=== PATIENT | female | born 1980 | race Caucasian/White ===

== ENCOUNTER → 2020-08-29 14:03 | Outpatient (REF) | payer BC, SELFPAY ==
--- NOTE | 2020-08-29 14:00 | CA_ITS ---
Transthoracic Echocardiogram Patient (Last, First, Middle): Karen Davies, Gender: Female Date of : 1980 Age: 39 Procedure Date: 08/29/2020 Procedure Type: Transthoracic Echocardiogram Location: OP Height: 157.48 cm Weight: 108.86 kg BSA: 2.07 m2 Heart Rate: bpm BP: 124 / 80 mmHg Animal Geneticist: SADA Referring MD: Pam CRUZ Senior Chemist: Clive Goldberg MD Symptoms: LVH, MILD Study Quality: Good ECG Rhythm: Sinus Conclusions: - 1. Normal LV systolic function with impaired relaxation filling pattern 2. Trivial aortic regurgitation 3. Normal RV systolic pressure 4. No pericardial effusion Findings Procedure Information Contrast agent, definity, is being given per protocol without apparent complications. Left Ventricle Normal left ventricular size, thickness, and systolic function. The visually estimated ejection fraction is between 65-70%. Spectral Doppler is indicative of an impaired relaxation filling pattern. E/E prime ratio is <8, consistent with normal filling pressures. Evidence suggests grade I (mild) diastolic dysfunction. Right Ventricle Normal right ventricular cavity size and systolic function. Atria Both atria are normal in size. There is lipomatous hypertrophy of the interatrial septum. There is no evidence of interatrial shunt. Aortic Valve The aortic valve structure and function is likely normal. There is no aortic valve stenosis. There is trace (trivial) aortic valve regurgitation. Mitral Valve There is moderate anterior mitral leaflet thickening. There is no mitral valve regurgitation. There is no mitral valve stenosis. Pulmonic Valve The pulmonic valve was not well visualized. Tricuspid Valve Likely normal tricuspid valve structure and function. There is trace tricuspid valve regurgitation. The right ventricular systolic pressure is normal. The right ventricular systolic pressure is 24 mmHg. Normal right atrial pressure. There is no evidence of pulmonary hypertension. Great Vessels All visible segments of the aorta are normal in size. The pulmonary artery was not well visualized. Venous The inferior vena cava is normal in size and collapses greater than 50% with inspiration. Pericardium/Pleural There is no evidence of pericardial effusion. Prior Study Comparison No prior study available for comparison. Measurements 2D Linear Measurements RVIDd: 3.39 RVIDd Index: 1.64 IVSd: 0.74 0.6-0.9/0.6-1.0 cm LVIDd: 4.47 3.9-5.3/4.2-5.9 cm LVIDd Index: 2.16 2.4-3.2/2.2-3.1 cm/m2 LVIDs: 2.83 2.0-3.6 cm LVPWd: 0.80 0.7-1.1 cm Ao Root: 3.30 2.1-3.5 cm LA Diam: 3.90 2.7-3.8/3.0-4.0 cm LAIDs Index: 1.88 1.5-2.3 cm/m2 LV Mass: 244.33 67-162/88-224 g LV Mass Index: 118.03 43-95/49-115 g/m2 LVOT Diam: 2.00 3.0+(-)1.3 cm 2D Systolic Function EF 4C: 72.30 >55% EF 2C: 50.20 >55% EF BiP: 63.10 >55% Mitral Valve E'Lateral: 13.40 E'Medial: 9.03 Aortic Valve AoV Pk Ryan: 1.61 AoV Mn Ryan: 1.09 AoV VTI: 0.27 AoV Pk Grad: 10.00 Aov Mn Grad: 5.00 DAVID Cont.VTI: 2.16 LVOT LVOT Pk Ryan: 1.16 LVOT Mn Ryan: 0.78 LVOT VTI: 0.18 LVOT Pk Grad: 5.00 LVOT Mn Grad: 3.00 LVOT Diam: 2.00 LVOT Area: 3.14 Diastolic Function E'Medial: 9.03 E' Laterial: 13.40 Tricuspid Valve TR Pk Ryan: 2.27 TR Pk Grad: 21.00 RA Press: 3.00 RVSP: 24.00 Great Vessels Aorta Ao Root-2D: 3.30 2.0-3.7 cm Ao Asc: 3.60 2.1-3.4 cm Ao Arch: 2.40 Updated in Other Vendor System with Status of Final Clive Goldberg MD electronically signed on 08/30/2020 2:57:18 PM with status of Final
== END ==
LOC: HO.CARD 14:03
PROVIDERS: Visit Provider Physician Assistant Medical
DX: I50.1 Left ventricular failure, unspecified (principal)
CPT/HCPCS: 93306; Q9957

== ENCOUNTER 2022-01-25 15:09 | Emergency (ER) | payer BC, SELFPAY ==
[2022-01-25] VITALS (10 sets, daily range): BP systolic 79–130; BP diastolic 28–82; PULSE 79–91; RESP 16–18; TEMP 36.7–37; O2SAT 98; BMI 45.3
--- NOTE | ~2022-01-25 | XR_ITS ---
EXAMINATION: XR chest 2V CLINICAL INFORMATION: Reason for Exam near syncope COMPARISON: No prior chest x-ray available in our system for comparison at the time of this dictation. TECHNIQUE: XR chest 2V Lungs and Chanelle: Both lungs are clear. Pleura: Normal. Costophrenic angles are sharp. No pneumothorax. Heart: The heart is normal in size. Mediastinum: The mediastinum is within normal limits.. Bones: Skeletal structures included are normal for patient's age. XR/XR chest 2V IMPRESSION: No radiographic evidence of acute cardiopulmonary disease.
--- NOTE | 2022-01-25 15:20 | ED_ITS ---
HPI - General Adult General Chief complaint: Syncope Stated complaint: LIGHTHEADED @ WORK,NEW MED RECENTLY PER EMS Time Seen by Provider: 01/25/22 15:13 Source: patient and EMS Mode of arrival: EMS Limitations: no limitations History of Present Illness HPI narrative: 41-year-old female with a history of syncopal episodes in the past here with reports of feeling lightheaded at work feeling like she was going to pass out. Patient tells me that she was sitting at her desk when she started to feel warm all over and lightheaded. Her co-worker was able to call EMS. On arrival the patient's blood pressure was 86 systolic. The patient denies any associated chest pain, shortness of breath, headache, vomiting. Patient tells me she has history of single episodes the past and this feels similar. Of note the patient is currently trying to get and started metformin twice daily about 2 weeks ago. She is currently being fall the fertility clinic at [facility] is also receiving closed med. Patient denies any abdominal pain, vaginal bleeding, vomiting. Related Data Home Medications Medication Instructions Recorded Confirmed levothyroxine 125 mcg tablet 125 mcg PO DAILY 04/24/21 lisinopril 10 mg tablet 10 mg PO DAILY 04/24/21 venlafaxine 150 mg 150 mg PO DAILY 04/24/21 capsule,extended release 24 hr Previous Rx's Medication Instructions Recorded prednisone 20 mg tablet 20 mg PO DAILY 9 Days #18 tab 04/24/21 Allergies Allergy/AdvReac Type Severity Reaction Status Date / Time amoxicillin Allergy Unknown Verified 01/25/22 15:28 loratadine [From Claritin] Allergy Unknown Verified 01/25/22 15:28 Review of Systems Review of Systems: Yes all other systems are reviewed and are negative Constitutional: Constitutional: Reports no additional constitutional complaints, Denies body ache(s), Denies chills, Denies fever(s), Denies headache(s) and Denies weakness Eyes: Eyes: Reports no additional eye complaints and Denies change in vision ENT: Reports system reviewed and no additional complaints, except as documented, Reports dizziness, Denies headache(s), Denies nasal congestion, Denies nasal discharge and Denies neck pain Cardiovascular: Cardiovascular: Reports no additional cardiovascular complaints, Denies chest pain, Denies leg edema and Denies dyspnea Respiratory: Respiratory: Reports no additional respiratory complaints, Denies cough and Denies dyspnea Gastrointestinal: Gastrointestinal: Reports no additional gastrointestinal complaints, Denies abdominal pain, Denies diarrhea, Denies nausea and Denies vomiting Genitourinary: Genitourinary: Reports no additional female genitourinary complaints and Denies urinary incontinence Musculoskeletal: Musculoskeletal: Reports no additional musculoskeletal complaints, Denies back pain, Denies arthralgias, Denies joint swelling, Denies neck pain, Denies numbness and Denies tingling Integumentary/Breasts: Skin/Breast: Reports system reviewed and no additional complaints, except as docu and Denies rash Neurologic: Reports system reviewed and no additional complaints, except as documented, Reports dizziness, Denies headache(s), Denies numbness, Denies tingling and Denies weakness PMFSH Past Medical History Attestation statement: The following information was validated with the patient. Source: old records reviewed and nursing notes reviewed Social History Social History Alcohol intake: never Patient Tobacco Use Status: Never used Tobacco Use of substances other than those prescribed or required for medical reasons: No Advance Directives: No Advance Directives Information Provided: No Physical Exam ED Vital Signs: Vital Signs - 24 hr 01/25/22 15:28 01/25/22 15:33 01/25/22 15:50 Temperature 98.0 F Pulse Rate 82 85 Respiratory Rate 18 Blood Pressure 79/28 L 94/54 L 106/67 Pulse Oximetry 98 98 01/25/22 16:10 01/25/22 16:38 01/25/22 16:40 Temperature Pulse Rate 82 91 Respiratory Rate Blood Pressure 103/70 104/67 130/82 Pulse Oximetry 01/25/22 16:42 01/25/22 17:17 Temperature Pulse Rate 88 79 Respiratory Rate 18 Blood Pressure 119/82 115/76 Pulse Oximetry 98 BMI result Body Mass Index 45.3 Const General: cooperative, healthy appearing, comfortable and no acute distress Orientation/consciousness: patient oriented x3 Limitations: no limitations HENMT Head: Yes normal to inspection Ears: hearing grossly normal bilaterally and TM's normal bilaterally General nose exam: Normal external nose present Face and sinus: Yes normal facial exam Mouth: Normal oral and palatal mucosa present Teeth and gingiva: dentition normal Throat: Yes posterior oropharynx normal, Yes tonsils normal and Yes uvula m idline Eyes General: appearance normal, both eyes and all related structures Pupils: Equal, round and reactive pupils present Neck Neck: Yes normal visual inspection, Yes full ROM, Yes no lymphadenopathy and Yes no meningeal signs Chest Chest palpation & inspection: normal inspection of the chest Resp Effort & Inspection: normal respiratory effort Auscultation: clear to auscultation bilaterally Cardio Rate: regular rate Rhythm: regular rhythm Peripheral pulses: Peripheral pulses 2+ throughout GI Inspection: Yes normal to inspection Palpation (GI): Soft to palpation and nontender General: Yes no CVA tenderness Back/Spine/Pelvis Back: no CVA tenderness Thoracic/Lumbar Spine: thoracic and lumbar spine normal to inspection Skin General skin exam: no rashes or lesions noted Neuro General: patient oriented x3, moves all extremities, no meningeal signs and U nable to assess gait Cranial nerves: Yes CN's II-XII intact bilaterally, Yes Equal, round and reactive pupils present, Yes Bilaterally intact EOM present, Yes Nystagmus not present, Yes Normal facial strength present and Yes Midline tongue present Cognition (Neuro): normal cognition Gait exam (Neuro): Unable to assess gait Motor exam (neuro): 5/5 motor strength present throughout Sensory Exam: Normal double simultaneous stimulation for sensation Coordination: [id number] test normal Course Course Course Narrative: 41 yo female here with near syncopal episode that occurred at work with some hypotension on arrival. Patient has history of similar episodes in the past. Normal neuro exam. Vitals are stable with the exception of blood pressure of 90 systolic. Patient feels improved with lying flat. Will check labs, orthostatic vital signs, UA, urine , EKG, chest x-ray. Will give normal saline bolus and reassess Reevaluation(s) Reevaluation #1: Labs unremarkable. Urine is negative. Patient orthostatics vital signs after she received 1500 cc of fluid and so these were negative. Her EKG shows no ischemic changes. Chest x-ray is normal. Patient tells me she has history of syncopal episodes in the past. Recommend she follow up outpatient with primary care doctor. Reviewed worrisome signs and symptoms of when to return to the emergency department. Comfortable discharge home. Time: 18:00 Medical Decision Making MDM Narrative Medical decision making narrative: Anemia, electrolyte abnormality, , orthostatic hypotension Medical Records Medical records reviewed: Yes I reviewed the patient's medical records. Lab Data Lab results reviewed: Yes I reviewed the patient's lab results. Result diagrams: 01/25/22 16:25 01/25/22 16:25 Labs: Lab Results 01/25/22 01/25/22 01/25/22 Range/Units 15:24 16:25 16:25 WBC 8.1 (4.8-10.8) X10*3/uL RBC 4.64 (4.20-5.50) X10*6/uL Hgb 11.3 L (12.0-16.0) g/dl Hct 36.9 L (37.0-47.0) % MCV 79.5 L (80.0-98.0) fL MCH 24.4 L (27.0-33.0) pg MCHC 30.6 L (31.0-35.0) g/dl RDW 13.8 (11.0-16.0) % Plt Count 313 (160-400) X10*3/uL MPV 10.1 (9.4-12.3) fL Immature Gran % (Auto) 0.2 (0.0-0.4) % Neut % (Auto) 81.8 H (45-73) % Lymph % (Auto) 11.7 L (20-40) % [place] % (Auto) 5.1 (2-11) % Eos % (Auto) 1.0 (0-4) % Baso % (Auto) 0.2 (0-2) % Lymph # (Auto) 1.0 L (1.2-4.9) X10*3/uL [place] # (Auto) 0.4 (0.1-1.2) X10*3/uL Eos # (Auto) 0.1 (0.0-0.4) X10*3/uL Baso # (Auto) 0.0 (0.0-0.2) X10*3/uL Abs Immat Gran (auto) 0.02 (0.00-0.03) X10*3/uL Absolute Neuts (auto) 6.6 (2.0-8.3) x10*3/uL Absolute Nucleated RBC 0.000 (0.0-0.012) X10*3/uL Nucleated RBC % (auto) 0.0 (0.0-0.2) /100WBC Sodium 136 (135-145) mmol/L Potassium 4.5 (3.3-5.1) mmol/L Chloride 106 (96-108) mmol/L Carbon Dioxide 22 (22-29) mmol/L Anion Gap 13 (12-20) BUN 23 H (9-16) mg/dL Creatinine 0.85 (0.5-1.4) mg/dL Estim Creat Clear Calc 99.3 Estimated GFR > 60 POC Glucose 103 (60-115) mg/dL Random Glucose 83 (60-115) mg/dL Calcium 9.2 (8.4-10.2) mg/dL Magnesium 1.6 (1.6-2.6) mg/dL Total Bilirubin 0.3 (0.0-1.0) mg/dL Direct Bilirubin < 0.2 (0.0-0.5) mg/dL AST 17 (5-31) U/L ALT 14 (0-31) U/L Alkaline Phosphatase 46 (39-117) U/L Troponin I High Sens (<3.5-17.0) ng/L Total Protein 7.5 (6.5-8.0) g/dL Albumin 3.8 (3.5-5.0) g/dL Urine Color Urine Appearance Urine pH (5.0-8.0) Ur Specific [place] (1.005-1.025) Urine Protein (NEG-TRACE) MG/DL Urine Glucose (UA) (NEG) MG/DL Urine Ketones (NEG) MG/DL Urine Blood (NEG) Urine Nitrite (NEG) Ur Leukocyte Esterase (NEG) Urine RBC (0) /HPF Urine WBC (0-4) /HPF Ur Squamous Epith Cells /LPF Urine Bacteria /LPF Urine Mucus /LPF Urine Test (NEGATIVE) 01/25/22 01/25/22 01/25/22 Range/Units 16:25 17:52 17:52 WBC (4.8-10.8) X10*3/uL RBC (4.20-5.50) X10*6/uL Hgb (12.0-16.0) g/dl Hct (37.0-47.0) % MCV (80.0-98.0) fL MCH (27.0-33.0) pg MCHC (31.0-35.0) g/dl RDW (11.0-16.0) % Plt Count (160-400) X10*3/uL MPV (9.4-12.3) fL Immature Gran % (Auto) (0.0-0.4) % Neut % (Auto) (45-73) % Lymph % (Auto) (20-40) % [place] % (Auto) (2-11) % Eos % (Auto) (0-4) % Baso % (Auto) (0-2) % Lymph # (Auto) (1.2-4.9) X10*3/uL [place] # (Auto) (0.1-1.2) X10*3/uL Eos # (Auto) (0.0-0.4) X10*3/uL Baso # (Auto) (0.0-0.2) X10*3/uL Abs Immat Gran (auto) (0.00-0.03) X10*3/uL Absolute Neuts (auto) (2.0-8.3) x10*3/uL Absolute Nucleated RBC (0.0-0.012) X10*3/uL Nucleated RBC % (auto) (0.0-0.2) /100WBC Sodium (135-145) mmol/L Potassium (3.3-5.1) mmol/L Chloride (96-108) mmol/L Carbon Dioxide (22-29) mmol/L Anion Gap (12-20) BUN (9-16) mg/dL Creatinine (0.5-1.4) mg/dL Estim Creat Clear Calc Estimated GFR POC Glucose (60-115) mg/dL Random Glucose (60-115) mg/dL Calcium (8.4-10.2) mg/dL Magnesium (1.6-2.6) mg/dL Total Bilirubin (0.0-1.0) mg/dL Direct Bilirubin (0.0-0.5) mg/dL AST (5-31) U/L ALT (0-31) U/L Alkaline Phosphatase (39-117) U/L Troponin I High Sens < 3.5 (<3.5-17.0) ng/L Total Protein (6.5-8.0) g/dL Albumin (3.5-5.0) g/dL Urine Color YELLOW Urine Appearance HAZY Urine pH 5.5 (5.0-8.0) Ur Specific [place] >= 1.030 H (1.005-1.025) Urine Protein TRACE (NEG-TRACE) MG/DL Urine Glucose (UA) NEG (NEG) MG/DL Urine Ketones 15 (NEG) MG/DL Urine Blood 1+ H (NEG) Urine Nitrite NEG (NEG) Ur Leukocyte Esterase TRACE H (NEG) Urine RBC 1-4 (0) /HPF Urine WBC 1-4 (0-4) /HPF Ur Squamous Epith Cells 2+ /LPF Urine Bacteria 3+ /LPF Urine Mucus 1+ /LPF Urine Test NEGATIVE (NEGATIVE) Imaging Data Chest x-ray: Attestation: I personally reviewed and interpreted this imaging study as follows: Radiologist's impression: [address] [address] XRay Report Signed Patient: Karen Davies MR#: [id number] : 1980 Acct:[id number] Age/Sex: 41 / F ADM Date: 01/25/22 Loc: .ED Attending Dr: Ordering Physician: Mely West NP Date of Service: 01/25/22 Procedure(s): XR chest 2V Accession Number(s): [id number] cc: Mely West NP~ EXAMINATION: XR chest 2V CLINICAL INFORMATION: Reason for Exam near syncope COMPARISON: No prior chest x-ray available in our system for comparison at the time of this dictation.? TECHNIQUE: XR chest 2V Lungs and Chanelle: Both lungs are clear. Pleura: Normal. Costophrenic angles are sharp. No pneumothorax. Heart: The heart is normal in size. Mediastinum: The mediastinum is within normal limits.. Bones: Skeletal structures included are normal for patient's age. XR/XR chest 2V IMPRESSION: No radiographic evidence of acute cardiopulmonary disease. ECG Data Attestation: I personally reviewed and interpreted this ECG as follows: Interpretation: Normal sinus rhythm with a rate 87, normal WA, normal QRS, normal QT Discharge Plan Discharge Clinical Impression: Near syncope Patient Disposition: Home, Self-Care Instructions: Near Syncope (ED) Additional Instructions: eat frequent small meals throughout the day Change positions slowly Increase fluids rest Follow-up with her primary care doctor Prescriptions: No Action lisinopril 10 mg tablet 10 mg PO DAILY 0RF levothyroxine 125 mcg tablet 125 mcg PO DAILY 0RF venlafaxine 150 mg capsule,extended release 24hr 150 mg PO DAILY 0RF prednisone 20 mg tablet 20 mg PO DAILY 9 Days Qty: 18 0RF Rx Instructions: 3 tabs/60mg for 3 days 2 tabs/40mg for 3 days 1 tab/20mg for 3 days Referrals: Cortes Cunha MD [Primary Care Provider] - 1 week Stand Alone Forms: Work/School Release
[2022-01-25 15:29] LABS: Glucose, Whole Blood 103 mg/dL (60-115)
--- NOTE | 2022-01-25 15:39 | ECG_ITS ---
Test Reason : SYNCOPE Blood Pressure : / mmHG Vent. Rate : 087 BPM Atrial Rate : 087 BPM P-R Int : 174 ms QRS Dur : 094 ms QT Int : 374 ms P-R-T Axes : 054 035 012 degrees QTc Int : 450 ms Normal sinus rhythm Normal ECG No previous ECGs available Referred By: Mely West Electronically Signed By:ERIC BUTLER MD
[2022-01-25] MEDS: 0.9 % Sodium Chloride 1,000 ML 999 ML IV (15:54)
[2022-01-25 16:29] LABS: MANUAL DIFF FLAG NO
[2022-01-25 16:39] LABS: Basophils Percent Auto 0.2 % (0-2); Eosinophils Absolute Auto 0.1 X10*3/uL (0.0-0.4); Hematocrit 36.9 % (37.0-47.0); Hemoglobin 11.3 g/dl (12.0-16.0); Imm Gran Abs Auto 0.02 X10*3/uL (0.00-0.03); Imm Gran Pct Auto 0.2 % (0.0-0.4); Lymphocytes Percent Auto 11.7 % (20-40); Mean Corpuscular HGB Conc 30.6 g/dl (31.0-35.0); Mean Corpuscular Hemoglobin 24.4 pg (27.0-33.0); Mean Corpuscular Volume 79.5 fL (80.0-98.0); Mean Platelet Volume 10.1 fL (9.4-12.3); Monocytes Absolute Auto 0.4 X10*3/uL (0.1-1.2); Monocytes Percent Auto 5.1 % (2-11); Neutrophils Absolute Auto 6.6 x10*3/uL (2.0-8.3); Neutrophils Percent Auto 81.8 % (45-73); Platelet Count 313 X10*3/uL (160-400); Red Blood Count 4.64 X10*6/uL (4.20-5.50); Red Cell Distribution Width 13.8 % (11.0-16.0); White Blood Count 8.1 X10*3/uL (4.8-10.8)
[2022-01-25 17:06] LABS: Alanine Aminotransferase 14 U/L (0-31); Albumin Level 3.8 g/dL (3.5-5.0); Alkaline Phosphatase 46 U/L (39-117); Anion Gap 13 (12-20); Aspartate Amino Transferase 17 U/L (5-31); Bilirubin Direct < 0.2 mg/dL (0.0-0.5); Bilirubin Total 0.3 mg/dL (0.0-1.0); Blood Urea Nitrogen 23 mg/dL (9-16); Calcium 9.2 mg/dL (8.4-10.2); Carbon Dioxide 22 mmol/L (22-29); Chloride 106 mmol/L (96-108); Creatinine Clr Calc Pharmacy 99.3; Estimated Glomerular Filt Rate > 60; Glucose Random 83 mg/dL (60-115); Magnesium 1.6 mg/dL (1.6-2.6); Potassium 4.5 mmol/L (3.3-5.1); Sodium 136 mmol/L (135-145); Total Protein 7.5 g/dL (6.5-8.0)
[2022-01-25 17:10] LABS: Troponin-I High Sensitivity < 3.5 ng/L (<3.5-17.0)
--- NOTE | 2022-01-25 17:17 | PC.NURSE ---
REPORTS FEELING BETTER, BP TOLERATES SITTING AT 45 DEGREES. WILL AMBULATE TO BR.
--- NOTE | 2022-01-25 17:20 | PC.NURSE ---
ambulates with steady gait.
[2022-01-25 17:59] LABS: Appearance Urine HAZY; Color Urine YELLOW; Glucose Urine UA NEG (NEG); Leukocyte Esterase Urine TRACE (NEG); Nitrite Urine NEG (NEG); PH 5.5 (5.0-8.0); Specific Gravity - Urine >= 1.030 (1.005-1.025); UACC Culture Trigger YES; Urine Blood 1+ (NEG); Urine Ketones 15 MG/DL (NEG); Urine Protein TRACE MG/DL (NEG-TRACE)
[2022-01-25 18:03] LABS: UPreg QC Valid YES; Urine Pregnancy NEGATIVE (NEGATIVE)
[2022-01-25 18:06] LABS: Bacteria Urine 3+ /LPF; Mucus Urine 1+ /LPF; Squamous Epithelial Cell Urine 2+ /LPF
== END 2022-01-25 19:22 | disposition home or self-care (01) ==
PROVIDERS: Nurse Practitioner Family; Emergency Provider Emergency Medicine; PCP Internal Medicine
DX: R55 Syncope and collapse (principal)
CPT/HCPCS: 36415; 71046; 80048; 80076; 81001; 81025; 82947; 83735; 84484; 85025; 87086; 93005; 96360; 99284

== ENCOUNTER 2025-07-05 14:46 | Emergency (ER) | payer BC, SELFPAY ==
[2025-07-05 14:53] VITALS: PULSE 110; RESP 16; TEMP 36.1; O2SAT 95; BMI 35.5
--- NOTE | 2025-07-05 15:00 | ED.GENADULT ---
[facility] - General Adult General Chief complaint: Psychiatric Symptoms Stated complaint: crisis Time Seen by Provider: 07/05/25 15:18 Source: patient Mode of arrival: ambulatory Limitations: no limitations History of Present Illness ED Provider: HPI narrative: A 4-year-old female with prior history of anxiety and depression, just lost her father and has had a hard time coping has not been sleeping, very anxious, states currently I have. Pain however I am happy I am in pain physical as well as mental. No SI or HI. Related Data Home Medications ?Medication ?Instructions ?Recorded ?Confirmed levothyroxine 125 mcg tablet 125 mcg PO DAILY 04/24/21 07/05/25 lisinopril 10 mg tablet 10 mg PO DAILY 04/24/21 07/05/25 venlafaxine 150 mg 150 mg PO DAILY 04/24/21 07/05/25 capsule,extended release 24 hr ferrous sulfate 325 mg (65 mg 325 mg PO DAILY 07/05/25 07/05/25 iron) tablet metformin 500 mg tablet 500 mg PO DAILY 07/05/25 07/05/25 norethindrone (contraceptive) 0.35 0.35 mg PO DAILY 07/05/25 07/05/25 mg tablet Allergies Allergy/AdvReac Type Severity Reaction Status Date / Time amoxicillin Allergy Unknown Verified 07/05/25 14:53 loratadine (From Claritin) Allergy Unknown Verified 07/05/25 14:53 Review of Systems Constitutional: Constitutional: Reports as per [facility] Social History Social History (System 08/05/22 @ 10:07 by Shukri Rogers) Alcohol intake: never Patient Tobacco Use Status: Never used Tobacco Smoked in Last 30 Days: No Use of substances other than those prescribed or required for medical reasons: No Advance Directives: No Advance Directives Information Provided: Yes Physical Exam ED Vital Signs: Vital Signs - 24 hr 07/05/25 14:53 07/05/25 18:15 07/05/25 21:54 Temperature 97.0 F 98.5 F 98.5 F Pulse Rate 110 H 114 H 114 H Respiratory Rate 16 16 16 Blood Pressure 109/82 109/82 Pulse Oximetry 95 98 98 Oxygen Delivery Method Room Air Room Air Room Air BMI result Body Mass Index 35.5 Const Other: Gen: ?Overall well-appearing patient, anxious affect Resp: ?No wheezing rales rhonchi no stridor moving air well MSK: FROM, strength 5/5 all extremities Skin: Warm, dry, intact, Neuro: ?Alert and oriented x3, moving upper and lower extremities symmetrically, no obvious facial asymmetry noted Course Course Course Narrative: RME: 44 yold female presents to the ED for difficulty coping with her father's which occurred over the past weekend. Patient is depressed but not suicidal. Labs care team consult placed Reevaluation(s) Reevaluation #1: 3:43 PM 07/05/2025 (Dr. Jayson Bernal): HCP invoked d/t dementia Reevaluation #2: Crisis evaluated patient at bedside and identifies the patient is experiencing significant anxiety and grief over recent loss of her father. Crisis also reach out to the who states that his just needs some support in the outpatient setting and that he is okay with her being discharged and he will provide transportation. The patient has no SI/HI, crisis is setting up a partial program for the patient, patient is also on board with the plan. There have been no acute events, patient otherwise appears well and nontoxic. Time: 21:26 Date: 07/05/25 Provider: Radha Rico MD Physician observation ended at 2155. Patient has been cleared for discharge by the CARE team. Will follow up as an outpatient. Time: 21:24 Medications Administered Discontinued Medications Generic Name Dose Route Start Last Admin Trade Name Freq PRN Reason Stop Dose Admin Olanzapine 10 mg 07/05/25 15:25 07/05/25 15:37 Olanzapine 10 Mg Tablet PO 07/05/25 15:26 10 mg ONCE ONE Administration Medical Decision Making Medical Decision Making [facility] Narrative: Time: 15:41 Date: 07/05/25 Provider: Jayson Bernal DO Presenting with anxiety relating to her that father's , has been having a hard time sleeping, reports not sleeping for the past 2 days, no SI or HI or drug use reported however Differential Diagnosis Differential Diagnoses: The differential diagnosis associated with the presentation includes (SI, HI, drug use, alcohol use,) Consult Healthcare Provider Management of the patient was discussed with: Behavioral Health Provider Lab Data MDM Lab Attestation statement: I reviewed the patient's lab results. 07/05/25 15:14 07/05/25 15:14 Labs: Lab Results 07/05/25 07/05/25 Range/Units 15:14 17:01 WBC 7.2 (4.8-10.8) X10*3/uL RBC 4.70 (4.20-5.50) X10*6/uL Hgb 13.2 (12.0-16.0) g/dl Hct 39.5 (37.0-47.0) % MCV 84.0 (80.0-98.0) fL MCH 28.1 (27.0-33.0) pg MCHC 33.4 (31.0-35.0) g/dl RDW 12.1 (11.0-16.0) % Plt Count 333 (160-400) X10*3/uL MPV 8.9 L (9.4-12.3) fL Immature Gran % (Auto) 0.4 (0.0-0.4) % Neut % (Auto) 70.0 (45-73) % Lymph % (Auto) 21.4 (20-40) % [place] % (Auto) 6.5 (2-11) % Eos % (Auto) 1.3 (0-4) % Baso % (Auto) 0.4 (0-2) % Lymph # (Auto) 1.5 (1.2-4.9) X10*3/uL [place] # (Auto) 0.5 (0.1-1.2) X10*3/uL Eos # (Auto) 0.1 (0.0-0.4) X10*3/uL Baso # (Auto) 0.0 (0.0-0.2) X10*3/uL Abs Immat Gran (auto) 0.03 (0.00-0.03) X10*3/uL Absolute Neuts (auto) 5.0 (2.0-8.3) x10*3/uL Absolute Nucleated RBC 0.000 (0.0-0.012) X10*3/uL Nucleated RBC % (auto) 0.0 (0.0-0.2) /100WBC Sodium 138 (135-145) mmol/L Potassium 3.9 (3.3-5.1) mmol/L Chloride 108 (96-108) mmol/L Carbon Dioxide 23 (22-29) mmol/L Anion Gap 11 L (12-20) BUN 19 H (9-16) mg/dL Creatinine 0.79 (0.5-1.4) mg/dL Estim Creat Clear Calc 108.3 Estimated GFR > 60 Random Glucose 103 (60-115) mg/dL Calcium 9.3 (8.4-10.2) mg/dL Total Bilirubin 0.4 (0.0-1.0) mg/dL AST 26 (5-31) U/L ALT 13 (0-31) U/L Alkaline Phosphatase 61 (39-117) U/L Total Protein 8.0 (6.5-8.0) g/dL Albumin 4.3 (3.5-5.0) g/dL Urine Color Yellow Urine Appearance Cloudy Urine pH 5.5 (5.0-9.0) Ur Specific [place] >= 1.030 H (1.005-1.025) Urine Protein 30 (1+) H (Neg-Trace) mg/dL Urine Glucose (UA) Negative (Negative) mg/dL Urine Ketones Trace (Negative) mg/dL Urine Blood Large (3+) H (Negative) Urine Nitrite Negative (Negative) Ur Leukocyte Esterase Trace H (Negative) Urine RBC 11-20 H (0-2) /HPF Urine WBC 0-5 (0-5) /HPF Ur Squamous Epith Cells 11-20 (0-2) /HPF Urine Bacteria 2+ (None Seen) Hyaline Casts 0-2 (0-2) /LPF Urine Test NEGATIVE (NEGATIVE) Urine Opiates Screen Not Detected (Not Detect) Ur Buprenorphine Scrn Not Detected (Not Detect) ng/mL Ur Oxycodone Screen Not Detected (Not Detect) ng/mL Urine Methadone Screen Not Detected (Not Detect) ng/mL Urine Fentanyl Screen Not Detected (Not Detect) Ur Barbiturates Screen Not Detected (Not Detect) Ur Phencyclidine Scrn Not Detected (Not Detect) Ur Amphetamines Screen Not Detected (Not Detect) U Benzodiazepines Scrn Not Detected (Not Detect) Urine Cocaine Screen Not Detected (Not Detect) U Marijuana (THC) Screen Not Detected (Not Detect) Ethyl Alcohol < 10 mg/dL Independent Historian Clinical information obtained from an independent historian. History obtained from or confirmed by: Spouse Discharge Plan Discharge Clinical Impression: Acute anxiety, Grief reaction Patient Disposition: Home, Self-Care Instructions: Grief and Loss (ED), Anxiety (ED) Additional Instructions: You were seen in our Emergency Department today for treatment of a behavioral health issue. It is important after your visit that you follow up with either your behavioral health provider or a primary care doctor within 7 days.? If you have trouble finding a therapist you can reach out to [place] [phone] The [place] [facility] can be reached 7 days a week 24 hours a day.? Call [phone] to speak with someone.? Return for any worsening symptoms or concerns such as thoughts of self harm or harm to others. Please call 911 if you feel your mental health is worsening.? Prescriptions: No Action metformin 500 mg tablet 500 mg PO DAILY ferrous sulfate 325 mg (65 mg iron) tablet 325 mg PO DAILY norethindrone (contraceptive) 0.35 mg tablet 0.35 mg PO DAILY lisinopril 10 mg tablet 10 mg PO DAILY levothyroxine 125 mcg tablet 125 mcg PO DAILY venlafaxine 150 mg capsule,extended release 24hr 150 mg PO DAILY Referrals: Cortes Cunha MD [Primary Care Provider, Medical] Interventions: [place]-Suicide Risk Severity Scale Last Done: 07/05/25 15:22 ED Discharge Assessment Last Done: 07/05/25 21:54 Discharge Date/Time: 07/05/25 21:56 Print Language: Setswana
[2025-07-05 15:18] LABS: MANUAL DIFF FLAG NO
[2025-07-05 15:22] LABS: Hematocrit 39.5 % (37.0-47.0); Hemoglobin 13.2 g/dl (12.0-16.0); Imm Gran Abs Auto 0.03 X10*3/uL (0.00-0.03); Imm Gran Pct Auto 0.4 % (0.0-0.4); Lymphocytes Absolute Auto 1.5 X10*3/uL (1.2-4.9); Mean Corpuscular HGB Conc 33.4 g/dl (31.0-35.0); Mean Corpuscular Hemoglobin 28.1 pg (27.0-33.0); Mean Corpuscular Volume 84.0 fL (80.0-98.0); NRBC Abs Auto 0.000 X10*3/uL (0.0-0.012); NRBC Pct Auto 0.0 /100WBC (0.0-0.2); Platelet Count 333 X10*3/uL (160-400); Red Blood Count 4.70 X10*6/uL (4.20-5.50); White Blood Count 7.2 X10*3/uL (4.8-10.8)
--- NOTE | 2025-07-05 15:27 | MHC.EDTECH ---
Pt changed over in family room. Belongings searched and secured by security. 3 bags located in Locker 5
[2025-07-05 15:40] LABS: Alanine Aminotransferase 13 U/L (0-31); Albumin Level 4.3 g/dL (3.5-5.0); Alkaline Phosphatase 61 U/L (39-117); Anion Gap 11 (12-20); Aspartate Amino Transferase 26 U/L (5-31); Blood Urea Nitrogen 19 mg/dL (9-16); Calcium 9.3 mg/dL (8.4-10.2); Carbon Dioxide 23 mmol/L (22-29); Chloride 108 mmol/L (96-108); Creatinine Clr Calc Pharmacy 108.3; Estimated Glomerular Filt Rate > 60; Potassium 3.9 mmol/L (3.3-5.1); Sodium 138 mmol/L (135-145); Total Protein 8.0 g/dL (6.5-8.0)
[2025-07-05 17:13] LABS: Appearance Urine Cloudy; Glucose Urine UA Negative (Negative); PH 5.5 (5.0-9.0); Specific Gravity - Urine >= 1.030 (1.005-1.025); UMIC TRIGGER UACC YES
[2025-07-05 17:15] LABS: UPreg QC Valid YES
[2025-07-05 17:20] LABS: Cannabinoid Screen Urine Not Detected (Not Detect)
[2025-07-05 18:15] VITALS: BP 109/82; PULSE 114; RESP 16; TEMP 36.9; O2SAT 98
--- NOTE | 2025-07-05 19:15 | PC.NURSE ---
Assumed care of patient at 1845, patient calm and cooperative, laying in bed, no apparent distress noted. Continue plan of care for CARE team nova
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
--- OUTSIDE RECORDS SUMMARY | 2025-07-05 19:22 | XMS_ITS ---
Author Name [facility] Organization Unknown Care Team Organization Name Specialty Phone Email Start Date End Da te [facility] Primary [facility] 08/26/2022 06/06/2024
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
[2025-07-05 21:54] VITALS: BP 109/82; PULSE 114; RESP 16; TEMP 36.9; O2SAT 98
--- NOTE | 2025-07-06 16:20 | MHC.CARE ---
Rad Team emailed PHP referral for this pt. Will follow up tomorrow
== END 2025-07-05 21:56 | disposition home or self-care (01) ==
PROVIDERS: Physician Assistant; Emergency Provider Emergency Medicine; PCP Internal Medicine
DX: F33.1 Major depressive disorder, recurrent, moderate (principal); F41.9 Anxiety disorder, unspecified; F43.21 Adjustment disorder with depressed mood; Z79.899 Other long term (current) drug therapy; Z51.81 Encounter for therapeutic drug level monitoring
CPT/HCPCS: 36415; 80053; 80307; 81001; 81025; 85025; 99284; S9485

== ENCOUNTER 2025-07-07 07:40 | Inpatient (IN) | payer BC, SELFPAY ==
[2025-07-07 07:49] VITALS: BP 91/64; PULSE 102; RESP 18; TEMP 37; O2SAT 99; BMI 45.7
--- NOTE | 2025-07-07 07:50 | ED.PSYCH ---
HPI - Psych General Chief Complaint: Psychiatric Symptoms Stated Complaint: Mental Health Issues Time Seen by Provider: 07/07/25 07:41 Source: patient and old records reviewed Mode of arrival: ambulatory Limitations: no limitations History of Present Illness ED Provider: KAYODE SMITH Narrative: 44 yo female with PMH of hypothyroidism, anxiety, depression, Fe deficiency here with c/o being depressed with anxiety, not sleeping. No SI/HI. 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 She states she can't stop crying. She was just seen and cleared by our CARE team this week for same complaint but then states she is masking her symptoms . She has no therapist but lives with her and feels safe at home. She is compliant with her medications. She has never gone inpatient before. MD complaint: feels depressed and anxiety Onset (ago): week(s) (1) Duration: constant History of same: Yes Relieving factors: none Exacerbating factors: other Context: significant life stressor Associated psychiatric symptoms: depression Associated symptoms: denies other symptoms Treatments prior to arrival: none Related Data Home Medications ?Medication ?Instructions ?Recorded ?Confirmed levothyroxine 125 mcg tablet 125 mcg PO DAILY 04/24/21 07/07/25 venlafaxine 150 mg 150 mg PO DAILY 04/24/21 07/07/25 capsule,extended release 24 hr ferrous sulfate 325 mg (65 mg 325 mg PO DAILY 07/05/25 07/07/25 iron) tablet metformin 500 mg tablet 500 mg PO DAILY 07/05/25 07/07/25 norethindrone (contraceptive) 0.35 0.35 mg PO DAILY 07/05/25 07/07/25 mg tablet lisinopril 2.5 mg tablet 2.5 mg PO DAILY 07/07/25 07/07/25 Allergies Allergy/AdvReac Type Severity Reaction Status Date / Time amoxicillin Allergy Unknown Verified 07/07/25 07:53 loratadine (From Claritin) Allergy Unknown Verified 07/07/25 07:53 Review of Systems Review of Systems: Constitutional : No Fever, No Chills ENT/Mouth : No Ear Pain, No Nasal Congestion, No sore throat Eyes: No Eye Pain, No Swelling, No Redness Cardiovascular : No Chest Pain, No SOB Respiratory : No Cough, No Sputum, No Dyspnea Gastrointestinal : No Nausea, No Vomiting, No Diarrhea, No Hematochezia, No Melena Genitourinary : No Dysuria, No Urinary Frequency, No Hematuria Musculoskeletal : No Myalgias Skin : No Skin Lesions, No rash Neuro : No Weakness, No Numbness, No Paresthesias, No Dizziness, No Headache Psych : positive Anxiety, positive Depression, no SI/HI All other systems reviewed and are negative [facility] Past Medical History Attestation statement: The following information was validated with the patient. Source: old records reviewed Medical History Anxiety and depression Hypothyroidism Social History Social History Alcohol intake: never Patient Tobacco Use Status: Never used Tobacco Advance Directives: No Advance Directives Information Provided: Yes Physical Exam Vital Signs: Vital Signs: Last Vital Signs Temp 97.5 F 07/07/25 14:17 Pulse 103 H 07/07/25 14:17 Resp 18 07/07/25 14:17 BP 137/88 07/07/25 14:17 Pulse Ox 98 07/07/25 14:17 O2 Del Method Room Air 07/07/25 14:17 BMI result Body Mass Index 45.7 Appearance: Alert. Oriented X3. No acute distress. anxiety, hyperverbal, tangential Eyes: Pupils equal, round and reactive to light. ENT: Pharynx normal. Neck: Normal inspection. Neck supple. CVS: Normal heart rate and rhythm. Pulses normal. Respiratory: No respiratory distress. Breath sounds normal. Abdomen: Soft and nontender. Skin: Skin warm and dry. Normal skin color. Extremities: No lower extremity edema. Neuro: Oriented X 3. No motor deficit. No sensory deficit. cranial nerve exam not applicable Course Reevaluation(s) Reevaluation #1: Time: 15:27 Date: 07/07/25 Provider: Latonya Sheth DO Physician observation ended at 327pm. Patient to be admitted as inpatient to psychiatry. Medical Decision Making Medical Decision Making MDM Narrative: 44 yo female with PMH of hypothyroidism, anxiety, depression, Fe deficiency here with c/o here with c/o being depressed and anxious not sleepin, crying after loss of her father. She has no SI/HI. She is hyperverbal at this time labs and CARE team consult ordered. Differential Diagnosis Differential Diagnoses: The differential diagnosis associated with the presentation includes anxiety, grief reaction Admission/Observation Consideration of admission/observation: Escalation of care including admission/observation considered physician observation started at 751am Consult Healthcare Provider Management of the patient was discussed with: Behavioral Health Provider Lab Data [facility] Lab Attestation statement: I reviewed the patient's lab results. 07/07/25 07:57 07/07/25 07:57 Labs: Lab Results 07/07/25 07/07/25 Range/Units 07:57 09:26 WBC 7.1 (4.8-10.8) X10*3/uL RBC 4.72 (4.20-5.50) X10*6/uL Hgb 13.4 (12.0-16.0) g/dl Hct 40.1 (37.0-47.0) % MCV 85.0 (80.0-98.0) fL MCH 28.4 (27.0-33.0) pg MCHC 33.4 (31.0-35.0) g/dl RDW 12.1 (11.0-16.0) % Plt Count 329 (160-400) X10*3/uL MPV 9.2 L (9.4-12.3) fL Immature Gran % (Auto) 0.3 (0.0-0.4) % Neut % (Auto) 62.9 (45-73) % Lymph % (Auto) 25.7 (20-40) % [place] % (Auto) 8.4 (2-11) % Eos % (Auto) 2.1 (0-4) % Baso % (Auto) 0.6 (0-2) % Lymph # (Auto) 1.8 (1.2-4.9) X10*3/uL [place] # (Auto) 0.6 (0.1-1.2) X10*3/uL Eos # (Auto) 0.2 (0.0-0.4) X10*3/uL Baso # (Auto) 0.0 (0.0-0.2) X10*3/uL Abs Immat Gran (auto) 0.02 (0.00-0.03) X10*3/uL Absolute Neuts (auto) 4.5 (2.0-8.3) x10*3/uL Absolute Nucleated RBC 0.000 (0.0-0.012) X10*3/uL Nucleated RBC % (auto) 0.0 (0.0-0.2) /100WBC Sodium 137 (135-145) mmol/L Potassium 4.3 (3.3-5.1) mmol/L Chloride 105 (96-108) mmol/L Carbon Dioxide 25 (22-29) mmol/L Anion Gap 11 L (12-20) BUN 18 H (9-16) mg/dL Creatinine 0.76 (0.5-1.4) mg/dL Estim Creat Clear Calc 112.5 Estimated GFR > 60 Random Glucose 90 (60-115) mg/dL Calcium 9.6 (8.4-10.2) mg/dL Magnesium 1.7 (1.6-2.6) mg/dL Total Bilirubin 0.6 (0.0-1.0) mg/dL Direct Bilirubin 0.2 (0.0-0.5) mg/dL AST 31 (5-31) U/L ALT 16 (0-31) U/L Alkaline Phosphatase 64 (39-117) U/L Total Protein 8.3 H (6.5-8.0) g/dL Albumin 4.4 (3.5-5.0) g/dL TSH 1.08 (0.32-4.0) uIU/mL Beta HCG, Quant < 2 mIU/mL Urine Color Yellow Urine Appearance Cloudy Urine pH 5.5 (5.0-9.0) Ur Specific [place] >= 1.030 H (1.005-1.025) Urine Protein Trace (Neg-Trace) mg/dL Urine Glucose (UA) Negative (Negative) mg/dL Urine Ketones Trace (Negative) mg/dL Urine Blood Large (3+) H (Negative) Urine Nitrite Negative (Negative) Ur Leukocyte Esterase Small (1+) H (Negative) Urine RBC 11-20 H (0-2) /HPF Urine WBC 6-10 H (0-5) /HPF Ur Squamous Epith Cells >20 (0-2) /HPF Urine Bacteria 4+ (None Seen) Hyaline Casts 0-2 (0-2) /LPF Urine Test NEGATIVE (NEGATIVE) Urine Opiates Screen Not Detected (Not Detect) Ur Buprenorphine Scrn Not Detected (Not Detect) ng/mL Ur Oxycodone Screen Not Detected (Not Detect) ng/mL Urine Methadone Screen Not Detected (Not Detect) ng/mL Urine Fentanyl Screen Not Detected (Not Detect) Ur Barbiturates Screen Not Detected (Not Detect) Ur Phencyclidine Scrn Not Detected (Not Detect) Ur Amphetamines Screen Not Detected (Not Detect) U Benzodiazepines Scrn Not Detected (Not Detect) Urine Cocaine Screen Not Detected (Not Detect) U Marijuana (THC) Screen Not Detected (Not Detect) External Record Review External record reviewed: Outpatient record Discharge Plan Discharge Clinical Impression: Depression Patient Disposition: Admitted As Inpatient Interventions: Royal-Suicide Risk Severity Scale Last Done: 07/07/25 08:41
[2025-07-07 08:03] LABS: MANUAL DIFF FLAG NO
[2025-07-07 08:04] LABS: Hematocrit 40.1 % (37.0-47.0); Hemoglobin 13.4 g/dl (12.0-16.0); Imm Gran Abs Auto 0.02 X10*3/uL (0.00-0.03); Imm Gran Pct Auto 0.3 % (0.0-0.4); Lymphocytes Absolute Auto 1.8 X10*3/uL (1.2-4.9); Mean Corpuscular HGB Conc 33.4 g/dl (31.0-35.0); Mean Corpuscular Hemoglobin 28.4 pg (27.0-33.0); Mean Corpuscular Volume 85.0 fL (80.0-98.0); NRBC Abs Auto 0.000 X10*3/uL (0.0-0.012); NRBC Pct Auto 0.0 /100WBC (0.0-0.2); Platelet Count 329 X10*3/uL (160-400); Red Blood Count 4.72 X10*6/uL (4.20-5.50); White Blood Count 7.1 X10*3/uL (4.8-10.8)
[2025-07-07 08:36] LABS: Alanine Aminotransferase 16 U/L (0-31); Albumin Level 4.4 g/dL (3.5-5.0); Alkaline Phosphatase 64 U/L (39-117); Anion Gap 11 (12-20); Aspartate Amino Transferase 31 U/L (5-31); Blood Urea Nitrogen 18 mg/dL (9-16); Calcium 9.6 mg/dL (8.4-10.2); Carbon Dioxide 25 mmol/L (22-29); Chloride 105 mmol/L (96-108); Creatinine Clr Calc Pharmacy 112.5; Estimated Glomerular Filt Rate > 60; Magnesium 1.7 mg/dL (1.6-2.6); Potassium 4.3 mmol/L (3.3-5.1); Sodium 137 mmol/L (135-145); Total Protein 8.3 g/dL (6.5-8.0)
--- OUTSIDE RECORDS SUMMARY | 2025-07-07 08:54 | XMS_ITS | Encounter Summary ---
Author Organization [facility] Address [address] [place] [address] Care Team Providers Care Settlement Technician Name Role Phone Cortes Cunha MD Primary Care Provider [phone] Reason for Visit * Reason Onset Date Comments grief 07/05/2025 Encounter Details Date Type Department Care Team (Late st Contact Info) Description 07/05/2025 Telephone Adult Medicine [id number] [place] [phone] Cortes Cunha MD [address] [place] [address] Social History Tobacco Use Types Packs/Day Years [...] traveled recently to another state outside of [place], [place], [place], [place], [place], [place], [place]? no o If yes, did you [...] of accident/Injury: No If yes, gather 3rd green party insurance information Third Republican Information: not applicable PCP: Cortes Cunha MD Payor: [facility] / Plan: [facility] H[facility] / Product Type: *No Product type* / documented in this encounter Plan of Treatment Upcoming Encounters Date Type Department Care Team (Late st Contact Info) Description 07/24/2025 9:00 AM EDT Office Visit Adult Medicine [address] [address] Cortes Cunha MD [address] [place] [address] documented as of this encounter Visit Diagnoses Not on filedocumented in this encounter Care Teams Settlement Technician Relationship Specialty Start Date End Date Cortes Cunha MD [address] [place] [address] PCP - General 12/17/01 documented as of this encounter
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
[2025-07-07 09:05] VITALS: PULSE 102
--- NOTE | 2025-07-07 09:16 | MHC.CARE ---
Pt meets the criteria for IPLOC. Section 12a in chart. ED provider in agreement.
[2025-07-07 09:36] LABS: Appearance Urine Cloudy; Glucose Urine UA Negative (Negative); PH 5.5 (5.0-9.0); Specific Gravity - Urine >= 1.030 (1.005-1.025); UMIC TRIGGER UACC YES; UPreg QC Valid YES
[2025-07-07 09:39] LABS: UACC Culture Trigger YES
[2025-07-07 09:53] LABS: Cannabinoid Screen Urine Not Detected (Not Detect)
[2025-07-07 14:17] VITALS: BP 137/88; PULSE 103; RESP 18; TEMP 36.4; O2SAT 98
[2025-07-07 16:35] VITALS: BP 144/95; PULSE 84; RESP 16; TEMP 36.7; O2SAT 95
[2025-07-07 18:24] VITALS: BMI 43.0
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
[2025-07-07 20:00] VITALS: BP 138/86; PULSE 104; RESP 16; TEMP 36.6; O2SAT 95
[2025-07-07] MEDS: Flu Vacc TS2025-26(6mo up)/PF 0.5 ML SYRINGE IM (22:04)
[2025-07-08 08:10] VITALS: BP 132/84; RESP 20; TEMP 36.9; O2SAT 99
[2025-07-08] MEDS: Venlafaxine HCl ER 150 MG CAP.ER.24H PO (08:37)
[2025-07-08] MEDS: Ferrous Sulfate 324 MG TABLET.DR PO (08:37)
[2025-07-08 08:52] LABS: Cholesterol 150 mg/dL (<200); HDL Cholesterol 34 mg/dL (>40); Hemoglobin A1C 137.4118 umol/L; Total Hemoglobin (HGBA1C) 3499.5983 umol/L; Triglycerides 81 mg/dL (<150)
[2025-07-08 09:07] LABS: Free T4 (Free Thyroxine) 1.11 ng/dL (0.71-1.85); Thyroid Stimulating Hormone 0.86 uIU/mL (0.32-4.0)
[2025-07-08 09:22] LABS: Folate 12.5 ng/mL (> or = 4.0); Vitamin B12 404 pg/mL (200-900)
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
[2025-07-08 20:00] VITALS: BP 147/84; PULSE 100; RESP 16; TEMP 36.9; O2SAT 97
[2025-07-09 08:20] VITALS: BP 130/78; PULSE 105; RESP 14; TEMP 36.4; O2SAT 98
[2025-07-09] MEDS: Venlafaxine HCl ER 150 MG CAP.ER.24H PO (08:23)
[2025-07-09] MEDS: Ferrous Sulfate 324 MG TABLET.DR PO (08:23)
--- NOTE | 2025-07-09 12:06 | HO.PSYCHPN ---
Subjective Subjective Date of Service: 07/09/25 Reason For Visit: adjustment d/o Interim History: Patient reports she is feeling better. She still has some racing thoughts but better and her sleep was disrupted because of her roommate and she had to sleep in a separate area. Talkative. Overinclusive. Tolerating the Zyprexa well. She goes on to say her father's wake is happening this week and the is not until next week. She thinks this is one of the reasons she is having this episode because I didn't know how I would deal with it. This loss also triggered her feelings of loss of her embryo. Patient and were trying IVF a few years ago. She is happy she is here and getting help. Doesn't want to leave prematurely. Denies SI/HI/AVH. is visiting today. She showered. Review of Systems Review of Systems Constitutional : No Fever, No Chills ENT/Mouth : No Ear Pain, No Nasal Congestion, No sore throat Eyes: No Eye Pain, No Swelling, No Redness Cardiovascular : No Chest Pain, No SOB Respiratory : No Cough, No Sputum, No Dyspnea Gastrointestinal : No Nausea, No Vomiting, No Diarrhea, No Hematochezia, No Melena Genitourinary : No Dysuria, No Urinary Frequency, No Hematuria Musculoskeletal : No Myalgias Skin : No Skin Lesions, No rash Neuro : No Weakness, No Numbness, No Paresthesias, No Dizziness, No Headache Psych : positive Anxiety, positive Depression, no SI/HI All other systems reviewed and are negative Mental Status Exam Mental Status Exam Narrative: General appearance: casually appropriate dress. Good hygiene.? Eye contact: WNL. Musculoskeletal: Restless.? Manner/behavior: cooperative and not guarded Speech:? Pressured Language: No receptive or expressive language impairment? Mood: Erratic. Affect: Variable. Elated at times. Congruent to mood and without lability? Thought process/associations: Flight of ideas. Circumstantial. Overinclusive Thought content:?No delusions or paranoia.?? Hallucinations: No auditory, visual or other hallucinations Suicidality/self-destructive behavior: none, future oriented, hopeful.? ? Homicidally/violence: none.? Reliability: good.? ? Judgment: preserved.? ? Insight: preserved Cognition: Alert and oriented to time, place and person. Attention, concentration and fund of knowledge are normal.? Impulse control and emotional regulation: preserved. Intelligence estimate: average.? Diagnostics Vital Signs (24Hr): Vital Signs - 24 hr 07/08/25 20:00 07/09/25 08:20 Temperature 98.5 F 97.6 F Pulse Rate 100 105 H Respiratory Rate 16 14 Blood Pressure 147/84 H 130/78 Pulse Oximetry 97 98 Oxygen Delivery Method Room Air BMI result Body Mass Index 43.0 Labs 07/07/25 07:57 07/07/25 07:57 Labs: Laboratory Results - last 48 hr 07/08/25 08:12 Estimat Average Glucose 117 Hemoglobin A1c % 5.7 Triglycerides 81 Cholesterol 150 LDL Cholesterol, Calc 100 H HDL Cholesterol 34 L Vitamin B12 404 Folate 12.5 TSH 0.86 Free T4 1.11 Medications Medications Current Medications Acetaminophen (Acetaminophen 325 Mg Tablet) 650 mg PO Q6H PRN PRN Reason: Headache/Pain, Scale 1-10 Al Hydroxide/Mg Hydroxide (Magnesium Hydrox/Alum Hydrox 30 Ml Oral.Susp) 30 ml PO Q6H PRN PRN Reason: Heartburn/Nausea Ferrous Sulfate (Ferrous Sulfate 324 Mg Tablet.) 324 mg PO DAILY [facility] Last Admin: 07/09/25 08:23 Dose: 324 mg Hydroxyzine HCl (Hydroxyzine Hcl 25 Mg Tablet) 25 mg PO Q6H PRN PRN Reason: mild anxiety Last Admin: 07/07/25 22:23 Dose: 25 mg Levothyroxine Sodium (Levothyroxine Sodium 125 Mcg Tablet) 125 mcg PO DAILY@0630 [facility] Last Admin: 07/09/25 06:19 Dose: 125 mcg Lisinopril (Lisinopril 2.5 Mg Tablet) 2.5 mg PO DAILY [facility]; Protocol Last Admin: 07/09/25 08:23 Dose: 2.5 mg Magnesium Hydroxide (Milk Of Magnesia 30 Ml Oral.Susp) 30 ml PO DAILY PRN PRN Reason: Constipation Metformin HCl (Metformin Hcl 500 Mg Tablet) 500 mg PO DAILY [facility] Last Admin: 07/09/25 08:23 Dose: 500 mg Nicotine Polacrilex (Nicotine Polacrilex 2 Mg Gum) 2 mg BUCCAL Q2H PRN PRN Reason: Nicotine Cravings Non-Formulary Medication (Norethindrone (Contraceptive)) 0.35 mg PO DAILY [facility] Olanzapine (Olanzapine 5 Mg Tablet) 5 mg PO TID PRN PRN Reason: agitation Last Admin: 07/08/25 23:47 Dose: 5 mg Olanzapine (Olanzapine 5 Mg Tablet) 5 mg PO BID [facility] Last Admin: 07/09/25 08:23 Dose: 5 mg Trazodone HCl (Trazodone Hcl 50 Mg Tablet) 50 mg PO BEDTIME MRX1 PRN PRN Reason: Insomnia Last Admin: 07/08/25 23:47 Dose: 50 mg Venlafaxine HCl (Venlafaxine Hcl Er 150 Mg Cap.Er.24h) 150 mg PO DAILY [facility] Last Admin: 07/09/25 08:23 Dose: 150 mg Allergies Allergies Allergy/AdvReac Type Severity Reaction Status Date / Time amoxicillin Allergy Unknown Verified 07/07/25 07:53 loratadine (From Claritin) Allergy Unknown Verified 07/07/25 07:53 Assessment & Plan Assessment & Plan (1) Mood disorder of manic type: Status: Acute Code(s): F30.9 - Manic episode, unspecified Assessment and Plan: Patient is a 44 year old female with a history of anxiety who presents with elenita in the setting of recent loss of her father. She presents with symptoms of insomnia, increased energy, labile mood, increased speech, flight of idea and racing thoughts. On interview presents with pressured speech and elated mood and circumstantial thought process. PLAN: - Admit to inpatient psychiatry - CV - Collateral information from family and providers. - Milieu treatment and group therapy. - Medications: Add Zyprexa 5 mg BID. - Social work evaluation. - Disposition planning. 07/09: Continue current management and treatment plan. Reason for continued inpatient stay Substantial Risk for: inability to function and rapid decompensation Time Spent With Patient Time: Total time managing care of this patient today ____ minutes.
[2025-07-09 22:01] VITALS: BP 132/98; PULSE 101
[2025-07-10 08:00] VITALS: BP 139/76; PULSE 101; RESP 16; TEMP 36.5; O2SAT 99
[2025-07-10 08:05] VITALS: BP 138/76
[2025-07-10] MEDS: Ferrous Sulfate 324 MG TABLET.DR PO (08:05)
[2025-07-10] MEDS: Venlafaxine HCl ER 150 MG CAP.ER.24H PO (08:05)
--- NOTE | 2025-07-10 12:54 | P.PNPSI_ITS ---
Subjective Subjective Date of Service: 07/10/25 Reason For Visit: adjustment d/o Subjective Notes: Conditional Voluntary Interim History: Active on unit. social with peers. attending groups. presents with rapid speech. pt reports feeling anxious d/t unit acuity. She reports having a great visit with her . Poor sleep; per nursing, slept 2.5 hours last night. pt denies SI/HI/VH/AH. Discussed medications; Zyprexa changed to 10mg PO bedtime. Start: Remeron 7.5mg PO bedtime; risks/benefits reviewed. Medication Compliance: Yes Side effects from medications: No Attending Groups: Yes Mental Status Exam Mental Status Exam Narrative: Pt is alert and oriented; behavior is cooperative and calm; dressed in casual attire; mood is described as anxious ; eye contact appropriate; Speech is rapid rate, normal volume and not pressured; thought process is organized; Thought content is on tx; denies SI/HI/VH/AH. Diagnostics Vital Signs (24Hr): Vital Signs - 24 hr 07/09/25 22:01 07/10/25 08:00 07/10/25 08:05 Temperature 97.7 F Pulse Rate 101 H 101 H Respiratory Rate 16 Blood Pressure 132/98 H 139/76 138/76 Pulse Oximetry 99 Oxygen Delivery Method Room Air BMI result Body Mass Index 43.0 Labs 07/07/25 07:57 07/07/25 07:57 Medications Medications Current Medications Acetaminophen (Acetaminophen 325 Mg Tablet) 650 mg PO Q6H PRN PRN Reason: Headache/Pain, Scale 1-10 Al Hydroxide/Mg Hydroxide (Magnesium Hydrox/Alum Hydrox 30 Ml Oral.Susp) 30 ml PO Q6H PRN PRN Reason: Heartburn/Nausea Ferrous Sulfate (Ferrous Sulfate 324 Mg Tablet.) 324 mg PO DAILY [facility] Last Admin: 07/10/25 08:05 Dose: 324 mg Hydroxyzine HCl (Hydroxyzine Hcl 25 Mg Tablet) 25 mg PO Q6H PRN PRN Reason: mild anxiety Last Admin: 07/07/25 22:23 Dose: 25 mg Levothyroxine Sodium (Levothyroxine Sodium 125 Mcg Tablet) 125 mcg PO DAILY@0630 [facility] Last Admin: 07/10/25 06:12 Dose: 125 mcg Lisinopril (Lisinopril 2.5 Mg Tablet) 2.5 mg PO DAILY [facility]; Protocol Last Admin: 07/10/25 08:05 Dose: 2.5 mg Magnesium Hydroxide (Milk Of Magnesia 30 Ml Oral.Susp) 30 ml PO DAILY PRN PRN Reason: Constipation Metformin HCl (Metformin Hcl 500 Mg Tablet) 500 mg PO DAILY [facility] Last Admin: 07/10/25 08:05 Dose: 500 mg Nicotine Polacrilex (Nicotine Polacrilex 2 Mg Gum) 2 mg BUCCAL Q2H PRN PRN Reason: Nicotine Cravings Olanzapine (Olanzapine 5 Mg Tablet) 5 mg PO TID PRN PRN Reason: agitation Last Admin: 07/10/25 04:20 Dose: 5 mg Olanzapine (Olanzapine 5 Mg Tablet) 5 mg PO BID [facility] Last Admin: 07/10/25 08:05 Dose: 5 mg Trazodone HCl (Trazodone Hcl 50 Mg Tablet) 50 mg PO BEDTIME MRX1 PRN PRN Reason: Insomnia Last Admin: 07/09/25 22:03 Dose: 50 mg Venlafaxine HCl (Venlafaxine Hcl Er 150 Mg Cap.Er.24h) 150 mg PO DAILY [facility] Last Admin: 07/10/25 08:05 Dose: 150 mg Allergies Allergies Allergy/AdvReac Type Severity Reaction Status Date / Time amoxicillin Allergy Unknown Verified 07/07/25 07:53 loratadine (From Claritin) Allergy Unknown Verified 07/07/25 07:53 Assessment & Plan Assessment & Plan (1) Mood disorder of manic type: Status: Acute Code(s): F30.9 - Manic episode, unspecified Assessment and Plan: Patient is a 44 year old female with a history of anxiety who presents with elenita in the setting of recent loss of her father. She presents with symptoms of insomnia, increased energy, labile mood, increased speech, flight of idea and racing thoughts. On interview presents with pressured speech and elated mood and circumstantial thought process. PLAN: - Admit to inpatient psychiatry - CV - Collateral information from family and providers. - Milieu treatment and group therapy. - Medications: Add Zyprexa 5 mg BID. - Social work evaluation. - Disposition planning. Plan 07/09: Continue current management and treatment plan. 07/10: Active on unit. social with peers. attending groups. presents with rapid speech. pt reports feeling anxious d/t unit acuity. She reports having a great visit with her . Poor sleep; per nursing, slept 2.5 hours last night. pt denies SI/HI/VH/AH. Discussed medications; Zyprexa changed to 10mg PO bedtime. Start: Remeron 7.5mg PO bedtime; risks/benefits reviewed. Patient educated on: diagnosis, medication risk/benefits and therapeutic strategies Reason for continued inpatient stay Substantial Risk for: med/psych decompensation Time Spent With Patient Time: Total time managing care of this patient today _20___ minutes.
[2025-07-10 19:04] VITALS: BP 134/94; PULSE 112; RESP 18; TEMP 37.6; O2SAT 98
[2025-07-11 07:24] VITALS: BP 119/71; PULSE 90; RESP 18; TEMP 36.3; O2SAT 98
--- NOTE | 2025-07-11 08:57 | HO.PSYCHPN ---
Subjective Subjective Date of Service: 07/11/25 Reason For Visit: adjustment d/o Subjective Notes: Conditional Voluntary Interim History: Active on unit. social with peers. attending groups. Patient reports feeling almost like myself again ; pt stated, I'm feeling good today. I feel like I'm getting close to my baseline . denies SI/HI/VH/AH. Sleep improved last night; per nursing, slept 5.5 hours. Planning for discharge if continues to improve; pt reports her fathers services are on Thursday. Continue tx plan. Medication Compliance: Yes Side effects from medications: No Attending Groups: Yes Mental Status Exam Mental Status Exam Narrative: Pt is alert and oriented; behavior is cooperative and calm; dressed in casual attire; mood is described as good ; eye contact appropriate; Speech is rapid rate, normal volume and not pressured; thought process is organized; Thought content is on tx; denies SI/HI/VH/AH. Diagnostics Vital Signs (24Hr): Vital Signs - 24 hr 07/10/25 19:04 07/11/25 07:24 Temperature 99.6 F 97.3 F Pulse Rate 112 H 90 Respiratory Rate 18 18 Blood Pressure 134/94 H 119/71 Pulse Oximetry 98 98 Oxygen Delivery Method Room Air Room Air BMI result Body Mass Index 43.0 Labs 07/07/25 07:57 07/07/25 07:57 Medications Medications Current Medications Acetaminophen (Acetaminophen 325 Mg Tablet) 650 mg PO Q6H PRN PRN Reason: Headache/Pain, Scale 1-10 Al Hydroxide/Mg Hydroxide (Magnesium Hydrox/Alum Hydrox 30 Ml Oral.Susp) 30 ml PO Q6H PRN PRN Reason: Heartburn/Nausea Ferrous Sulfate (Ferrous Sulfate 324 Mg Tablet.) 324 mg PO DAILY [facility] BEDS AT [facility] Last Admin: 07/10/25 08:05 Dose: 324 mg Hydroxyzine HCl (Hydroxyzine Hcl 25 Mg Tablet) 25 mg PO Q6H PRN PRN Reason: mild anxiety Last Admin: 07/07/25 22:23 Dose: 25 mg Levothyroxine Sodium (Levothyroxine Sodium 125 Mcg Tablet) 125 mcg PO DAILY@0630 [facility] 234 BEDS AT [facility] Last Admin: 07/11/25 05:37 Dose: 125 mcg Lisinopril (Lisinopril 2.5 Mg Tablet) 2.5 mg PO DAILY [facility]CLUDE 234 BEDS AT THE [facility]; Protocol Last Admin: 07/10/25 08:05 Dose: 2.5 mg Magnesium Hydroxide (Milk Of Magnesia 30 Ml Oral.Susp) 30 ml PO DAILY PRN PRN Reason: Constipation Metformin HCl (Metformin Hcl 500 Mg Tablet) 500 mg PO DAILY [facility]CLUDE 234 BEDS AT [facility] Last Admin: 07/10/25 08:05 Dose: 500 mg Mirtazapine (Mirtazapine 7.5 Mg Tablet) 7.5 mg PO BEDTIME [facility] Last Admin: 07/10/25 22:20 Dose: 7.5 mg Nicotine Polacrilex (Nicotine Polacrilex 2 Mg Gum) 2 mg BUCCAL Q2H PRN PRN Reason: Nicotine Cravings Olanzapine (Olanzapine 5 Mg Tablet) 5 mg PO TID PRN PRN Reason: agitation Last Admin: 07/10/25 04:20 Dose: 5 mg Olanzapine (Olanzapine 10 Mg Tablet) 10 mg PO BEDTIME [facility] Last Admin: 07/10/25 22:20 Dose: 10 mg Trazodone HCl (Trazodone Hcl 50 Mg Tablet) 50 mg PO BEDTIME MRX1 PRN PRN Reason: Insomnia Last Admin: 07/10/25 22:21 Dose: 50 mg Venlafaxine HCl (Venlafaxine Hcl Er 150 Mg Cap.Er.24h) 150 mg PO DAILY [facility] Last Admin: 07/10/25 08:05 Dose: 150 mg Allergies Allergies Allergy/AdvReac Type Severity Reaction Status Date / Time amoxicillin Allergy Unknown Verified 07/07/25 07:53 loratadine (From Claritin) Allergy Unknown Verified 07/07/25 07:53 Assessment & Plan Assessment & Plan (1) Mood disorder of manic type: Status: Acute Code(s): F30.9 - Manic episode, unspecified Assessment and Plan: Patient is a 44 year old female with a history of anxiety who presents with elenita in the setting of recent loss of her father. She presents with symptoms of insomnia, increased energy, labile mood, increased speech, flight of idea and racing thoughts. On interview presents with pressured speech and elated mood and circumstantial thought process. PLAN: - Admit to inpatient psychiatry - CV - Collateral information from family and providers. - Milieu treatment and group therapy. - Medications: Add Zyprexa 5 mg BID. - Social work evaluation. - Disposition planning. Plan 07/09: Continue current management and treatment plan. 07/10: Active on unit. social with peers. attending groups. presents with rapid speech. pt reports feeling anxious d/t unit acuity. She reports having a great visit with her . Poor sleep; per nursing, slept 2.5 hours last night. pt denies SI/HI/VH/AH. Discussed medications; Zyprexa changed to 10mg PO bedtime. Start: Remeron 7.5mg PO bedtime; risks/benefits reviewed. 07/11: Active on unit. social with peers. attending groups. Patient reports feeling almost like myself again ; pt stated, I'm feeling good today. I feel like I'm getting close to my baseline . denies SI/HI/VH/AH. Sleep improved last night; per nursing, slept 5.5 hours. Planning for discharge if continues to improve; pt reports her fathers services are on Thursday. Continue tx plan. Patient educated on: diagnosis and medication risk/benefits Reason for continued inpatient stay Substantial Risk for: med/psych decompensation Time Spent With Patient Time: Total time managing care of this patient today _20___ minutes.
[2025-07-11] MEDS: Venlafaxine HCl ER 150 MG CAP.ER.24H PO (09:15)
[2025-07-11] MEDS: Ferrous Sulfate 324 MG TABLET.DR PO (09:15)
[2025-07-11 20:00] VITALS: BP 142/104; PULSE 110; RESP 20; TEMP 36.7; O2SAT 97
[2025-07-12 07:38] VITALS: BP 137/84; PULSE 94; RESP 16; TEMP 36.7; O2SAT 98
[2025-07-12] MEDS: Ferrous Sulfate 324 MG TABLET.DR PO (08:13)
[2025-07-12] MEDS: Venlafaxine HCl ER 150 MG CAP.ER.24H PO (08:13)
--- NOTE | 2025-07-12 08:57 | HO.PSYCHPN ---
Subjective Subjective Date of Service: 07/12/25 Reason For Visit: adjustment d/o Subjective Notes: Conditional Voluntary Interim History: Active on unit. social with peers. attending groups. Patient reports feeling good and ready to go ; denies SI/HI/VH/AH. Per nursing, slept 6 hours last night. Focused on discharge. Patient reports she plans on following up with her outpatient providers. Medication Compliance: Yes Side effects from medications: No Attending Groups: Yes Mental Status Exam Mental Status Exam Narrative: Pt is alert and oriented; behavior is cooperative and calm; dressed in casual attire; mood is described as good ; eye contact appropriate; Speech is normal rate,volume and not pressured; thought process is organized; Thought content is on discharge; denies SI/HI/VH/AH. Diagnostics Vital Signs (24Hr): Vital Signs - 24 hr 07/11/25 20:00 07/12/25 07:38 Temperature 98.1 F 98.1 F Pulse Rate 110 H 94 Respiratory Rate 20 16 Blood Pressure 142/104 H 137/84 Pulse Oximetry 97 98 Oxygen Delivery Method Room Air Room Air BMI result Body Mass Index 43.0 Labs 07/07/25 07:57 07/07/25 07:57 Medications Medications Current Medications Acetaminophen (Acetaminophen 325 Mg Tablet) 650 mg PO Q6H PRN PRN Reason: Headache/Pain, Scale 1-10 Al Hydroxide/Mg Hydroxide (Magnesium Hydrox/Alum Hydrox 30 Ml Oral.Susp) 30 ml PO Q6H PRN PRN Reason: Heartburn/Nausea Ferrous Sulfate (Ferrous Sulfate 324 Mg Tablet.) 324 mg PO DAILY [facility] Last Admin: 07/12/25 08:13 Dose: 324 mg Hydroxyzine HCl (Hydroxyzine Hcl 25 Mg Tablet) 25 mg PO Q6H PRN PRN Reason: mild anxiety Last Admin: 07/07/25 22:23 Dose: 25 mg Levothyroxine Sodium (Levothyroxine Sodium 125 Mcg Tablet) 125 mcg PO DAILY@0630 [facility] Last Admin: 07/12/25 06:04 Dose: 125 mcg Lisinopril (Lisinopril 2.5 Mg Tablet) 2.5 mg PO DAILY [facility]; Protocol Last Admin: 07/12/25 08:14 Dose: 2.5 mg Magnesium Hydroxide (Milk Of Magnesia 30 Ml Oral.Susp) 30 ml PO DAILY PRN PRN Reason: Constipation Metformin HCl (Metformin Hcl 500 Mg Tablet) 500 mg PO DAILY [facility] Last Admin: 07/12/25 08:14 Dose: 500 mg Mirtazapine (Mirtazapine 7.5 Mg Tablet) 7.5 mg PO BEDTIME JOAN[facility] Last Admin: 07/11/25 22:44 Dose: 7.5 mg Nicotine Polacrilex (Nicotine Polacrilex 2 Mg Gum) 2 mg BUCCAL Q2H PRN PRN Reason: Nicotine Cravings Olanzapine (Olanzapine 5 Mg Tablet) 5 mg PO TID PRN PRN Reason: agitation Last Admin: 07/10/25 04:20 Dose: 5 mg Olanzapine (Olanzapine 10 Mg Tablet) 10 mg PO BEDTIME JOANIE Last Admin: 07/11/25 22:44 Dose: 10 mg Trazodone HCl (Trazodone Hcl 50 Mg Tablet) 50 mg PO BEDTIME MRX1 PRN PRN Reason: Insomnia Last Admin: 07/11/25 22:43 Dose: 50 mg Venlafaxine HCl (Venlafaxine Hcl Er 150 Mg Cap.Er.24h) 150 mg PO DAILY [facility] Last Admin: 07/12/25 08:13 Dose: 150 mg Allergies Allergies Allergy/AdvReac Type Severity Reaction Status Date / Time amoxicillin Allergy Unknown Verified 07/07/25 07:53 loratadine (From Claritin) Allergy Unknown Verified 07/07/25 07:53 Assessment & Plan Assessment & Plan (1) Mood disorder of manic type: Status: Acute Code(s): F30.9 - Manic episode, unspecified Assessment and Plan: Patient is a 44 year old female with a history of anxiety who presents with elenita in the setting of recent loss of her father. She presents with symptoms of insomnia, increased energy, labile mood, increased speech, flight of idea and racing thoughts. On interview presents with pressured speech and elated mood and circumstantial thought process. PLAN: - Admit to inpatient psychiatry - CV - Collateral information from family and providers. - Milieu treatment and group therapy. - Medications: Add Zyprexa 5 mg BID. - Social work evaluation. - Disposition planning. Plan 07/09: Continue current management and treatment plan. 07/10: Active on unit. social with peers. attending groups. presents with rapid speech. pt reports feeling anxious d/t unit acuity. She reports having a great visit with her . Poor sleep; per nursing, slept 2.5 hours last night. pt denies SI/HI/VH/AH. Discussed medications; Zyprexa changed to 10mg PO bedtime. Start: Remeron 7.5mg PO bedtime; risks/benefits reviewed. 07/11: Active on unit. social with peers. attending groups. Patient reports feeling almost like myself again ; pt stated, I'm feeling good today. I feel like I'm getting close to my baseline . denies SI/HI/VH/AH. Sleep improved last night; per nursing, slept 5.5 hours. Planning for discharge if continues to improve; pt reports her fathers services are on Thursday. Continue tx plan. 07/12: Active on unit. social with peers. attending groups. Patient reports feeling good and ready to go ; denies SI/HI/VH/AH. Per nursing, slept 6 hours last night. Focused on discharge. Patient reports she plans on following up with her outpatient providers. Patient educated on: diagnosis and medication risk/benefits Reason for continued inpatient stay Substantial Risk for: stable for discharge Time Spent With Patient Time: Total time managing care of this patient today _20___ minutes.
[2025-07-12 20:00] VITALS: BP 120/70; PULSE 104; RESP 16; TEMP 36.6; O2SAT 96
[2025-07-13 07:54] VITALS: BP 119/73; PULSE 109; RESP 18; TEMP 36.6; O2SAT 100
[2025-07-13 07:56] VITALS: BP 119/73; PULSE 109; RESP 18; TEMP 36.6; O2SAT 100
[2025-07-13 08:04] VITALS: BP 119/73
[2025-07-13] MEDS: Venlafaxine HCl ER 150 MG CAP.ER.24H PO (08:04)
[2025-07-13] MEDS: Ferrous Sulfate 324 MG TABLET.DR PO (08:04)
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
== END 2025-07-13 10:00 | disposition home or self-care (01) | DRG 754 ==
LOC: HO.ED 08:40 → HO.PADLT16 14:51
PROVIDERS: Admitting Provider Psychiatry & Neurology Psychiatry; Emergency Provider Emergency Medicine; PCP Internal Medicine; Responsible Provider Registered Nurse; Visit Provider Psychiatry & Neurology Psychiatry
DX: F32.9 Major depressive disorder, single episode, unspecified (principal); E03.9 Hypothyroidism, unspecified; Z23 Encounter for immunization; Z63.4 Disappearance and death of family member; Z79.890 Hormone replacement therapy; Z79.899 Other long term (current) drug therapy
CPT/HCPCS: 36415; 80048; 80061; 80076; 80307; 81001; 81025; 82607; 82746; 83036; 83735; 84439; 84443; 84702; 85025; 87086; 90656; 99285; S9485

== ENCOUNTER → 2025-07-07 13:31 | Outpatient (BNV) | payer BC, SELFPAY | PROVIDERS: Admitting Provider Psychiatry & Neurology Psychiatry; Emergency Provider Emergency Medicine; PCP Internal Medicine; Visit Provider Psychiatry & Neurology Psychiatry | DX: F30.9 Manic episode, unspecified (principal) | CPT/HCPCS: 99231; 99232; 99238; 99253 ==

== ENCOUNTER 2025-08-25 09:55 | Emergency (ER) | payer BC, SELFPAY ==
[2025-08-25 09:59] VITALS: BP 181/86; PULSE 106; RESP 16; TEMP 36.6; O2SAT 99; BMI 45.3
--- NOTE | 2025-08-25 10:23 | MHC.EDTECH ---
pt changed over in family room. Pt tearful but cooperative. Belongings searched with security. 3 bags located in pod locker 12.
--- NOTE | 2025-08-25 10:39 | ED.PSYCH ---
HPI - Psych General Chief Complaint: Psychiatric Symptoms Stated Complaint: crisis Time Seen by Provider: 08/25/25 10:22 Source: patient and RN notes reviewed Mode of arrival: ambulatory Limitations: no limitations History of Present Illness ED Provider: Clara Laura PA-C HPI Narrative: This is a 44-year-old female, with a past medical history of anxiety, depression, and hypothyroidism, who presents to the emergency department with having a ?mental breakdown?. Patient states that her father in June and she is not coping with the loss of her father very well. In June, she did have a psychiatric admission, this was her 1st psychiatric admission. Patient reports that she has followed up with her psychiatrist, and she was sleeping well medications that she was currently on. She states that she was feeling so well that she wanted to get herself off these medications. Patient was on olanzapine and mirtazapine. She states that 1 of these medications she stopped abruptly, in the other medication, olanzapine, she took half of her dose and then discontinued this per the recommendations of her psychiatrist. Patient states that she has not sleeping well. She states that she has also had some difficulty with decision making, she expresses a situation where she drove to [employer] to by herself and new pillow, and only stayed in the parking lot and then drove home. She states that she has had some abdominal cramping, however believes that this is attributed to her increasing anxiety. She states that she has a good support system at home, and her is very supportive. She denies any suicidal or homicidal ideation. No auditory or visual hallucinations. No drug or alcohol use. Related Data Home Medications ?Medication ?Instructions ?Recorded ?Confirmed levothyroxine 125 mcg tablet 125 mcg PO DAILY 04/24/21 08/25/25 venlafaxine 150 mg 150 mg PO DAILY 04/24/21 08/25/25 capsule,extended release 24 hr ferrous sulfate 325 mg (65 mg 325 mg PO DAILY 07/05/25 08/25/25 iron) tablet metformin 500 mg tablet 500 mg PO DAILY 07/05/25 08/25/25 norethindrone (contraceptive) 0.35 0.35 mg PO DAILY 07/05/25 08/25/25 mg tablet lisinopril 2.5 mg tablet 2.5 mg PO DAILY 07/07/25 08/25/25 Allergies Allergy/AdvReac Type Severity Reaction Status Date / Time amoxicillin Allergy Unknown Verified 08/25/25 10:03 loratadine (From Claritin) Allergy Unknown Verified 08/25/25 10:03 Review of Systems Review of Systems: Yes all other systems are reviewed and are negative Constitutional: Constitutional: Reports as per [facility] Past Medical History Medical History Anxiety and depression Hypothyroidism Social History Social History Household Members: Family Housing: House Do you presently have visiting nurse or other home services: No Alcohol intake: current Alcohol intake frequency: holidays/special occasions only Patient Tobacco Use Status: Never used Tobacco Smoked in Last 30 Days: No Use of substances other than those prescribed or required for medical reasons: No Advance Directives: No Advance Directives Information Provided: Yes Patient : No service: No Sexual orientation: Straight/Heterosexual Physical Exam Vital Signs: Vital Signs: Last Vital Signs Temp 98.6 F 08/25/25 12:50 Pulse 90 08/25/25 12:50 Resp 14 08/25/25 12:50 BP 139/90 H 08/25/25 12:50 Pulse Ox 97 08/25/25 12:50 O2 Del Method Room Air 08/25/25 12:50 BMI result Body Mass Index 45.3 Const: General: cooperative, comfortable and no acute distress Orientation/consciousness: patient oriented x3 Limitations: no limitations HEENT: Head: Yes normal to inspection, Yes normocephalic and Yes atraumatic Ears: hearing grossly normal bilaterally General nose exam: Normal external nose present Face and sinus: Yes normal facial exam Mouth: Normal oral and palatal mucosa present, oropharynx normal and moist mucous membranes Throat: Yes posterior oropharynx normal Eyes: General: appearance normal, both eyes and all related structures Eyelids: Yes eyelids normal Conjunctivae: conjunctivae normal Sclerae: sclerae normal Pupils: Equal, round and reactive pupils present EOM: EOMs intact bilaterally Neck: Neck: Yes normal visual inspection, Yes full ROM and Yes no lymphadenopathy Lymphatic: no lymphadenopathy noted Chest: Chest palpation & inspection: normal inspection of the chest Resp: Effort & Inspection: normal respiratory effort and able to speak in complete sentences Auscultation: clear to auscultation bilaterally, no crackles, no rales, no rhonchi and no wheezes Cardio: Rate: regular rate Rhythm: regular rhythm Heart sounds: S1 normal heart sound present and S2 normal heart sound present GI: Other: Abdomen is soft, nontender, nondistended Inspection: Yes normal to inspection Skin: General skin exam: no rashes or lesions noted Trauma: no lacerations or abrasions Wounds: no wounds Neuro: General: patient oriented x3 and moves all extremities Cranial nerves: Yes Equal, round and reactive pupils present Extrem: General: Yes normal to inspection Right upper extremity: normal to inspection Left upper extremity: normal to inspection Right lower extremity: normal to inspection Left lower extremity: normal to inspection Medical Decision Making Medical Decision Making [facility] Narrative: This is a 44-year-old female, with a past medical history of anxiety, who presents emergency department with concerns of increasing anxiety, and racing thoughts. Patient on arrival reports that she has been struggling with sleeping. She has recently discontinued her sleeping medication as she was feeling much better. She denies any suicidal or homicidal ideation. No alcohol or drug use. She reports that overall she is feeling well, does express some abdominal cramping however believes that this is attributed to her anxiety. Patient is tearful however she states that she feels well enough to return back home. She was seen by the care team, we discussed at length that patient should be admitted psychiatrically to get her back up on her sleeping medication however patient would like to follow-up outpatient with her psychiatrist. There were no safety concerns at this time. Patient would like to be discharged home. She was given strict return precautions. She does have a good support system at home. Overall labs reassuring, she has slight leukocytosis at 11.3, likely reactive, electrolytes within normal limits. Urine is contaminated, she has no urinary symptoms. Patient is feeling much better after being in the emergency room for several hours. Patient discharged with strict return precautions. Patient stable for discharge. Differential Diagnosis Differential Diagnoses: The differential diagnosis associated with the presentation includes Anxiety, depression, insomnia, suicidal ideation Lab Data [facility] Lab Attestation statement: I reviewed the patient's lab results. See [facility] 08/25/25 11:09 08/25/25 11:09 Labs: Lab Results 08/25/25 Range/Units 11:09 WBC 11.3 H (4.8-10.8) X10*3/uL RBC 4.81 (4.20-5.50) X10*6/uL Hgb 13.4 (12.0-16.0) g/dl Hct 42.3 (37.0-47.0) % MCV 87.9 (80.0-98.0) fL MCH 27.9 (27.0-33.0) pg MCHC 31.7 (31.0-35.0) g/dl RDW 12.9 (11.0-16.0) % Plt Count 339 (160-400) X10*3/uL MPV 8.9 L (9.4-12.3) fL Immature Gran % (Auto) 0.4 (0.0-0.4) % Neut % (Auto) 82.8 H (45-73) % Lymph % (Auto) 12.4 L (20-40) % [place] % (Auto) 3.8 (2-11) % Eos % (Auto) 0.2 (0-4) % Baso % (Auto) 0.4 (0-2) % Lymph # (Auto) 1.4 (1.2-4.9) X10*3/uL [place] # (Auto) 0.4 (0.1-1.2) X10*3/uL Eos # (Auto) 0.0 (0.0-0.4) X10*3/uL Baso # (Auto) 0.0 (0.0-0.2) X10*3/uL Abs Immat Gran (auto) 0.05 H (0.00-0.03) X10*3/uL Absolute Neuts (auto) 9.3 H (2.0-8.3) x10*3/uL Absolute Nucleated RBC 0.000 (0.0-0.012) X10*3/uL Nucleated RBC % (auto) 0.0 (0.0-0.2) /100WBC Sodium 136 (135-145) mmol/L Potassium 4.2 (3.3-5.1) mmol/L Chloride 103 (96-108) mmol/L Carbon Dioxide 24 (22-29) mmol/L Anion Gap 13 (12-20) BUN 16 (9-16) mg/dL Creatinine 0.63 (0.5-1.4) mg/dL Estim Creat Clear Calc 129.9 Estimated GFR > 60 Random Glucose 104 (60-115) mg/dL Calcium 9.8 (8.4-10.2) mg/dL Total Bilirubin 0.4 (0.0-1.0) mg/dL AST 26 (5-31) U/L ALT 16 (0-31) U/L Alkaline Phosphatase 72 (39-117) U/L Total Protein 8.3 H (6.5-8.0) g/dL Albumin 4.4 (3.5-5.0) g/dL Urine Color Yellow Urine Appearance Cloudy Urine pH 6.0 (5.0-9.0) Ur Specific Romance 1.025 (1.005-1.025) Urine Protein Negative (Neg-Trace) mg/dL Urine Glucose (UA) Negative (Negative) mg/dL Urine Ketones Negative (Negative) mg/dL Urine Blood Negative (Negative) Urine Nitrite Negative (Negative) Ur Leukocyte Esterase Moderate (2+) H (Negative) Urine RBC 0-2 (0-2) /HPF Urine WBC 21-50 H (0-5) /HPF Ur Squamous Epith Cells 11-20 (0-2) /HPF Urine Bacteria 3+ (None Seen) Hyaline Casts 0-2 (0-2) /LPF Urine Test NEGATIVE (NEGATIVE) Urine Opiates Screen Not Detected (Not Detect) Ur Buprenorphine Scrn Not Detected (Not Detect) ng/mL Ur Oxycodone Screen Not Detected (Not Detect) ng/mL Urine Methadone Screen Not Detected (Not Detect) ng/mL Urine Fentanyl Screen Not Detected (Not Detect) Ur Barbiturates Screen Not Detected (Not Detect) Ur Phencyclidine Scrn Not Detected (Not Detect) Ur Amphetamines Screen Not Detected (Not Detect) U Benzodiazepines Scrn Not Detected (Not Detect) Urine Cocaine Screen Not Detected (Not Detect) U Marijuana (THC) Screen Not Detected (Not Detect) Ethyl Alcohol 11 mg/dL Discharge Plan Discharge Clinical Impression: Acute anxiety Patient Disposition: Home, Self-Care Instructions: Generalized Anxiety Disorder (ED), Anxiety (ED) Additional Instructions: You were seen in the emergency department. It is recommended that you stay to be further evaluated in an inpatient psychiatric stay, where they could better manage your medications however you wish to not do so. I encouraged her to follow up with your psychiatrist and therapist. Continue all home medications as prescribed. If any new or worsening symptoms occur including but not limited to severe chest pain, shortness of breath, increasing anxiety, depression, thoughts of harming yourself or others, please seek emergent care. Effective Tips for Managing Anxiety? 1. Grounding Techniques:? Focus on the present:?Pay attention to your surroundings, noticing sights, sounds, and smells.? Deep breathing:?Take slow, deep breaths, inhaling through your nose and exhaling through your mouth.? Progressive muscle relaxation:?Tense and release different muscle groups in your body, one at a time.? 2. Cognitive Behavioral Therapy (CBT):? Challenge negative thoughts:?Identify and question anxious thoughts, replacing them with more realistic ones.? Break down tasks:?Divide large tasks into smaller, manageable steps.? Practice relaxation techniques:?Engage in activities that promote calm, such as meditation or yoga.? 3. Lifestyle Modifications:? Regular exercise:?Engage in moderate-intensity exercise for at least 30 minutes most days of the week.? Healthy sleep:?Aim for 7-9 hours of quality sleep per night.? Healthy diet:?Limit caffeine, alcohol, and processed foods, and focus on consuming fruits, vegetables, and whole grains.? Reduce stress:Identify and manage stressors in your life, such as work, relationships, or finances.? 4. Professional Help:? Therapy:?Consider consulting with a therapist or counselor who specializes in anxiety disorders. Medication:?In some cases, medication may be prescribed to manage severe anxiety symptoms. 5. Additional Tips: Connect with others:?Spend time with supportive friends and family members.? Join support groups:?Connect with others who understand and share your experiences.? Practice mindfulness:?Pay attention to the present moment and accept your feelings without judgment.? Take breaks:?Step away from stressful situations when necessary.? Prescriptions: No Action metformin 500 mg tablet 500 mg PO DAILY ferrous sulfate 325 mg (65 mg iron) tablet 325 mg PO DAILY norethindrone (contraceptive) 0.35 mg tablet 0.35 mg PO DAILY lisinopril 2.5 mg tablet 2.5 mg PO DAILY levothyroxine 125 mcg tablet 125 mcg PO DAILY venlafaxine 150 mg capsule,extended release 24hr 150 mg PO DAILY Interventions: [place]-Suicide Risk Severity Scale Last Done: 08/25/25 11:16 ED Discharge Assessment Last Done: 08/25/25 12:50 Discharge Date/Time: 08/25/25 12:56 Print Language: Mohawk
[2025-08-25 10:46] VITALS: BP 153/94; PULSE 98; RESP 20; TEMP 36.7; O2SAT 99
[2025-08-25 11:18] LABS: Hematocrit 42.3 % (37.0-47.0); Hemoglobin 13.4 g/dl (12.0-16.0); Imm Gran Abs Auto 0.05 X10*3/uL (0.00-0.03); Imm Gran Pct Auto 0.4 % (0.0-0.4); Lymphocytes Absolute Auto 1.4 X10*3/uL (1.2-4.9); MANUAL DIFF FLAG NO; Mean Corpuscular HGB Conc 31.7 g/dl (31.0-35.0); Mean Corpuscular Hemoglobin 27.9 pg (27.0-33.0); Mean Corpuscular Volume 87.9 fL (80.0-98.0); NRBC Abs Auto 0.000 X10*3/uL (0.0-0.012); NRBC Pct Auto 0.0 /100WBC (0.0-0.2); Platelet Count 339 X10*3/uL (160-400); Red Blood Count 4.81 X10*6/uL (4.20-5.50); White Blood Count 11.3 X10*3/uL (4.8-10.8)
[2025-08-25 11:19] LABS: Appearance Urine Cloudy; Glucose Urine UA Negative (Negative); PH 6.0 (5.0-9.0); Specific Gravity - Urine 1.025 (1.005-1.025); UMIC TRIGGER UACC YES
[2025-08-25 11:21] LABS: UPreg QC Valid YES
[2025-08-25 11:22] LABS: UACC Culture Trigger YES
[2025-08-25 11:32] LABS: Cannabinoid Screen Urine Not Detected (Not Detect)
--- NOTE | 2025-08-25 11:34 | MHC.CARE ---
Pt is requesting to D/C and does not present as an imminent risk. Will D/C and follow up with current providers. ED provider in agreement.
[2025-08-25 11:40] LABS: Alanine Aminotransferase 16 U/L (0-31); Albumin Level 4.4 g/dL (3.5-5.0); Alkaline Phosphatase 72 U/L (39-117); Anion Gap 13 (12-20); Aspartate Amino Transferase 26 U/L (5-31); Blood Urea Nitrogen 16 mg/dL (9-16); Calcium 9.8 mg/dL (8.4-10.2); Carbon Dioxide 24 mmol/L (22-29); Chloride 103 mmol/L (96-108); Creatinine Clr Calc Pharmacy 129.9; Estimated Glomerular Filt Rate > 60; Potassium 4.2 mmol/L (3.3-5.1); Sodium 136 mmol/L (135-145); Total Protein 8.3 g/dL (6.5-8.0)
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
[2025-08-25 12:50] VITALS: BP 139/90; PULSE 90; RESP 14; TEMP 37; O2SAT 97
== END 2025-08-25 12:56 | disposition home or self-care (01) ==
PROVIDERS: Emergency Provider Emergency Medicine Emergency Medical Services; PCP Internal Medicine
DX: F41.1 Generalized anxiety disorder (principal); F33.1 Major depressive disorder, recurrent, moderate; Z79.899 Other long term (current) drug therapy; R25.2 Cramp and spasm; Z51.81 Encounter for therapeutic drug level monitoring
CPT/HCPCS: 36415; 80053; 80307; 81001; 81025; 85025; 87086; 99284; 99285; S9485

== ENCOUNTER 2025-08-28 13:22 | Inpatient (IN) | payer BC, SELFPAY ==
[2025-08-28 13:36] VITALS: BP 133/85; PULSE 110; RESP 16; TEMP 36.3; O2SAT 96; BMI 47.1
--- NOTE | 2025-08-28 13:36 | ED.GENADULT ---
HPI - General Adult General Chief complaint: Psychiatric Symptoms Stated complaint: crisis Time Seen by Provider: 08/28/25 13:56 Source: patient Mode of arrival: ambulatory Limitations: no limitations History of Present Illness ED Provider: JOHN TREOJ PA-C HPI narrative: 44 year old female with pmhx significant for mood disorder, anxiety, depression, and hypothyroidism presents to the ED today for evaluation of increasing suicidal ideation and anxiety/depression. Reports symptoms began after discontinuing her remeron. She reports vague SI, thought about taking the wrong medications last night however did not. Denies HI. Denies AH/VH/TH. Denies EtOH consumption, illicit substance use. Patient states she was evaluated for same a few days ago, she was recommended to go inpatient however felt she could be managed medically outpatient. She presents requesting inpatient treatment. No physical complaints. Related Data Home Medications ?Medication ?Instructions ?Recorded ?Confirmed levothyroxine 125 mcg tablet 125 mcg PO DAILY 04/24/21 08/28/25 venlafaxine 150 mg 150 mg PO DAILY 04/24/21 08/28/25 capsule,extended release 24 hr ferrous sulfate 325 mg (65 mg 325 mg PO DAILY 07/05/25 08/28/25 iron) tablet metformin 500 mg tablet 500 mg PO DAILY 07/05/25 08/28/25 norethindrone (contraceptive) 0.35 0.35 mg PO DAILY 07/05/25 08/28/25 mg tablet lisinopril 2.5 mg tablet 2.5 mg PO DAILY 07/07/25 08/28/25 Allergies Allergy/AdvReac Type Severity Reaction Status Date / Time amoxicillin Allergy Unknown Verified 08/28/25 13:41 loratadine (From Claritin) Allergy Unknown Verified 08/28/25 13:41 Review of Systems Review of Systems: Yes all other systems are reviewed and are negative PMFSH Past Medical History Attestation statement: The following information was validated with the patient. Source: old records reviewed and nursing notes reviewed Medical History Mood disorder of manic type Anxiety and depression Hypothyroidism Social History Social History Household Members: Family Housing: House Do you presently have visiting nurse or other home services: No Alcohol intake: current Alcohol intake frequency: holidays/special occasions only Patient Tobacco Use Status: Never used Tobacco Smoked in Last 30 Days: No Use of substances other than those prescribed or required for medical reasons: No Advance Directives: No Advance Directives Information Provided: Yes Do you have a plan to hurt others: No Plan Nutrition Risks: No Nutritional Risk Patient : No service: No Sexual orientation: Straight/Heterosexual Physical Exam ED Vital Signs: Vital Signs - 24 hr 08/28/25 13:36 08/28/25 14:30 Temperature 97.4 F Pulse Rate 110 H Respiratory Rate 16 14 Blood Pressure 133/85 Pulse Oximetry 96 Oxygen Delivery Method Room Air BMI result Body Mass Index 47.1 tachycardic, vital signs stable General: intermittently tearful Skin: Warm, dry, intact. No rashes or lesions. Head: Normocephalic, atraumatic. EENT: Hearing is intact b/l. Conjunctiva clear. Sclera is anicteric. PERRLA. EOM intact. Moist mucous membranes.? Neck: Supple without LAD Cardiac: Chest wall symmetric. RRR Lungs: Normal respiratory effort without accessory muscle use. CTA bilaterally Abdomen: Soft, non-tender, non-distended. No rebound tenderness or guarding. Positive BS x4. Back: No midline spinous or paraspinal tenderness. No step off deformity. Ext: Upper and lower extremities atraumatic, without tenderness, deformity, swelling or erythema. Full ROM throughout Neuro: AOx3. Normal speech. CN 2-12 grossly intact. Ambulating with steady gait. Psych: Appropriate mood and affect. Responds appropriately to questions. Course Course Course Narrative: Rapid medical examination performed in triage by Jaqueline Jaeger PA-C: Patient is a 44 year old assigned female at presenting to the emergency department with increased depression / anxiety after stopping Remeron. Detailed physical exam and review of systems are deferred to the aids nurse. Labs ordered. elevator runner aware. Reevaluation(s) Reevaluation #1: CBC showing slight leukocytosis to 11.3 without left shift. Unchanged from prior blood work 3 days ago. Chemistry without acute electrolyte abnormality requiring intervention. No YAO. Liver function WNL. Urine appears contaminated. She has no urinary symptoms. Urine culture obtained 3 days ago without growth. will await urine culture. urine preg negative. > medically cleared for care team at this time. placed in physician observation. Medications Administered Discontinued Medications Generic Name Dose Route Start Last Admin Trade Name Leela PRN Reason Stop Dose Admin Lorazepam 1 mg 08/28/25 14:58 08/28/25 15:20 Lorazepam 1 Mg Tablet PO 08/28/25 14:59 1 mg ONCE ONE Administration Lorazepam 2 mg 08/28/25 20:20 08/28/25 20:30 Lorazepam 1 Mg Tablet PO 08/28/25 20:21 2 mg ONCE ONE Administration Medical Decision Making Medical Decision Making [facility] Narrative: 44 year old female with pmhx significant for mood disorder, anxiety, depression, and hypothyroidism presents to the ED today for evaluation of increasing suicidal ideation and anxiety/depression. Differential diagnosis includes anemia, electrolyte abnormality, mood disorder, anxiety, depression, SI, polysubstance abuse Presentation not consistent with acute organic causes to include delirium, dementia or drug induced disorders (acute ingestions or withdrawal; no evidence of toxidrome).? Plan: labs, EKG, ASA/APAP levels, ETOH level, UDS, care team consultation, reassessment Differential Diagnosis Differential Diagnoses: The differential diagnosis associated with the presentation includes as above. Admission/Observation Consideration of admission/observation: Escalation of care including admission/observation considered Lab Data [facility] Lab Attestation statement: I reviewed the patient's lab results. as above. 08/28/25 14:15 08/28/25 14:15 Labs: Lab Results 08/28/25 08/28/25 Range/Units 14:14 14:15 WBC 11.3 H (4.8-10.8) X10*3/uL RBC 4.91 (4.20-5.50) X10*6/uL Hgb 13.6 (12.0-16.0) g/dl Hct 42.7 (37.0-47.0) % MCV 87.0 (80.0-98.0) fL MCH 27.7 (27.0-33.0) pg MCHC 31.9 (31.0-35.0) g/dl RDW 12.9 (11.0-16.0) % Plt Count 382 (160-400) X10*3/uL MPV 9.1 L (9.4-12.3) fL Immature Gran % (Auto) 0.4 (0.0-0.4) % Neut % (Auto) 76.4 H (45-73) % Lymph % (Auto) 17.1 L (20-40) % [place] % (Auto) 5.5 (2-11) % Eos % (Auto) 0.4 (0-4) % Baso % (Auto) 0.2 (0-2) % Lymph # (Auto) 1.9 (1.2-4.9) X10*3/uL [place] # (Auto) 0.6 (0.1-1.2) X10*3/uL Eos # (Auto) 0.0 (0.0-0.4) X10*3/uL Baso # (Auto) 0.0 (0.0-0.2) X10*3/uL Abs Immat Gran (auto) 0.05 H (0.00-0.03) X10*3/uL Absolute Neuts (auto) 8.6 H (2.0-8.3) x10*3/uL Absolute Nucleated RBC 0.000 (0.0-0.012) X10*3/uL Nucleated RBC % (auto) 0.0 (0.0-0.2) /100WBC Sodium 137 (135-145) mmol/L Potassium 4.0 (3.3-5.1) mmol/L Chloride 106 (96-108) mmol/L Carbon Dioxide 24 (22-29) mmol/L Anion Gap 11 L (12-20) BUN 18 H (9-16) mg/dL Creatinine 0.79 (0.5-1.4) mg/dL Estim Creat Clear Calc 105.9 Estimated GFR > 60 Random Glucose 80 (60-115) mg/dL Calcium 9.4 (8.4-10.2) mg/dL Total Bilirubin 0.3 (0.0-1.0) mg/dL AST 24 (5-31) U/L ALT 17 (0-31) U/L Alkaline Phosphatase 67 (39-117) U/L Total Protein 8.3 H (6.5-8.0) g/dL Albumin 4.4 (3.5-5.0) g/dL Urine Color Yellow Urine Appearance Cloudy Urine pH 6.0 (5.0-9.0) Ur Specific [place] 1.020 (1.005-1.025) Urine Protein Negative (Neg-Trace) mg/dL Urine Glucose (UA) Negative (Negative) mg/dL Urine Ketones Negative (Negative) mg/dL Urine Blood Negative (Negative) Urine Nitrite Negative (Negative) Ur Leukocyte Esterase Large (3+) H (Negative) Urine RBC 0-2 (0-2) /HPF Urine WBC >50 H (0-5) /HPF Ur Squamous Epith Cells >20 (0-2) /HPF Urine Bacteria 2+ (None Seen) Hyaline Casts 3-5 (0-2) /LPF Urine Test NEGATIVE (NEGATIVE) Salicylates < 5.0 L (15-30) mg/dL Urine Opiates Screen Not Detected (Not Detect) Ur Buprenorphine Scrn Not Detected (Not Detect) ng/mL Ur Oxycodone Screen Not Detected (Not Detect) ng/mL Urine Methadone Screen Not Detected (Not Detect) ng/mL Urine Fentanyl Screen Not Detected (Not Detect) Acetaminophen < 3 (<30) mcg/mL Ur Barbiturates Screen Not Detected (Not Detect) Ur Phencyclidine Scrn Not Detected (Not Detect) Ur Amphetamines Screen Not Detected (Not Detect) U Benzodiazepines Scrn Not Detected (Not Detect) Urine Cocaine Screen Not Detected (Not Detect) U Marijuana (THC) Screen Not Detected (Not Detect) Ethyl Alcohol < 10 mg/dL External Record Review External record reviewed: Inpatient record Chronic Conditions Patient?s care impacted by: Other (anxiety/depression, mood disorder) Social Determinants Patient?s care significantly limited by Social Determinants of Health including: Other Social Determinant of Health Critical Care Time Critical Care Time Critical Care Time: No Discharge Plan Discharge Clinical Impression: Depression, Suicidal ideation Patient Disposition: Admitted As Inpatient Interventions: [place]-Suicide Risk Severity Scale Last Done: 08/28/25 14:30
[2025-08-28 14:22] LABS: MANUAL DIFF FLAG NO
[2025-08-28 14:25] LABS: Hematocrit 42.7 % (37.0-47.0); Hemoglobin 13.6 g/dl (12.0-16.0); Imm Gran Abs Auto 0.05 X10*3/uL (0.00-0.03); Imm Gran Pct Auto 0.4 % (0.0-0.4); Lymphocytes Absolute Auto 1.9 X10*3/uL (1.2-4.9); Mean Corpuscular HGB Conc 31.9 g/dl (31.0-35.0); Mean Corpuscular Hemoglobin 27.7 pg (27.0-33.0); Mean Corpuscular Volume 87.0 fL (80.0-98.0); NRBC Abs Auto 0.000 X10*3/uL (0.0-0.012); NRBC Pct Auto 0.0 /100WBC (0.0-0.2); Platelet Count 382 X10*3/uL (160-400); Red Blood Count 4.91 X10*6/uL (4.20-5.50); White Blood Count 11.3 X10*3/uL (4.8-10.8)
[2025-08-28 14:25] LABS: Appearance Urine Cloudy; Glucose Urine UA Negative (Negative); PH 6.0 (5.0-9.0); Specific Gravity - Urine 1.020 (1.005-1.025); UMIC TRIGGER UA YES
[2025-08-28 14:30] VITALS: RESP 14
[2025-08-28 14:36] LABS: UPreg QC Valid YES
[2025-08-28 14:41] LABS: Cannabinoid Screen Urine Not Detected (Not Detect)
[2025-08-28 14:52] LABS: Acetaminophen LAB < 3 mcg/mL (<30); Alanine Aminotransferase 17 U/L (0-31); Albumin Level 4.4 g/dL (3.5-5.0); Alkaline Phosphatase 67 U/L (39-117); Anion Gap 11 (12-20); Aspartate Amino Transferase 24 U/L (5-31); Blood Urea Nitrogen 18 mg/dL (9-16); Calcium 9.4 mg/dL (8.4-10.2); Carbon Dioxide 24 mmol/L (22-29); Chloride 106 mmol/L (96-108); Creatinine Clr Calc Pharmacy 105.9; Estimated Glomerular Filt Rate > 60; Potassium 4.0 mmol/L (3.3-5.1); Salicylate < 5.0 mg/dL (15-30); Sodium 137 mmol/L (135-145); Total Protein 8.3 g/dL (6.5-8.0)
--- NOTE | 2025-08-28 15:21 | PC.NURSE ---
Karen is calm and cooperative, offering no complaints to this RN, ambulating around BH pod with steady gait. endorsing increasing depression and insomnia at this time
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
--- NOTE | 2025-08-28 20:47 | PHA.MEDREC ---
Pharmacy Consult ? Medication Reconciliation Pharmacy has completed the medication reconciliation.Med rec done by nursing, reviewed by pharmacist. Confirmed with RN she is not taking mirtazapine or olanzapine
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
--- NOTE | 2025-08-28 21:59 | PC.NURSE ---
Addendum entered by Barbara Reyes RN 08/28/25 21:59: Provider Brittani Navarrete NP aware Original Note: Pt reports to this RN that she does not take insulin at baseline, she manages her BG with metformin
[2025-08-28 22:08] LABS: Glucose, Whole Blood 136 mg/dL (60-115)
--- NOTE | 2025-08-29 06:54 | PC.ADMIT ---
Karen Davies is a 44 year old female admitted from the [facility] pod to M5 at 22:45 for psychosis.? Pt signed a 3-day arrival to the unit.? Prior to arrival pt self-presented to the ED due to an increase in depression and anxiety, with suicidal ideation with ?passive thoughts? to take extra pills.? Pt also reported difficulty sleeping and insomnia related to her stopping her prescription medication end of July and prescriptions running out.? Pt reports in the ED thoughts to cut herself to ?release emotional pain.?? Pt reports that with her new psychiatrist? ?I wanted to be off meds, so she prescribed me half my dose of zyprexa and remeron, then she stopped prescribing it.? MY mental health went down and then I called to resume it.? I felt I needed more care in patient.?? Pt during admission denied SI/HI with no intent or plan, but ?if it or anything happened to me I am okay with that. I don?t want to put that on my family or .? Denies A/VH, denies paranoia or delusions.? Pt is pleasant and cooperative, presenting with a broad affect and cheerful mood.? Pt is alert and oriented x4.? Pt endorses anxiety and depression both as 5/10.? Pt has a linear and circumstantial thought process.? Skin check unremarkable, denies any pain or discomfort at this time.? Pt reports previous admission at [facility] on M3 related to grief due to father?s passing, which continues to persist.? Pt drinks 1-2 drinks a year, tox screen negative, denies using any alternative substances.? Pt reports iron deficiency anemia, large hematoma of left lower leg, left ventricular hypertrophy, hypothyroidism, asthma, and type 2 diabetes.? ?I don?t know if I?m type 2 or pre-diabetic. And I believe I am no longer asthmatic.?? Past medical history for mood disorder, anxiety, and depression.? Pt placed on 15 minute checks. Treatment plans and safety tools initiated.
[2025-08-29 07:09] VITALS: BMI 47.1
[2025-08-29 07:57] LABS: Glucose, Whole Blood 85 mg/dL (60-115)
[2025-08-29 08:00] VITALS: BP 139/98; PULSE 112; TEMP 36.1; O2SAT 97
[2025-08-29 08:13] LABS: Alanine Aminotransferase 14 U/L (0-31); Albumin Level 4.3 g/dL (3.5-5.0); Alkaline Phosphatase 67 U/L (39-117); Anion Gap 13 (12-20); Aspartate Amino Transferase 22 U/L (5-31); Blood Urea Nitrogen 20 mg/dL (9-16); Calcium 9.4 mg/dL (8.4-10.2); Carbon Dioxide 23 mmol/L (22-29); Chloride 105 mmol/L (96-108); Cholesterol 178 mg/dL (<200); Creatinine Clr Calc Pharmacy 99.6; Estimated Glomerular Filt Rate > 60; HDL Cholesterol 49 mg/dL (>40); Magnesium 1.9 mg/dL (1.6-2.6); Potassium 4.2 mmol/L (3.3-5.1); Sodium 137 mmol/L (135-145); Total Protein 8.3 g/dL (6.5-8.0); Triglycerides 76 mg/dL (<150)
--- NOTE | 2025-08-29 08:16 | P.CONHOSP_ITS ---
History of Present Illness Data of Consult Service Date: 08/29/25 Primary Care Provider: Cortes Cunha MD HPI Reason for consult: Medical H and P 44-year-old female with a past medical history of bipolar disorder, depression, mood disorder, anxiety and hypothyroidism, prediabetes who presents to the ED for increased suicide ideation and depression. She was evaluated by the care team, now admitted for further care and stabilization. Patient with a mild leukocytosis, no anemia on initial workup. No electrolyte imbalance, no evidence of kidney or liver dysfunction. A1c 5.6. Mild elevation in LDL. TSH noted to be 6.20 with a free T4 1.03. Urine without evidence of infection. U tox negative. On exam she has no medical concerns. Review of Systems 2 Review of Systems: Denies any shortness of breath, chest pain, headaches, dysuria, abdominal pain or discomfort, nausea, vomiting or diarrhea. Denies fever or chills. [facility] Medical History (Updated 08/29/25 @ 16:37 by Ynes Dooley DNP) Mood disorder of manic type Anxiety and depression Hypothyroidism Social History Household Members: Significant Other Household Members Other:: , and father in law Housing: House Do you presently have visiting nurse or other home services: No Alcohol intake: current Alcohol intake frequency: holidays/special occasions only Patient Tobacco Use Status: Never used Tobacco Smoked in Last 30 Days: No Use of substances other than those prescribed or required for medical reasons: No Currently Displaying Signs/Symptoms of Drug Intoxication Withdrawal: No Have you been hit, kicked, punched, or otherwise hurt by someone within the past year? If so, by whom?: No Do you feel safe in your current relationship?: Yes Is there a partner from a previous relationship who is making you feel unsafe now?: No Are you made to feel afraid or neglected: No Spiritual Healthcare Practices: [employer] Healthcare Practices: [employer] Advance Directives: No Advance Directives Information Provided: Yes Do you have thoughts of harming others: None Do you have a plan to hurt others: No Plan Recently lost weight without trying: Unsure How much weight loss: Unsure Eating poorly because of decreased appetite: No Nutrition screen score: 4 Nutrition Risks: No Nutritional Risk Patient : No : No Poor oral hygiene: No service: No Sexual orientation: Straight/Heterosexual Meds Allergies Allergy/AdvReac Type Severity Reaction Status Date / Time amoxicillin Allergy Unknown Verified 08/28/25 13:41 loratadine (From Claritin) Allergy Unknown Verified 08/28/25 13:41 sulfamethoxazole (From Allergy Unknown Verified 08/29/25 05:28 Sulfamethoxazole-Trimethoprim) trimethoprim (From Allergy Unknown Verified 08/29/25 05:28 Sulfamethoxazole-Trimethoprim) Active Medications: Current Medications Acetaminophen (Acetaminophen 325 Mg Tablet) 650 mg PO Q6H PRN PRN Reason: Headache/Pain, Scale 1-10 Al Hydroxide/Mg Hydroxide (Magnesium Hydrox/Alum Hydrox 30 Ml Oral.Susp) 30 ml PO Q6H PRN PRN Reason: Heartburn/Nausea Dextrose (Dextrose 50 % 25 Gm/50 Ml Syringe) 25 gm IVPUSH Q15M PRN; Protocol PRN Reason: per Hypoglycemia Standing Ord. Ferrous Sulfate (Ferrous Sulfate 324 Mg Tablet.Dr) 324 mg PO DAILY JOANIE Glucose (Glucose Gel 15 Gm Gel..Gram.) 15 gm PO Q15M PRN; Protocol PRN Reason: per Hypoglycemia Standing Ord. Hydroxyzine HCl (Hydroxyzine Hcl 25 Mg Tablet) 25 mg PO Q6H PRN PRN Reason: mild anxiety Insulin Human Lispro (Insulin Lispro 100 Unit/Ml 3 Ml Vial) 0 unit SUBCUT QIDACHS [facility]; Protocol Last Admin: 08/28/25 22:00 Dose: Not Given Levothyroxine Sodium (Levothyroxine Sodium 125 Mcg Tablet) 125 mcg PO DAILY@0600 [facility] Last Admin: 08/29/25 06:32 Dose: 125 mcg Lisinopril (Lisinopril 2.5 Mg Tablet) 2.5 mg PO DAILY [facility]; Protocol Magnesium Hydroxide (Milk Of Magnesia 30 Ml Oral.Susp) 30 ml PO DAILY PRN PRN Reason: Constipation Metformin HCl (Metformin Hcl 500 Mg Tablet) 500 mg PO DAILY [facility] Mirtazapine (Mirtazapine 7.5 Mg Tablet) 7.5 mg PO BEDTIME [facility] Last Admin: 08/28/25 22:06 Dose: 7.5 mg Nicotine (Nicotine 21 Mg Patch.Td24) 21 mg TRANSDERMA DAILY PRN PRN Reason: nicotine craving Nicotine Polacrilex (Nicotine Polacrilex 2 Mg Gum) 2 mg BUCCAL Q2H PRN PRN Reason: Nicotine Cravings Non-Formulary Medication (Norethindrone (Contraceptive)) 0.35 mg PO DAILY [facility] Olanzapine (Olanzapine 5 Mg Tablet) 5 mg PO BID PRN PRN Reason: agitation Olanzapine (Olanzapine 10 Mg Tablet) 10 mg PO BEDTIME [facility] Last Admin: 08/28/25 22:06 Dose: 10 mg Trazodone HCl (Trazodone Hcl 50 Mg Tablet) 50 mg PO BEDTIME MRX1 PRN PRN Reason: Insomnia Venlafaxine HCl (Venlafaxine Hcl Er 150 Mg Cap.Er.24h) 150 mg PO DAILY [facility] Home Medications ?Medication ?Instructions ?Recorded ?Confirmed ?Last Taken ?Type levothyroxine 125 mcg tablet 125 mcg PO DAILY 04/24/21 08/28/25 08/27/25 History venlafaxine 150 mg 150 mg PO DAILY 04/24/2108/1208/27/25 History capsule,extended release 24 hr ferrous sulfate 325 mg (65 mg 325 mg PO DAILY 07/05/25 08/28/25 08/27/25 History iron) tablet metformin 500 mg tablet 500 mg PO DAILY 07/05/2508/1208/27/25 History norethindrone (contraceptive) 0.35 0.35 mg PO DAILY 08/28/25 08/27/25 History mg tablet lisinopril 2.5 mg tablet 2.5 mg PO DAILY 07/07/2508/1208/27/25 History Physical Exam 2 Vital Signs and Narrative: Vital Signs: Last Vital Signs Temp 97.4 F 08/28/25 13:36 Pulse 110 H 08/28/25 13:36 Resp 14 08/28/25 14:30 BP 133/85 08/28/25 13:36 Pulse Ox 96 08/28/25 13:36 O2 Del Method Room Air 08/28/25 13:36 BMI result Body Mass Index 47.1 General: Alert and cooperative Head: Normocephalic, atraumatic. EENT: Hearing WNL. Conjunctiva clear. PERRLA. EOM intact. Moist mucous membranes.? Cardiac: Normal S1, S2, no ectopy Lungs: Lung sounds clear, respiratory rate even and regular Abdomen: Soft, non-tender, non-distended. Positive BS x4. Neuro: AOx3. Normal speech. CN 2-12 grossly intact. Ambulating with steady gait. Psych: Appropriate mood and affect. Responds appropriately to questions. Skin: Warm, dry, intact. No rashes or lesions. Results Labs 08/28/25 14:15 08/29/25 07:37 Labs: Laboratory Results - last 24 hr 08/28/25 08/28/25 08/28/25 14:14 14:15 22:04 MCV 87.0 MCH 27.7 MCHC 31.9 RDW 12.9 Plt Count 382 MPV 9.1 L Immature Gran % (Auto) 0.4 Neut % (Auto) 76.4 H Lymph % (Auto) 17.1 L [place] % (Auto) 5.5 Eos % (Auto) 0.4 Baso % (Auto) 0.2 Lymph # (Auto) 1.9 [place] # (Auto) 0.6 Eos # (Auto) 0.0 Baso # (Auto) 0.0 Abs Immat Gran (auto) 0.05 H Absolute Neuts (auto) 8.6 H Absolute Nucleated RBC 0.000 Nucleated RBC % (auto) 0.0 Anion Gap 11 L Estim Creat Clear Calc 105.9 Estimated GFR > 60 POC Glucose 136 H Random Glucose 80 Estimat Average Glucose Hemoglobin A1c % Calcium 9.4 Magnesium Total Bilirubin 0.3 AST 24 ALT 17 Alkaline Phosphatase 67 Total Protein 8.3 H Albumin 4.4 Triglycerides Cholesterol LDL Cholesterol, Calc HDL Cholesterol Urine Color Yellow Urine Appearance Cloudy Urine pH 6.0 Ur Specific [place] 1.020 Urine Protein Negative Urine Glucose (UA) Negative Urine Ketones Negative Urine Blood Negative Urine Nitrite Negative Ur Leukocyte Esterase Large (3+) H Urine RBC 0-2 Urine WBC >50 H Ur Squamous Epith Cells >20 Urine Bacteria 2+ Hyaline Casts 3-5 Urine Test NEGATIVE Salicylates < 5.0 L Urine Opiates Screen Not Detected Ur Buprenorphine Scrn Not Detected Ur Oxycodone Screen Not Detected Urine Methadone Screen Not Detected Urine Fentanyl Screen Not Detected Acetaminophen < 3 Ur Barbiturates Screen Not Detected Ur Phencyclidine Scrn Not Detected Ur Amphetamines Screen Not Detected U Benzodiazepines Scrn Not Detected Urine Cocaine Screen Not Detected U Marijuana (THC) Screen Not Detected Ethyl Alcohol < 10 08/29/25 08/29/25 07:37 07:53 MCV MCH MCHC RDW Plt Count MPV Immature Gran % (Auto) Neut % (Auto) Lymph % (Auto) [place] % (Auto) Eos % (Auto) Baso % (Auto) Lymph # (Auto) [place] # (Auto) Eos # (Auto) Baso # (Auto) Abs Immat Gran (auto) Absolute Neuts (auto) Absolute Nucleated RBC Nucleated RBC % (auto) Anion Gap 13 Estim Creat Clear Calc 99.6 Estimated GFR > 60 POC Glucose 85 Random Glucose 93 Estimat Average Glucose 114 Hemoglobin A1c % 5.6 Calcium 9.4 Magnesium 1.9 Total Bilirubin 0.6 AST 22 ALT 14 Alkaline Phosphatase 67 Total Protein 8.3 H Albumin 4.3 Triglycerides 76 Cholesterol 178 LDL Cholesterol, Calc 114 H HDL Cholesterol 49 Urine Color Urine Appearance Urine pH Ur Specific [place] Urine Protein Urine Glucose (UA) Urine Ketones Urine Blood Urine Nitrite Ur Leukocyte Esterase Urine RBC Urine WBC Ur Squamous Epith Cells Urine Bacteria Hyaline Casts Urine Test Salicylates Urine Opiates Screen Ur Buprenorphine Scrn Ur Oxycodone Screen Urine Methadone Screen Urine Fentanyl Screen Acetaminophen Ur Barbiturates Screen Ur Phencyclidine Scrn Ur Amphetamines Screen U Benzodiazepines Scrn Urine Cocaine Screen U Marijuana (THC) Screen Ethyl Alcohol Assessment and Plan (1) Hypothyroidism: Status: Acute Plan 44-year-old female presents to the ED with increased depression and anxiety after stopping her Remeron. She is admitted for inpatient stabilization. Bipolar disorder/depression/mood disorder/anxiety Treatment per psychiatric team Hypothyroidism Synthroid 125 mcg daily TSH was 6.2. Will need follow up labs in 4-6 weeks and follow up with her primary care Prediabetes A1c 5.6 Continue diet and exercise Metformin 500 mcg daily Iron deficiency anemia Continue ferrous sulfate daily Hypertension Continue lisinopril daily Thank you for allowing me to participate in the care of this patient. Will follow with you, please notify medical provider with any changes in condition or concerns.
[2025-08-29 08:29] LABS: Free T4 (Free Thyroxine) 1.03 ng/dL (0.71-1.85); Thyroid Stimulating Hormone 6.20 uIU/mL (0.32-4.0)
[2025-08-29 08:42] LABS: Folate 14.1 ng/mL (> or = 4.0); Vitamin B12 352 pg/mL (200-900)
[2025-08-29] MEDS: Ferrous Sulfate 324 MG TABLET.DR PO (08:46)
[2025-08-29] MEDS: Venlafaxine HCl ER 150 MG CAP.ER.24H PO (08:46)
[2025-08-29] MEDS: NORETHINDRONE 0.35 MG 0.35 EACH PO (17:47)
--- NOTE | 2025-08-29 18:32 | P.PNPSI_ITS ---
Subjective Subjective Date of Service: 08/29/25 Reason For Visit: SI Subjective Notes: Conditional Voluntary and 3 Day Healthcare Proxy: No Guardianship: No Medical Problems Affecting Mental Status: No Interim History: I just was not getting my needs met at home Reports trying to get back to her routine since hospitalization and loss of father in Jun. Pt stopped Remeron and tapered Olanzapine as she thought since her sleep was improved they were no longer needed. Reports poor decision making, poor sleep and feeling hopeless. SI is yes and no . Safe on the unit, not safe alone at home. 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 These, along with med changes, time changes, holiday season, executive function difficulties are all on her mind. Reports she rested well last evening without her at home distractions of TV and social media. Not reading as her focus has been off. Discussed some questionable bipolar mood sx, going from beautiful to hopeless with energy bursts. We discussed mood stabilizer trial. She declines, wanting to see if the meds she stopped and restarted will work. Mentions ECT however discussed that she has several med options before ECT is pursued. Discussed his uneasy feeling about her father's -she reports sleeping poorly and worrying about him while he was dying and she is not at peace after his passing as he was in pain-she agrees a meeting with the hall worker is appropriate. Also discussed possible sx of perimenopause. She completed fertility treatments at 41 which were not a success. This time of year is the anniversary of her second cycle which also failed and she is grieving. Identifies covid, a purchase of a two family home with their first home as a rental as being stressful as well. Medication Compliance: Yes Side effects from medications: No Attending Groups: No Review of Systems Acute medical concerns: No Medical Review of Systems: unchanged Review of Systems Review of Systems as noted Mental Status Exam Mental Status Exam Patient Appearance: Appropriate Patient Orientation: Person, Place, Time and Situation Level of Consciousness: Alert Patient Behavior: Talkative, Good Eye Contact and Crying Mood Description: Depressed Affect Description: Flat Patient Cognition Impaired: No Ability to Follow Directions: Good Speech Pattern: Spontaneous Speech Memory Description: Intact Hallucinations: None Delusions: Not Present Thought Process: Rumination Thought Content: positive for Circumstantial and positive for Perseveration Depressive Symptoms: Increased Anxiety, Increased Fatigue, Thoughts of /Suicide, Low Self Esteem and Loss of Energy Judgement: Fair Diagnostics Vital Signs (24Hr): Vital Signs - 24 hr 08/29/25 08:00 Temperature 96.9 F Pulse Rate 112 H Blood Pressure 139/98 H Pulse Oximetry 97 Oxygen Delivery Method Room Air BMI result Body Mass Index 47.1 Labs 08/28/25 14:15 08/29/25 07:37 Labs: Laboratory Results - last 48 hr 08/28/25 08/28/25 08/28/25 14:14 14:15 22:04 WBC 11.3 H RBC 4.91 Hgb 13.6 Hct 42.7 MCV 87.0 MCH 27.7 MCHC 31.9 RDW 12.9 Plt Count 382 MPV 9.1 L Immature Gran % (Auto) 0.4 Neut % (Auto) 76.4 H Lymph % (Auto) 17.1 L [place] % (Auto) 5.5 Eos % (Auto) 0.4 Baso % (Auto) 0.2 Lymph # (Auto) 1.9 [place] # (Auto) 0.6 Eos # (Auto) 0.0 Baso # (Auto) 0.0 Abs Immat Gran (auto) 0.05 H Absolute Neuts (auto) 8.6 H Absolute Nucleated RBC 0.000 Nucleated RBC % (auto) 0.0 Sodium 137 Potassium 4.0 Chloride 106 Carbon Dioxide 24 Anion Gap 11 L BUN 18 H Creatinine 0.79 Estim Creat Clear Calc 105.9 Estimated GFR > 60 POC Glucose 136 H Random Glucose 80 Estimat Average Glucose Hemoglobin A1c % Calcium 9.4 Magnesium Total Bilirubin 0.3 AST 24 ALT 17 Alkaline Phosphatase 67 Total Protein 8.3 H Albumin 4.4 Triglycerides Cholesterol LDL Cholesterol, Calc HDL Cholesterol Vitamin B12 Folate TSH Free T4 Urine Color Yellow Urine Appearance Cloudy Urine pH 6.0 Ur Specific [place] 1.020 Urine Protein Negative Urine Glucose (UA) Negative Urine Ketones Negative Urine Blood Negative Urine Nitrite Negative Ur Leukocyte Esterase Large (3+) H Urine RBC 0-2 Urine WBC >50 H Ur Squamous Epith Cells >20 Urine Bacteria 2+ Hyaline Casts 3-5 Urine Test NEGATIVE Salicylates < 5.0 L Urine Opiates Screen Not Detected Ur Buprenorphine Scrn Not Detected Ur Oxycodone Screen Not Detected Urine Methadone Screen Not Detected Urine Fentanyl Screen Not Detected Acetaminophen < 3 Ur Barbiturates Screen Not Detected Ur Phencyclidine Scrn Not Detected Ur Amphetamines Screen Not Detected U Benzodiazepines Scrn Not Detected Urine Cocaine Screen Not Detected U Marijuana (THC) Screen Not Detected Ethyl Alcohol < 10 08/29/25 08/29/25 07:37 07:53 WBC RBC Hgb Hct MCV MCH MCHC RDW Plt Count MPV Immature Gran % (Auto) Neut % (Auto) Lymph % (Auto) [place] % (Auto) Eos % (Auto) Baso % (Auto) Lymph # (Auto) [place] # (Auto) Eos # (Auto) Baso # (Auto) Abs Immat Gran (auto) Absolute Neuts (auto) Absolute Nucleated RBC Nucleated RBC % (auto) Sodium 137 Potassium 4.2 Chloride 105 Carbon Dioxide 23 Anion Gap 13 BUN 20 H Creatinine 0.84 Estim Creat Clear Calc 99.6 Estimated GFR > 60 POC Glucose 85 Random Glucose 93 Estimat Average Glucose 114 Hemoglobin A1c % 5.6 Calcium 9.4 Magnesium 1.9 Total Bilirubin 0.6 AST 22 ALT 14 Alkaline Phosphatase 67 Total Protein 8.3 H Albumin 4.3 Triglycerides 76 Cholesterol 178 LDL Cholesterol, Calc 114 H HDL Cholesterol 49 Vitamin B12 352 Folate 14.1 TSH 6.20 H Free T4 1.03 Urine Color Urine Appearance Urine pH Ur Specific [place] Urine Protein Urine Glucose (UA) Urine Ketones Urine Blood Urine Nitrite Ur Leukocyte Esterase Urine RBC Urine WBC Ur Squamous Epith Cells Urine Bacteria Hyaline Casts Urine Test Salicylates Urine Opiates Screen Ur Buprenorphine Scrn Ur Oxycodone Screen Urine Methadone Screen Urine Fentanyl Screen Acetaminophen Ur Barbiturates Screen Ur Phencyclidine Scrn Ur Amphetamines Screen U Benzodiazepines Scrn Urine Cocaine Screen U Marijuana (THC) Screen Ethyl Alcohol Medications Medications Current Medications Acetaminophen (Acetaminophen 325 Mg Tablet) 650 mg PO Q6H PRN PRN Reason: Headache/Pain, Scale 1-10 Al Hydroxide/Mg Hydroxide (Magnesium Hydrox/Alum Hydrox 30 Ml Oral.Susp) 30 ml PO Q6H PRN PRN Reason: Heartburn/Nausea Dextrose (Dextrose 50 % 25 Gm/50 Ml Syringe) 25 gm IVPUSH Q15M PRN; Protocol PRN Reason: per Hypoglycemia Standing Ord. Ferrous Sulfate (Ferrous Sulfate 324 Mg Tablet.Dr) 324 mg PO DAILY [facility] Last Admin: 08/29/25 08:46 Dose: 324 mg Glucose (Glucose Gel 15 Gm Gel..Gram.) 15 gm PO Q15M PRN; Protocol PRN Reason: per Hypoglycemia Standing Ord. Hydroxyzine HCl (Hydroxyzine Hcl 25 Mg Tablet) 25 mg PO Q6H PRN PRN Reason: mild anxiety Levothyroxine Sodium (Levothyroxine Sodium 125 Mcg Tablet) 125 mcg PO DAILY@0600 [facility] Last Admin: 08/29/25 06:32 Dose: 125 mcg Lisinopril (Lisinopril 2.5 Mg Tablet) 2.5 mg PO DAILY [facility]; Protocol Last Admin: 08/29/25 08:46 Dose: 2.5 mg Magnesium Hydroxide (Milk Of Magnesia 30 Ml Oral.Susp) 30 ml PO DAILY PRN PRN Reason: Constipation Metformin HCl (Metformin Hcl 500 Mg Tablet) 500 mg PO DAILY [facility] Last Admin: 08/29/25 08:46 Dose: 500 mg Mirtazapine (Mirtazapine 7.5 Mg Tablet) 7.5 mg PO BEDTIME [facility] Last Admin: 08/28/25 22:06 Dose: 7.5 mg Nicotine (Nicotine 21 Mg Patch.Td24) 21 mg TRANSDERMA DAILY PRN PRN Reason: nicotine craving Nicotine Polacrilex (Nicotine Polacrilex 2 Mg Gum) 2 mg BUCCAL Q2H PRN PRN Reason: Nicotine Cravings Pt Own ( Norethindrone ( Contraceptive) 0.35 Mg Tablet) 0.35 mg PO DAILY [facility] Last Admin: 08/29/25 17:47 Dose: 0.35 mg Olanzapine (Olanzapine 5 Mg Tablet) 5 mg PO BID PRN PRN Reason: agitation Last Admin: 08/29/25 08:46 Dose: 5 mg Olanzapine (Olanzapine 10 Mg Tablet) 10 mg PO BEDTIME [facility] Last Admin: 08/28/25 22:06 Dose: 10 mg Trazodone HCl (Trazodone Hcl 50 Mg Tablet) 50 mg PO BEDTIME MRX1 PRN PRN Reason: Insomnia Venlafaxine HCl (Venlafaxine Hcl Er 150 Mg Cap.Er.24h) 150 mg PO DAILY [facility] Last Admin: 08/29/25 08:46 Dose: 150 mg Allergies Allergies Allergy/AdvReac Type Severity Reaction Status Date / Time amoxicillin Allergy Unknown Verified 08/28/25 13:41 loratadine (From Claritin) Allergy Unknown Verified 08/28/25 13:41 sulfamethoxazole (From Allergy Unknown Verified 08/29/25 05:28 Sulfamethoxazole-Trimethoprim) trimethoprim (From Allergy Unknown Verified 08/29/25 05:28 Sulfamethoxazole-Trimethoprim) Assessment & Plan Assessment & Plan (1) Bipolar disorder, unspecified: Status: Acute Code(s): F31.9 - Bipolar disorder, unspecified (2) Suicidal ideation: Status: Acute Code(s): R45.851 - Suicidal ideations Plan 44-year-old female presents to the ED with increased depression and anxiety after stopping her Remeron. She is admitted for inpatient stabilization. Bipolar disorder/depression/mood disorder/anxiety Treatment per psychiatric team Hypothyroidism Synthroid 125 mcg daily TSH was 6.2. Will need follow up labs in 4-6 weeks and follow up with her primary care Prediabetes A1c 5.6 Continue diet and exercise Metformin 500 mcg daily Iron deficiency anemia Continue ferrous sulfate daily Hypertension Continue lisinopril daily Thank you for allowing me to participate in the care of this patient. Will follow with you, please notify medical provider with any changes in condition or concerns. 08/29/25: Continue current regime. Encourage milieu participation. Reason for continued inpatient stay Substantial Risk for: rapid decompensation Time Spent With Patient Time: Total time managing care of this patient today ____ minutes.
[2025-08-29 20:00] VITALS: BP 125/78; PULSE 88; TEMP 37.9; O2SAT 97
[2025-08-30 08:00] VITALS: BP 164/98; PULSE 115; RESP 16; TEMP 36.6; O2SAT 98
[2025-08-30] MEDS: Venlafaxine HCl ER 150 MG CAP.ER.24H PO (08:49)
[2025-08-30] MEDS: NORETHINDRONE 0.35 MG 0.35 EACH PO (08:49)
[2025-08-30] MEDS: Ferrous Sulfate 324 MG TABLET.DR PO (08:49)
--- NOTE | 2025-08-30 16:25 | HO.PSYCHPN ---
Subjective Subjective Reason For Visit: SI Diagnostics Vital Signs (24Hr): Vital Signs - 24 hr 08/29/25 20:00 08/30/25 08:00 Temperature 100.2 F 98 F Pulse Rate 88 115 H Respiratory Rate 16 Blood Pressure 125/78 164/98 H Pulse Oximetry 97 98 Oxygen Delivery Method Room Air Room Air BMI result Body Mass Index 47.1 Labs 08/28/25 14:15 08/29/25 07:37 Labs: Laboratory Results - last 48 hr 08/28/25 08/29/25 08/29/25 22:04 07:37 07:53 Sodium 137 Potassium 4.2 Chloride 105 Carbon Dioxide 23 Anion Gap 13 BUN 20 H Creatinine 0.84 Estim Creat Clear Calc 99.6 Estimated GFR > 60 POC Glucose 136 H 85 Random Glucose 93 Estimat Average Glucose 114 Hemoglobin A1c % 5.6 Calcium 9.4 Magnesium 1.9 Total Bilirubin 0.6 AST 22 ALT 14 Alkaline Phosphatase 67 Total Protein 8.3 H Albumin 4.3 Triglycerides 76 Cholesterol 178 LDL Cholesterol, Calc 114 H HDL Cholesterol 49 Vitamin B12 352 Folate 14.1 TSH 6.20 H Free T4 1.03 Medications Medications Current Medications Acetaminophen (Acetaminophen 325 Mg Tablet) 650 mg PO Q6H PRN PRN Reason: Headache/Pain, Scale 1-10 Al Hydroxide/Mg Hydroxide (Magnesium Hydrox/Alum Hydrox 30 Ml Oral.Susp) 30 ml PO Q6H PRN PRN Reason: Heartburn/Nausea Dextrose (Dextrose 50 % 25 Gm/50 Ml Syringe) 25 gm IVPUSH Q15M PRN; Protocol PRN Reason: per Hypoglycemia Standing Ord. Ferrous Sulfate (Ferrous Sulfate 324 Mg Reed.) 324 mg PO DAILY [facility] Last Admin: 08/30/25 08:49 Dose: 324 mg Glucose (Glucose Gel 15 Gm Gel..Gram.) 15 gm PO Q15M PRN; Protocol PRN Reason: per Hypoglycemia Standing Ord. Hydroxyzine HCl (Hydroxyzine Hcl 25 Mg Tablet) 25 mg PO Q6H PRN PRN Reason: mild anxiety Levothyroxine Sodium (Levothyroxine Sodium 125 Mcg Tablet) 125 mcg PO DAILY@0600 [facility] Last Admin: 08/30/25 06:50 Dose: 125 mcg Lisinopril (Lisinopril 2.5 Mg Tablet) 2.5 mg PO DAILY [facility]; Protocol Last Admin: 08/30/25 08:49 Dose: 2.5 mg Magnesium Hydroxide (Milk Of Magnesia 30 Ml Oral.Susp) 30 ml PO DAILY PRN PRN Reason: Constipation Metformin HCl (Metformin Hcl 500 Mg Tablet) 500 mg PO DAILY [facility] Last Admin: 08/30/25 08:49 Dose: 500 mg Mirtazapine (Mirtazapine 7.5 Mg Tablet) 7.5 mg PO BEDTIME [facility] Last Admin: 08/29/25 22:44 Dose: 7.5 mg Nicotine (Nicotine 21 Mg Patch.Td24) 21 mg TRANSDERMA DAILY PRN PRN Reason: nicotine craving Nicotine Polacrilex (Nicotine Polacrilex 2 Mg Gum) 2 mg BUCCAL Q2H PRN PRN Reason: Nicotine Cravings Pt Own ( Norethindrone ( Contraceptive) 0.35 Mg Tablet) 0.35 mg PO DAILY [facility] Last Admin: 08/30/25 08:49 Dose: 0.35 mg Olanzapine (Olanzapine 5 Mg Tablet) 5 mg PO BID PRN PRN Reason: agitation Last Admin: 08/29/25 08:46 Dose: 5 mg Olanzapine (Olanzapine 10 Mg Tablet) 10 mg PO BEDTIME [facility] Last Admin: 08/29/25 22:45 Dose: 10 mg Trazodone HCl (Trazodone Hcl 50 Mg Tablet) 50 mg PO BEDTIME MRX1 PRN PRN Reason: Insomnia Venlafaxine HCl (Venlafaxine Hcl Er 150 Mg Cap.Er.24h) 150 mg PO DAILY [facility] Last Admin: 08/30/25 08:49 Dose: 150 mg Allergies Allergies Allergy/AdvReac Type Severity Reaction Status Date / Time amoxicillin Allergy Unknown Verified 08/28/25 13:41 loratadine (From Claritin) Allergy Unknown Verified 08/28/25 13:41 sulfamethoxazole (From Allergy Unknown Verified 08/29/25 05:28 Sulfamethoxazole-Trimethoprim) trimethoprim (From Allergy Unknown Verified 08/29/25 05:28 Sulfamethoxazole-Trimethoprim) Assessment & Plan Assessment & Plan (1) Bipolar disorder, unspecified: Status: Acute Code(s): F31.9 - Bipolar disorder, unspecified (2) Suicidal ideation: Status: Acute Code(s): R45.851 - Suicidal ideations Plan 44-year-old female presents to the ED with increased depression and anxiety after stopping her Remeron. She is admitted for inpatient stabilization. Bipolar disorder/depression/mood disorder/anxiety Treatment per psychiatric team Hypothyroidism Synthroid 125 mcg daily TSH was 6.2. Will need follow up labs in 4-6 weeks and follow up with her primary care Prediabetes A1c 5.6 Continue diet and exercise Metformin 500 mcg daily Iron deficiency anemia Continue ferrous sulfate daily Hypertension Continue lisinopril daily Thank you for allowing me to participate in the care of this patient. Will follow with you, please notify medical provider with any changes in condition or concerns. 08/29/25: Continue current regime. Encourage milieu participation. Time Spent With Patient Time: Total time managing care of this patient today ____ minutes.
[2025-08-30 20:00] VITALS: BP 131/70; PULSE 97; TEMP 36.9; O2SAT 97
[2025-08-31 08:00] VITALS: BP 136/91; PULSE 105; RESP 16; TEMP 36.3; O2SAT 99
[2025-08-31] MEDS: Venlafaxine HCl ER 150 MG CAP.ER.24H PO (08:29)
[2025-08-31] MEDS: Ferrous Sulfate 324 MG TABLET.DR PO (08:29)
[2025-08-31] MEDS: NORETHINDRONE 0.35 MG 0.35 EACH PO (08:29)
--- NOTE | 2025-08-31 09:50 | P.PNPSI_ITS ---
Subjective Subjective Reason For Visit: SI Diagnostics Vital Signs (24Hr): Vital Signs - 24 hr 08/30/25 20:00 08/31/25 08:00 Temperature 98.5 F 97.4 F Pulse Rate 97 105 H Respiratory Rate 16 Blood Pressure 131/70 136/91 H Pulse Oximetry 97 99 Oxygen Delivery Method Room Air Room Air BMI result Body Mass Index 47.1 Labs 08/28/25 14:15 08/29/25 07:37 Medications Medications Current Medications Acetaminophen (Acetaminophen 325 Mg Tablet) 650 mg PO Q6H PRN PRN Reason: Headache/Pain, Scale 1-10 Al Hydroxide/Mg Hydroxide (Magnesium Hydrox/Alum Hydrox 30 Ml Oral.Susp) 30 ml PO Q6H PRN PRN Reason: Heartburn/Nausea Dextrose (Dextrose 50 % 25 Gm/50 Ml Syringe) 25 gm IVPUSH Q15M PRN; Protocol PRN Reason: per Hypoglycemia Standing Ord. Ferrous Sulfate (Ferrous Sulfate 324 Mg Tablet.Dr) 324 mg PO DAILY [facility] Last Admin: 08/31/25 08:29 Dose: 324 mg Glucose (Glucose Gel 15 Gm Gel..Gram.) 15 gm PO Q15M PRN; Protocol PRN Reason: per Hypoglycemia Standing Ord. Hydroxyzine HCl (Hydroxyzine Hcl 25 Mg Tablet) 25 mg PO Q6H PRN PRN Reason: mild anxiety Last Admin: 08/31/25 02:30 Dose: 25 mg Levothyroxine Sodium (Levothyroxine Sodium 125 Mcg Tablet) 125 mcg PO DAILY@0600 [facility] Last Admin: 08/31/25 06:55 Dose: 125 mcg Lisinopril (Lisinopril 2.5 Mg Tablet) 2.5 mg PO DAILY [facility]; Protocol Last Admin: 08/31/25 08:28 Dose: 2.5 mg Magnesium Hydroxide (Milk Of Magnesia 30 Ml Oral.Susp) 30 ml PO DAILY PRN PRN Reason: Constipation Metformin HCl (Metformin Hcl 500 Mg Tablet) 500 mg PO DAILY [facility] Last Admin: 08/31/25 08:29 Dose: 500 mg Mirtazapine (Mirtazapine 7.5 Mg Tablet) 7.5 mg PO BEDTIME [facility] Last Admin: 08/30/25 22:03 Dose: 7.5 mg Nicotine (Nicotine 21 Mg Patch.Td24) 21 mg TRANSDERMA DAILY PRN PRN Reason: nicotine craving Nicotine Polacrilex (Nicotine Polacrilex 2 Mg Gum) 2 mg BUCCAL Q2H PRN PRN Reason: Nicotine Cravings Pt Own ( Norethindrone ( Contraceptive) 0.35 Mg Tablet) 0.35 mg PO DAILY [facility] Last Admin: 08/31/25 08:29 Dose: 0.35 mg Olanzapine (Olanzapine 5 Mg Tablet) 5 mg PO BID PRN PRN Reason: agitation Last Admin: 08/31/25 02:29 Dose: 5 mg Olanzapine (Olanzapine 10 Mg Tablet) 10 mg PO BEDTIME [facility] Last Admin: 08/30/25 22:03 Dose: 10 mg Trazodone HCl (Trazodone Hcl 50 Mg Tablet) 50 mg PO BEDTIME MRX1 PRN PRN Reason: Insomnia Venlafaxine HCl (Venlafaxine Hcl Er 150 Mg Cap.Er.24h) 150 mg PO DAILY [facility] Last Admin: 08/31/25 08:29 Dose: 150 mg Allergies Allergies Allergy/AdvReac Type Severity Reaction Status Date / Time amoxicillin Allergy Unknown Verified 08/28/25 13:41 loratadine (From Claritin) Allergy Unknown Verified 08/28/25 13:41 sulfamethoxazole (From Allergy Unknown Verified 08/29/25 05:28 Sulfamethoxazole-Trimethoprim) trimethoprim (From Allergy Unknown Verified 08/29/25 05:28 Sulfamethoxazole-Trimethoprim) Assessment & Plan Assessment & Plan (1) Bipolar disorder, unspecified: Status: Acute Code(s): F31.9 - Bipolar disorder, unspecified (2) Suicidal ideation: Status: Acute Code(s): R45.851 - Suicidal ideations Plan 44-year-old female presents to the ED with increased depression and anxiety after stopping her Remeron. She is admitted for inpatient stabilization. Bipolar disorder/depression/mood disorder/anxiety Treatment per psychiatric team Hypothyroidism Synthroid 125 mcg daily TSH was 6.2. Will need follow up labs in 4-6 weeks and follow up with her primary care Prediabetes A1c 5.6 Continue diet and exercise Metformin 500 mcg daily Iron deficiency anemia Continue ferrous sulfate daily Hypertension Continue lisinopril daily Thank you for allowing me to participate in the care of this patient. Will follow with you, please notify medical provider with any changes in condition or concerns. 08/29/25: Continue current regime. Encourage milieu participation. Time Spent With Patient Time: Total time managing care of this patient today ____ minutes.
[2025-08-31 20:00] VITALS: BP 146/94; PULSE 102; TEMP 36.3; O2SAT 100
[2025-09-01 02:50] VITALS: BP 144/81; PULSE 94; TEMP 36; O2SAT 97
[2025-09-01 08:00] VITALS: BP 141/89; PULSE 96; TEMP 36.6; O2SAT 96
[2025-09-01] MEDS: NORETHINDRONE 0.35 MG 0.35 EACH PO (08:21)
[2025-09-01] MEDS: Ferrous Sulfate 324 MG TABLET.DR PO (08:21)
[2025-09-01] MEDS: Venlafaxine HCl ER 150 MG CAP.ER.24H PO (08:21)
--- NOTE | 2025-09-01 09:52 | PM.PSYDC ---
DS: Providers Provider Date of admission: 08/28/25 20:36 Primary care physician: Cortes Cunha MD DS: Diagnosis Discharge Diagnosis (1) Bipolar disorder, unspecified: Status: Acute (2) Suicidal ideation: Status: Acute DS: Medications Discharge Medications Home Medications: Home Medications ?Medication ?Instructions ?Recorded ?Confirmed norethindrone (contraceptive) 0.35 0.35 mg PO DAILY 07/05/25 08/28/25 mg tablet Previous Rx's ?Medication ?Instructions ?Recorded ferrous sulfate 325 mg (65 mg 325 mg PO DAILY #30 tabs 08/31/25 iron) tablet hydroxyzine HCl 25 mg tablet 25 mg PO Q6H PRN mild anxiety #15 08/31/25 tabs levothyroxine 125 mcg tablet 125 mcg PO DAILY #30 tabs 08/31/25 lisinopril 2.5 mg tablet 2.5 mg PO DAILY #30 tabs 08/31/25 metformin 500 mg tablet 500 mg PO DAILY #30 tabs 08/31/25 mirtazapine 7.5 mg tablet 7.5 mg PO BEDTIME #30 tabs 08/31/25 olanzapine 10 mg tablet 10 mg PO BEDTIME #30 tabs 08/31/25 olanzapine 5 mg tablet 5 mg PO BID PRN agitation #60 tabs 08/31/25 trazodone 50 mg tablet 50 mg PO BEDTIME MRX1 PRN Insomnia 08/31/25 #60 tabs venlafaxine 150 mg 150 mg PO DAILY #30 caps 08/31/25 capsule,extended release 24 hr Data Data Completed and Pending Completed studies during hospitalization [Text1]: 08/28/25 08/28/25 08/28/25 14:14 14:15 22:04 WBC 11.3 H RBC 4.91 Hgb 13.6 Hct 42.7 MCV 87.0 MCH 27.7 MCHC 31.9 RDW 12.9 Plt Count 382 MPV 9.1 L Immature Gran % (Auto) 0.4 Neut % (Auto) 76.4 H Lymph % (Auto) 17.1 L [place] % (Auto) 5.5 Eos % (Auto) 0.4 Baso % (Auto) 0.2 Lymph # (Auto) 1.9 [place] # (Auto) 0.6 Eos # (Auto) 0.0 Baso # (Auto) 0.0 Abs Immat Gran (auto) 0.05 H Absolute Neuts (auto) 8.6 H Absolute Nucleated RBC 0.000 Nucleated RBC % (auto) 0.0 Sodium 137 Potassium 4.0 Chloride 106 Carbon Dioxide 24 Anion Gap 11 L BUN 18 H Creatinine 0.79 Estim Creat Clear Calc 105.9 Estimated GFR > 60 POC Glucose 136 H Random Glucose 80 Estimat Average Glucose Hemoglobin A1c % Calcium 9.4 Magnesium Total Bilirubin 0.3 AST 24 ALT 17 Alkaline Phosphatase 67 Total Protein 8.3 H Albumin 4.4 Triglycerides Cholesterol LDL Cholesterol, Calc HDL Cholesterol Vitamin B12 Folate TSH Free T4 Urine Color Yellow Urine Appearance Cloudy Urine pH 6.0 Ur Specific [place] 1.020 Urine Protein Negative Urine Glucose (UA) Negative Urine Ketones Negative Urine Blood Negative Urine Nitrite Negative Ur Leukocyte Esterase Large (3+) H Urine RBC 0-2 Urine WBC >50 H Ur Squamous Epith Cells >20 Urine Bacteria 2+ Hyaline Casts 3-5 Urine Test NEGATIVE Salicylates < 5.0 L Urine Opiates Screen Not Detected Ur Buprenorphine Scrn Not Detected Ur Oxycodone Screen Not Detected Urine Methadone Screen Not Detected Urine Fentanyl Screen Not Detected Acetaminophen < 3 Ur Barbiturates Screen Not Detected Ur Phencyclidine Scrn Not Detected Ur Amphetamines Screen Not Detected U Benzodiazepines Scrn Not Detected Urine Cocaine Screen Not Detected U Marijuana (THC) Screen Not Detected Ethyl Alcohol < 10 08/29/25 08/29/25 07:37 07:53 WBC RBC Hgb Hct MCV MCH MCHC RDW Plt Count MPV Immature Gran % (Auto) Neut % (Auto) Lymph % (Auto) [place] % (Auto) Eos % (Auto) Baso % (Auto) Lymph # (Auto) [place] # (Auto) Eos # (Auto) Baso # (Auto) Abs Immat Gran (auto) Absolute Neuts (auto) Absolute Nucleated RBC Nucleated RBC % (auto) Sodium 137 Potassium 4.2 Chloride 105 Carbon Dioxide 23 Anion Gap 13 BUN 20 H Creatinine 0.84 Estim Creat Clear Calc 99.6 Estimated GFR > 60 POC Glucose 85 Random Glucose 93 Estimat Average Glucose 114 Hemoglobin A1c % 5.6 Calcium 9.4 Magnesium 1.9 Total Bilirubin 0.6 AST 22 ALT 14 Alkaline Phosphatase 67 Total Protein 8.3 H Albumin 4.3 Triglycerides 76 Cholesterol 178 LDL Cholesterol, Calc 114 H HDL Cholesterol 49 Vitamin B12 352 Folate 14.1 TSH 6.20 H Free T4 1.03 Urine Color Urine Appearance Urine pH Ur Specific [place] Urine Protein Urine Glucose (UA) Urine Ketones Urine Blood Urine Nitrite Ur Leukocyte Esterase Urine RBC Urine WBC Ur Squamous Epith Cells Urine Bacteria Hyaline Casts Urine Test Salicylates Urine Opiates Screen Ur Buprenorphine Scrn Ur Oxycodone Screen Urine Methadone Screen Urine Fentanyl Screen Acetaminophen Ur Barbiturates Screen Ur Phencyclidine Scrn Ur Amphetamines Screen U Benzodiazepines Scrn Urine Cocaine Screen U Marijuana (THC) Screen Ethyl Alcohol DS: Summary Time Spent with Patient Time attestation: Total time managing care of this patient today ____ minutes. Discharge Plan Discharge Anticipated Discharge Date/Time: 09/01/25 11:00 Patient Disposition: Home, Self-Care Discharge Diagnosis: Bipolar Disorder Hypothyroidism Pre DM Referrals: [facility]: Partial Hospitalization Program(PHP) [Other] - 09/06/25 8:00 am Referral Note: Intake for PHP program Appointment in person on 09/06/25 @ 8:00 am. [facility] : [facility] Fi[facility] [Other] - 1 Week Referral Note: Hospital discharge appointment with psychiatric medication provider Cortes Cunha MD [Primary Care Provider, Medical] - 1 Week Discharge Medications: New trazodone 50 mg Tablet 50 mg PO BEDTIME MRX1 PRN (Reason: Insomnia) Qty: 60 0RF olanzapine 5 mg Tablet 5 mg PO BID PRN (Reason: agitation) Qty: 60 0RF olanzapine 10 mg Tablet 10 mg PO BEDTIME Qty: 30 0RF hydroxyzine HCl 25 mg Tablet 25 mg PO Q6H PRN (Reason: mild anxiety) Qty: 15 0RF mirtazapine 7.5 mg Tablet 7.5 mg PO BEDTIME Qty: 30 0RF Continued metformin 500 mg tablet 500 mg PO DAILY Qty: 30 0RF venlafaxine 150 mg capsule,extended release 24hr 150 mg PO DAILY Qty: 30 0RF ferrous sulfate 325 mg (65 mg iron) tablet 325 mg PO DAILY Qty: 30 0RF levothyroxine 125 mcg tablet 125 mcg PO DAILY Qty: 30 0RF lisinopril 2.5 mg tablet 2.5 mg PO DAILY Qty: 30 0RF norethindrone (contraceptive) 0.35 mg tablet 0.35 mg PO DAILY Discharge Orders: Discharge Order (Routine); Ordered 09/01/25 Ordered By: Kiersten Head Diet: Advance to usual diet Activity on Discharge: As tolerated Stand Alone Forms: Patient Portal Discharge page, Community Support Print Language: Mongolian Care Plan Goals: Mood and Behavioral Stabilization Health Concerns: Mood and Behavioral Stabilization Plan of Treatment: Attend scheduled appointments Take medications as directed Assessment: Pt discharges on a three day notice of intent
== END 2025-09-01 11:20 | disposition home or self-care (01) | DRG 753 ==
LOC: HO.ED 14:06 → HO.PM5 21:35
PROVIDERS: Physician Assistant Medical; Admitting Provider Nurse Practitioner Psychiatric/Mental Health; Emergency Provider Emergency Medicine; PCP Internal Medicine; Visit Provider Clinical Nurse Specialist Psychiatric/Mental Health, Adult
DX: F31.9 Bipolar disorder, unspecified (principal); D50.9 Iron deficiency anemia, unspecified; R73.03 Prediabetes; I10 Essential (primary) hypertension; E03.9 Hypothyroidism, unspecified; Z79.84 Long term (current) use of oral hypoglycemic drugs; Z79.890 Hormone replacement therapy; Z79.899 Other long term (current) drug therapy
CPT/HCPCS: 36415; 80053; 80061; 80143; 80179; 80307; 81001; 81025; 82607; 82746; 82947; 83036; 83735; 84439; 84443; 85025; 99285; S9485

== ENCOUNTER → 2025-08-28 20:36 | Outpatient (BNV) | payer BC, SELFPAY | PROVIDERS: Admitting Provider Nurse Practitioner Psychiatric/Mental Health; Emergency Provider Emergency Medicine; PCP Internal Medicine; Visit Provider Nurse Practitioner Psychiatric/Mental Health | DX: F31.9 Bipolar disorder, unspecified (principal); R45.851 Suicidal ideations; R73.03 Prediabetes | CPT/HCPCS: 90792; 99232 ==

== ENCOUNTER → 2025-08-28 20:36 | Outpatient (BNV) | payer BC, SELFPAY | PROVIDERS: Admitting Provider Nurse Practitioner Psychiatric/Mental Health; Emergency Provider Emergency Medicine; PCP Internal Medicine; Visit Provider Nurse Practitioner Family | DX: Z00.8 Encounter for other general examination (principal) | CPT/HCPCS: 99429 ==

== ENCOUNTER 2025-09-07 10:00 | Outpatient (RCR) | payer BC, SELFPAY ==
[2025-09-07 11:54] VITALS: BMI 45.6
--- NOTE | 2025-09-07 13:10 | PC.ADMIT ---
Patient is a 44 year old female who was referred to [facility] PHP by [facility] inpatient behavioral health unit were she was admitted from 08/28-09/01/25 d/t increased depression and anxiety with passive SI secondary to loss of her father. Patient reportedly stopped her prescription medications. Patient self presented to the ED for evaluation prior to inpatient LOC. Patient identified her supports stating, , mother in law, my siblings. Patient reports her father passed in June 2025. Patient reports she continues to grieve the of her father and was tearful when talking about this. Patient stated she has not worked since the of her father. When asked if hospitalization was helpful patient stated, It helped me get back on some meds that I needed . Patient is alert and oriented x4. She is calm and cooperative. She presented with depressed mood anxious affect. Tearful at times when she mentioned her father. When asked patient if she is having SI patient reported she has various thoughts stating, Getting a concussion, taking pills, anything to end this pain. Patient denied any active plans or intent to kill herself. Patient reports she continues to grieve the of her father. Patient given a copy of her safety plan if needed. Asked if she had any plans for the weekend. Patient stated she is staying with her mother in law for the weekend as her is going to [place] to help his sister move. Patient reports her mother in law is very supportive. Dr. Bhardwaj stated she spoke to patients who is going to talk to mother in law as well about holding on to patient medications as a precaution. Medications updated with patient and discharge medication list from [facility] inpatient unit. Patient reports taking medications as prescribed. Patient denied any current of past use of any substance use. Patient asked this engineering technical writer if she could get rid of some of the paperwork in her folder that she does not apply to her so she can make room for other paperwork that she is getting while in the program. I agreed. Patient gave me all the substance use related paperwork as well as STD information to dispose of.
--- NOTE | 2025-09-07 14:44 | HO.PHP ---
Clients case was opened and reviewed in teams.
--- NOTE | 2025-09-07 14:56 | HO.PHP ---
Dr. Bhardwaj walked into [facility] clinician office stating that Karen would like to go to be evaluated voluntarily and asked if the [facility] staff member could walk her down to the ED. PHP staff member was receptive. While walking Karen down to the ED for an evaluation, she was talking about how the group setting is difficult for her because she absorbs everything everyone says. [facility] staff member explored with Karen if she will be able to do the groups moving forward if they are challenging. Karen stated she doesn't think so. Karen then noted that she actually would prefer to go home opposed to being evaluated. [facility] staff member was receptive and stated that she would like for us to go back inside to review with Dr. Bhardwaj to see if she feels you're safe enough to go home since she didn't get further information as to why she was seeking crisis. Karen was in agreement. Once we got back into the building, Karen then stated that she would prefer to continue with the program for the day and she would like to try. [facility] staff member was receptive and Karen returned to group. [facility] staff member followed up with Dr. Bhardwaj who disclosed that Karen expressed wanting to go down voluntarily. Dr. Bhardwaj did reach out to the to further develop a safety plan around her medications.
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
== END 2025-09-07 23:59 | disposition admitted as inpatient to this hospital (09) ==
LOC: HO.PHPA 10:00
PROVIDERS: Visit Provider Psychiatry & Neurology Psychiatry
DX: F31.9 Bipolar disorder, unspecified (principal); F41.1 Generalized anxiety disorder; Z79.899 Other long term (current) drug therapy
CPT/HCPCS: 90791; 90853

== ENCOUNTER → 2025-09-07 10:00 | Outpatient (BNV) | payer BC, SELFPAY | PROVIDERS: Visit Provider Psychiatry & Neurology Psychiatry | DX: F31.9 Bipolar disorder, unspecified (principal); F41.1 Generalized anxiety disorder | CPT/HCPCS: 90792 ==

== ENCOUNTER 2025-09-08 09:28 | Inpatient (IN) | payer BC, SELFPAY ==
--- NOTE | ~2025-09-08 | XR_ITS ---
EXAMINATION: XR ABDOMEN KUB CLINICAL INDICATION: constipation COMPARISON: None available. TECHNIQUE: AP view of the abdomen. FINDINGS: Gas throughout nondilated intestine. Abundant stool right hemicolon. No air-fluid levels. Linear radiopaque ovoid shaped structure in the right upper quadrant abdomen no seen in the entire images. There are shadow projects below the rib cage. Sclerosis and the sacroiliac joints. XR/XR KUB IMPRESSION: No intestinal obstruction pattern. Probable hepatomegaly, mild. Electronically signed by: Aramis Garza MD 09/21/2025 02:26 PM EST
[2025-09-08 09:36] VITALS: BP 127/92; PULSE 107; RESP 18; TEMP 36.4; O2SAT 99; BMI 44.2
[2025-09-08 10:00] VITALS: RESP 14
[2025-09-08 10:10] LABS: MANUAL DIFF FLAG NO
[2025-09-08 10:13] LABS: Hematocrit 45.5 % (37.0-47.0); Hemoglobin 14.4 g/dl (12.0-16.0); Imm Gran Abs Auto 0.05 X10*3/uL (0.00-0.03); Imm Gran Pct Auto 0.4 % (0.0-0.4); Lymphocytes Absolute Auto 1.6 X10*3/uL (1.2-4.9); Mean Corpuscular HGB Conc 31.6 g/dl (31.0-35.0); Mean Corpuscular Hemoglobin 27.7 pg (27.0-33.0); Mean Corpuscular Volume 87.7 fL (80.0-98.0); NRBC Abs Auto 0.000 X10*3/uL (0.0-0.012); NRBC Pct Auto 0.0 /100WBC (0.0-0.2); Platelet Count 455 X10*3/uL (160-400); Red Blood Count 5.19 X10*6/uL (4.20-5.50); White Blood Count 11.4 X10*3/uL (4.8-10.8)
[2025-09-08 10:17] LABS: Appearance Urine Cloudy; Glucose Urine UA Negative (Negative); PH 6.0 (5.0-9.0); Specific Gravity - Urine >= 1.030 (1.005-1.025); UMIC TRIGGER UACC YES
[2025-09-08 10:32] LABS: UACC Culture Trigger YES
[2025-09-08 10:35] LABS: Cannabinoid Screen Urine Not Detected (Not Detect)
[2025-09-08 10:41] LABS: Alanine Aminotransferase 25 U/L (0-31); Albumin Level 4.9 g/dL (3.5-5.0); Alkaline Phosphatase 76 U/L (39-117); Anion Gap 11 (12-20); Aspartate Amino Transferase 28 U/L (5-31); Blood Urea Nitrogen 22 mg/dL (9-16); Calcium 10.0 mg/dL (8.4-10.2); Carbon Dioxide 27 mmol/L (22-29); Chloride 105 mmol/L (96-108); Creatinine Clr Calc Pharmacy 99.7; Estimated Glomerular Filt Rate > 60; Magnesium 2.0 mg/dL (1.6-2.6); Potassium 4.2 mmol/L (3.3-5.1); Sodium 139 mmol/L (135-145); Total Protein 9.0 g/dL (6.5-8.0)
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
--- OUTSIDE RECORDS SUMMARY | 2025-09-08 11:15 | XMS_ITS ---
Author Organization [address] Address [address] [place] [phone] Phone Care Team Providers Care Acid Mixer Name Role Phone Cortes Cunha MD Primary Care Provider [phone] Transitional Care Management Status:Identified (Enrolling) Start date:09/04/2025 Enrollment reason:Identified using hospital discharge data Overview TCM freida bipolar Case Team Name Relationship Phone Nova ISIDRO(Responsible Staff) Care Man ager [phone] Continued Care and Services Coordination
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
[2025-09-08 13:58] LABS: Appearance Urine Clear; Glucose Urine UA Negative (Negative); PH 5.5 (5.0-9.0); Specific Gravity - Urine >= 1.030 (1.005-1.025); UMIC TRIGGER UACC YES
[2025-09-08 14:00] LABS: UACC Culture Trigger YES
--- NOTE | 2025-09-08 14:03 | PHA.MEDREC ---
Addendum entered by Magaly Elizabeth RPh 09/08/25 15:45: MED REC REVIEWED BY [facility] Original Note: Pharmacy Consult ? Medication Reconciliation Pharmacy reviewed med rec done by nursing. Spoke with nursing about Olanzapine since 10mg at bedtime confirmed, LF 08/31 Qty 30 for 30, 5mg QTY 60 for 30 LF 09/06 for 30; spoke with pt nurse in POD and they confirmed pt verified that she is only taking the 10mg at bedtime and states she has not taken the 5mg tabs yet. Claims matches everything else.
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
--- NOTE | 2025-09-08 21:06 | PC.NURSE ---
Assumed care at 1845. Patient presents with anxious mood, observed pacing. States I'm just very nervous to go upstairs. Spoke to on phone. Medicated per MAR. Declined the need for additional PRN's and stated I'll take my sleep meds once I get upstairs. Endorses +SI, no plan/intent. Denies HI/AVH. Agreeable to alert staff if feeling unsafe. 15 minute safety checks ongoing. Awaiting N2N for admission to . Plan of care ongoing.
[2025-09-08 21:34] VITALS: BP 123/90; PULSE 117; RESP 17; TEMP 36.3; O2SAT 98
[2025-09-08 22:40] VITALS: BP 135/92; PULSE 98; RESP 20; TEMP 36.4; O2SAT 99; BMI 44.2
--- NOTE | 2025-09-09 06:58 | PC.ADMIT ---
Karen Davies is a 44 year old female admitted to [facility] at 21:53 from the [facility] for SI.? Pt signed a 3-day after completing the admission process.? Prior to arrival pt presented to [facility] endorsing SI ?with a plan to OD on pills or cut herself.? Pt reports she has been having difficulty falling asleep and her ?medications I take at home I feel didn?t help enough.?? Pt reports recent stressors including her mother?s upcoming hysterectomy and her ?s upcoming trip for family matters. Stating ?When he leaves I would stay with my mother in law, but she wouldn?t be able to keep me safe. My thoughts would continue to grow.?? Pt reported the last time she self harmed was ?[facility], I banged my head against the wall. I just wanted to feel something.?? Pt is alert and oriented x4.? Linear and circumstantial thought process. Pt denies A/VH, denies paranoia or delusions. Pt denies HI, and states ?Right now I wish I would fall asleep and not wake up.? I don?t want to , I don?t want that on my or loved ones. I want to be better. I feel embarrassed being back here again.? Pt has recent admissions to inpatient on M3 and most recently to M5. Pt endorses anxiety and depression as ?high.?? Skin check unremarkable, bruises on both arms due to blood draws.? Pt has a past medical history of anemia, prediabetes, hypertension, hypothyroidism, mood disorder of manic type, generalized anxiety disorder, and unspecified depression. Pt recently diagnosed with unspecified bipolar disorder. Tox screen negative, denies using any substances, denies smoking, and reports the last drink was ?about a year ago.?? Pt is a POC QID.? Pt placed on 15 minute checks. Treatment plans and safety tools initiated.
[2025-09-09 08:00] VITALS: BP 136/98; PULSE 126; RESP 20; TEMP 36.7; O2SAT 97
[2025-09-09 08:05] VITALS: BP 160/98
[2025-09-09] MEDS: Venlafaxine HCl ER 150 MG CAP.ER.24H PO (08:05)
[2025-09-09] MEDS: Venlafaxine HCl ER 37.5 MG CAP.ER.24H PO (08:05)
[2025-09-09] MEDS: Ferrous Sulfate 324 MG TABLET.DR PO (08:05)
[2025-09-09 09:25] LABS: Alanine Aminotransferase 22 U/L (0-31); Albumin Level 4.7 g/dL (3.5-5.0); Alkaline Phosphatase 75 U/L (39-117); Anion Gap 14 (12-20); Aspartate Amino Transferase 26 U/L (5-31); Blood Urea Nitrogen 22 mg/dL (9-16); Calcium 9.7 mg/dL (8.4-10.2); Carbon Dioxide 24 mmol/L (22-29); Chloride 105 mmol/L (96-108); Cholesterol 145 mg/dL (<200); Creatinine Clr Calc Pharmacy 99.7; Estimated Glomerular Filt Rate > 60; HDL Cholesterol 42 mg/dL (>40); Potassium 4.7 mmol/L (3.3-5.1); Sodium 138 mmol/L (135-145); Total Protein 8.7 g/dL (6.5-8.0); Triglycerides 92 mg/dL (<150)
[2025-09-09 09:40] LABS: Free T4 (Free Thyroxine) 1.23 ng/dL (0.71-1.85); Thyroid Stimulating Hormone 1.90 uIU/mL (0.32-4.0)
--- NOTE | 2025-09-09 11:58 | HO.PSYCHPN ---
Subjective Subjective Date of Service: 09/09/25 Reason For Visit: SI Interim History: Met with patient; discussed with team; reviewed chart Patient explains events that led to this admission, saying she got triggered at the partial program due to conversations in the group. Patient reports continued SI but says it is less so since she is on the unit and trying to be hopeful about treatment. Burling And Joining Supervisor discussed medications and on admission, Venlafaxine and Mirtazapine both increased so patient agrees to see if these adjustments are helpful Mental Status Exam Mental Status Exam Narrative: Patient is A+Ox4, behavior is calm and cooperative on approach; mostly keeping to herself; wearing hospital attire..Speech is a little slow and a little soft; normal prosody, rate. A little unkempt but adequate hygiene;. Fair eye contact. Thought process is organized and linear. Thought content is on anxiety, depression, feeling triggered, also on treatment; no paranoid ideations expressed. Patient remains with SI but less intense and no plan or intent; no AVH. Judgment/insight impaired. Diagnostics Vital Signs (24Hr): Vital Signs - 24 hr 09/08/25 21:34 09/08/25 22:40 09/09/25 08:00 Temperature 97.4 F 97.6 F 98.0 F Pulse Rate 117 H 98 126 H Respiratory Rate 17 20 20 Blood Pressure 123/90 H 135/92 H 136/98 H Pulse Oximetry 98 99 97 Oxygen Delivery Method Room Air Room Air Room Air 09/09/25 08:05 Temperature Pulse Rate Respiratory Rate Blood Pressure 160/98 H Pulse Oximetry Oxygen Delivery Method BMI result Body Mass Index 44.2 Labs 09/08/25 10:03 09/09/25 08:19 Labs: Laboratory Results - last 48 hr 09/08/25 09/08/25 09/09/25 10:03 13:45 08:19 WBC 11.4 H RBC 5.19 Hgb 14.4 Hct 45.5 MCV 87.7 MCH 27.7 MCHC 31.6 RDW 12.6 Plt Count 455 H MPV 8.9 L Immature Gran % (Auto) 0.4 Neut % (Auto) 78.6 H Lymph % (Auto) 14.0 L [place] % (Auto) 6.0 Eos % (Auto) 0.6 Baso % (Auto) 0.4 Lymph # (Auto) 1.6 [place] # (Auto) 0.7 Eos # (Auto) 0.1 Baso # (Auto) 0.1 Abs Immat Gran (auto) 0.05 H Absolute Neuts (auto) 9.0 H Absolute Nucleated RBC 0.000 Nucleated RBC % (auto) 0.0 Sodium 139 138 Potassium 4.2 4.7 Chloride 105 105 Carbon Dioxide 27 24 Anion Gap 11 L 14 BUN 22 H 22 H Creatinine 0.84 0.84 Estim Creat Clear Calc 99.7 99.7 Estimated GFR > 60 > 60 Random Glucose 82 114 Estimat Average Glucose 117 Hemoglobin A1c % 5.7 Calcium 10.0 D 9.7 Magnesium 2.0 Total Bilirubin 0.4 0.5 AST 28 26 ALT 25 22 Alkaline Phosphatase 76 75 Total Protein 9.0 H 8.7 H Albumin 4.9 4.7 Triglycerides 92 Cholesterol 145 LDL Cholesterol, Calc 85 HDL Cholesterol 42 TSH 1.90 Free T4 1.23 Urine Color Yellow Yellow Urine Appearance Cloudy Clear Urine pH 6.0 5.5 Ur Specific [place] >= 1.030 H >= 1.030 H Urine Protein Trace Trace Urine Glucose (UA) Negative Negative Urine Ketones Trace Trace Urine Blood Negative Negative Urine Nitrite Negative Negative Ur Leukocyte Esterase Moderate (2+) H Moderate (2+) H Urine RBC 0-2 0-2 Urine WBC 21-50 H 21-50 H Ur Squamous Epith Cells >20 6-10 Urine Bacteria 4+ 3+ Hyaline Casts 0-2 0-2 Urine Opiates Screen Not Detected Ur Buprenorphine Scrn Not Detected Ur Oxycodone Screen Not Detected Urine Methadone Screen Not Detected Urine Fentanyl Screen Not Detected Ur Barbiturates Screen Not Detected Ur Phencyclidine Scrn Not Detected Ur Amphetamines Screen Not Detected U Benzodiazepines Scrn Not Detected Urine Cocaine Screen Not Detected U Marijuana (THC) Screen Not Detected Ethyl Alcohol 16 Medications Medications Current Medications Acetaminophen (Acetaminophen 325 Mg Tablet) 650 mg PO Q6H PRN PRN Reason: Headache/Pain, Scale 1-10 Al Hydroxide/Mg Hydroxide (Magnesium Hydrox/Alum Hydrox 30 Ml Oral.Susp) 30 ml PO Q6H PRN PRN Reason: Heartburn/Nausea Ferrous Sulfate (Ferrous Sulfate 324 Mg Tablet.Dr) 324 mg PO DAILY [facility] Last Admin: 09/09/25 08:05 Dose: 324 mg Hydroxyzine HCl (Hydroxyzine Hcl 25 Mg Tablet) 25 mg PO Q6H PRN PRN Reason: mild anxiety Last Admin: 09/09/25 08:05 Dose: 25 mg Levothyroxine Sodium (Levothyroxine Sodium 125 Mcg Tablet) 125 mcg PO DAILY@0600 [facility] Last Admin: 09/09/25 08:05 Dose: 125 mcg Lisinopril (Lisinopril 2.5 Mg Tablet) 2.5 mg PO DAILY [facility]; Protocol Last Admin: 09/09/25 08:05 Dose: 2.5 mg Magnesium Hydroxide (Milk Of Magnesia 30 Ml Oral.Susp) 30 ml PO DAILY PRN PRN Reason: Constipation Metformin HCl (Metformin Hcl 500 Mg Tablet) 500 mg PO DAILY [facility] Last Admin: 09/09/25 08:05 Dose: 500 mg Mirtazapine (Mirtazapine 15 Mg Tablet) 15 mg PO BEDTIME [facility] Last Admin: 09/08/25 20:49 Dose: 15 mg Nicotine (Nicotine 21 Mg Patch.Td24) 21 mg TRANSDERMA DAILY PRN PRN Reason: nicotine craving Non-Formulary Medication (Norethindrone (Contraceptive)) 0.35 mg PO DAILY [facility] Olanzapine (Olanzapine 10 Mg Tablet) 10 mg PO BEDTIME [facility] Last Admin: 09/08/25 20:49 Dose: 10 mg Olanzapine (Olanzapine 2.5 Mg Tablet) 2.5 mg PO DAILY [facility] Last Admin: 09/09/25 08:05 Dose: 2.5 mg Olanzapine (Olanzapine 5 Mg Tablet) 5 mg PO BID PRN PRN Reason: agitation Trazodone HCl (Trazodone Hcl 50 Mg Tablet) 50 mg PO BEDTIME MRX1 PRN PRN Reason: Insomnia Last Admin: 09/08/25 23:15 Dose: 50 mg Venlafaxine HCl (Venlafaxine Hcl Er 150 Mg Cap.Er.24h) 150 mg PO DAILY [facility] Last Admin: 09/09/25 08:05 Dose: 150 mg Venlafaxine HCl (Venlafaxine Hcl Er 37.5 Mg Cap.Er.24h) 37.5 mg PO DAILY [facility] Last Admin: 09/09/25 08:05 Dose: 37.5 mg Allergies Allergies Allergy/AdvReac Type Severity Reaction Status Date / Time amoxicillin Allergy Unknown Verified 09/08/25 09:38 loratadine (From Claritin) Allergy Unknown Verified 09/08/25 09:38 sulfamethoxazole (From Allergy Unknown Verified 09/08/25 09:38 Sulfamethoxazole-Trimethoprim) trimethoprim (From Allergy Unknown Verified 09/08/25 09:38 Sulfamethoxazole-Trimethoprim) Assessment & Plan Assessment & Plan (1) Depression: Qualifiers: Depression Type: unspecified Qualified Code(s): F32.A - Depression, unspecified Status: Acute Code(s): F32.A - Depression, unspecified (2) Hypothyroidism: Status: Acute Code(s): E03.9 - Hypothyroidism, unspecified (3) Prediabetes: Status: Acute Code(s): R73.03 - Prediabetes (4) Anxiety state, unspecified: Status: Acute Code(s): F41.1 - Generalized anxiety disorder Plan HPI: Patient is a 44 year old, , German speaking female with hx of pre-diabetic, thryroid disease, depression, and anxiety who self presents to the [facility] ED today with her mother in law reporting SI with plan to OD on pills or cut herself. She has been admitted IPLOC twice to [facility], the first of which was in June and most recently from 07/28-. It appears the was assessed for the PHP at [facility] on 09/06/2025. Attended 1 day only. Do not think PHP is a good fit for her Formulation/clinical reasoning: increased in depression and anxiety, poor sleep and appetite, increase in safety concerns SI with plans. Hx of not complete treatment and relapse on mental health symptoms that affect daily functions. Currently is on medical leave of absent. Hx of Depression and Anxiety. Given above information, patient would benefit in restrictive environment for safety, medication adjustment and refer patient back to OP psychiatric services for aftercare. Hospital course: 09/08/25: patient still has passive SI with plan, but no intent to do harm to her. Feeling safe here. Potential to sign a 3-day notice to have some control over her treatment but open to stay longer if need Increased Remeron from 7.5mg to 15mg at HS for insomnia Increase Zyprexa up to 12.5mg in divided dose for severe anxiety/racing thoughts Increase Effexor ER to 187.5mg from 150mg for depression Metformin 500mg daily for diabetes. Zyprexa 5mg BID PRN for agitation. Trazodone and Hydroxyzine PRN available per protocol. Reviewed med list with patient POC BIB to monitor for BS. Can discontinue if BS is stable. 09/09 Patient explains events that led to this admission, saying she got triggered at the partial program due to conversations in the group. Patient reports continued SI but says it is less so since she is on the unit and trying to be hopeful about treatment. [employer]ining Supervisor discussed medications and on admission, Venlafaxine and Mirtazapine both increased so patient agrees to see if these adjustments are helpful Plan Patient on 15 minute checks for safety. Admitted to M5. CV. Increased Remeron from 7.5mg to 15mg at HS for insomnia Increase Zyprexa up to 12.5mg in divided dose for severe anxiety/racing thoughts Increase Effexor ER to 187.5mg from 150mg for depression Work with treatment team to do collateral. Patient educated on: diagnosis, medication risk/benefits and therapeutic strategies Informed Consent: understands Reason for continued inpatient stay Substantial Risk for: rapid decompensation Time Spent With Patient Time: Total time managing care of this patient today ____ minutes.
[2025-09-09 16:00] LABS: Glucose, Whole Blood 98 mg/dL (60-115)
[2025-09-09 20:00] VITALS: BP 156/83; PULSE 107; RESP 18; TEMP 36.6; O2SAT 97
[2025-09-10 08:00] VITALS: BP 110/90; PULSE 98; RESP 16; TEMP 36.5; O2SAT 100
[2025-09-10 08:12] LABS: Glucose, Whole Blood 107 mg/dL (60-115)
[2025-09-10 08:38] VITALS: BP 110/90
[2025-09-10] MEDS: Venlafaxine HCl ER 150 MG CAP.ER.24H PO (08:38)
[2025-09-10] MEDS: Venlafaxine HCl ER 37.5 MG CAP.ER.24H PO (08:38)
[2025-09-10] MEDS: Ferrous Sulfate 324 MG TABLET.DR PO (08:38)
--- NOTE | 2025-09-10 08:42 | PC.NURSE ---
Pt highly anxious. Very difficult to hear BP on either side. BP reported to provider. Pt denies pain and endorses feeling like she is physically floating away . States that she is anxious about dying.
--- NOTE | 2025-09-10 09:39 | HO.PSYCHPN ---
Subjective Subjective Date of Service: 09/10/25 Reason For Visit: SI Interim History: Met with patient; discussed with team pt reports she remains with SI and depression and anxiety. She says SI is a little less but only because she's on the unit without means to hurt herself. She is ambivalent about staying on the unit however. Pt's present making general inquiries regarding tx. Mental Status Exam Mental Status Exam Narrative: Patient is A+Ox4, behavior is calm and cooperative on approach; mostly keeping to herself; wearing casuall attire..Speech is a little soft; normal prosody, rate; Adequate hygiene and grooming; wears glasses;. Fair eye contact. Thought process is organized and linear. Thought content is on continuing SI, anxiety, depression; no paranoid ideations expressed; no HI; Denies AVH. Judgment/insight impaired. Diagnostics Vital Signs (24Hr): Vital Signs - 24 hr 09/09/25 20:00 09/10/25 08:38 Temperature 97.8 F Pulse Rate 107 H Respiratory Rate 18 Blood Pressure 156/83 H 110/90 H Pulse Oximetry 97 Oxygen Delivery Method Room Air BMI result Body Mass Index 44.2 Labs 09/08/25 10:03 09/09/25 08:19 Labs: Laboratory Results - last 48 hr 09/08/25 09/08/25 09/09/25 10:03 13:45 08:19 WBC 11.4 H RBC 5.19 Hgb 14.4 Hct 45.5 MCV 87.7 MCH 27.7 MCHC 31.6 RDW 12.6 Plt Count 455 H MPV 8.9 L Immature Gran % (Auto) 0.4 Neut % (Auto) 78.6 H Lymph % (Auto) 14.0 L [place] % (Auto) 6.0 Eos % (Auto) 0.6 Baso % (Auto) 0.4 Lymph # (Auto) 1.6 [place] # (Auto) 0.7 Eos # (Auto) 0.1 Baso # (Auto) 0.1 Abs Immat Gran (auto) 0.05 H Absolute Neuts (auto) 9.0 H Absolute Nucleated RBC 0.000 Nucleated RBC % (auto) 0.0 Sodium 139 138 Potassium 4.2 4.7 Chloride 105 105 Carbon Dioxide 27 24 Anion Gap 11 L 14 BUN 22 H 22 H Creatinine 0.84 0.84 Estim Creat Clear Calc 99.7 99.7 Estimated GFR > 60 > 60 POC Glucose Random Glucose 82 114 Estimat Average Glucose 117 Hemoglobin A1c % 5.7 Calcium 10.0 D 9.7 Magnesium 2.0 Total Bilirubin 0.4 0.5 AST 28 26 ALT 25 22 Alkaline Phosphatase 76 75 Total Protein 9.0 H 8.7 H Albumin 4.9 4.7 Triglycerides 92 Cholesterol 145 LDL Cholesterol, Calc 85 HDL Cholesterol 42 TSH 1.90 Free T4 1.23 Urine Color Yellow Yellow Urine Appearance Cloudy Clear Urine pH 6.0 5.5 Ur Specific [place] >= 1.030 H >= 1.030 H Urine Protein Trace Trace Urine Glucose (UA) Negative Negative Urine Ketones Trace Trace Urine Blood Negative Negative Urine Nitrite Negative Negative Ur Leukocyte Esterase Moderate (2+) H Moderate (2+) H Urine RBC 0-2 0-2 Urine WBC 21-50 H 21-50 H Ur Squamous Epith Cells >20 6-10 Urine Bacteria 4+ 3+ Hyaline Casts 0-2 0-2 Urine Opiates Screen Not Detected Ur Buprenorphine Scrn Not Detected Ur Oxycodone Screen Not Detected Urine Methadone Screen Not Detected Urine Fentanyl Screen Not Detected Ur Barbiturates Screen Not Detected Ur Phencyclidine Scrn Not Detected Ur Amphetamines Screen Not Detected U Benzodiazepines Scrn Not Detected Urine Cocaine Screen Not Detected U Marijuana (THC) Screen Not Detected Ethyl Alcohol 16 09/09/25 09/10/25 15:55 08:07 WBC RBC Hgb Hct MCV MCH MCHC RDW Plt Count MPV Immature Gran % (Auto) Neut % (Auto) Lymph % (Auto) [place] % (Auto) Eos % (Auto) Baso % (Auto) Lymph # (Auto) [place] # (Auto) Eos # (Auto) Baso # (Auto) Abs Immat Gran (auto) Absolute Neuts (auto) Absolute Nucleated RBC Nucleated RBC % (auto) Sodium Potassium Chloride Carbon Dioxide Anion Gap BUN Creatinine Estim Creat Clear Calc Estimated GFR POC Glucose 98 107 Random Glucose Estimat Average Glucose Hemoglobin A1c % Calcium Magnesium Total Bilirubin AST ALT Alkaline Phosphatase Total Protein Albumin Triglycerides Cholesterol LDL Cholesterol, Calc HDL Cholesterol TSH Free T4 Urine Color Urine Appearance Urine pH Ur Specific [place] Urine Protein Urine Glucose (UA) Urine Ketones Urine Blood Urine Nitrite Ur Leukocyte Esterase Urine RBC Urine WBC Ur Squamous Epith Cells Urine Bacteria Hyaline Casts Urine Opiates Screen Ur Buprenorphine Scrn Ur Oxycodone Screen Urine Methadone Screen Urine Fentanyl Screen Ur Barbiturates Screen Ur Phencyclidine Scrn Ur Amphetamines Screen U Benzodiazepines Scrn Urine Cocaine Screen U Marijuana (THC) Screen Ethyl Alcohol Medications Medications Current Medications Acetaminophen (Acetaminophen 325 Mg Tablet) 650 mg PO Q6H PRN PRN Reason: Headache/Pain, Scale 1-10 Al Hydroxide/Mg Hydroxide (Magnesium Hydrox/Alum Hydrox 30 Ml Oral.Susp) 30 ml PO Q6H PRN PRN Reason: Heartburn/Nausea Ferrous Sulfate (Ferrous Sulfate 324 Mg Tablet.Dr) 324 mg PO DAILY [facility] Last Admin: 09/10/25 08:38 Dose: 324 mg Hydroxyzine HCl (Hydroxyzine Hcl 25 Mg Tablet) 25 mg PO Q6H PRN PRN Reason: mild anxiety Last Admin: 09/09/25 21:05 Dose: 25 mg Levothyroxine Sodium (Levothyroxine Sodium 125 Mcg Tablet) 125 mcg PO DAILY@0600 [facility] Last Admin: 09/10/25 06:27 Dose: 125 mcg Lisinopril (Lisinopril 2.5 Mg Tablet) 2.5 mg PO DAILY [facility]; Protocol Last Admin: 09/10/25 08:38 Dose: 2.5 mg Magnesium Hydroxide (Milk Of Magnesia 30 Ml Oral.Susp) 30 ml PO DAILY PRN PRN Reason: Constipation Metformin HCl (Metformin Hcl 500 Mg Tablet) 500 mg PO DAILY [facility] Last Admin: 09/10/25 08:38 Dose: 500 mg Mirtazapine (Mirtazapine 15 Mg Tablet) 15 mg PO BEDTIME [facility] Last Admin: 09/09/25 21:21 Dose: 15 mg Nicotine (Nicotine 21 Mg Patch.Td24) 21 mg TRANSDERMA DAILY PRN PRN Reason: nicotine craving Non-Formulary Medication (Norethindrone (Contraceptive)) 0.35 mg PO DAILY [facility] Last Admin: 09/10/25 08:38 Dose: 0.35 mg Olanzapine (Olanzapine 10 Mg Tablet) 10 mg PO BEDTIME [facility] Last Admin: 09/09/25 21:21 Dose: 10 mg Olanzapine (Olanzapine 2.5 Mg Tablet) 2.5 mg PO DAILY [facility] Last Admin: 09/10/25 08:38 Dose: 2.5 mg Olanzapine (Olanzapine 5 Mg Tablet) 5 mg PO BID PRN PRN Reason: agitation Last Admin: 09/10/25 08:38 Dose: 5 mg Trazodone HCl (Trazodone Hcl 50 Mg Tablet) 50 mg PO BEDTIME MRX1 PRN PRN Reason: Insomnia Last Admin: 09/10/25 02:41 Dose: 50 mg Venlafaxine HCl (Venlafaxine Hcl Er 150 Mg Cap.Er.24h) 150 mg PO DAILY [facility] Last Admin: 09/10/25 08:38 Dose: 150 mg Venlafaxine HCl (Venlafaxine Hcl Er 37.5 Mg Cap.Er.24h) 37.5 mg PO DAILY [facility] Last Admin: 09/10/25 08:38 Dose: 37.5 mg Allergies Allergies Allergy/AdvReac Type Severity Reaction Status Date / Time amoxicillin Allergy Unknown Verified 09/08/25 09:38 loratadine (From Claritin) Allergy Unknown Verified 09/08/25 09:38 sulfamethoxazole (From Allergy Unknown Verified 09/08/25 09:38 Sulfamethoxazole-Trimethoprim) trimethoprim (From Allergy Unknown Verified 09/08/25 09:38 Sulfamethoxazole-Trimethoprim) Assessment & Plan Assessment & Plan (1) Depression: Qualifiers: Depression Type: unspecified Qualified Code(s): F32.A - Depression, unspecified Status: Acute Code(s): F32.A - Depression, unspecified (2) Hypothyroidism: Status: Acute Code(s): E03.9 - Hypothyroidism, unspecified (3) Prediabetes: Status: Acute Code(s): R73.03 - Prediabetes (4) Anxiety state, unspecified: Status: Acute Code(s): F41.1 - Generalized anxiety disorder Plan HPI: Patient is a 44 year old, , Icelandic speaking female with hx of pre-diabetic, thryroid disease, depression, and anxiety who self presents to the [facility] today with her mother in law reporting SI with plan to OD on pills or cut herself. She has been admitted IPLOC twice to [facility], the first of which was in June and most recently from 07/28-. It appears the was assessed for the PHP at [facility] on 09/06/2025. Attended 1 day only. Do not think PHP is a good fit for her Formulation/clinical reasoning: increased in depression and anxiety, poor sleep and appetite, increase in safety concerns SI with plans. Hx of not complete treatment and relapse on mental health symptoms that affect daily functions. Currently is on medical leave of absent. Hx of Depression and Anxiety. Given above information, patient would benefit in restrictive environment for safety, medication adjustment and refer patient back to OP psychiatric services for aftercare. Hospital course: 09/08/25: patient still has passive SI with plan, but no intent to do harm to her. Feeling safe here. Potential to sign a 3-day notice to have some control over her treatment but open to stay longer if need Increased Remeron from 7.5mg to 15mg at HS for insomnia Increase Zyprexa up to 12.5mg in divided dose for severe anxiety/racing thoughts Increase Effexor ER to 187.5mg from 150mg for depression Metformin 500mg daily for diabetes. Zyprexa 5mg BID PRN for agitation. Trazodone and Hydroxyzine PRN available per protocol. Reviewed med list with patient POC BIB to monitor for BS. Can discontinue if BS is stable. 09/09 Patient explains events that led to this admission, saying she got triggered at the partial program due to conversations in the group. Patient reports continued SI but says it is less so since she is on the unit and trying to be hopeful about treatment. Tool Distributor discussed medications and on admission, Venlafaxine and Mirtazapine both increased so patient agrees to see if these adjustments are helpful 09/10 pt reports she remains with SI and depression and anxiety. She says SI is a little less but only because she's on the unit without means to hurt herself. She is ambivalent about staying on the unit however -bp elevated, perhaps due to increased Venlafaxine? not clear since elevated last admission too. discussed bP; Pt agreed to start Clonidine bid for BP and anxiety Plan q15. 3 day Start Clonidine 0.1mg BID@0900/1300 Increased Remeron from 7.5mg to 15mg at HS for insomnia Increase Zyprexa up to 12.5mg in divided dose for severe anxiety/racing thoughts Increase Effexor ER to 187.5mg from 150mg for depression Work with treatment team to do collateral. Patient educated on: diagnosis, medication risk/benefits and medical condition Informed Consent: understands Reason for continued inpatient stay Substantial Risk for: harm to self and med/psych decompensation Time Spent With Patient Time: Total time managing care of this patient today ____ minutes.
[2025-09-10 12:10] VITALS: BP 127/87
[2025-09-10 16:51] LABS: Glucose, Whole Blood 72 mg/dL (60-115)
[2025-09-10 20:00] VITALS: BP 132/79; PULSE 100; RESP 16; TEMP 36.1; O2SAT 96
[2025-09-10] MEDS: Milk of Magnesia 30 ML ORAL.SUSP PO (21:03)
[2025-09-11] MEDS: Venlafaxine HCl ER 150 MG CAP.ER.24H PO (08:42)
[2025-09-11] MEDS: Venlafaxine HCl ER 37.5 MG CAP.ER.24H PO (08:43)
[2025-09-11] MEDS: Ferrous Sulfate 324 MG TABLET.DR PO (08:43)
[2025-09-11 08:49] VITALS: BP 163/99
[2025-09-11 08:53] VITALS: BP 163/99; PULSE 113; RESP 19; TEMP 36.9; O2SAT 97
--- NOTE | 2025-09-11 09:14 | P.CONHOSP_ITS ---
History of Present Illness Data of Consult Service Date: 09/11/25 Primary Care Provider: Cortes Cunha MD [facility] Reason for consult: Medical H&P 44-year-old female with past medical history of anxiety, bipolar disorder, depression, hypothyroidism, prediabetes, hypertension presents to the ED with reports of suicidal ideation. Initial ED exam reveals mild leukocytosis appearing to be at her baseline, no anemia, mild elevation in BUN, no electrolyte imbalances, urine with 4+ bacteria likely representing contamination as patient is asymptomatic, U tox is negative. On exam she is weepy, no medical concerns. Her vitals are stable. Review of Systems 2 Review of Systems: Denies any shortness of breath, chest pain, headaches, dysuria, abdominal pain or discomfort, nausea, vomiting or diarrhea. Denies fever or chills. [facility] Medical History Anemia Prediabetes HTN (hypertension) Mood disorder of manic type Anxiety and depression Hypothyroidism Social History Household Members: Spouse Household Members Other:: : Milan Davies Housing: House Do you presently have visiting nurse or other home services: No Alcohol intake: current Alcohol intake frequency: holidays/special occasions only Patient Tobacco Use Status: Never used Tobacco Smoked in Last 30 Days: No e-Cigarette/Vaping Use: Never Used Patient Interested in Nicotine Replacement: No Patient Given Instructions on How to Stop Smoking: No Second Hand Smoke Exposure: No Use of substances other than those prescribed or required for medical reasons: No Currently Displaying Signs/Symptoms of Drug Intoxication Withdrawal: No Have you been hit, kicked, punched, or otherwise hurt by someone within the past year? If so, by whom?: No Do you feel safe in your current relationship?: Yes Is there a partner from a previous relationship who is making you feel unsafe now?: No Are you made to feel afraid or neglected: No Spiritism Healthcare Practices: Former Adventist, I still find it comforting. Advance Directives: No Advance Directives Information Provided: Yes Do you have thoughts of harming others: None Do you have a plan to hurt others: No Plan Recently lost weight without trying: Unsure How much weight loss: Unsure Eating poorly because of decreased appetite: Yes Nutrition screen score: 5 Nutrition Risks: No Nutritional Risk Patient : No : No Poor oral hygiene: No service: No Sexual orientation: Straight/Heterosexual Meds Allergies Allergy/AdvReac Type Severity Reaction Status Date / Time amoxicillin Allergy Unknown Verified 09/08/25 09:38 loratadine (From Claritin) Allergy Unknown Verified 09/08/25 09:38 sulfamethoxazole (From Allergy Unknown Verified 09/08/25 09:38 Sulfamethoxazole-Trimethoprim) trimethoprim (From Allergy Unknown Verified 09/08/25 09:38 Sulfamethoxazole-Trimethoprim) Active Medications: Current Medications Acetaminophen (Acetaminophen 325 Mg Tablet) 650 mg PO Q6H PRN PRN Reason: Headache/Pain, Scale 1-10 Al Hydroxide/Mg Hydroxide (Magnesium Hydrox/Alum Hydrox 30 Ml Oral.Susp) 30 ml PO Q6H PRN PRN Reason: Heartburn/Nausea Clonidine HCl (Clonidine Hcl 0.1 Mg Tablet) 0.1 mg PO BID@0900,1300 [facility]; Protocol Last Admin: 09/11/25 08:49 Dose: 0.1 mg Ferrous Sulfate (Ferrous Sulfate 324 Mg Tablet.) 324 mg PO DAILY [facility] Last Admin: 09/11/25 08:43 Dose: 324 mg Hydroxyzine HCl (Hydroxyzine Hcl 25 Mg Tablet) 25 mg PO Q6H PRN PRN Reason: mild anxiety Last Admin: 09/11/25 08:44 Dose: 25 mg Levothyroxine Sodium (Levothyroxine Sodium 125 Mcg Tablet) 125 mcg PO DAILY@0600 [facility] Last Admin: 09/11/25 06:06 Dose: 125 mcg Lisinopril (Lisinopril 2.5 Mg Tablet) 2.5 mg PO DAILY [facility]; Protocol Last Admin: 09/11/25 08:49 Dose: 2.5 mg Magnesium Hydroxide (Milk Of Magnesia 30 Ml Oral.Susp) 30 ml PO DAILY PRN PRN Reason: Constipation Last Admin: 09/10/25 21:03 Dose: 30 ml Metformin HCl (Metformin Hcl 500 Mg Tablet) 500 mg PO DAILY [facility] Last Admin: 09/11/25 08:42 Dose: 500 mg Mirtazapine (Mirtazapine 15 Mg Tablet) 15 mg PO BEDTIME [facility] Last Admin: 09/10/25 21:04 Dose: 15 mg Nicotine (Nicotine 21 Mg Patch.Td24) 21 mg TRANSDERMA DAILY PRN PRN Reason: nicotine craving Non-Formulary Medication (Norethindrone (Contraceptive)) 0.35 mg PO DAILY [facility] Last Admin: 09/11/25 08:44 Dose: 0.35 mg Olanzapine (Olanzapine 10 Mg Tablet) 10 mg PO BEDTIME [facility] Last Admin: 09/10/25 21:04 Dose: 10 mg Olanzapine (Olanzapine 2.5 Mg Tablet) 2.5 mg PO DAILY [facility] Last Admin: 09/11/25 08:43 Dose: 2.5 mg Olanzapine (Olanzapine 5 Mg Tablet) 5 mg PO BID PRN PRN Reason: agitation Last Admin: 09/10/25 17:54 Dose: 5 mg Trazodone HCl (Trazodone Hcl 50 Mg Tablet) 50 mg PO BEDTIME MRX1 PRN PRN Reason: Insomnia Last Admin: 09/10/25 21:03 Dose: 50 mg Venlafaxine HCl (Venlafaxine Hcl Er 150 Mg Cap.Er.24h) 150 mg PO DAILY [facility] Last Admin: 09/11/25 08:42 Dose: 150 mg Venlafaxine HCl (Venlafaxine Hcl Er 37.5 Mg Cap.Er.24h) 37.5 mg PO DAILY [facility] Last Admin: 09/11/25 08:43 Dose: 37.5 mg Home Medications ?Medication ?Instructions ?Recorded ?Confirmed ?Last Taken ?Type norethindrone (contraceptive) 0.35 0.35 mg PO DAILY 09/08/25 09/07/25 History mg tablet Physical Exam 2 Vital Signs and Narrative: Vital Signs: Last Vital Signs Temp 98.4 F 09/11/25 08:53 Pulse 113 H 09/11/25 08:53 Resp 19 09/11/25 08:53 BP 163/99 H 09/11/25 08:53 Pulse Ox 97 09/11/25 08:53 O2 Del Method Room Air 09/11/25 08:53 BMI result Body Mass Index 44.2 General: Alert and cooperative. Weepy Head: Normocephalic, atraumatic. EENT: Hearing WNL. Conjunctiva clear. PERRLA. EOM intact. Moist mucous membranes.? Cardiac: Normal S1, S2, no ectopy Lungs: Lung sounds clear, respiratory rate even and regular Abdomen: Soft, non-tender, non-distended. Positive BS x4. Neuro: AOx3. Normal speech. CN 2-12 grossly intact. Ambulating with steady gait. Psych: Appropriate mood and affect. Responds appropriately to questions. Skin: Warm, dry, intact. No rashes or lesions. Results Labs 09/08/25 10:03 09/09/25 08:19 Labs: Laboratory Results - last 24 hr 09/10/25 16:47 POC Glucose 72 Assessment and Plan (1) Hypothyroidism: Status: Acute Plan 44-year-old female presents to the ED with increased depression and anxiety. She is admitted for inpatient stabilization. Bipolar disorder/depression/mood disorder/anxiety Treatment per psychiatric team Hypothyroidism Synthroid 125 mcg daily TSH 1.90 Prediabetes A1c 5.7 Continue diet and exercise Metformin 500 mgs daily Iron deficiency anemia Continue ferrous sulfate daily Stable Hypertension Continue lisinopril daily Thank you for allowing me to participate in the care of this patient. Will follow with you, please notify medical provider with any changes in condition or concerns.
--- NOTE | 2025-09-11 10:02 | P.PNPSI_ITS ---
Subjective Subjective Date of Service: 09/11/25 Reason For Visit: SI Subjective Notes: 3 Day (09/13) Healthcare Proxy: No Guardianship: No Medical Problems Affecting Mental Status: No Interim History: I was not honest about how I was feeling when I left. I can leave on Thursday right? Pt reports she feels all will be better off if she were not alive. She is worried about how much this admission will cost for a co-payment. Reports +SI without a plan, Denies HI,AH,VH. Depressed, anxious and agitated. 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 Reports sleep and appetite are intact Anxious today as mother is having a hysterectomy at a hospital in [place], [place] Attempting to attend milieu programs, but very anxious Medically, seen by hospitalist team today to check in with pt on pre-DM, hypothyroidism, iron deficiency anemia and HTN. No changes to plan were made today. Discussed with pt that she will not be considered for discharge on 09/13. She is not prepared to retract TDN. Discussed Section VII and the need for treatment. Agreed to begin lamictal, klonopin and increase olanzapine. Venlafaxine decreased as it may be causing an increase in anxiety. Medication Compliance: Yes Side effects from medications: No Attending Groups: Intermittent Review of Systems Acute medical concerns: No Medical Review of Systems: unchanged Review of Systems Review of Systems Denies Mental Status Exam Mental Status Exam Patient Appearance: Appropriate Patient Orientation: Person, Place, Time and Situation Level of Consciousness: Alert Patient Behavior: Talkative, Restless, Distractible, Isolative and Good Eye Contact Mood Description: Depressed Affect Description: Flat Ability to Follow Directions: Good Speech Pattern: Spontaneous Speech Memory Description: Intact Hallucinations: None Delusions: Not Present Thought Process: Rumination Thought Content: positive for Circumstantial, positive for Perseveration and positive for Suicidal Ideation Depressive Symptoms: Increased Anxiety, Diff. Making Decisions, Crying Spells, Feelings of Worthlessness, Hopelessness, Isolating-Friends/Family, Feelings of Guilt, Unhappiness, Increased Fatigue, Thoughts of /Suicide, Low Self Esteem, Loss of Energy and Difficulty Concentrating Abnormal Motor Activity Signs and Symptoms: Restlessness Judgement: Poor Diagnostics Vital Signs (24Hr): Vital Signs - 24 hr 09/10/25 12:10 09/10/25 20:00 09/11/25 08:49 Temperature 96.9 F Pulse Rate 100 Respiratory Rate 16 Blood Pressure 127/87 132/79 163/99 H Pulse Oximetry 96 Oxygen Delivery Method Room Air 09/11/25 08:49 09/11/25 08:53 Temperature 98.4 F Pulse Rate 113 H Respiratory Rate 19 Blood Pressure 163/99 H 163/99 H Pulse Oximetry 97 Oxygen Delivery Method Room Air BMI result Body Mass Index 44.2 Labs 09/08/25 10:03 09/09/25 08:19 Labs: Laboratory Results - last 48 hr 09/09/25 09/10/25 09/10/25 15:55 08:07 16:47 POC Glucose 98 107 72 Medications Medications Current Medications Acetaminophen (Acetaminophen 325 Mg Tablet) 650 mg PO Q6H PRN PRN Reason: Headache/Pain, Scale 1-10 Al Hydroxide/Mg Hydroxide (Magnesium Hydrox/Alum Hydrox 30 Ml Oral.Susp) 30 ml PO Q6H PRN PRN Reason: Heartburn/Nausea Clonidine HCl (Clonidine Hcl 0.1 Mg Tablet) 0.1 mg PO BID@0900,1300 [facility]; Protocol Last Admin: 09/11/25 08:49 Dose: 0.1 mg Ferrous Sulfate (Ferrous Sulfate 324 Mg Tablet.) 324 mg PO DAILY [facility] Last Admin: 09/11/25 08:43 Dose: 324 mg Hydroxyzine HCl (Hydroxyzine Hcl 25 Mg Tablet) 25 mg PO Q6H PRN PRN Reason: mild anxiety Last Admin: 09/11/25 08:44 Dose: 25 mg Levothyroxine Sodium (Levothyroxine Sodium 125 Mcg Tablet) 125 mcg PO DAILY@0600 [facility] Last Admin: 09/11/25 06:06 Dose: 125 mcg Lisinopril (Lisinopril 2.5 Mg Tablet) 2.5 mg PO DAILY [facility]; Protocol Last Admin: 09/11/25 08:49 Dose: 2.5 mg Magnesium Hydroxide (Milk Of Magnesia 30 Ml Oral.Susp) 30 ml PO DAILY PRN PRN Reason: Constipation Last Admin: 09/10/25 21:03 Dose: 30 ml Metformin HCl (Metformin Hcl 500 Mg Tablet) 500 mg PO DAILY [facility] Last Admin: 09/11/25 08:42 Dose: 500 mg Mirtazapine (Mirtazapine 15 Mg Tablet) 15 mg PO BEDTIME [facility] Last Admin: 09/10/25 21:04 Dose: 15 mg Nicotine (Nicotine 21 Mg Patch.Td24) 21 mg TRANSDERMA DAILY PRN PRN Reason: nicotine craving Non-Formulary Medication (Norethindrone (Contraceptive)) 0.35 mg PO DAILY [facility] Last Admin: 09/11/25 08:44 Dose: 0.35 mg Olanzapine (Olanzapine 10 Mg Tablet) 10 mg PO BEDTIME [facility] Last Admin: 09/10/25 21:04 Dose: 10 mg Olanzapine (Olanzapine 2.5 Mg Tablet) 2.5 mg PO DAILY [facility] Last Admin: 09/11/25 08:43 Dose: 2.5 mg Olanzapine (Olanzapine 5 Mg Tablet) 5 mg PO BID PRN PRN Reason: agitation Last Admin: 09/10/25 17:54 Dose: 5 mg Trazodone HCl (Trazodone Hcl 50 Mg Tablet) 50 mg PO BEDTIME MRX1 PRN PRN Reason: Insomnia Last Admin: 09/10/25 21:03 Dose: 50 mg Venlafaxine HCl (Venlafaxine Hcl Er 150 Mg Cap.Er.24h) 150 mg PO DAILY [facility] Last Admin: 09/11/25 08:42 Dose: 150 mg Venlafaxine HCl (Venlafaxine Hcl Er 37.5 Mg Cap.Er.24h) 37.5 mg PO DAILY [facility] Last Admin: 09/11/25 08:43 Dose: 37.5 mg Allergies Allergies Allergy/AdvReac Type Severity Reaction Status Date / Time amoxicillin Allergy Unknown Verified 09/08/25 09:38 loratadine (From Claritin) Allergy Unknown Verified 09/08/25 09:38 sulfamethoxazole (From Allergy Unknown Verified 09/08/25 09:38 Sulfamethoxazole-Trimethoprim) trimethoprim (From Allergy Unknown Verified 09/08/25 09:38 Sulfamethoxazole-Trimethoprim) Assessment & Plan Assessment & Plan (1) Depression: Qualifiers: Depression Type: unspecified Qualified Code(s): F32.A - Depression, unspecified Status: Acute Code(s): F32.A - Depression, unspecified (2) Hypothyroidism: Status: Acute Code(s): E03.9 - Hypothyroidism, unspecified (3) Prediabetes: Status: Acute Code(s): R73.03 - Prediabetes (4) Anxiety state, unspecified: Status: Acute Code(s): F41.1 - Generalized anxiety disorder Plan HPI: Patient is a 44 year old, , Ukrainian speaking female with hx of pre-diabetic, thryroid disease, depression, and anxiety who self presents to the [facility] ED today with her mother in law reporting SI with plan to OD on pills or cut herself. She has been admitted IPLOC twice to [facility], the first of which was in June and most recently from 07/28-. It appears the was assessed for the PHP at [facility] on 09/06/2025. Attended 1 day only. Do not think PHP is a good fit for her Formulation/clinical reasoning: increased in depression and anxiety, poor sleep and appetite, increase in safety concerns SI with plans. Hx of not complete treatment and relapse on mental health symptoms that affect daily functions. Currently is on medical leave of absent. Hx of Depression and Anxiety. Given above information, patient would benefit in restrictive environment for safety, medication adjustment and refer patient back to OP psychiatric services for aftercare. Hospital course: 09/08/25: patient still has passive SI with plan, but no intent to do harm to her. Feeling safe here. Potential to sign a 3-day notice to have some control over her treatment but open to stay longer if need Increased Remeron from 7.5mg to 15mg at HS for insomnia Increase Zyprexa up to 12.5mg in divided dose for severe anxiety/racing thoughts Increase Effexor ER to 187.5mg from 150mg for depression Metformin 500mg daily for diabetes. Zyprexa 5mg BID PRN for agitation. Trazodone and Hydroxyzine PRN available per protocol. Reviewed med list with patient POC BIB to monitor for BS. Can discontinue if BS is stable. 09/09 Patient explains events that led to this admission, saying she got triggered at the partial program due to conversations in the group. Patient reports continued SI but says it is less so since she is on the unit and trying to be hopeful about treatment. 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 I can leave on Wednesday right? Pt reports she feels all will be better off if she were not alive. She is worried about how much this admission will cost for a co-payment. Reports +SI without a plan, Denies HI,AH,VH. Depressed, anxious and agitated. 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 Reports sleep and appetite are intact Anxious today as mother is having a hysterectomy at a hospital in [place], [place] Attempting to attend milieu programs, but very anxious Medically, seen by hospitalist team today to check in with pt on pre-DM, hypothyroidism, iron deficiency anemia and HTN. No changes to plan were made today. Discussed with pt that she will not be considered for discharge on 09/13. She is not prepared to retract TDN. Discussed Section VII and the need for treatment. Agreed to begin lamictal, klonopin and increase olanzapine. Venlafaxine decreased as it may be causing an increase in anxiety. Plan Patient on 15 minute checks for safety. Admitted to [facility]. CV. Increased Remeron from 7.5mg to 15mg at HS for insomnia Increase Zyprexa up to 12.5mg in divided dose for severe anxiety/racing thoughts Increase Effexor ER to 187.5mg from 150mg for depression Work with treatment team to do collateral. Reason for continued inpatient stay Substantial Risk for: harm to self, inability to function and rapid decompensation Time Spent With Patient Time: Total time managing care of this patient today ____ minutes.
[2025-09-11 12:52] VITALS: BP 119/75
[2025-09-11 16:25] LABS: Glucose, Whole Blood 78 mg/dL (60-115)
[2025-09-11 20:08] VITALS: BP 113/72; PULSE 98; RESP 16; TEMP 37.1; O2SAT 96
[2025-09-12 07:55] LABS: Glucose, Whole Blood 98 mg/dL (60-115)
[2025-09-12 07:58] VITALS: BP 152/87; PULSE 114; RESP 18; TEMP 36.9; O2SAT 96
[2025-09-12] MEDS: Venlafaxine HCl ER 150 MG CAP.ER.24H PO (08:27)
[2025-09-12] MEDS: Ferrous Sulfate 324 MG TABLET.DR PO (08:27)
--- NOTE | 2025-09-12 09:50 | PC.NURSE ---
Discussed Influenza vaccine eligibility with patient. Patient declined Influenza vaccine, and stated she was not interested in vaccination at this time.
--- NOTE | 2025-09-12 10:22 | HO.PSYCHPN ---
Subjective Subjective Date of Service: 09/12/25 Reason For Visit: SI Subjective Notes: Conditional Voluntary and 3 Day Healthcare Proxy: No Guardianship: No Medical Problems Affecting Mental Status: No Interim History: Met with pt and Leyda Aiken LCSW. Pt requests POC be discontinued. Reports she slept well with meds. Discussed wanting to , feeling scared to be here, feeling tired, mind and body, concern about over and under medicating, upsetting group topics. Anxious, overwhelmed, a big bad dream Summarized her hospitalizations [id number] over the of her father and elenita; July- getting back on meds and August- really wanting to . Retracted TDN in the afternoon with Leyda Aiken LCSW. +SI, -HI, -AH, -VH Discussed changing Olanzapine to Risperdal to help pt focus on grounding. She agrees. Medication Compliance: Yes Side effects from medications: No Attending Groups: Intermittent Review of Systems Acute medical concerns: No Medical Review of Systems: unchanged Review of Systems Review of Systems Distraught, anxious Mental Status Exam Mental Status Exam Patient Appearance: Appropriate Patient Orientation: Person, Place, Time and Situation Level of Consciousness: Alert Patient Behavior: Talkative, Restless, Distractible, Isolative and Good Eye Contact Mood Description: Depressed Affect Description: Flat Ability to Follow Directions: Good Speech Pattern: Spontaneous Speech Memory Description: Intact Hallucinations: None Delusions: Not Present Thought Process: Rumination Thought Content: positive for Circumstantial, positive for Perseveration and positive for Suicidal Ideation Depressive Symptoms: Increased Anxiety, Diff. Making Decisions, Crying Spells, Feelings of Worthlessness, Hopelessness, Isolating-Friends/Family, Feelings of Guilt, Unhappiness, Increased Fatigue, Thoughts of /Suicide, Low Self Esteem, Loss of Energy and Difficulty Concentrating Abnormal Motor Activity Signs and Symptoms: Restlessness Judgement: Poor Diagnostics Vital Signs (24Hr): Vital Signs - 24 hr 09/11/25 12:52 09/11/25 20:08 09/12/25 07:58 Temperature 98.8 F 98.5 F Pulse Rate 98 114 H Respiratory Rate 16 18 Blood Pressure 119/75 113/72 152/87 H Pulse Oximetry 96 96 Oxygen Delivery Method Room Air Room Air BMI result Body Mass Index 44.2 Labs 09/08/25 10:03 09/09/25 08:19 Labs: Laboratory Results - last 48 hr 09/10/25 09/11/25 09/12/25 16:47 16:20 07:50 POC Glucose 72 78 98 Medications Medications Current Medications Acetaminophen (Acetaminophen 325 Mg Tablet) 650 mg PO Q6H PRN PRN Reason: Headache/Pain, Scale 1-10 Al Hydroxide/Mg Hydroxide (Magnesium Hydrox/Alum Hydrox 30 Ml Oral.Susp) 30 ml PO Q6H PRN PRN Reason: Heartburn/Nausea Clonazepam (Clonazepam 1 Mg Tablet) 1 mg PO TID PRN PRN Reason: Anxiety Last Admin: 09/11/25 21:01 Dose: 1 mg Clonidine HCl (Clonidine Hcl 0.1 Mg Tablet) 0.1 mg PO BID@0900,1300 [facility]; Protocol Last Admin: 09/12/25 08:27 Dose: 0.1 mg Ferrous Sulfate (Ferrous Sulfate 324 Mg Tablet.Dr) 324 mg PO DAILY [facility] Last Admin: 09/12/25 08:27 Dose: 324 mg Hydroxyzine HCl (Hydroxyzine Hcl 25 Mg Tablet) 25 mg PO Q6H PRN PRN Reason: mild anxiety Last Admin: 09/11/25 21:02 Dose: 25 mg Lamotrigine (Lamotrigine 25 Mg Tablet) 25 mg PO BEDTIME [facility] Last Admin: 09/11/25 21:02 Dose: 25 mg Levothyroxine Sodium (Levothyroxine Sodium 125 Mcg Tablet) 125 mcg PO DAILY@0600 [facility] Last Admin: 09/12/25 06:25 Dose: 125 mcg Lisinopril (Lisinopril 2.5 Mg Tablet) 2.5 mg PO DAILY [facility]; Protocol Last Admin: 09/12/25 08:27 Dose: 2.5 mg Magnesium Hydroxide (Milk Of Magnesia 30 Ml Oral.Susp) 30 ml PO DAILY PRN PRN Reason: Constipation Last Admin: 09/10/25 21:03 Dose: 30 ml Metformin HCl (Metformin Hcl 500 Mg Tablet) 500 mg PO DAILY [facility] Last Admin: 09/12/25 08:27 Dose: 500 mg Mirtazapine (Mirtazapine 15 Mg Tablet) 15 mg PO BEDTIME [facility] Last Admin: 09/11/25 21:02 Dose: 15 mg Nicotine (Nicotine 21 Mg Patch.Td24) 21 mg TRANSDERMA DAILY PRN PRN Reason: nicotine craving Non-Formulary Medication (Norethindrone (Contraceptive)) 0.35 mg PO DAILY [facility] Last Admin: 09/12/25 08:27 Dose: 0.35 mg Olanzapine (Olanzapine 5 Mg Tablet) 5 mg PO BID PRN PRN Reason: agitation Last Admin: 09/10/25 17:54 Dose: 5 mg Olanzapine (Olanzapine 10 Mg Tablet) 10 mg PO BID [facility] Last Admin: 09/12/25 08:27 Dose: 10 mg Trazodone HCl (Trazodone Hcl 50 Mg Tablet) 50 mg PO BEDTIME MRX1 PRN PRN Reason: Insomnia Last Admin: 09/11/25 21:02 Dose: 50 mg Venlafaxine HCl (Venlafaxine Hcl Er 150 Mg Cap.Er.24h) 150 mg PO DAILY [facility] Last Admin: 09/12/25 08:27 Dose: 150 mg Allergies Allergies Allergy/AdvReac Type Severity Reaction Status Date / Time amoxicillin Allergy Unknown Verified 09/08/25 09:38 loratadine (From Claritin) Allergy Unknown Verified 09/08/25 09:38 sulfamethoxazole (From Allergy Unknown Verified 09/08/25 09:38 Sulfamethoxazole-Trimethoprim) trimethoprim (From Allergy Unknown Verified 09/08/25 09:38 Sulfamethoxazole-Trimethoprim) Assessment & Plan Assessment & Plan (1) Depression: Qualifiers: Depression Type: unspecified Qualified Code(s): F32.A - Depression, unspecified Status: Acute Code(s): F32.A - Depression, unspecified (2) Hypothyroidism: Status: Acute Code(s): E03.9 - Hypothyroidism, unspecified (3) Prediabetes: Status: Acute Code(s): R73.03 - Prediabetes (4) Anxiety state, unspecified: Status: Acute Code(s): F41.1 - Generalized anxiety disorder Plan HPI: Patient is a 44 year old, , Greek speaking female with hx of pre-diabetic, thryroid disease, depression, and anxiety who self presents to the [facility] ED today with her mother in law reporting SI with plan to OD on pills or cut herself. She has been admitted IPLOC twice to [facility], the first of which was in June and most recently from 07/28-. It appears the was assessed for the PHP at [facility] on 09/06/2025. Attended 1 day only. Do not think PHP is a good fit for her Formulation/clinical reasoning: increased in depression and anxiety, poor sleep and appetite, increase in safety concerns SI with plans. Hx of not complete treatment and relapse on mental health symptoms that affect daily functions. Currently is on medical leave of absent. Hx of Depression and Anxiety. Given above information, patient would benefit in restrictive environment for safety, medication adjustment and refer patient back to OP psychiatric services for aftercare. Hospital course: 09/08/25: patient still has passive SI with plan, but no intent to do harm to her. Feeling safe here. Potential to sign a 3-day notice to have some control over her treatment but open to stay longer if need Increased Remeron from 7.5mg to 15mg at HS for insomnia Increase Zyprexa up to 12.5mg in divided dose for severe anxiety/racing thoughts Increase Effexor ER to 187.5mg from 150mg for depression Metformin 500mg daily for diabetes. Zyprexa 5mg BID PRN for agitation. Trazodone and Hydroxyzine PRN available per protocol. Reviewed med list with patient POC BIB to monitor for BS. Can discontinue if BS is stable. 09/09 Patient explains events that led to this admission, saying she got triggered at the partial program due to conversations in the group. Patient reports continued SI but says it is less so since she is on the unit and trying to be hopeful about treatment. 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 I can leave on Thursday right? Pt reports she feels all will be better off if she were not alive. She is worried about how much this admission will cost for a co-payment. Reports +SI without a plan, Denies HI,AH,VH. Depressed, anxious and agitated. [facility] was not for her as one of her customers was a peer in group and one of her peers reported [facility] team did a wellness check and found their home to be unclean and as a result took their dog away. Reports sleep and appetite are intact Anxious today as mother is having a hysterectomy at a hospital in [place], [place] Attempting to attend milieu programs, but very anxious Medically, seen by hospitalist team today to check in with pt on pre-DM, hypothyroidism, iron deficiency anemia and HTN. No changes to plan were made today. Discussed with pt that she will not be considered for discharge on 09/13. She is not prepared to retract TDN. Discussed Section VII and the need for treatment. Agreed to begin lamictal, klonopin and increase olanzapine. Venlafaxine decreased as it may be causing an increase in anxiety. 09/12:Met with pt and Leyda Aiken LCSW. Pt requests POC be discontinued. Reports she slept well with meds. Discussed wanting to , feeling scared to be here, feeling tired, mind and body, concern about over and under medicating, upsetting group topics. Anxious, overwhelmed, a big bad dream Summarized her hospitalizations [id number] over the of her father and elenita; July- getting back on meds and August- really wanting to . Retracted TDN in the afternoon with Leyda Aiken LCSW. +SI, -HI, -AH, -VH Discussed changing Olanzapine to Risperdal to help pt focus on grounding. She agrees. Plan Patient on 15 minute checks for safety. Admitted to M5. CV. Increased Remeron from 7.5mg to 15mg at HS for insomnia Increase Zyprexa up to 12.5mg in divided dose for severe anxiety/racing thoughts Increase Effexor ER to 187.5mg from 150mg for depression Work with treatment team to do collateral. Reason for continued inpatient stay Substantial Risk for: harm to self and rapid decompensation Time Spent With Patient Time: Total time managing care of this patient today ____ minutes.
[2025-09-12 14:14] VITALS: BP 135/97
[2025-09-12 19:59] VITALS: BP 123/80; PULSE 112; RESP 16; TEMP 36.1; O2SAT 98
[2025-09-13 08:17] VITALS: BP 135/102; PULSE 102; RESP 20; TEMP 37.3; O2SAT 98
[2025-09-13] MEDS: Ferrous Sulfate 324 MG TABLET.DR PO (08:19)
[2025-09-13] MEDS: Venlafaxine HCl ER 150 MG CAP.ER.24H PO (08:20)
--- NOTE | 2025-09-13 10:43 | HO.PSYCHPN ---
Subjective Subjective Date of Service: 09/13/25 Reason For Visit: SI Subjective Notes: Conditional Voluntary and 3 Day Healthcare Proxy: No Guardianship: No Medical Problems Affecting Mental Status: No Interim History: Anxiety persists. Suicidality persists. Re-signed a three day notice today. Review of medications. Will trial Depakote tid to begin to assess efficacy on anxiety. Pt agrees. I know I am not ready to go Discussed her family, genetics of bipolar disorder and advances in treatment over time. Discussed bipolar II and the differences in symptom presentation. Medication Compliance: Yes Side effects from medications: No Attending Groups: Intermittent Review of Systems Acute medical concerns: No Medical Review of Systems: unchanged Review of Systems Review of Systems Denies Mental Status Exam Mental Status Exam Patient Appearance: Appropriate Patient Orientation: Person, Place, Time and Situation Level of Consciousness: Alert Patient Behavior: Talkative, Restless, Distractible, Isolative and Good Eye Contact Mood Description: Depressed Affect Description: Flat Ability to Follow Directions: Good Speech Pattern: Spontaneous Speech Memory Description: Intact Hallucinations: None Delusions: Not Present Thought Process: Rumination Thought Content: positive for Circumstantial, positive for Perseveration and positive for Suicidal Ideation Depressive Symptoms: Increased Anxiety, Diff. Making Decisions, Crying Spells, Feelings of Worthlessness, Hopelessness, Isolating-Friends/Family, Feelings of Guilt, Unhappiness, Increased Fatigue, Thoughts of /Suicide, Low Self Esteem, Loss of Energy and Difficulty Concentrating Abnormal Motor Activity Signs and Symptoms: Restlessness Judgement: Poor Diagnostics Vital Signs (24Hr): Vital Signs - 24 hr 09/12/25 14:14 09/12/25 19:59 09/13/25 08:17 Temperature 97 F 99.1 F Pulse Rate 112 H 102 H Respiratory Rate 16 20 Blood Pressure 135/97 H 123/80 135/102 H Pulse Oximetry 98 98 Oxygen Delivery Method Room Air Room Air BMI result Body Mass Index 44.2 Labs 09/08/25 10:03 09/09/25 08:19 Labs: Laboratory Results - last 48 hr 09/11/25 09/12/25 16:20 07:50 POC Glucose 78 98 Medications Medications Current Medications Acetaminophen (Acetaminophen 325 Mg Tablet) 650 mg PO Q6H PRN PRN Reason: Headache/Pain, Scale 1-10 Al Hydroxide/Mg Hydroxide (Magnesium Hydrox/Alum Hydrox 30 Ml Oral.Susp) 30 ml PO Q6H PRN PRN Reason: Heartburn/Nausea Clonazepam (Clonazepam 1 Mg Tablet) 1 mg PO TID PRN PRN Reason: Anxiety Last Admin: 09/12/25 16:29 Dose: 1 mg Clonidine HCl (Clonidine Hcl 0.1 Mg Tablet) 0.1 mg PO BID@0900,1300 [facility]; Protocol Last Admin: 09/13/25 08:21 Dose: 0.1 mg Ferrous Sulfate (Ferrous Sulfate 324 Mg Tablet.Dr) 324 mg PO DAILY [facility] Last Admin: 09/13/25 08:19 Dose: 324 mg Hydroxyzine HCl (Hydroxyzine Hcl 25 Mg Tablet) 25 mg PO Q6H PRN PRN Reason: mild anxiety Last Admin: 09/13/25 00:50 Dose: 25 mg Lamotrigine (Lamotrigine 25 Mg Tablet) 25 mg PO BEDTIME [facility] Last Admin: 09/12/25 21:11 Dose: 25 mg Levothyroxine Sodium (Levothyroxine Sodium 125 Mcg Tablet) 125 mcg PO DAILY@0600 [facility] Last Admin: 09/13/25 06:23 Dose: 125 mcg Lisinopril (Lisinopril 2.5 Mg Tablet) 2.5 mg PO DAILY [facility]; Protocol Last Admin: 09/13/25 08:21 Dose: 2.5 mg Magnesium Hydroxide (Milk Of Magnesia 30 Ml Oral.Susp) 30 ml PO DAILY PRN PRN Reason: Constipation Last Admin: 09/10/25 21:03 Dose: 30 ml Metformin HCl (Metformin Hcl 500 Mg Tablet) 500 mg PO DAILY [facility] Last Admin: 09/13/25 08:19 Dose: 500 mg Mirtazapine (Mirtazapine 15 Mg Tablet) 15 mg PO BEDTIME [facility] Last Admin: 09/12/25 21:12 Dose: 15 mg Nicotine (Nicotine 21 Mg Patch.Td24) 21 mg TRANSDERMA DAILY PRN PRN Reason: nicotine craving Non-Formulary Medication (Norethindrone (Contraceptive)) 0.35 mg PO DAILY [facility] Last Admin: 09/13/25 08:34 Dose: 0.35 mg Risperidone (Risperidone 0.5 Mg Tablet) 0.5 mg PO BID [facility] Last Admin: 09/13/25 08:22 Dose: 0.5 mg Risperidone (Risperidone 0.5 Mg Tablet) 0.5 mg PO BID PRN PRN Reason: grounding support Trazodone HCl (Trazodone Hcl 50 Mg Tablet) 50 mg PO BEDTIME MRX1 PRN PRN Reason: Insomnia Last Admin: 09/13/25 00:50 Dose: 50 mg Venlafaxine HCl (Venlafaxine Hcl Er 150 Mg Cap.Er.24h) 150 mg PO DAILY [facility] Last Admin: 09/13/25 08:20 Dose: 150 mg Allergies Allergies Allergy/AdvReac Type Severity Reaction Status Date / Time amoxicillin Allergy Unknown Verified 09/08/25 09:38 loratadine (From Claritin) Allergy Unknown Verified 09/08/25 09:38 sulfamethoxazole (From Allergy Unknown Verified 09/08/25 09:38 Sulfamethoxazole-Trimethoprim) trimethoprim (From Allergy Unknown Verified 09/08/25 09:38 Sulfamethoxazole-Trimethoprim) Assessment & Plan Assessment & Plan (1) Depression: Qualifiers: Depression Type: unspecified Qualified Code(s): F32.A - Depression, unspecified Status: Acute Code(s): F32.A - Depression, unspecified (2) Hypothyroidism: Status: Acute Code(s): E03.9 - Hypothyroidism, unspecified (3) Prediabetes: Status: Acute Code(s): R73.03 - Prediabetes (4) Anxiety state, unspecified: Status: Acute Code(s): F41.1 - Generalized anxiety disorder Plan HPI: Patient is a 44 year old, , Cypriot speaking female with hx of pre-diabetic, thryroid disease, depression, and anxiety who self presents to the [facility] ED today with her mother in law reporting SI with plan to OD on pills or cut herself. She has been admitted IPLOC twice to [facility], the first of which was in June and most recently from 07/28-. It appears the was assessed for the PHP at [facility] on 09/06/2025. Attended 1 day only. Do not think PHP is a good fit for her Formulation/clinical reasoning: increased in depression and anxiety, poor sleep and appetite, increase in safety concerns SI with plans. Hx of not complete treatment and relapse on mental health symptoms that affect daily functions. Currently is on medical leave of absent. Hx of Depression and Anxiety. Given above information, patient would benefit in restrictive environment for safety, medication adjustment and refer patient back to OP psychiatric services for aftercare. Hospital course: 09/08/25: patient still has passive SI with plan, but no intent to do harm to her. Feeling safe here. Potential to sign a 3-day notice to have some control over her treatment but open to stay longer if need Increased Remeron from 7.5mg to 15mg at HS for insomnia Increase Zyprexa up to 12.5mg in divided dose for severe anxiety/racing thoughts Increase Effexor ER to 187.5mg from 150mg for depression Metformin 500mg daily for diabetes. Zyprexa 5mg BID PRN for agitation. Trazodone and Hydroxyzine PRN available per protocol. Reviewed med list with patient POC BIB to monitor for BS. Can discontinue if BS is stable. 09/09 Patient explains events that led to this admission, saying she got triggered at the partial program due to conversations in the group. Patient reports continued SI but says it is less so since she is on the unit and trying to be hopeful about treatment. 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 I can leave on Thursday right? Pt reports she feels all will be better off if she were not alive. She is worried about how much this admission will cost for a co-payment. Reports +SI without a plan, Denies HI,AH,VH. Depressed, anxious and agitated. [facility] was not for her as one of her customers was a peer in group and one of her peers reported [facility] team did a wellness check and found their home to be unclean and as a result took their dog away. Reports sleep and appetite are intact Anxious today as mother is having a hysterectomy at a hospital in [place], [place] Attempting to attend milieu programs, but very anxious Medically, seen by hospitalist team today to check in with pt on pre-DM, hypothyroidism, iron deficiency anemia and HTN. No changes to plan were made today. Discussed with pt that she will not be considered for discharge on 09/13. She is not prepared to retract TDN. Discussed Section VII and the need for treatment. Agreed to begin lamictal, klonopin and increase olanzapine. Venlafaxine decreased as it may be causing an increase in anxiety. 09/12:Met with pt and Leyda BRAVOW. Pt requests POC be discontinued. Reports she slept well with meds. Discussed wanting to , feeling scared to be here, feeling tired, mind and body, concern about over and under medicating, upsetting group topics. Anxious, overwhelmed, a big bad dream Summarized her hospitalizations [id number] over the of her father and elenita; July- getting back on meds and August- really wanting to . Retracted TDN in the afternoon with Leyda BRAVOW. +SI, -HI, -AH, -VH Discussed changing Olanzapine to Risperdal to help pt focus on grounding. She agrees. 09/13: Anxiety persists. Suicidality persists. Re-signed a three day notice today. Review of medications. Will trial Depakote tid to begin to assess efficacy on anxiety. Pt agrees. I know I am not ready to go Discussed her family, genetics of bipolar disorder and advances in treatment over time. Discussed bipolar II and the differences in symptom presentation. Plan Patient on 15 minute checks for safety. Admitted to M5. CV. Increased Remeron from 7.5mg to 15mg at HS for insomnia Increase Zyprexa up to 12.5mg in divided dose for severe anxiety/racing thoughts Increase Effexor ER to 187.5mg from 150mg for depression Work with treatment team to do collateral. Reason for continued inpatient stay Substantial Risk for: rapid decompensation Time Spent With Patient Time: Total time managing care of this patient today ____ minutes.
[2025-09-13 13:16] VITALS: BP 123/75; PULSE 108
[2025-09-13] MEDS: Divalproex Sodium ER 250 MG TAB.ER.24H PO ×2 (15:41→20:47)
--- NOTE | 2025-09-13 17:18 | PC.NURSE ---
Submitted 3 day notice which is up 09/19/25; treatment team notified.
[2025-09-13 20:00] VITALS: BP 138/84; PULSE 100; RESP 16; TEMP 36.3; O2SAT 98
[2025-09-14 08:39] VITALS: BP 171/109
[2025-09-14] MEDS: Venlafaxine HCl ER 150 MG CAP.ER.24H PO (08:39)
[2025-09-14] MEDS: Ferrous Sulfate 324 MG TABLET.DR PO (08:39)
[2025-09-14] MEDS: Divalproex Sodium ER 250 MG TAB.ER.24H PO ×3 (08:39→20:39)
[2025-09-14 09:00] VITALS: BP 146/82; PULSE 109; RESP 19; TEMP 36.9; O2SAT 97
[2025-09-14] MEDS: Milk of Magnesia 30 ML ORAL.SUSP PO (09:16)
[2025-09-14 20:00] VITALS: BP 133/88; PULSE 111; RESP 15; TEMP 37.2; O2SAT 100
--- NOTE | 2025-09-14 23:28 | P.PNPSI_ITS ---
Subjective Subjective Date of Service: 09/14/25 Reason For Visit: SI Subjective Notes: 3 Day Interim History: Medical record and nursing notes reviewed; case discussed during rounds with team/nursing staff, and met with patient for supportive therapy/psychoeducation, as well as medication management. Patient report having difficult morning usually d/t anxiety but she is patiently enough to way for her turn to take AM scheduled meds. Report passive SI still there but at the same time saying I am ready to go home but is aware of d/t passive SI, she does not feel safe going home yet. Denies SIB/HI/AVH. She is anxious, depressed, but pleasant and cooperative. No behavior issues. Compliant with meds and denies side effects. Medication Compliance: Yes Side effects from medications: No Review of Systems Acute medical concerns: No Medical Review of Systems: unchanged Review of Systems Review of Systems Denies any physcial discomfort feeling. Ambulate slowly but steady. No fall. Diagnostics Vital Signs (24Hr): Vital Signs - 24 hr 09/14/25 08:39 09/14/25 08:39 09/14/25 09:00 Temperature 98.5 F Pulse Rate 109 H Respiratory Rate 19 Blood Pressure 171/109 H 171/109 H 146/82 H Pulse Oximetry 97 Oxygen Delivery Method Room Air 09/14/25 20:00 Temperature 98.9 F Pulse Rate 111 H Respiratory Rate 15 Blood Pressure 133/88 Pulse Oximetry 100 Oxygen Delivery Method BMI result Body Mass Index 44.2 Labs 09/08/25 10:03 09/09/25 08:19 Medications Medications Current Medications Acetaminophen (Acetaminophen 325 Mg Tablet) 650 mg PO Q6H PRN PRN Reason: Headache/Pain, Scale 1-10 Al Hydroxide/Mg Hydroxide (Magnesium Hydrox/Alum Hydrox 30 Ml Oral.Susp) 30 ml PO Q6H PRN PRN Reason: Heartburn/Nausea Clonazepam (Clonazepam 1 Mg Tablet) 1 mg PO TID PRN PRN Reason: Anxiety Last Admin: 09/14/25 20:39 Dose: 1 mg Clonidine HCl (Clonidine Hcl 0.1 Mg Tablet) 0.1 mg PO BID@0900,1300 [facility]; Protocol Last Admin: 09/14/25 13:35 Dose: Not Given Divalproex Sodium (Divalproex Sodium Er 250 Mg Tab.Er.24h) 250 mg PO TID [facility] Last Admin: 09/14/25 20:39 Dose: 250 mg Ferrous Sulfate (Ferrous Sulfate 324 Mg Tablet.Dr) 324 mg PO DAILY [facility] Last Admin: 09/14/25 08:39 Dose: 324 mg Hydroxyzine HCl (Hydroxyzine Hcl 25 Mg Tablet) 25 mg PO Q6H PRN PRN Reason: mild anxiety Last Admin: 09/14/25 11:35 Dose: 25 mg Lamotrigine (Lamotrigine 25 Mg Tablet) 25 mg PO BEDTIME [facility] Last Admin: 09/14/25 20:39 Dose: 25 mg Levothyroxine Sodium (Levothyroxine Sodium 125 Mcg Tablet) 125 mcg PO DAILY@0600 [facility] Last Admin: 09/14/25 06:22 Dose: 125 mcg Lisinopril (Lisinopril 2.5 Mg Tablet) 2.5 mg PO DAILY [facility]; Protocol Last Admin: 09/14/25 08:39 Dose: 2.5 mg Magnesium Hydroxide (Milk Of Magnesia 30 Ml Oral.Susp) 30 ml PO DAILY PRN PRN Reason: Constipation Last Admin: 09/14/25 09:16 Dose: 30 ml Metformin HCl (Metformin Hcl 500 Mg Tablet) 500 mg PO DAILY [facility] Last Admin: 09/14/25 08:39 Dose: 500 mg Mirtazapine (Mirtazapine 15 Mg Tablet) 15 mg PO BEDTIME [facility] Last Admin: 09/14/25 20:39 Dose: 15 mg Nicotine (Nicotine 21 Mg Patch.Td24) 21 mg TRANSDERMA DAILY PRN PRN Reason: nicotine craving Non-Formulary Medication (Norethindrone (Contraceptive)) 0.35 mg PO DAILY [facility] Last Admin: 09/14/25 08:40 Dose: 0.35 mg Risperidone (Risperidone 0.5 Mg Tablet) 0.5 mg PO BID [facility] Last Admin: 09/14/25 20:39 Dose: 0.5 mg Risperidone (Risperidone 0.5 Mg Tablet) 0.5 mg PO BID PRN PRN Reason: grounding support Last Admin: 09/14/25 13:33 Dose: 0.5 mg Trazodone HCl (Trazodone Hcl 50 Mg Tablet) 50 mg PO BEDTIME MRX1 PRN PRN Reason: Insomnia Last Admin: 09/14/25 20:39 Dose: 50 mg Venlafaxine HCl (Venlafaxine Hcl Er 150 Mg Cap.Er.24h) 150 mg PO DAILY [facility] Last Admin: 09/14/25 08:39 Dose: 150 mg Allergies Allergies Allergy/AdvReac Type Severity Reaction Status Date / Time amoxicillin Allergy Unknown Verified 09/08/25 09:38 loratadine (From Claritin) Allergy Unknown Verified 09/08/25 09:38 sulfamethoxazole (From Allergy Unknown Verified 09/08/25 09:38 Sulfamethoxazole-Trimethoprim) trimethoprim (From Allergy Unknown Verified 09/08/25 09:38 Sulfamethoxazole-Trimethoprim) Assessment & Plan Assessment & Plan (1) Depression: Qualifiers: Depression Type: unspecified Qualified Code(s): F32.A - Depression, unspecified Status: Acute Code(s): F32.A - Depression, unspecified (2) Hypothyroidism: Status: Acute Code(s): E03.9 - Hypothyroidism, unspecified (3) Prediabetes: Status: Acute Code(s): R73.03 - Prediabetes (4) Anxiety state, unspecified: Status: Acute Code(s): F41.1 - Generalized anxiety disorder Plan HPI: Patient is a 44 year old, , Occitan speaking female with hx of pre-diabetic, thryroid disease, depression, and anxiety who self presents to the [facility] ED today with her mother in law reporting SI with plan to OD on pills or cut herself. She has been admitted IPLOC twice to [facility], the first of which was in June and most recently from 07/28-. It appears the was assessed for the PHP at [facility] on 09/06/2025. Attended 1 day only. Do not think PHP is a good fit for her Formulation/clinical reasoning: increased in depression and anxiety, poor sleep and appetite, increase in safety concerns SI with plans. Hx of not complete treatment and relapse on mental health symptoms that affect daily functions. Currently is on medical leave of absent. Hx of Depression and Anxiety. Given above information, patient would benefit in restrictive environment for safety, medication adjustment and refer patient back to OP psychiatric services for aftercare. Hospital course: 09/08/25: patient still has passive SI with plan, but no intent to do harm to her. Feeling safe here. Potential to sign a 3-day notice to have some control over her treatment but open to stay longer if need Increased Remeron from 7.5mg to 15mg at HS for insomnia Increase Zyprexa up to 12.5mg in divided dose for severe anxiety/racing thoughts Increase Effexor ER to 187.5mg from 150mg for depression Metformin 500mg daily for diabetes. Zyprexa 5mg BID PRN for agitation. Trazodone and Hydroxyzine PRN available per protocol. Reviewed med list with patient POC BIB to monitor for BS. Can discontinue if BS is stable. 09/09 Patient explains events that led to this admission, saying she got triggered at the partial program due to conversations in the group. Patient reports continued SI but says it is less so since she is on the unit and trying to be hopeful about treatment. Aerologist discussed medications and on admission, Venlafaxine and Mirtazapine both increased so patient agrees to see if these adjustments are helpful 09/11: I was not honest about how I was feeling when I left. I can leave on Thursday right? Pt reports she feels all will be better off if she were not alive. She is worried about how much this admission will cost for a co-payment. Reports +SI without a plan, Denies HI,AH,VH. Depressed, anxious and agitated. 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 Reports sleep and appetite are intact Anxious today as mother is having a hysterectomy at a hospital in [place], [place] Attempting to attend milieu programs, but very anxious Medically, seen by hospitalist team today to check in with pt on pre-DM, hypothyroidism, iron deficiency anemia and HTN. No changes to plan were made today. Discussed with pt that she will not be considered for discharge on 09/13. She is not prepared to retract TDN. Discussed Section VII and the need for treatment. Agreed to begin lamictal, klonopin and increase olanzapine. Venlafaxine decreased as it may be causing an increase in anxiety. 09/12:Met with pt and Leyda Aiken LCSW. Pt requests POC be discontinued. Reports she slept well with meds. Discussed wanting to , feeling scared to be here, feeling tired, mind and body, concern about over and under medicating, upsetting group topics. Anxious, overwhelmed, a big bad dream Summarized her hospitalizations [id number] over the of her father and elenita; July- getting back on meds and August- really wanting to . Retracted TDN in the afternoon with Leyda Aiken LCSW. +SI, -HI, -AH, -VH Discussed changing Olanzapine to Risperdal to help pt focus on grounding. She agrees. 09/13: Anxiety persists. Suicidally persists. Re-signed a three day notice today. Review of medications. Will trial Depakote tid to begin to assess efficacy on anxiety. Pt agrees. I know I am not ready to go Discussed her family, genetics of bipolar disorder and advances in treatment over time. Discussed bipolar II and the differences in symptom presentation. 09/14/25: Patient report having difficult morning usually d/t anxiety but she is patiently enough to way for her turn to take AM scheduled meds. Report passive SI still there but at the same time saying I am ready to go home but is aware of d/t passive SI, she does not feel safe going home yet. Denies SIB/HI/AVH. She is anxious, depressed, but pleasant and cooperative. No behavior issues. Compliant with meds and denies side effects. Should dx changed to Bipolar II? Plan Patient on 15 minute checks for safety. Admitted to M5. CV. Increased Remeron from 7.5mg to 15mg at HS for insomnia Increase Zyprexa up to 12.5mg in divided dose for severe anxiety/racing thoughts: was discontinue. Currently on Risperidone. Increase Effexor ER to 187.5mg from 150mg for depression Work with treatment team to do collateral. Patient educated on: diagnosis, medication risk/benefits and therapeutic strategies Informed Consent: understands and further education needed Reason for continued inpatient stay Substantial Risk for: med/psych decompensation Time Spent With Patient Time: Total time managing care of this patient today ____ minutes.
[2025-09-15 08:00] VITALS: BP 154/93; PULSE 124; RESP 19; TEMP 36.9; O2SAT 96
[2025-09-15 08:41] VITALS: BP 154/93
[2025-09-15] MEDS: Venlafaxine HCl ER 150 MG CAP.ER.24H PO (08:41)
[2025-09-15] MEDS: Divalproex Sodium ER 250 MG TAB.ER.24H PO (08:41)
[2025-09-15] MEDS: Ferrous Sulfate 324 MG TABLET.DR PO (08:42)
[2025-09-15 09:11] LABS: Creatinine Clr Calc Pharmacy 106.0; Estimated Glomerular Filt Rate > 60
--- NOTE | 2025-09-15 10:18 | P.PNPSI_ITS ---
Subjective Subjective Date of Service: 09/15/25 Reason For Visit: SI Subjective Notes: Conditional Voluntary and 3 Day Healthcare Proxy: No Guardianship: No Medical Problems Affecting Mental Status: No Interim History: Pt reports no improvement. Discussion to changes to her treatment plan. Review of labs/meds. Creatinine 0.79, Cr Cl 106, GFR >60. Reports constipation- given prn dulcolax, colace 100 mg bid, Miralax daily Discussed ECT- parents have a hx of ECT. Will obtain consult and continue med titration. Klonopin increased to 2 mg tid Depakote ER changed to 500 mg bid Risperdal increased to 1 mg bid Prazosin 1mg initiated at hs Pt came to tw later in the day- Whatever we did this morning helped, I am feeling better, may I go home today? Discussed with pt why she could not leave today- she verbalized understanding. Medication Compliance: Yes Side effects from medications: No Attending Groups: Yes Review of Systems Acute medical concerns: No Medical Review of Systems: unchanged Review of Systems Review of Systems Denies Mental Status Exam Mental Status Exam Patient Appearance: Appropriate Patient Orientation: Person, Place, Time and Situation Level of Consciousness: Alert Patient Behavior: Talkative, Restless, Distractible, Isolative and Good Eye Contact Mood Description: Depressed Affect Description: Flat Ability to Follow Directions: Good Speech Pattern: Spontaneous Speech Memory Description: Intact Hallucinations: None Delusions: Not Present Thought Process: Rumination Thought Content: positive for Circumstantial, positive for Perseveration and positive for Suicidal Ideation Depressive Symptoms: Increased Anxiety, Diff. Making Decisions, Crying Spells, Feelings of Worthlessness, Hopelessness, Isolating-Friends/Family, Feelings of Guilt, Unhappiness, Increased Fatigue, Thoughts of /Suicide, Low Self Esteem, Loss of Energy and Difficulty Concentrating Abnormal Motor Activity Signs and Symptoms: Restlessness Judgement: Poor Diagnostics Vital Signs (24Hr): Vital Signs - 24 hr 09/14/25 20:00 09/15/25 08:00 09/15/25 08:41 Temperature 98.9 F 98.4 F Pulse Rate 111 H 124 H Respiratory Rate 15 19 Blood Pressure 133/88 154/93 H 154/93 H Pulse Oximetry 100 96 Oxygen Delivery Method Room Air BMI result Body Mass Index 44.2 Labs 09/08/25 10:03 09/15/25 08:28 Labs: Laboratory Results - last 48 hr 09/15/25 08:28 Creatinine 0.79 Estim Creat Clear Calc 106.0 Estimated GFR > 60 Medications Medications Current Medications Acetaminophen (Acetaminophen 325 Mg Tablet) 650 mg PO Q6H PRN PRN Reason: Headache/Pain, Scale 1-10 Al Hydroxide/Mg Hydroxide (Magnesium Hydrox/Alum Hydrox 30 Ml Oral.Susp) 30 ml PO Q6H PRN PRN Reason: Heartburn/Nausea Clonazepam (Clonazepam 1 Mg Tablet) 1 mg PO TID PRN PRN Reason: Anxiety Last Admin: 09/15/25 00:59 Dose: 1 mg Clonidine HCl (Clonidine Hcl 0.1 Mg Tablet) 0.1 mg PO BID@0900,1300 [facility]; Protocol Last Admin: 09/15/25 08:41 Dose: 0.1 mg Divalproex Sodium (Divalproex Sodium Er 250 Mg Tab.Er.24h) 250 mg PO TID [facility] Last Admin: 09/15/25 08:41 Dose: 250 mg Ferrous Sulfate (Ferrous Sulfate 324 Mg Tablet.Dr) 324 mg PO DAILY [facility] Last Admin: 09/15/25 08:42 Dose: 324 mg Hydroxyzine HCl (Hydroxyzine Hcl 25 Mg Tablet) 25 mg PO Q6H PRN PRN Reason: mild anxiety Last Admin: 09/14/25 11:35 Dose: 25 mg Lamotrigine (Lamotrigine 25 Mg Tablet) 25 mg PO BEDTIME [facility] Last Admin: 09/14/25 20:39 Dose: 25 mg Levothyroxine Sodium (Levothyroxine Sodium 125 Mcg Tablet) 125 mcg PO DAILY@0600 [facility] Last Admin: 09/15/25 06:41 Dose: 125 mcg Lisinopril (Lisinopril 2.5 Mg Tablet) 2.5 mg PO DAILY [facility]; Protocol Last Admin: 09/14/25 08:39 Dose: 2.5 mg Magnesium Hydroxide (Milk Of Magnesia 30 Ml Oral.Susp) 30 ml PO DAILY PRN PRN Reason: Constipation Last Admin: 09/14/25 09:16 Dose: 30 ml Metformin HCl (Metformin Hcl 500 Mg Tablet) 500 mg PO DAILY [facility] Last Admin: 09/15/25 08:41 Dose: 500 mg Mirtazapine (Mirtazapine 15 Mg Tablet) 15 mg PO BEDTIME [facility] Last Admin: 09/14/25 20:39 Dose: 15 mg Nicotine (Nicotine 21 Mg Patch.Td24) 21 mg TRANSDERMA DAILY PRN PRN Reason: nicotine craving Non-Formulary Medication (Norethindrone (Contraceptive)) 0.35 mg PO DAILY [facility] Last Admin: 09/15/25 08:48 Dose: 0.35 mg Risperidone (Risperidone 0.5 Mg Tablet) 0.5 mg PO BID [facility] Last Admin: 09/15/25 08:41 Dose: 0.5 mg Risperidone (Risperidone 0.5 Mg Tablet) 0.5 mg PO BID PRN PRN Reason: grounding support Last Admin: 09/14/25 23:46 Dose: 0.5 mg Trazodone HCl (Trazodone Hcl 50 Mg Tablet) 50 mg PO BEDTIME MRX1 PRN PRN Reason: Insomnia Last Admin: 09/14/25 23:46 Dose: 50 mg Venlafaxine HCl (Venlafaxine Hcl Er 150 Mg Cap.Er.24h) 150 mg PO DAILY [facility] Last Admin: 09/15/25 08:41 Dose: 150 mg Allergies Allergies Allergy/AdvReac Type Severity Reaction Status Date / Time amoxicillin Allergy Unknown Verified 09/08/25 09:38 loratadine (From Claritin) Allergy Unknown Verified 09/08/25 09:38 sulfamethoxazole (From Allergy Unknown Verified 09/08/25 09:38 Sulfamethoxazole-Trimethoprim) trimethoprim (From Allergy Unknown Verified 09/08/25 09:38 Sulfamethoxazole-Trimethoprim) Assessment & Plan Assessment & Plan (1) Depression: Qualifiers: Depression Type: unspecified Qualified Code(s): F32.A - Depression, unspecified Status: Acute Code(s): F32.A - Depression, unspecified (2) Hypothyroidism: Status: Acute Code(s): E03.9 - Hypothyroidism, unspecified (3) Prediabetes: Status: Acute Code(s): R73.03 - Prediabetes (4) Anxiety state, unspecified: Status: Acute Code(s): F41.1 - Generalized anxiety disorder Plan HPI: Patient is a 44 year old, , Croatian speaking female with hx of pre-diabetic, thryroid disease, depression, and anxiety who self presents to [place] [facility] today with her mother in law reporting SI with plan to OD on pills or cut herself. She has been admitted IPLOC twice to [facility], the first of which was in June and most recently from 07/28-. It appears the was assessed for the PHP at [facility] on 09/06/2025. Attended 1 day only. Do not think PHP is a good fit for her Formulation/clinical reasoning: increased in depression and anxiety, poor sleep and appetite, increase in safety concerns SI with plans. Hx of not complete treatment and relapse on mental health symptoms that affect daily functions. Currently is on medical leave of absent. Hx of Depression and Anxiety. Given above information, patient would benefit in restrictive environment for safety, medication adjustment and refer patient back to OP psychiatric services for aftercare. Hospital course: 09/08/25: patient still has passive SI with plan, but no intent to do harm to her. Feeling safe here. Potential to sign a 3-day notice to have some control over her treatment but open to stay longer if need Increased Remeron from 7.5mg to 15mg at HS for insomnia Increase Zyprexa up to 12.5mg in divided dose for severe anxiety/racing thoughts Increase Effexor ER to 187.5mg from 150mg for depression Metformin 500mg daily for diabetes. Zyprexa 5mg BID PRN for agitation. Trazodone and Hydroxyzine PRN available per protocol. Reviewed med list with patient POC BIB to monitor for BS. Can discontinue if BS is stable. 09/09 Patient explains events that led to this admission, saying she got triggered at the partial program due to conversations in the group. Patient reports continued SI but says it is less so since she is on the unit and trying to be hopeful about treatment. Medical Donation Professional discussed medications and on admission, Venlafaxine and Mirtazapine both increased so patient agrees to see if these adjustments are helpful 09/11: I was not honest about how I was feeling when I left. I can leave on Thursday right? Pt reports she feels all will be better off if she were not alive. She is worried about how much this admission will cost for a co-payment. Reports +SI without a plan, Denies HI,AH,VH. Depressed, anxious and agitated. 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 Reports sleep and appetite are intact Anxious today as mother is having a hysterectomy at a hospital in [place], [place] Attempting to attend milieu programs, but very anxious Medically, seen by hospitalist team today to check in with pt on pre-DM, hypothyroidism, iron deficiency anemia and HTN. No changes to plan were made today. Discussed with pt that she will not be considered for discharge on 09/13. She is not prepared to retract TDN. Discussed Section VII and the need for treatment. Agreed to begin lamictal, klonopin and increase olanzapine. Venlafaxine decreased as it may be causing an increase in anxiety. 09/12:Met with pt and Leyda Aiken LCSW. Pt requests POC be discontinued. Reports she slept well with meds. Discussed wanting to , feeling scared to be here, feeling tired, mind and body, concern about over and under medicating, upsetting group topics. Anxious, overwhelmed, a big bad dream Summarized her hospitalizations [id number] over the of her father and elenita; July- getting back on meds and August- really wanting to . Retracted TDN in the afternoon with Leyda Aiken LCSW. +SI, -HI, -AH, -VH Discussed changing Olanzapine to Risperdal to help pt focus on grounding. She agrees. 09/13: Anxiety persists. Suicidally persists. Re-signed a three day notice today. Review of medications. Will trial Depakote tid to begin to assess efficacy on anxiety. Pt agrees. I know I am not ready to go Discussed her family, genetics of bipolar disorder and advances in treatment over time. Discussed bipolar II and the differences in symptom presentation. 09/14/25: Patient report having difficult morning usually d/t anxiety but she is patiently enough to way for her turn to take AM scheduled meds. Report passive SI still there but at the same time saying I am ready to go home but is aware of d/t passive SI, she does not feel safe going home yet. Denies SIB/HI/AVH. She is anxious, depressed, but pleasant and cooperative. No behavior issues. Compliant with meds and denies side effects. Should dx changed to Bipolar II? 09/15/25: As asked above, pt reports a history of elenita, not hypomania, unless her account changes as symptoms subside. Pt reports no improvement. Discussion to changes to her treatment plan. Review of labs/meds. Creatinine 0.79, Cr Cl 106, GFR >60. Reports constipation- given prn dulcolax, colace 100 mg bid, Miralax daily Discussed ECT- parents have a hx of ECT. Will obtain consult and continue med titration. Klonopin increased to 2 mg tid Depakote ER changed to 500 mg bid Risperdal increased to 1 mg bid Prazosin 1mg initiated at hs Pt came to tw later in the day- Whatever we did this morning helped, I am feeling better, may I go home today? Discussed with pt why she could not leave today- she verbalized understanding. Plan Patient on 15 minute checks for safety. Admitted to M5. CV. Increased Remeron from 7.5mg to 15mg at HS for insomnia Increase Zyprexa up to 12.5mg in divided dose for severe anxiety/racing thoughts: was discontinue. Currently on Risperidone. Increase Effexor ER to 187.5mg from 150mg for depression Work with treatment team to do collateral. Reason for continued inpatient stay Substantial Risk for: rapid decompensation Time Spent With Patient Time: Total time managing care of this patient today ____ minutes.
[2025-09-15 10:30] VITALS: BP 154/93
[2025-09-15 12:54] VITALS: BP 113/71
[2025-09-15 19:45] VITALS: BP 119/80; PULSE 113; RESP 18; TEMP 36.3; O2SAT 98
[2025-09-16 07:46] VITALS: BP 152/98; PULSE 112; TEMP 36.1; O2SAT 95
[2025-09-16] MEDS: Venlafaxine HCl ER 150 MG CAP.ER.24H PO (08:44)
[2025-09-16] MEDS: Ferrous Sulfate 324 MG TABLET.DR PO (08:44)
[2025-09-16 12:45] VITALS: BP 110/77
[2025-09-16 19:37] VITALS: BP 114/80; PULSE 104; RESP 18; TEMP 36.6; O2SAT 100
--- NOTE | 2025-09-16 23:25 | HO.PSYCHPN ---
Subjective Subjective Date of Service: 09/16/25 Reason For Visit: SI Subjective Notes: 3 Day Healthcare Proxy: No Guardianship: No Medical Problems Affecting Mental Status: No Interim History: Medical record and nursing notes reviewed; case discussed during rounds with team/nursing staff, and met with patient for supportive therapy/psychoeducation, as well as medication management. Met with patient in the exam room, reports that is patient has constipation and urine incontinence last night which she at she bill is from being constipated. However, refused Colace last night per record. Reports left hand numbness which she has that experience when her dad passed and symptoms going away self. Suicidal thoughts continue to bother her, and reports sometimes thinking about suffocating myself . Patient is looking forward to hearing more information if she has going to get ECT treatment. At the end of the encounter, patient reports feeling drowsy, therefore, she wants to rest instead of go back to group. Later on in the afternoon, she is getting ready to see her , who is coming to visit her. Per nursing, patient slept for 8 hours, mood is all over the place not sure if it is intentionally or she gets confused. Somewhat labile. She signed 3 day notice, wanted to go home but continued to reports suicidal thoughts.?The patient should be discharged next Thursday when the 3 day is . Medication Compliance: Yes (except for colace yesterday.) Side effects from medications: Yes (Drowsy) Attending Groups: Yes Review of Systems Acute medical concerns: No Medical Review of Systems: unchanged Review of Systems Review of Systems Reports incontinence of urine. Constipation. Left hand numbness. No nausea or vomiting. Mental Status Exam Mental Status Exam Narrative: Patient is A+Ox4, behavior is calm and cooperative on approach; wearing casual attire. Speech is soft; normal prosody, rate; Adequate hygiene and grooming; wears glasses;. Fair eye contact. Thought process is mild disorganized and linear. Thought content is with passive SI, anxiety, depression; no paranoid ideations expressed; no HI; Denies AVH. Judgment/insight impaired. Diagnostics Vital Signs (24Hr): Vital Signs - 24 hr 09/16/25 07:46 09/16/25 12:45 09/16/25 19:37 Temperature 96.9 F 98 F Pulse Rate 112 H 104 H Respiratory Rate 18 Blood Pressure 152/98 H 110/77 114/80 Pulse Oximetry 95 100 Oxygen Delivery Method Room Air Room Air BMI result Body Mass Index 44.2 Labs 09/08/25 10:03 09/15/25 08:28 Labs: Laboratory Results - last 48 hr 09/15/25 08:28 Creatinine 0.79 Estim Creat Clear Calc 106.0 Estimated GFR > 60 Medications Medications Current Medications Acetaminophen (Acetaminophen 325 Mg Tablet) 650 mg PO Q6H PRN PRN Reason: Headache/Pain, Scale 1-10 Al Hydroxide/Mg Hydroxide (Magnesium Hydrox/Alum Hydrox 30 Ml Oral.Susp) 30 ml PO Q6H PRN PRN Reason: Heartburn/Nausea Bisacodyl (Bisacodyl 5 Mg Tablet.) 10 mg PO BEDTIME PRN PRN Reason: Constipation Clonazepam (Clonazepam 1 Mg Tablet) 2 mg PO TID [facility] Last Admin: 09/16/25 21:16 Dose: 2 mg Clonidine HCl (Clonidine Hcl 0.1 Mg Tablet) 0.1 mg PO BID@0900,1300 [facility]; Protocol Last Admin: 09/16/25 12:45 Dose: 0.1 mg Divalproex Sodium (Divalproex Sodium Er 500 Mg Tab.Er.24h) 500 mg PO BID [facility] Last Admin: 09/16/25 21:16 Dose: 500 mg Docusate Sodium (Docusate Sodium 100 Mg Capsule) 100 mg PO BID [facility] Last Admin: 09/16/25 21:16 Dose: 100 mg Ferrous Sulfate (Ferrous Sulfate 324 Mg Tablet.) 324 mg PO DAILY [facility] Last Admin: 09/16/25 08:44 Dose: 324 mg Hydroxyzine HCl (Hydroxyzine Hcl 25 Mg Tablet) 25 mg PO Q6H PRN PRN Reason: mild anxiety Last Admin: 09/16/25 21:16 Dose: 25 mg Levothyroxine Sodium (Levothyroxine Sodium 125 Mcg Tablet) 125 mcg PO DAILY@0600 [facility] Last Admin: 09/16/25 06:24 Dose: 125 mcg Lisinopril (Lisinopril 2.5 Mg Tablet) 2.5 mg PO DAILY [facility]; Protocol Last Admin: 09/16/25 08:44 Dose: 2.5 mg Magnesium Hydroxide (Milk Of Magnesia 30 Ml Oral.Susp) 30 ml PO DAILY PRN PRN Reason: Constipation Last Admin: 09/14/25 09:16 Dose: 30 ml Metformin HCl (Metformin Hcl 500 Mg Tablet) 500 mg PO DAILY [facility] Last Admin: 09/16/25 08:44 Dose: 500 mg Mirtazapine (Mirtazapine 15 Mg Tablet) 15 mg PO BEDTIME [facility] Last Admin: 09/16/25 21:16 Dose: 15 mg Non-Formulary Medication (Norethindrone (Contraceptive)) 0.35 mg PO DAILY [facility] Last Admin: 09/16/25 08:44 Dose: 0.35 mg Polyethylene Glycol (Polyethylene Glycol 3350 17 Gm Powd.Pack) 17 gm PO DAILY [facility] Last Admin: 09/16/25 08:42 Dose: 17 gm Prazosin HCl (Prazosin Hcl 1 Mg Capsule) 1 mg PO BEDTIME [facility]; Protocol Last Admin: 09/16/25 21:15 Dose: 1 mg Risperidone (Risperidone 0.5 Mg Tablet) 0.5 mg PO BID PRN PRN Reason: grounding support Last Admin: 09/14/25 23:46 Dose: 0.5 mg Risperidone (Risperidone 1 Mg Tablet) 1 mg PO BID [facility] Last Admin: 09/16/25 21:16 Dose: 1 mg Trazodone HCl (Trazodone Hcl 50 Mg Tablet) 50 mg PO BEDTIME MRX1 PRN PRN Reason: Insomnia Last Admin: 09/16/25 21:16 Dose: 50 mg Venlafaxine HCl (Venlafaxine Hcl Er 150 Mg Cap.Er.24h) 150 mg PO DAILY [facility] Last Admin: 09/16/25 08:44 Dose: 150 mg Allergies Allergies Allergy/AdvReac Type Severity Reaction Status Date / Time amoxicillin Allergy Unknown Verified 09/08/25 09:38 loratadine (From Claritin) Allergy Unknown Verified 09/08/25 09:38 sulfamethoxazole (From Allergy Unknown Verified 09/08/25 09:38 Sulfamethoxazole-Trimethoprim) trimethoprim (From Allergy Unknown Verified 09/08/25 09:38 Sulfamethoxazole-Trimethoprim) Assessment & Plan Assessment & Plan (1) Depression: Qualifiers: Depression Type: unspecified Qualified Code(s): F32.A - Depression, unspecified Status: Acute Code(s): F32.A - Depression, unspecified (2) Hypothyroidism: Status: Acute Code(s): E03.9 - Hypothyroidism, unspecified (3) Prediabetes: Status: Acute Code(s): R73.03 - Prediabetes (4) Anxiety state, unspecified: Status: Acute Code(s): F41.1 - Generalized anxiety disorder Plan HPI: Patient is a 44 year old, , [place] speaking female with hx of pre-diabetic, thryroid disease, depression, and anxiety who self presents to the [facility] ED today with her mother in law reporting SI with plan to OD on pills or cut herself. She has been admitted IPLOC twice to [facility], the first of which was in June and most recently from 07/28-. It appears the was assessed for the PHP at [facility] on 09/06/2025. Attended 1 day only. Do not think PHP is a good fit for her Formulation/clinical reasoning: increased in depression and anxiety, poor sleep and appetite, increase in safety concerns SI with plans. Hx of not complete treatment and relapse on mental health symptoms that affect daily functions. Currently is on medical leave of absent. Hx of Depression and Anxiety. Given above information, patient would benefit in restrictive environment for safety, medication adjustment and refer patient back to OP psychiatric services for aftercare. Hospital course: 09/08/25: patient still has passive SI with plan, but no intent to do harm to her. Feeling safe here. Potential to sign a 3-day notice to have some control over her treatment but open to stay longer if need Increased Remeron from 7.5mg to 15mg at HS for insomnia Increase Zyprexa up to 12.5mg in divided dose for severe anxiety/racing thoughts Increase Effexor ER to 187.5mg from 150mg for depression Metformin 500mg daily for diabetes. Zyprexa 5mg BID PRN for agitation. Trazodone and Hydroxyzine PRN available per protocol. Reviewed med list with patient POC BIB to monitor for BS. Can discontinue if BS is stable. 09/09 Patient explains events that led to this admission, saying she got triggered at the partial program due to conversations in the group. Patient reports continued SI but says it is less so since she is on the unit and trying to be hopeful about treatment. Gravel Wheeler discussed medications and on admission, Venlafaxine and Mirtazapine both increased so patient agrees to see if these adjustments are helpful 09/11: I was not honest about how I was feeling when I left. I can leave on Wednesday right? Pt reports she feels all will be better off if she were not alive. She is worried about how much this admission will cost for a co-payment. Reports +SI without a plan, Denies HI,AH,VH. Depressed, anxious and agitated. 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 Reports sleep and appetite are intact Anxious today as mother is having a hysterectomy at a hospital in [place], [place] Attempting to attend milieu programs, but very anxious Medically, seen by hospitalist team today to check in with pt on pre-DM, hypothyroidism, iron deficiency anemia and HTN. No changes to plan were made today. Discussed with pt that she will not be considered for discharge on 09/13. She is not prepared to retract TDN. Discussed Section VII and the need for treatment. Agreed to begin lamictal, klonopin and increase olanzapine. Venlafaxine decreased as it may be causing an increase in anxiety. 09/12:Met with pt and Leyda Aiken LCSW. Pt requests POC be discontinued. Reports she slept well with meds. Discussed wanting to , feeling scared to be here, feeling tired, mind and body, concern about over and under medicating, upsetting group topics. Anxious, overwhelmed, a big bad dream Summarized her hospitalizations [id number] over the of her father and elenita; July- getting back on meds and August- really wanting to . Retracted TDN in the afternoon with Leyda Aiken LCSW. +SI, -HI, -AH, -VH Discussed changing Olanzapine to Risperdal to help pt focus on grounding. She agrees. 09/13: Anxiety persists. Suicidally persists. Re-signed a three day notice today. Review of medications. Will trial Depakote tid to begin to assess efficacy on anxiety. Pt agrees. I know I am not ready to go Discussed her family, genetics of bipolar disorder and advances in treatment over time. Discussed bipolar II and the differences in symptom presentation. 09/14/25: Patient report having difficult morning usually d/t anxiety but she is patiently enough to way for her turn to take AM scheduled meds. Report passive SI still there but at the same time saying I am ready to go home but is aware of d/t passive SI, she does not feel safe going home yet. Denies SIB/HI/AVH. She is anxious, depressed, but pleasant and cooperative. No behavior issues. Compliant with meds and denies side effects. Should dx changed to Bipolar II? 09/15/25: As asked above, pt reports a history of elenita, not hypomania, unless her account changes as symptoms subside. Pt reports no improvement. Discussion to changes to her treatment plan. Review of labs/meds. Creatinine 0.79, Cr Cl 106, GFR >60. Reports constipation- given prn dulcolax, colace 100 mg bid, Miralax daily Discussed ECT- parents have a hx of ECT. Will obtain consult and continue med titration. Klonopin increased to 2 mg tid Depakote ER changed to 500 mg bid Risperdal increased to 1 mg bid Prazosin 1mg initiated at hs Pt came to tw later in the day- Whatever we did this morning helped, I am feeling better, may I go home today? Discussed with pt why she could not leave today- she verbalized understanding. 09/16/25: Met with patient in the exam room, reports that is patient has constipation and urine incontinence last night which she at she bill is from being constipated. However, refused Colace last night per record. Reports left hand numbness which she has that experience when her dad passed and symptoms going away self. Suicidal thoughts continue to bother her, and reports sometimes thinking about suffocating myself . Patient is looking forward to hearing more information if she has going to get ECT treatment. At the end of the encounter, patient reports feeling drowsy, therefore, she wants to rest instead of go back to group. Later on in the afternoon, she is getting ready to see her , who is coming to visit her. Per nursing, patient slept for 8 hours, mood is all over the place not sure if it is intentionally or she gets confused. Somewhat labile. She signed 3 day notice, wanted to go home but continued to reports suicidal thoughts.?The patient should be discharged next Thursday when the 3 day is . Will order U/A and Ammonia level rule medical conditions causing disorganization. Plan Patient on 15 minute checks for safety. Admitted to [facility]. CV. Increased Remeron from 7.5mg to 15mg at HS for insomnia Increase Zyprexa up to 12.5mg in divided dose for severe anxiety/racing thoughts: was discontinue. Currently on Risperidone. Increase Effexor ER to 187.5mg from 150mg for depression Work with treatment team to do collateral. Patient educated on: diagnosis, medication risk/benefits and therapeutic strategies Informed Consent: understands and further education needed Reason for continued inpatient stay Substantial Risk for: med/psych decompensation Time Spent With Patient Time: Total time managing care of this patient today ____ minutes.
[2025-09-17 08:00] VITALS: BP 138/86; PULSE 133; RESP 18; TEMP 36.9; O2SAT 100
[2025-09-17] MEDS: Ferrous Sulfate 324 MG TABLET.DR PO (08:33)
[2025-09-17] MEDS: Venlafaxine HCl ER 150 MG CAP.ER.24H PO (08:33)
[2025-09-17 08:45] LABS: Ammonia 17 umol/L (13-55)
[2025-09-17 10:52] LABS: Appearance Urine Clear; Glucose Urine UA Negative (Negative); PH 7.5 (5.0-9.0); Specific Gravity - Urine 1.010 (1.005-1.025)
[2025-09-17 19:47] VITALS: BP 128/92; PULSE 100; TEMP 36.4; O2SAT 99
--- NOTE | 2025-09-17 21:46 | P.PNPSI_ITS ---
Subjective Subjective Date of Service: 09/17/25 Reason For Visit: SI Subjective Notes: 3 Day Healthcare Proxy: No Guardianship: No Medical Problems Affecting Mental Status: No Interim History: Medical record and nursing notes reviewed; case discussed during rounds with team/nursing staff, and met with patient for supportive therapy/psychoeducation, as well as medication management. Meet with patient, very anxious concerning about incontinence of urine the past two nights. Report she slept through and not able to wake up for bathroom use. Continue disclose passive SI my head not right. My body feels awkward and I am frustrated . Patient at the same time want to go home and want to know about ECT treatment. Recently meds change that help with anxiety but seems sedated. We will hold Clonidine at 1300 and Klonpoin scheduled at HS but give 1mg instead. Nursing is aware to not offer trazodone with scheduled meds. Will reassess the next day. Ammonia level 17 WNL. U/A was negative to rule out any confusion. Pending ECT consult with hope patient would be seen by Thursday. Patient is not stable, we still work on finding appropriate regimens as patient has a couple medication changes lately with pending effects. Would not safe and not stable enough to discharge as predict of relapse on mental health is high. Patient has 3 day notice in which he up on Thursday. Medication Compliance: Yes Side effects from medications: Yes (too sedated at night. ) Attending Groups: Yes Review of Systems Acute medical concerns: No Medical Review of Systems: unchanged Review of Systems Review of Systems Reports incontinence of urine. Constipation result. No nausea or vomiting. No fall Mental Status Exam Mental Status Exam Narrative: Patient is A+Ox4, behavior is anxious but pleasant and cooperative on approach; wearing casual attire. Speech is soft; normal prosody, rate; Adequate hygiene and grooming; wears glasses;. Fair eye contact. Thought process is mild disorganized, ambivalent . Thought content is with passive SI, anxiety, depression; no paranoid ideations expressed; no HI; Denies AVH. Judgment/insight impaired. Diagnostics Vital Signs (24Hr): Vital Signs - 24 hr 09/17/25 08:00 09/17/25 19:47 Temperature 98.5 F 97.6 F Pulse Rate 133 H 100 Respiratory Rate 18 Blood Pressure 138/86 128/92 H Pulse Oximetry 100 99 Oxygen Delivery Method Room Air Room Air BMI result Body Mass Index 44.2 Labs 09/08/25 10:03 09/15/25 08:28 Labs: Laboratory Results - last 48 hr 09/17/25 09/17/25 08:27 10:30 Ammonia 17 Urine Color Yellow Urine Appearance Clear Urine pH 7.5 Ur Specific Kersey 1.010 Urine Protein Negative Urine Glucose (UA) Negative Urine Ketones Negative Urine Blood Negative Urine Nitrite Negative Ur Leukocyte Esterase Negative Medications Medications Current Medications Acetaminophen (Acetaminophen 325 Mg Tablet) 650 mg PO Q6H PRN PRN Reason: Headache/Pain, Scale 1-10 Al Hydroxide/Mg Hydroxide (Magnesium Hydrox/Alum Hydrox 30 Ml Oral.Susp) 30 ml PO Q6H PRN PRN Reason: Heartburn/Nausea Bisacodyl (Bisacodyl 5 Mg Tablet.) 10 mg PO BEDTIME PRN PRN Reason: Constipation Clonazepam (Clonazepam 1 Mg Tablet) 2 mg PO TID [facility] On Hold: 09/17/25 17:52 Last Admin: 09/17/25 15:27 Dose: Not Given Clonidine HCl (Clonidine Hcl 0.1 Mg Tablet) 0.1 mg PO BID@0900,1300 [facility]; Protocol Last Admin: 09/17/25 12:59 Dose: Not Given Divalproex Sodium (Divalproex Sodium Er 500 Mg Tab.Er.24h) 500 mg PO BID [facility] Last Admin: 09/17/25 20:35 Dose: 500 mg Docusate Sodium (Docusate Sodium 100 Mg Capsule) 100 mg PO BID [facility] Last Admin: 09/17/25 20:35 Dose: 100 mg Ferrous Sulfate (Ferrous Sulfate 324 Mg Tablet.) 324 mg PO DAILY [facility] Last Admin: 09/17/25 08:33 Dose: 324 mg Hydroxyzine HCl (Hydroxyzine Hcl 25 Mg Tablet) 25 mg PO Q6H PRN PRN Reason: mild anxiety Last Admin: 09/17/25 15:06 Dose: 25 mg Levothyroxine Sodium (Levothyroxine Sodium 125 Mcg Tablet) 125 mcg PO DAILY@0600 [facility] Last Admin: 09/17/25 06:33 Dose: 125 mcg Lisinopril (Lisinopril 2.5 Mg Tablet) 2.5 mg PO DAILY [facility]; Protocol Last Admin: 09/17/25 08:33 Dose: 2.5 mg Magnesium Hydroxide (Milk Of Magnesia 30 Ml Oral.Susp) 30 ml PO DAILY PRN PRN Reason: Constipation Last Admin: 09/14/25 09:16 Dose: 30 ml Metformin HCl (Metformin Hcl 500 Mg Tablet) 500 mg PO DAILY [facility] Last Admin: 09/17/25 08:33 Dose: 500 mg Mirtazapine (Mirtazapine 15 Mg Tablet) 15 mg PO BEDTIME [facility] Last Admin: 09/17/25 20:35 Dose: 15 mg Non-Formulary Medication (Norethindrone (Contraceptive)) 0.35 mg PO DAILY [facility] Last Admin: 09/17/25 08:32 Dose: 0.35 mg Polyethylene Glycol (Polyethylene Glycol 3350 17 Gm Powd.Pack) 17 gm PO DAILY [facility] Last Admin: 09/17/25 08:31 Dose: 17 gm Prazosin HCl (Prazosin Hcl 1 Mg Capsule) 1 mg PO BEDTIME [facility]; Protocol Last Admin: 09/17/25 20:35 Dose: 1 mg Risperidone (Risperidone 0.5 Mg Tablet) 0.5 mg PO BID PRN PRN Reason: grounding support Last Admin: 09/14/25 23:46 Dose: 0.5 mg Risperidone (Risperidone 1 Mg Tablet) 1 mg PO BID [facility] Last Admin: 09/17/25 20:35 Dose: 1 mg Trazodone HCl (Trazodone Hcl 50 Mg Tablet) 50 mg PO BEDTIME MRX1 PRN PRN Reason: Insomnia Last Admin: 09/16/25 21:16 Dose: 50 mg Venlafaxine HCl (Venlafaxine Hcl Er 150 Mg Cap.Er.24h) 150 mg PO DAILY [facility] Last Admin: 09/17/25 08:33 Dose: 150 mg Allergies Allergies Allergy/AdvReac Type Severity Reaction Status Date / Time amoxicillin Allergy Unknown Verified 09/08/25 09:38 loratadine (From Claritin) Allergy Unknown Verified 09/08/25 09:38 sulfamethoxazole (From Allergy Unknown Verified 09/08/25 09:38 Sulfamethoxazole-Trimethoprim) trimethoprim (From Allergy Unknown Verified 09/08/25 09:38 Sulfamethoxazole-Trimethoprim) Assessment & Plan Assessment & Plan (1) Depression: Qualifiers: Depression Type: unspecified Qualified Code(s): F32.A - Depression, unspecified Status: Acute Code(s): F32.A - Depression, unspecified (2) Hypothyroidism: Status: Acute Code(s): E03.9 - Hypothyroidism, unspecified (3) Prediabetes: Status: Acute Code(s): R73.03 - Prediabetes (4) Anxiety state, unspecified: Status: Acute Code(s): F41.1 - Generalized anxiety disorder Plan HPI: Patient is a 44 year old, , Turkish speaking female with hx of pre-diabetic, thryroid disease, depression, and anxiety who self presents to the [facility] ED today with her mother in law reporting SI with plan to OD on pills or cut herself. She has been admitted IPLOC twice to [facility], the first of which was in June and most recently from 07/28-. It appears the was assessed for the PHP at [facility] on 09/06/2025. Attended 1 day only. Do not think PHP is a good fit for her Formulation/clinical reasoning: increased in depression and anxiety, poor sleep and appetite, increase in safety concerns SI with plans. Hx of not complete treatment and relapse on mental health symptoms that affect daily functions. Currently is on medical leave of absent. Hx of Depression and Anxiety. Given above information, patient would benefit in restrictive environment for safety, medication adjustment and refer patient back to OP psychiatric services for aftercare. Hospital course: 09/08/25: patient still has passive SI with plan, but no intent to do harm to her. Feeling safe here. Potential to sign a 3-day notice to have some control over her treatment but open to stay longer if need Increased Remeron from 7.5mg to 15mg at HS for insomnia Increase Zyprexa up to 12.5mg in divided dose for severe anxiety/racing thoughts Increase Effexor ER to 187.5mg from 150mg for depression Metformin 500mg daily for diabetes. Zyprexa 5mg BID PRN for agitation. Trazodone and Hydroxyzine PRN available per protocol. Reviewed med list with patient POC BIB to monitor for BS. Can discontinue if BS is stable. 09/09 Patient explains events that led to this admission, saying she got triggered at the partial program due to conversations in the group. Patient reports continued SI but says it is less so since she is on the unit and trying to be hopeful about treatment. [employer] discussed medications and on admission, Venlafaxine and Mirtazapine both increased so patient agrees to see if these adjustments are helpful 09/11: I was not honest about how I was feeling when I left. I can leave on Thursday right? Pt reports she feels all will be better off if she were not alive. She is worried about how much this admission will cost for a co-payment. Reports +SI without a plan, Denies HI,AH,VH. Depressed, anxious and agitated. 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 Reports sleep and appetite are intact Anxious today as mother is having a hysterectomy at a hospital in [place], [place] Attempting to attend milieu programs, but very anxious Medically, seen by hospitalist team today to check in with pt on pre-DM, hypothyroidism, iron deficiency anemia and HTN. No changes to plan were made today. Discussed with pt that she will not be considered for discharge on 09/13. She is not prepared to retract TDN. Discussed Section VII and the need for treatment. Agreed to begin lamictal, klonopin and increase olanzapine. Venlafaxine decreased as it may be causing an increase in anxiety. 09/12:Met with pt and Leyda Aiken LCSW. Pt requests POC be discontinued. Reports she slept well with meds. Discussed wanting to , feeling scared to be here, feeling tired, mind and body, concern about over and under medicating, upsetting group topics. Anxious, overwhelmed, a big bad dream Summarized her hospitalizations [id number] over the of her father and elenita; July- getting back on meds and August- really wanting to . Retracted TDN in the afternoon with Leyda Aiken LCSW. +SI, -HI, -AH, -VH Discussed changing Olanzapine to Risperdal to help pt focus on grounding. She agrees. 09/13: Anxiety persists. Suicidally persists. Re-signed a three day notice today. Review of medications. Will trial Depakote tid to begin to assess efficacy on anxiety. Pt agrees. I know I am not ready to go Discussed her family, genetics of bipolar disorder and advances in treatment over time. Discussed bipolar II and the differences in symptom presentation. 09/14/25: Patient report having difficult morning usually d/t anxiety but she is patiently enough to way for her turn to take AM scheduled meds. Report passive SI still there but at the same time saying I am ready to go home but is aware of d/t passive SI, she does not feel safe going home yet. Denies SIB/HI/AVH. She is anxious, depressed, but pleasant and cooperative. No behavior issues. Compliant with meds and denies side effects. Should dx changed to Bipolar II? 09/15/25: As asked above, pt reports a history of elenita, not hypomania, unless her account changes as symptoms subside. Pt reports no improvement. Discussion to changes to her treatment plan. Review of labs/meds. Creatinine 0.79, Cr Cl 106, GFR >60. Reports constipation- given prn dulcolax, colace 100 mg bid, Miralax daily Discussed ECT- parents have a hx of ECT. Will obtain consult and continue med titration. Klonopin increased to 2 mg tid Depakote ER changed to 500 mg bid Risperdal increased to 1 mg bid Prazosin 1mg initiated at hs Pt came to tw later in the day- Whatever we did this morning helped, I am feeling better, may I go home today? Discussed with pt why she could not leave today- she verbalized understanding. 09/16/25: Met with patient in the exam room, reports that is patient has constipation and urine incontinence last night which she at she bill is from being constipated. However, refused Colace last night per record. Reports left hand numbness which she has that experience when her dad passed and symptoms going away self. Suicidal thoughts continue to bother her, and reports sometimes thinking about suffocating myself . Patient is looking forward to hearing more information if she has going to get ECT treatment. At the end of the encounter, patient reports feeling drowsy, therefore, she wants to rest instead of go back to group. Later on in the afternoon, she is getting ready to see her , who is coming to visit her. Per nursing, patient slept for 8 hours, mood is all over the place not sure if it is intentionally or she gets confused. Somewhat labile. She signed 3 day notice, wanted to go home but continued to reports suicidal thoughts.?The patient should be discharged next Thursday when the 3 day is . Will order U/A and Ammonia level rule medical conditions causing disorganization. 09/17/25: Meet with patient in exam room, very anxious concerning about incontinence of urine the past two nights. Report she slept through and not able to wake up for bathroom use. Continue disclose passive SI my head not right. My body feels awkward and I am frustrated . Patient at the same time want to go home and want to know about ECT treatment. Recently meds change that help with anxiety but seems sedated. We will hold Clonidine at 1300 and Klonpoin scheduled at HS but give 1mg instead. Nursing is aware to not offer trazodone with scheduled meds. Will reassess the next day. Ammonia level 17 WNL. U/A was negative to rule out any confusion. Pending ECT consult with hope patient would be seen by Thursday. Patient is not stable, we still work on finding appropriate regimens as patient has a couple medication changes lately with pending effects. flat affect. Would not safe and not stable enough to discharge as predict of relapse on mental health is high. Patient has 3 day notice in which he up on Thursday. Plan Patient on 15 minute checks for safety. Admitted to [facility]. [facility]. Increased Remeron from 7.5mg to 15mg at HS for insomnia Increase Zyprexa up to 12.5mg in divided dose for severe anxiety/racing thoughts: was discontinue. Currently on Risperidone. Increase Effexor ER to 187.5mg from 150mg for depression Work with treatment team to do collateral. Patient educated on: diagnosis, medication risk/benefits and therapeutic strategies Reason for continued inpatient stay Substantial Risk for: med/psych decompensation Time Spent With Patient Time: Total time managing care of this patient today ____ minutes.
[2025-09-18 08:00] VITALS: BP 138/79; PULSE 132; RESP 18; TEMP 37.1; O2SAT 99
[2025-09-18] MEDS: Venlafaxine HCl ER 150 MG CAP.ER.24H PO (08:48)
[2025-09-18] MEDS: Ferrous Sulfate 324 MG TABLET.DR PO (09:35)
[2025-09-18 14:49] VITALS: BP 116/81
[2025-09-18 20:00] VITALS: BP 124/82; PULSE 107; RESP 16; TEMP 36.9; O2SAT 100
--- NOTE | 2025-09-19 | HO.PSYCHPN ---
Subjective Subjective Date of Service: 09/18/25 Reason For Visit: SI Subjective Notes: Conditional Voluntary Healthcare Proxy: No Guardianship: No Medical Problems Affecting Mental Status: No Interim History: Medical record and nursing notes reviewed; case discussed during rounds with team/nursing staff, and met with patient for supportive therapy/psychoeducation, as well as medication management. Late entry. This note is for 09/18/25 Patient reports passive SI, no plan, no intent. Report she does not feel right yet but Want to go home. She says she cannot stay for another weekends here. Report I can hear my self snored but I am not asleep . Report no incontinence last night. Sleep good. Report anxious and but not too tired. Reviewed with patient regarding Klonopin. When told her will order 0.5mg x1 now dose she says it may not enough but reports tired at the same time. Reduced Klonopin down to 1mg TID. Met with Assembly Inspector, feel better. Will want to be discharged but also want ECT. Been asking about it daily. She may think about retract 3 day to stay for a couple more days to manage her symptoms but does not want to retract it now but is aware she can do it with anyone later. Slightly better compared to yesterday in term of mood. However, safety remains an issues as her SI still there which is not a chronic issues for her. I do not think it is safe to discharge her home tomorrow. Denies SIB/HI/AVH. Medication Compliance: Yes Side effects from medications: No (Less sedated ) Attending Groups: Yes Review of Systems Acute medical concerns: No Medical Review of Systems: unchanged Review of Systems Review of Systems Reports incontinence of urine. Constipation result. No nausea or vomiting. No fall Mental Status Exam Mental Status Exam Narrative: Patient is A+Ox4, behavior is anxious but pleasant and cooperative on approach; wearing casual attire. Speech is soft; normal prosody, rate; Adequate hygiene and grooming; wears glasses;. Fair eye contact. Thought process is disorganized, ambivalent . Thought content is with passive SI, anxiety, depression; no paranoid ideations expressed; no HI; Denies AVH. Judgment/insight impaired. Diagnostics Vital Signs (24Hr): Vital Signs - 24 hr 09/18/25 08:00 09/18/25 14:49 09/18/25 20:00 Temperature 98.7 F 98.4 F Pulse Rate 132 H 107 H Respiratory Rate 18 16 Blood Pressure 138/79 116/81 124/82 Pulse Oximetry 99 100 Oxygen Delivery Method Room Air Room Air BMI result Body Mass Index 44.2 Labs 09/08/25 10:03 09/15/25 08:28 Labs: Laboratory Results - last 48 hr 09/17/25 09/17/25 08:27 10:30 Ammonia 17 Urine Color Yellow Urine Appearance Clear Urine pH 7.5 Ur Specific [place] 1.010 Urine Protein Negative Urine Glucose (UA) Negative Urine Ketones Negative Urine Blood Negative Urine Nitrite Negative Ur Leukocyte Esterase Negative Medications Medications Current Medications Acetaminophen (Acetaminophen 325 Mg Tablet) 650 mg PO Q6H PRN PRN Reason: Headache/Pain, Scale 1-10 Al Hydroxide/Mg Hydroxide (Magnesium Hydrox/Alum Hydrox 30 Ml Oral.Susp) 30 ml PO Q6H PRN PRN Reason: Heartburn/Nausea Bisacodyl (Bisacodyl 5 Mg Tablet.) 10 mg PO BEDTIME PRN PRN Reason: Constipation Clonazepam (Clonazepam 1 Mg Tablet) 1 mg PO TID [facility] Last Admin: 09/18/25 21:07 Dose: 1 mg Clonidine HCl (Clonidine Hcl 0.1 Mg Tablet) 0.1 mg PO BID@0900,1300 [facility]; Protocol Last Admin: 09/18/25 14:49 Dose: 0.1 mg Divalproex Sodium (Divalproex Sodium Er 500 Mg Tab.Er.24h) 500 mg PO BID [facility] Last Admin: 09/18/25 21:07 Dose: 500 mg Docusate Sodium (Docusate Sodium 100 Mg Capsule) 100 mg PO BID [facility] Last Admin: 09/18/25 22:59 Dose: Not Given Ferrous Sulfate (Ferrous Sulfate 324 Mg Tablet.) 324 mg PO DAILY [facility] Last Admin: 09/18/25 09:35 Dose: 324 mg Hydroxyzine HCl (Hydroxyzine Hcl 25 Mg Tablet) 25 mg PO Q6H PRN PRN Reason: mild anxiety Last Admin: 09/17/25 15:06 Dose: 25 mg Levothyroxine Sodium (Levothyroxine Sodium 125 Mcg Tablet) 125 mcg PO DAILY@0600 [facility] Last Admin: 09/18/25 06:34 Dose: 125 mcg Lisinopril (Lisinopril 2.5 Mg Tablet) 2.5 mg PO DAILY [facility]; Protocol Last Admin: 09/18/25 08:49 Dose: 2.5 mg Magnesium Hydroxide (Milk Of Magnesia 30 Ml Oral.Susp) 30 ml PO DAILY PRN PRN Reason: Constipation Last Admin: 09/14/25 09:16 Dose: 30 ml Metformin HCl (Metformin Hcl 500 Mg Tablet) 500 mg PO DAILY [facility] Last Admin: 09/18/25 09:35 Dose: 500 mg Mirtazapine (Mirtazapine 15 Mg Tablet) 15 mg PO BEDTIME [facility] Last Admin: 09/18/25 21:07 Dose: 15 mg Non-Formulary Medication (Norethindrone (Contraceptive)) 0.35 mg PO DAILY [facility] Last Admin: 09/18/25 08:56 Dose: 0.35 mg Polyethylene Glycol (Polyethylene Glycol 3350 17 Gm Powd.Pack) 17 gm PO DAILY [facility] Last Admin: 09/18/25 08:49 Dose: 17 gm Prazosin HCl (Prazosin Hcl 1 Mg Capsule) 1 mg PO BEDTIME [facility]AN[facility]; Protocol Last Admin: 09/18/25 21:07 Dose: 1 mg Risperidone (Risperidone 0.5 Mg Tablet) 0.5 mg PO BID PRN PRN Reason: grounding support Last Admin: 09/14/25 23:46 Dose: 0.5 mg Risperidone (Risperidone 1 Mg Tablet) 1 mg PO BID [facility] Last Admin: 09/18/25 21:07 Dose: 1 mg Trazodone HCl (Trazodone Hcl 50 Mg Tablet) 50 mg PO BEDTIME MRX1 PRN PRN Reason: Insomnia Last Admin: 09/16/25 21:16 Dose: 50 mg Venlafaxine HCl (Venlafaxine Hcl Er 150 Mg Cap.Er.24h) 150 mg PO DAILY [facility] Last Admin: 09/18/25 08:48 Dose: 150 mg Allergies Allergies Allergy/AdvReac Type Severity Reaction Status Date / Time amoxicillin Allergy Unknown Verified 09/08/25 09:38 loratadine (From Claritin) Allergy Unknown Verified 09/08/25 09:38 sulfamethoxazole (From Allergy Unknown Verified 09/08/25 09:38 Sulfamethoxazole-Trimethoprim) trimethoprim (From Allergy Unknown Verified 09/08/25 09:38 Sulfamethoxazole-Trimethoprim) Assessment & Plan Assessment & Plan (1) Depression: Qualifiers: Depression Type: unspecified Qualified Code(s): F32.A - Depression, unspecified Status: Acute Code(s): F32.A - Depression, unspecified (2) Hypothyroidism: Status: Acute Code(s): E03.9 - Hypothyroidism, unspecified (3) Prediabetes: Status: Acute Code(s): R73.03 - Prediabetes (4) Anxiety state, unspecified: Status: Acute Code(s): F41.1 - Generalized anxiety disorder Plan HPI: Patient is a 44 year old, , Telugu speaking female with hx of pre-diabetic, thryroid disease, depression, and anxiety who self presents to the [facility] ED today with her mother in law reporting SI with plan to OD on pills or cut herself. She has been admitted IPLOC twice to [facility], the first of which was in June and most recently from 07/28-. It appears the was assessed for the PHP at [facility] on 09/06/2025. Attended 1 day only. Do not think PHP is a good fit for her Formulation/clinical reasoning: increased in depression and anxiety, poor sleep and appetite, increase in safety concerns SI with plans. Hx of not complete treatment and relapse on mental health symptoms that affect daily functions. Currently is on medical leave of absent. Hx of Depression and Anxiety. Given above information, patient would benefit in restrictive environment for safety, medication adjustment and refer patient back to OP psychiatric services for aftercare. Hospital course: 09/08/25: patient still has passive SI with plan, but no intent to do harm to her. Feeling safe here. Potential to sign a 3-day notice to have some control over her treatment but open to stay longer if need Increased Remeron from 7.5mg to 15mg at HS for insomnia Increase Zyprexa up to 12.5mg in divided dose for severe anxiety/racing thoughts Increase Effexor ER to 187.5mg from 150mg for depression Metformin 500mg daily for diabetes. Zyprexa 5mg BID PRN for agitation. Trazodone and Hydroxyzine PRN available per protocol. Reviewed med list with patient POC BIB to monitor for BS. Can discontinue if BS is stable. 09/09 Patient explains events that led to this admission, saying she got triggered at the partial program due to conversations in the group. Patient reports continued SI but says it is less so since she is on the unit and trying to be hopeful about treatment. Director Talent discussed medications and on admission, Venlafaxine and Mirtazapine both increased so patient agrees to see if these adjustments are helpful 09/11: I was not honest about how I was feeling when I left. I can leave on Thursday right? Pt reports she feels all will be better off if she were not alive. She is worried about how much this admission will cost for a co-payment. Reports +SI without a plan, Denies HI,AH,VH. Depressed, anxious and agitated. 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 Reports sleep and appetite are intact Anxious today as mother is having a hysterectomy at a hospital in [place], [place] Attempting to attend milieu programs, but very anxious Medically, seen by hospitalist team today to check in with pt on pre-DM, hypothyroidism, iron deficiency anemia and HTN. No changes to plan were made today. Discussed with pt that she will not be considered for discharge on 09/13. She is not prepared to retract TDN. Discussed Section VII and the need for treatment. Agreed to begin lamictal, klonopin and increase olanzapine. Venlafaxine decreased as it may be causing an increase in anxiety. 09/12:Met with pt and Leyda Aiken LCSW. Pt requests POC be discontinued. Reports she slept well with meds. Discussed wanting to , feeling scared to be here, feeling tired, mind and body, concern about over and under medicating, upsetting group topics. Anxious, overwhelmed, a big bad dream Summarized her hospitalizations [id number] over the of her father and elenita; July- getting back on meds and August- really wanting to . Retracted TDN in the afternoon with Leyda Aiken LCSW. +SI, -HI, -AH, -VH Discussed changing Olanzapine to Risperdal to help pt focus on grounding. She agrees. 09/13: Anxiety persists. Suicidally persists. Re-signed a three day notice today. Review of medications. Will trial Depakote tid to begin to assess efficacy on anxiety. Pt agrees. I know I am not ready to go Discussed her family, genetics of bipolar disorder and advances in treatment over time. Discussed bipolar II and the differences in symptom presentation. 09/14/25: Patient report having difficult morning usually d/t anxiety but she is patiently enough to way for her turn to take AM scheduled meds. Report passive SI still there but at the same time saying I am ready to go home but is aware of d/t passive SI, she does not feel safe going home yet. Denies SIB/HI/AVH. She is anxious, depressed, but pleasant and cooperative. No behavior issues. Compliant with meds and denies side effects. Should dx changed to Bipolar II? 09/15/25: As asked above, pt reports a history of elenita, not hypomania, unless her account changes as symptoms subside. Pt reports no improvement. Discussion to changes to her treatment plan. Review of labs/meds. Creatinine 0.79, Cr Cl 106, GFR >60. Reports constipation- given prn dulcolax, colace 100 mg bid, Miralax daily Discussed ECT- parents have a hx of ECT. Will obtain consult and continue med titration. Klonopin increased to 2 mg tid Depakote ER changed to 500 mg bid Risperdal increased to 1 mg bid Prazosin 1mg initiated at hs Pt came to tw later in the day- Whatever we did this morning helped, I am feeling better, may I go home today? Discussed with pt why she could not leave today- she verbalized understanding. 09/16/25: Met with patient in the exam room, reports that is patient has constipation and urine incontinence last night which she at she bill is from being constipated. However, refused Colace last night per record. Reports left hand numbness which she has that experience when her dad passed and symptoms going away self. Suicidal thoughts continue to bother her, and reports sometimes thinking about suffocating myself . Patient is looking forward to hearing more information if she has going to get ECT treatment. At the end of the encounter, patient reports feeling drowsy, therefore, she wants to rest instead of go back to group. Later on in the afternoon, she is getting ready to see her , who is coming to visit her. Per nursing, patient slept for 8 hours, mood is all over the place not sure if it is intentionally or she gets confused. Somewhat labile. She signed 3 day notice, wanted to go home but continued to reports suicidal thoughts.?The patient should be discharged next Thursday when the 3 day is . Will order U/A and Ammonia level rule medical conditions causing disorganization. 09/17/25: Meet with patient in exam room, very anxious concerning about incontinence of urine the past two nights. Report she slept through and not able to wake up for bathroom use. Continue disclose passive SI my head not right. My body feels awkward and I am frustrated . Patient at the same time want to go home and want to know about ECT treatment. Recently meds change that help with anxiety but seems sedated. We will hold Clonidine at 1300 and Klonpoin scheduled at HS but give 1mg instead. Nursing is aware to not offer trazodone with scheduled meds. Will reassess the next day. Ammonia level 17 WNL. U/A was negative to rule out any confusion. Pending ECT consult with hope patient would be seen by Thursday. Patient is not stable, we still work on finding appropriate regimens as patient has a couple medication changes lately with pending effects. flat affect. Would not safe and not stable enough to discharge as predict of relapse on mental health is high. Patient has 3 day notice in which he up on Thursday. 09/18/25: Patient reports passive SI, no plan, no intent. Report she does not feel right yet but Want to go home. She says she cannot stay for another weekends here. Report I can hear my self snored but I am not asleep . Report no incontinence last night. Sleep good. Report anxious and but not too tired. Reviewed with patient regarding Klonopin. When told her will order 0.5mg x1 now dose she says it may not enough but reports tired at the same time. Reduced Klonopin down to 1mg TID. Met with Assembly Inspector, feel better. Will want to be discharged but also want ECT. Been asking about it daily. She may think about retract 3 day to stay for a couple more days to manage her symptoms but does not want to retract it now but is aware she can do it with anyone later. Slightly better compared to yesterday in term of mood. However, safety remains an issues as her SI still there which is not a chronic issues for her. I do not think it is safe to discharge her home tomorrow. Denies SIB/HI/AVH. Klonopin down from 2mg TID to 1mg TID d/t sedated. Plan Patient on 15 minute checks for safety. Admitted to [facility]. 3-day which 09/19. Increased Remeron from 7.5mg to 15mg at HS for insomnia Increase Zyprexa up to 12.5mg in divided dose for severe anxiety/racing thoughts: was discontinue. Currently on Risperidone. Increase Effexor ER to 187.5mg from 150mg for depression Work with treatment team to do collateral. Patient educated on: diagnosis, medication risk/benefits and therapeutic strategies Informed Consent: understands and further education needed Reason for continued inpatient stay Substantial Risk for: med/psych decompensation Time Spent With Patient Time: Total time managing care of this patient today ____ minutes.
[2025-09-19 08:00] VITALS: BP 118/76; PULSE 118; RESP 16; TEMP 37.4; O2SAT 93
[2025-09-19] MEDS: Ferrous Sulfate 324 MG TABLET.DR PO (09:48)
[2025-09-19] MEDS: Venlafaxine HCl ER 150 MG CAP.ER.24H PO (09:48)
--- NOTE | 2025-09-19 12:33 | P.PNPSI_ITS ---
Subjective Subjective Date of Service: 09/19/25 Reason For Visit: SI Subjective Notes: Conditional Voluntary Healthcare Proxy: No Guardianship: No Medical Problems Affecting Mental Status: No Interim History: Pt retracted her TDN. Continues to feel like I am losing control of my mind . Wanting DC, to be home alone. Denies feeling undermedicated or overmedicated- I am tired, drained, thoughts racing, anxious depressed, suicidal. Anxiety is better depending upon the moment she reports. Incontinent over the weekend- Klonopin decreased-pt believes it is due to remeron. will monitor, however incontinence has stopped since klonopin was decreased. ECT consult appreciated by Dr. Bustos who does not believe pt has bipolar disorder, but VIRGILIO, OCD sx. ECT not recommended. Venlafaxine increase recommended. Will taper depakote and increase Venlafaxine per this consult. Medication Compliance: Yes Side effects from medications: Yes Attending Groups: Intermittent Review of Systems Acute medical concerns: No Medical Review of Systems: unchanged Review of Systems Review of Systems Denies today Mental Status Exam Mental Status Exam Patient Appearance: Fatigued Patient Orientation: Person, Place, Time and Situation Level of Consciousness: Alert Patient Behavior: Talkative, Anxious, Fatigued, Distractible and Good Eye Contact Mood Description: Depressed and Anxious Affect Description: Depressed and Anxious Patient Cognition Impaired: No Ability to Follow Directions: Good Speech Pattern: Spontaneous Speech Memory Description: Remote Impaired Hallucinations: None Delusions: Not Present Perceptual Disturbances: Depersonalization and Derealization Thought Process: Rumination Thought Content: positive for [place], positive for Circumstantial, positive for Perseveration, positive for Preoccupation and positive for Suicidal Ideation Depressive Symptoms: Increased Anxiety, Feelings of Worthlessness, Hopelessness, Isolating-Friends/Family, Unhappiness, Increased Fatigue, Thoughts of /Suicide, Low Self Esteem, Loss of Energy and Difficulty Concentrating Judgement: Fair Diagnostics Vital Signs (24Hr): Vital Signs - 24 hr 09/18/25 14:49 09/18/25 20:00 09/19/25 08:00 Temperature 98.4 F 99.3 F Pulse Rate 107 H 118 H Respiratory Rate 16 16 Blood Pressure 116/81 124/82 118/76 Pulse Oximetry 100 93 Oxygen Delivery Method Room Air Room Air BMI result Body Mass Index 44.2 Labs 09/08/25 10:03 09/15/25 08:28 Medications Medications Current Medications Acetaminophen (Acetaminophen 325 Mg Tablet) 650 mg PO Q6H PRN PRN Reason: Headache/Pain, Scale 1-10 Al Hydroxide/Mg Hydroxide (Magnesium Hydrox/Alum Hydrox 30 Ml Oral.Susp) 30 ml PO Q6H PRN PRN Reason: Heartburn/Nausea Bisacodyl (Bisacodyl 5 Mg Tablet.) 10 mg PO BEDTIME PRN PRN Reason: Constipation Clonazepam (Clonazepam 1 Mg Tablet) 1 mg PO TID [facility] Last Admin: 09/19/25 09:48 Dose: 1 mg Clonidine HCl (Clonidine Hcl 0.1 Mg Tablet) 0.1 mg PO BID@0900,1300 [facility]; Protocol Last Admin: 09/19/25 09:48 Dose: 0.1 mg Divalproex Sodium (Divalproex Sodium Er 500 Mg Tab.Er.24h) 500 mg PO BID [facility] Last Admin: 09/19/25 09:48 Dose: 500 mg Docusate Sodium (Docusate Sodium 100 Mg Capsule) 100 mg PO BID [facility] Last Admin: 09/19/25 09:50 Dose: 100 mg Ferrous Sulfate (Ferrous Sulfate 324 Mg Tablet.) 324 mg PO DAILY [facility] Last Admin: 09/19/25 09:48 Dose: 324 mg Hydroxyzine HCl (Hydroxyzine Hcl 25 Mg Tablet) 25 mg PO Q6H PRN PRN Reason: mild anxiety Last Admin: 09/17/25 15:06 Dose: 25 mg Levothyroxine Sodium (Levothyroxine Sodium 125 Mcg Tablet) 125 mcg PO DAILY@0600 [facility] Last Admin: 09/19/25 06:47 Dose: 125 mcg Lisinopril (Lisinopril 2.5 Mg Tablet) 2.5 mg PO DAILY [facility]; Protocol Last Admin: 09/19/25 09:48 Dose: 2.5 mg Magnesium Hydroxide (Milk Of Magnesia 30 Ml Oral.Susp) 30 ml PO DAILY PRN PRN Reason: Constipation Last Admin: 09/14/25 09:16 Dose: 30 ml Metformin HCl (Metformin Hcl 500 Mg Tablet) 500 mg PO DAILY [facility] Last Admin: 09/19/25 09:48 Dose: 500 mg Mirtazapine (Mirtazapine 15 Mg Tablet) 15 mg PO BEDTIME [facility] Last Admin: 09/18/25 21:07 Dose: 15 mg Non-Formulary Medication (Norethindrone (Contraceptive)) 0.35 mg PO DAILY [facility] Last Admin: 09/19/25 09:49 Dose: 0.35 mg Polyethylene Glycol (Polyethylene Glycol 3350 17 Gm Powd.Pack) 17 gm PO DAILY [facility] Last Admin: 09/19/25 09:50 Dose: 17 gm Prazosin HCl (Prazosin Hcl 1 Mg Capsule) 1 mg PO BEDTIME [facility]; Protocol Last Admin: 09/18/25 21:07 Dose: 1 mg Risperidone (Risperidone 0.5 Mg Tablet) 0.5 mg PO BID PRN PRN Reason: grounding support Last Admin: 09/14/25 23:46 Dose: 0.5 mg Risperidone (Risperidone 1 Mg Tablet) 1 mg PO BID [facility] Last Admin: 09/19/25 09:48 Dose: 1 mg Trazodone HCl (Trazodone Hcl 50 Mg Tablet) 50 mg PO BEDTIME MRX1 PRN PRN Reason: Insomnia Last Admin: 09/16/25 21:16 Dose: 50 mg Venlafaxine HCl (Venlafaxine Hcl Er 37.5 Mg Cap.Er.24h) 112.5 mg PO DAILY [facility] Allergies Allergies Allergy/AdvReac Type Severity Reaction Status Date / Time amoxicillin Allergy Unknown Verified 09/08/25 09:38 loratadine (From Claritin) Allergy Unknown Verified 09/08/25 09:38 sulfamethoxazole (From Allergy Unknown Verified 09/08/25 09:38 Sulfamethoxazole-Trimethoprim) trimethoprim (From Allergy Unknown Verified 09/08/25 09:38 Sulfamethoxazole-Trimethoprim) Assessment & Plan Assessment & Plan (1) Depression: Qualifiers: Depression Type: unspecified Qualified Code(s): F32.A - Depression, unspecified Status: Acute Code(s): F32.A - Depression, unspecified (2) Hypothyroidism: Status: Acute Code(s): E03.9 - Hypothyroidism, unspecified (3) Prediabetes: Status: Acute Code(s): R73.03 - Prediabetes (4) Anxiety state, unspecified: Status: Acute Code(s): F41.1 - Generalized anxiety disorder Plan HPI: Patient is a 44 year old, , Maltese speaking female with hx of pre-diabetic, thryroid disease, depression, and anxiety who self presents to the [facility] today with her mother in law reporting SI with plan to OD on pills or cut herself. She has been admitted IPLOC twice to [facility], the first of which was in June and most recently from 07/28-. It appears the was assessed for the PHP at [facility] on 09/06/2025. Attended 1 day only. Do not think PHP is a good fit for her Formulation/clinical reasoning: increased in depression and anxiety, poor sleep and appetite, increase in safety concerns SI with plans. Hx of not complete treatment and relapse on mental health symptoms that affect daily functions. Currently is on medical leave of absent. Hx of Depression and Anxiety. Given above information, patient would benefit in restrictive environment for safety, medication adjustment and refer patient back to OP psychiatric services for aftercare. Hospital course: 09/08/25: patient still has passive SI with plan, but no intent to do harm to her. Feeling safe here. Potential to sign a 3-day notice to have some control over her treatment but open to stay longer if need Increased Remeron from 7.5mg to 15mg at HS for insomnia Increase Zyprexa up to 12.5mg in divided dose for severe anxiety/racing thoughts Increase Effexor ER to 187.5mg from 150mg for depression Metformin 500mg daily for diabetes. Zyprexa 5mg BID PRN for agitation. Trazodone and Hydroxyzine PRN available per protocol. Reviewed med list with patient POC BIB to monitor for BS. Can discontinue if BS is stable. 09/09 Patient explains events that led to this admission, saying she got triggered at the partial program due to conversations in the group. Patient reports continued SI but says it is less so since she is on the unit and trying to be hopeful about treatment. 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 I can leave on Thursday right? Pt reports she feels all will be better off if she were not alive. She is worried about how much this admission will cost for a co-payment. Reports +SI without a plan, Denies HI,AH,VH. Depressed, anxious and agitated. 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 Reports sleep and appetite are intact Anxious today as mother is having a hysterectomy at a hospital in [place], [place] Attempting to attend milieu programs, but very anxious Medically, seen by hospitalist team today to check in with pt on pre-DM, hypothyroidism, iron deficiency anemia and HTN. No changes to plan were made today. Discussed with pt that she will not be considered for discharge on 09/13. She is not prepared to retract TDN. Discussed Section VII and the need for treatment. Agreed to begin lamictal, klonopin and increase olanzapine. Venlafaxine decreased as it may be causing an increase in anxiety. 09/12:Met with pt and Leyda Aiken LCSW. Pt requests POC be discontinued. Reports she slept well with meds. Discussed wanting to , feeling scared to be here, feeling tired, mind and body, concern about over and under medicating, upsetting group topics. Anxious, overwhelmed, a big bad dream Summarized her hospitalizations [id number] over the of her father and elenita; July- getting back on meds and August- really wanting to . Retracted TDN in the afternoon with Leyda Aiken LCSW. +SI, -HI, -AH, -VH Discussed changing Olanzapine to Risperdal to help pt focus on grounding. She agrees. 09/13: Anxiety persists. Suicidally persists. Re-signed a three day notice today. Review of medications. Will trial Depakote tid to begin to assess efficacy on anxiety. Pt agrees. I know I am not ready to go Discussed her family, genetics of bipolar disorder and advances in treatment over time. Discussed bipolar II and the differences in symptom presentation. 09/14/25: Patient report having difficult morning usually d/t anxiety but she is patiently enough to way for her turn to take AM scheduled meds. Report passive SI still there but at the same time saying I am ready to go home but is aware of d/t passive SI, she does not feel safe going home yet. Denies SIB/HI/AVH. She is anxious, depressed, but pleasant and cooperative. No behavior issues. Compliant with meds and denies side effects. Should dx changed to Bipolar II? 11/28/25: As asked above, pt reports a history of elenita, not hypomania, unless her account changes as symptoms subside. Pt reports no improvement. Discussion to changes to her treatment plan. Review of labs/meds. Creatinine 0.79, Cr Cl 106, GFR >60. Reports constipation- given prn dulcolax, colace 100 mg bid, Miralax daily Discussed ECT- parents have a hx of ECT. Will obtain consult and continue med titration. Klonopin increased to 2 mg tid Depakote ER changed to 500 mg bid Risperdal increased to 1 mg bid Prazosin 1mg initiated at hs Pt came to tw later in the day- Whatever we did this morning helped, I am feeling better, may I go home today? Discussed with pt why she could not leave today- she verbalized understanding. 09/16/25: Met with patient in the exam room, reports that is patient has constipation and urine incontinence last night which she at she bill is from being constipated. However, refused Colace last night per record. Reports left hand numbness which she has that experience when her dad passed and symptoms going away self. Suicidal thoughts continue to bother her, and reports sometimes thinking about suffocating myself . Patient is looking forward to hearing more information if she has going to get ECT treatment. At the end of the encounter, patient reports feeling drowsy, therefore, she wants to rest instead of go back to group. Later on in the afternoon, she is getting ready to see her , who is coming to visit her. Per nursing, patient slept for 8 hours, mood is all over the place not sure if it is intentionally or she gets confused. Somewhat labile. She signed 3 day notice, wanted to go home but continued to reports suicidal thoughts.?The patient should be discharged next Thursday when the 3 day is . Will order U/A and Ammonia level rule medical conditions causing disorganization. 09/17/25: Meet with patient in exam room, very anxious concerning about incontinence of urine the past two nights. Report she slept through and not able to wake up for bathroom use. Continue disclose passive SI my head not right. My body feels awkward and I am frustrated . Patient at the same time want to go home and want to know about ECT treatment. Recently meds change that help with anxiety but seems sedated. We will hold Clonidine at 1300 and Klonpoin scheduled at HS but give 1mg instead. Nursing is aware to not offer trazodone with scheduled meds. Will reassess the next day. Ammonia level 17 WNL. U/A was negative to rule out any confusion. Pending ECT consult with hope patient would be seen by Thursday. Patient is not stable, we still work on finding appropriate regimens as patient has a couple medication changes lately with pending effects. flat affect. Would not safe and not stable enough to discharge as predict of relapse on mental health is high. Patient has 3 day notice in which he up on Thursday. 09/18/25: Patient reports passive SI, no plan, no intent. Report she does not feel right yet but Want to go home. She says she cannot stay for another weekends here. Report I can hear my self snored but I am not asleep . Report no incontinence last night. Sleep good. Report anxious and but not too tired. Reviewed with patient regarding Klonopin. When told her will order 0.5mg x1 now dose she says it may not enough but reports tired at the same time. Reduced Klonopin down to 1mg TID. Met with Platform Operations Director, feel better. Will want to be discharged but also want ECT. Been asking about it daily. She may think about retract 3 day to stay for a couple more days to manage her symptoms but does not want to retract it now but is aware she can do it with anyone later. Slightly better compared to yesterday in term of mood. However, safety remains an issues as her SI still there which is not a chronic issues for her. I do not think it is safe to discharge her home tomorrow. Denies SIB/HI/AVH. Klonopin down from 2mg TID to 1mg TID d/t sedated. 09/19/25:Pt retracted her TDN. Continues to feel like I am losing control of my mind . Wanting DC, to be home alone. Denies feeling undermedicated or overmedicated- I am tired, drained, thoughts racing, anxious depressed, suicidal. Anxiety is better depending upon the moment she reports. Incontinent over the weekend- Klonopin decreased-pt believes it is due to remeron. will monitor, however incontinence has stopped since klonopin was decreased. ECT consult appreciated by Dr. Bustos who does not believe pt has bipolar disorder, but VIRGILIO, OCD sx. ECT not recommended. Venlafaxine increase recommended. Will taper depakote and increase Venlafaxine per this consult. Plan: Per consult recommendations... Depakote decrease to 250 mg bid Increase Venlafaxine to 187.5 mg daily Plan Patient on 15 minute checks for safety. Admitted to . 3-day which 09/19. Increased Remeron from 7.5mg to 15mg at HS for insomnia Increase Zyprexa up to 12.5mg in divided dose for severe anxiety/racing thoughts: was discontinue. Currently on Risperidone. Increase Effexor ER to 187.5mg from 150mg for depression Work with treatment team to do collateral. Reason for continued inpatient stay Substantial Risk for: rapid decompensation Time Spent With Patient Time: Total time managing care of this patient today ____ minutes.
[2025-09-19 19:45] VITALS: BP 112/75; PULSE 97; TEMP 36.7; O2SAT 99
[2025-09-19] MEDS: Divalproex Sodium ER 250 MG TAB.ER.24H PO (20:29)
[2025-09-20 07:53] VITALS: BP 133/82; PULSE 112; TEMP 37.2; O2SAT 96
[2025-09-20] MEDS: Venlafaxine HCl ER 150 MG CAP.ER.24H PO (09:20)
[2025-09-20] MEDS: Ferrous Sulfate 324 MG TABLET.DR PO (09:20)
[2025-09-20] MEDS: Divalproex Sodium ER 250 MG TAB.ER.24H PO ×2 (09:20→20:39)
[2025-09-20] MEDS: Venlafaxine HCl ER 37.5 MG CAP.ER.24H PO (09:21)
--- NOTE | 2025-09-20 10:39 | HO.PSYCHPN ---
Subjective Subjective Date of Service: 09/20/25 Reason For Visit: SI Subjective Notes: Conditional Voluntary Healthcare Proxy: No Guardianship: No Medical Problems Affecting Mental Status: No Interim History: Team report pt slept for seven hours last evening. Pt reports SIBS-head banging which team report did not occur. Pt continues with SI, placing a pillow over her head, asking team what she could do to kill herself with a pillow case. Team reports seeing a great deal of provocative sx, learned helplessness. Met with pt and reviewed. Reviewed symptoms of borderline personality disorder, no, I don't think that is me. Discussed inconsistencies in reporting of symptoms. Pt reports often she just does not know Continues to report anxiety. Wanting discharge, yet reporting she feels unsafe at home. Medication Compliance: Yes Side effects from medications: No Attending Groups: Yes Review of Systems Acute medical concerns: No Medical Review of Systems: unchanged Review of Systems Review of Systems overwhelmed Mental Status Exam Mental Status Exam Patient Appearance: Fatigued Patient Orientation: Person, Place, Time and Situation Level of Consciousness: Alert Patient Behavior: Talkative, Passive and Fatigued Mood Description: Depressed Affect Description: Flat Patient Cognition Impaired: No Ability to Follow Directions: Good Speech Pattern: Spontaneous Speech Memory Description: Episodic Impaired Hallucinations: None Delusions: Not Present Thought Process: Rumination Thought Content: positive for Circumstantial and positive for Perseveration Depressive Symptoms: Increased Anxiety, Diff. Making Decisions, Hopelessness, Unhappiness and Low Self Esteem Judgement: Fair Diagnostics Vital Signs (24Hr): Vital Signs - 24 hr 09/19/25 19:45 09/20/25 07:53 Temperature 98.1 F 98.9 F Pulse Rate 97 112 H Blood Pressure 112/75 133/82 Pulse Oximetry 99 96 Oxygen Delivery Method Room Air Room Air BMI result Body Mass Index 44.2 Labs 09/08/25 10:03 09/15/25 08:28 Medications Medications Current Medications Acetaminophen (Acetaminophen 325 Mg Tablet) 650 mg PO Q6H PRN PRN Reason: Headache/Pain, Scale 1-10 Al Hydroxide/Mg Hydroxide (Magnesium Hydrox/Alum Hydrox 30 Ml Oral.Susp) 30 ml PO Q6H PRN PRN Reason: Heartburn/Nausea Bisacodyl (Bisacodyl 5 Mg Tablet.Dr) 10 mg PO BEDTIME PRN PRN Reason: Constipation Clonazepam (Clonazepam 1 Mg Tablet) 1 mg PO TID [facility] Last Admin: 09/20/25 09:20 Dose: 1 mg Clonidine HCl (Clonidine Hcl 0.1 Mg Tablet) 0.1 mg PO BID@0900,1300 [facility]; Protocol Last Admin: 09/20/25 09:20 Dose: 0.1 mg Divalproex Sodium (Divalproex Sodium Er 250 Mg Tab.Er.24h) 250 mg PO BID [facility] Last Admin: 09/20/25 09:20 Dose: 250 mg Docusate Sodium (Docusate Sodium 100 Mg Capsule) 100 mg PO BID [facility] Last Admin: 09/20/25 09:20 Dose: 100 mg Ferrous Sulfate (Ferrous Sulfate 324 Mg Tablet.Dr) 324 mg PO DAILY [facility] Last Admin: 09/20/25 09:20 Dose: 324 mg Hydroxyzine HCl (Hydroxyzine Hcl 25 Mg Tablet) 25 mg PO Q6H PRN PRN Reason: mild anxiety Last Admin: 09/17/25 15:06 Dose: 25 mg Levothyroxine Sodium (Levothyroxine Sodium 125 Mcg Tablet) 125 mcg PO DAILY@0600 [facility] Last Admin: 09/20/25 06:34 Dose: 125 mcg Lisinopril (Lisinopril 2.5 Mg Tablet) 2.5 mg PO DAILY [facility]; Protocol Last Admin: 09/20/25 09:20 Dose: 2.5 mg Magnesium Hydroxide (Milk Of Magnesia 30 Ml Oral.Susp) 30 ml PO DAILY PRN PRN Reason: Constipation Last Admin: 09/14/25 09:16 Dose: 30 ml Metformin HCl (Metformin Hcl 500 Mg Tablet) 500 mg PO DAILY [facility] Last Admin: 09/20/25 09:20 Dose: 500 mg Mirtazapine (Mirtazapine 15 Mg Tablet) 15 mg PO BEDTIME [facility] Last Admin: 09/19/25 20:29 Dose: 15 mg Non-Formulary Medication (Norethindrone (Contraceptive)) 0.35 mg PO DAILY [facility] Last Admin: 09/20/25 09:21 Dose: 0.35 mg Polyethylene Glycol (Polyethylene Glycol 3350 17 Gm Powd.Pack) 17 gm PO DAILY [facility] Last Admin: 09/20/25 09:19 Dose: 17 gm Prazosin HCl (Prazosin Hcl 1 Mg Capsule) 1 mg PO BEDTIME [facility]; Protocol Last Admin: 09/19/25 20:29 Dose: 1 mg Risperidone (Risperidone 0.5 Mg Tablet) 0.5 mg PO BID PRN PRN Reason: grounding support Last Admin: 09/14/25 23:46 Dose: 0.5 mg Risperidone (Risperidone 1 Mg Tablet) 1 mg PO BID [facility] Last Admin: 09/20/25 09:20 Dose: 1 mg Trazodone HCl (Trazodone Hcl 50 Mg Tablet) 50 mg PO BEDTIME MRX1 PRN PRN Reason: Insomnia Last Admin: 09/16/25 21:16 Dose: 50 mg Venlafaxine HCl (Venlafaxine Hcl Er 150 Mg Cap.Er.24h) 150 mg PO DAILY [facility] Last Admin: 09/20/25 09:20 Dose: 150 mg Venlafaxine HCl (Venlafaxine Hcl Er 37.5 Mg Cap.Er.24h) 37.5 mg PO DAILY [facility] Last Admin: 09/20/25 09:21 Dose: 37.5 mg Allergies Allergies Allergy/AdvReac Type Severity Reaction Status Date / Time amoxicillin Allergy Unknown Verified 09/08/25 09:38 loratadine (From Claritin) Allergy Unknown Verified 09/08/25 09:38 sulfamethoxazole (From Allergy Unknown Verified 09/08/25 09:38 Sulfamethoxazole-Trimethoprim) trimethoprim (From Allergy Unknown Verified 09/08/25 09:38 Sulfamethoxazole-Trimethoprim) Assessment & Plan Assessment & Plan (1) Depression: Qualifiers: Depression Type: unspecified Qualified Code(s): F32.A - Depression, unspecified Status: Acute Code(s): F32.A - Depression, unspecified (2) Hypothyroidism: Status: Acute Code(s): E03.9 - Hypothyroidism, unspecified (3) Prediabetes: Status: Acute Code(s): R73.03 - Prediabetes (4) Anxiety state, unspecified: Status: Acute Code(s): F41.1 - Generalized anxiety disorder Plan HPI: Patient is a 44 year old, , Marshallese speaking female with hx of pre-diabetic, thryroid disease, depression, and anxiety who self presents to the [facility] today with her mother in law reporting SI with plan to OD on pills or cut herself. She has been admitted IPLOC twice to [facility], the first of which was in June and most recently from 07/28-. It appears the was assessed for the PHP at [facility] on 09/06/2025. Attended 1 day only. Do not think PHP is a good fit for her Formulation/clinical reasoning: increased in depression and anxiety, poor sleep and appetite, increase in safety concerns SI with plans. Hx of not complete treatment and relapse on mental health symptoms that affect daily functions. Currently is on medical leave of absent. Hx of Depression and Anxiety. Given above information, patient would benefit in restrictive environment for safety, medication adjustment and refer patient back to OP psychiatric services for aftercare. Hospital course: 09/08/25: patient still has passive SI with plan, but no intent to do harm to her. Feeling safe here. Potential to sign a 3-day notice to have some control over her treatment but open to stay longer if need Increased Remeron from 7.5mg to 15mg at HS for insomnia Increase Zyprexa up to 12.5mg in divided dose for severe anxiety/racing thoughts Increase Effexor ER to 187.5mg from 150mg for depression Metformin 500mg daily for diabetes. Zyprexa 5mg BID PRN for agitation. Trazodone and Hydroxyzine PRN available per protocol. Reviewed med list with patient POC BIB to monitor for BS. Can discontinue if BS is stable. 09/09 Patient explains events that led to this admission, saying she got triggered at the partial program due to conversations in the group. Patient reports continued SI but says it is less so since she is on the unit and trying to be hopeful about treatment. [employer] discussed medications and on admission, Venlafaxine and Mirtazapine both increased so patient agrees to see if these adjustments are helpful 09/11: I was not honest about how I was feeling when I left. I can leave on Thursday right? Pt reports she feels all will be better off if she were not alive. She is worried about how much this admission will cost for a co-payment. Reports +SI without a plan, Denies HI,AH,VH. Depressed, anxious and agitated. 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 Reports sleep and appetite are intact Anxious today as mother is having a hysterectomy at a hospital in [place], [place] Attempting to attend milieu programs, but very anxious Medically, seen by hospitalist team today to check in with pt on pre-DM, hypothyroidism, iron deficiency anemia and HTN. No changes to plan were made today. Discussed with pt that she will not be considered for discharge on 09/13. She is not prepared to retract TDN. Discussed Section VII and the need for treatment. Agreed to begin lamictal, klonopin and increase olanzapine. Venlafaxine decreased as it may be causing an increase in anxiety. 09/12:Met with pt and Leyda Aiken LCSW. Pt requests POC be discontinued. Reports she slept well with meds. Discussed wanting to , feeling scared to be here, feeling tired, mind and body, concern about over and under medicating, upsetting group topics. Anxious, overwhelmed, a big bad dream Summarized her hospitalizations konn-[id number] over the of her father and elenita; July- getting back on meds and August- really wanting to . Retracted TDN in the afternoon with Leyda Aiken LCSW. +SI, -HI, -AH, -VH Discussed changing Olanzapine to Risperdal to help pt focus on grounding. She agrees. 09/13: Anxiety persists. Suicidally persists. Re-signed a three day notice today. Review of medications. Will trial Depakote tid to begin to assess efficacy on anxiety. Pt agrees. I know I am not ready to go Discussed her family, genetics of bipolar disorder and advances in treatment over time. Discussed bipolar II and the differences in symptom presentation. 09/14/25: Patient report having difficult morning usually d/t anxiety but she is patiently enough to way for her turn to take AM scheduled meds. Report passive SI still there but at the same time saying I am ready to go home but is aware of d/t passive SI, she does not feel safe going home yet. Denies SIB/HI/AVH. She is anxious, depressed, but pleasant and cooperative. No behavior issues. Compliant with meds and denies side effects. Should dx changed to Bipolar II? 09/15/25: As asked above, pt reports a history of elenita, not hypomania, unless her account changes as symptoms subside. Pt reports no improvement. Discussion to changes to her treatment plan. Review of labs/meds. Creatinine 0.79, Cr Cl 106, GFR >60. Reports constipation- given prn dulcolax, colace 100 mg bid, Miralax daily Discussed ECT- parents have a hx of ECT. Will obtain consult and continue med titration. Klonopin increased to 2 mg tid Depakote ER changed to 500 mg bid Risperdal increased to 1 mg bid Prazosin 1mg initiated at hs Pt came to tw later in the day- Whatever we did this morning helped, I am feeling better, may I go home today? Discussed with pt why she could not leave today- she verbalized understanding. 09/16/25: Met with patient in the exam room, reports that is patient has constipation and urine incontinence last night which she at she bill is from being constipated. However, refused Colace last night per record. Reports left hand numbness which she has that experience when her dad passed and symptoms going away self. Suicidal thoughts continue to bother her, and reports sometimes thinking about suffocating myself . Patient is looking forward to hearing more information if she has going to get ECT treatment. At the end of the encounter, patient reports feeling drowsy, therefore, she wants to rest instead of go back to group. Later on in the afternoon, she is getting ready to see her , who is coming to visit her. Per nursing, patient slept for 8 hours, mood is all over the place not sure if it is intentionally or she gets confused. Somewhat labile. She signed 3 day notice, wanted to go home but continued to reports suicidal thoughts.?The patient should be discharged next Thursday when the 3 day is . Will order U/A and Ammonia level rule medical conditions causing disorganization. 09/17/25: Meet with patient in exam room, very anxious concerning about incontinence of urine the past two nights. Report she slept through and not able to wake up for bathroom use. Continue disclose passive SI my head not right. My body feels awkward and I am frustrated . Patient at the same time want to go home and want to know about ECT treatment. Recently meds change that help with anxiety but seems sedated. We will hold Clonidine at 1300 and Klonpoin scheduled at HS but give 1mg instead. Nursing is aware to not offer trazodone with scheduled meds. Will reassess the next day. Ammonia level 17 WNL. U/A was negative to rule out any confusion. Pending ECT consult with hope patient would be seen by Thursday. Patient is not stable, we still work on finding appropriate regimens as patient has a couple medication changes lately with pending effects. flat affect. Would not safe and not stable enough to discharge as predict of relapse on mental health is high. Patient has 3 day notice in which he up on Thursday. 09/18/25: Patient reports passive SI, no plan, no intent. Report she does not feel right yet but Want to go home. She says she cannot stay for another weekends here. Report I can hear my self snored but I am not asleep . Report no incontinence last night. Sleep good. Report anxious and but not too tired. Reviewed with patient regarding Klonopin. When told her will order 0.5mg x1 now dose she says it may not enough but reports tired at the same time. Reduced Klonopin down to 1mg TID. Met with Jailkeeper, feel better. Will want to be discharged but also want ECT. Been asking about it daily. She may think about retract 3 day to stay for a couple more days to manage her symptoms but does not want to retract it now but is aware she can do it with anyone later. Slightly better compared to yesterday in term of mood. However, safety remains an issues as her SI still there which is not a chronic issues for her. I do not think it is safe to discharge her home tomorrow. Denies SIB/HI/AVH. Klonopin down from 2mg TID to 1mg TID d/t sedated. 09/19/25:Pt retracted her TDN. Continues to feel like I am losing control of my mind . Wanting DC, to be home alone. Denies feeling undermedicated or overmedicated- I am tired, drained, thoughts racing, anxious depressed, suicidal. Anxiety is better depending upon the moment she reports. Incontinent over the weekend- Klonopin decreased-pt believes it is due to remeron. will monitor, however incontinence has stopped since klonopin was decreased. ECT consult appreciated by Dr. Bustos who does not believe pt has bipolar disorder, but VIRGILIO, OCD sx. ECT not recommended. Venlafaxine increase recommended. Will taper depakote and increase Venlafaxine per this consult. Plan: Per consult recommendations... Depakote decrease to 250 mg bid Increase Venlafaxine to 187.5 mg daily 09/20/25:Team report pt slept for seven hours last evening. Pt reports SIBS-head banging which team report did not occur. Pt continues with SI, placing a pillow over her head, asking team what she could do to kill herself with a pillow case. Team reports seeing a great deal of provocative sx, learned helplessness. Met with pt and reviewed. Reviewed symptoms of borderline personality disorder, no, I don't think that is me. Discussed inconsistencies in reporting of symptoms. Pt reports often she just does not know Continues to report anxiety. Wanting discharge, yet reporting she feels unsafe at home. Plan: Continue tx Plan Patient on 15 minute checks for safety. Admitted to [facility]. 3-day which 09/19. Increased Remeron from 7.5mg to 15mg at HS for insomnia Increase Zyprexa up to 12.5mg in divided dose for severe anxiety/racing thoughts: was discontinue. Currently on Risperidone. Increase Effexor ER to 187.5mg from 150mg for depression Work with treatment team to do collateral. Reason for continued inpatient stay Substantial Risk for: rapid decompensation Time Spent With Patient Time: Total time managing care of this patient today ____ minutes.
[2025-09-20 15:30] VITALS: BP 112/75
[2025-09-20 20:00] VITALS: BP 106/71; PULSE 105; RESP 18; TEMP 36.4; O2SAT 97
[2025-09-20 20:40] VITALS: BP 106/71
[2025-09-21 07:00] VITALS: BMI 44.6
[2025-09-21 08:00] VITALS: BP 134/90; PULSE 114; RESP 18; TEMP 2.7; TEMP 37; O2SAT 96
[2025-09-21] MEDS: Divalproex Sodium ER 250 MG TAB.ER.24H PO (08:28)
[2025-09-21] MEDS: Ferrous Sulfate 324 MG TABLET.DR PO ×2 (08:28→08:31)
[2025-09-21] MEDS: Venlafaxine HCl ER 37.5 MG CAP.ER.24H PO (08:28)
[2025-09-21] MEDS: Venlafaxine HCl ER 150 MG CAP.ER.24H PO (08:28)
--- NOTE | 2025-09-21 09:12 | HO.PSYCHPN ---
Subjective Subjective Date of Service: 09/21/25 Reason For Visit: SI Subjective Notes: Conditional Voluntary Healthcare Proxy: No Guardianship: No Medical Problems Affecting Mental Status: No Interim History: Team reports pt was found this a.m. with a pillow case over her head in a suicide attempt. Behavioral plan will be implemented. Met with pt and Leyda Aiken LCSW. Reports SI as one of her peers is discharging today. I am no better. I am sleeping but not rested. I will not give myself a break. Pt is interested in a couples meeting, we will connect with her Discussed a change from Risperdal to Haldol with tid dosing for more effective sx mgt. She agrees. Tapering of Depakote continues- this will be completed 09/24. Given handouts on borderline personality and DBT handouts, that is not me. Reports constipation with reported bowel mvt 12.3. KUB shows pt remains constipated, Bladder scan wnl per team. Lactulose ordered. Diagnostic results reviewed with hospitalist and GI team who report non acute issues with results. Pt educated in coping skills during our meeting and she did very well, stating at the end of the meeting she did feel some relief. Medication Compliance: Yes Side effects from medications: Yes (constipation) Attending Groups: Intermittent Review of Systems as noted Medical Review of Systems: unchanged Review of Systems Review of Systems Constipation Difficulty urinating. Mental Status Exam Mental Status Exam Patient Appearance: Fatigued Patient Orientation: Person, Place, Time and Situation Level of Consciousness: Alert Patient Behavior: Talkative, Passive and Fatigued Mood Description: Depressed Affect Description: Flat Patient Cognition Impaired: No Ability to Follow Directions: Good Speech Pattern: Spontaneous Speech Memory Description: Episodic Impaired Hallucinations: None Delusions: Not Present Thought Process: Rumination Thought Content: positive for Circumstantial, positive for Perseveration and positive for Suicidal Ideation Depressive Symptoms: Increased Anxiety, Diff. Making Decisions, Hopelessness, Unhappiness, Thoughts of /Suicide and Low Self Esteem Judgement: Fair Diagnostics Vital Signs (24Hr): Vital Signs - 24 hr 09/20/25 15:30 09/20/25 20:00 09/20/25 20:40 Temperature 97.5 F Pulse Rate 105 H Respiratory Rate 18 Blood Pressure 112/75 106/71 106/71 Pulse Oximetry 97 Oxygen Delivery Method Room Air 09/21/25 08:00 Temperature 37 F L Pulse Rate 114 H Respiratory Rate 18 Blood Pressure 134/90 H Pulse Oximetry 96 Oxygen Delivery Method Room Air BMI result Body Mass Index 44.2 Labs 09/08/25 10:03 09/15/25 08:28 Medications Medications Current Medications Acetaminophen (Acetaminophen 325 Mg Tablet) 650 mg PO Q6H PRN PRN Reason: Headache/Pain, Scale 1-10 Al Hydroxide/Mg Hydroxide (Magnesium Hydrox/Alum Hydrox 30 Ml Oral.Susp) 30 ml PO Q6H PRN PRN Reason: Heartburn/Nausea Bisacodyl (Bisacodyl 5 Mg Tablet.Dr) 10 mg PO BEDTIME PRN PRN Reason: Constipation Clonazepam (Clonazepam 1 Mg Tablet) 1 mg PO TID [facility] Last Admin: 09/21/25 08:28 Dose: 1 mg Clonidine HCl (Clonidine Hcl 0.1 Mg Tablet) 0.1 mg PO BID@0900,1300 [facility]; Protocol Last Admin: 09/21/25 08:28 Dose: 0.1 mg Divalproex Sodium (Divalproex Sodium Er 250 Mg Tab.Er.24h) 250 mg PO BID [facility] Last Admin: 09/21/25 08:28 Dose: 250 mg Docusate Sodium (Docusate Sodium 100 Mg Capsule) 100 mg PO BID [facility] Last Admin: 09/21/25 08:29 Dose: 100 mg Ferrous Sulfate (Ferrous Sulfate 324 Mg Tablet.Dr) 324 mg PO DAILY [facility] Last Admin: 09/21/25 08:31 Dose: 324 mg Hydroxyzine HCl (Hydroxyzine Hcl 25 Mg Tablet) 25 mg PO Q6H PRN PRN Reason: mild anxiety Last Admin: 09/20/25 11:21 Dose: 25 mg Levothyroxine Sodium (Levothyroxine Sodium 125 Mcg Tablet) 125 mcg PO DAILY@0600 [facility] Last Admin: 09/21/25 06:51 Dose: 125 mcg Lisinopril (Lisinopril 2.5 Mg Tablet) 2.5 mg PO DAILY [facility]; Protocol Last Admin: 09/21/25 08:28 Dose: 2.5 mg Magnesium Hydroxide (Milk Of Magnesia 30 Ml Oral.Susp) 30 ml PO DAILY PRN PRN Reason: Constipation Last Admin: 09/14/25 09:16 Dose: 30 ml Metformin HCl (Metformin Hcl 500 Mg Tablet) 500 mg PO DAILY [facility] Last Admin: 09/21/25 08:28 Dose: 500 mg Mirtazapine (Mirtazapine 15 Mg Tablet) 15 mg PO BEDTIME [facility] Last Admin: 09/20/25 20:39 Dose: 15 mg Non-Formulary Medication (Norethindrone (Contraceptive)) 0.35 mg PO DAILY [facility] Last Admin: 09/21/25 08:27 Dose: 0.35 mg Polyethylene Glycol (Polyethylene Glycol 3350 17 Gm Powd.Pack) 17 gm PO DAILY [facility] Last Admin: 09/21/25 08:27 Dose: 17 gm Prazosin HCl (Prazosin Hcl 1 Mg Capsule) 1 mg PO BEDTIME [facility]; Protocol Last Admin: 09/20/25 20:40 Dose: 1 mg Risperidone (Risperidone 0.5 Mg Tablet) 0.5 mg PO BID PRN PRN Reason: grounding support Last Admin: 09/14/25 23:46 Dose: 0.5 mg Risperidone (Risperidone 1 Mg Tablet) 1 mg PO BID [facility] Last Admin: 09/21/25 08:28 Dose: 1 mg Trazodone HCl (Trazodone Hcl 50 Mg Tablet) 50 mg PO BEDTIME MRX1 PRN PRN Reason: Insomnia Last Admin: 09/21/25 03:44 Dose: 50 mg Venlafaxine HCl (Venlafaxine Hcl Er 150 Mg Cap.Er.24h) 150 mg PO DAILY [facility] Last Admin: 09/21/25 08:28 Dose: 150 mg Venlafaxine HCl (Venlafaxine Hcl Er 37.5 Mg Cap.Er.24h) 37.5 mg PO DAILY [facility] Last Admin: 09/21/25 08:28 Dose: 37.5 mg Allergies Allergies Allergy/AdvReac Type Severity Reaction Status Date / Time amoxicillin Allergy Unknown Verified 09/08/25 09:38 loratadine (From Claritin) Allergy Unknown Verified 09/08/25 09:38 sulfamethoxazole (From Allergy Unknown Verified 09/08/25 09:38 Sulfamethoxazole-Trimethoprim) trimethoprim (From Allergy Unknown Verified 09/08/25 09:38 Sulfamethoxazole-Trimethoprim) Assessment & Plan Assessment & Plan (1) Depression: Qualifiers: Depression Type: unspecified Qualified Code(s): F32.A - Depression, unspecified Status: Acute Code(s): F32.A - Depression, unspecified (2) Hypothyroidism: Status: Acute Code(s): E03.9 - Hypothyroidism, unspecified (3) Prediabetes: Status: Acute Code(s): R73.03 - Prediabetes (4) Anxiety state, unspecified: Status: Acute Code(s): F41.1 - Generalized anxiety disorder Plan HPI: Patient is a 44 year old, , [place]ien speaking female with hx of pre-diabetic, thryroid disease, depression, and anxiety who self presents to the [facility] ED today with her mother in law reporting SI with plan to OD on pills or cut herself. She has been admitted IPLOC twice to [facility], the first of which was in June and most recently from 07/28-. It appears the was assessed for the PHP at [facility] on 09/06/2025. Attended 1 day only. Do not think PHP is a good fit for her Formulation/clinical reasoning: increased in depression and anxiety, poor sleep and appetite, increase in safety concerns SI with plans. Hx of not complete treatment and relapse on mental health symptoms that affect daily functions. Currently is on medical leave of absent. Hx of Depression and Anxiety. Given above information, patient would benefit in restrictive environment for safety, medication adjustment and refer patient back to OP psychiatric services for aftercare. Hospital course: 09/08/25: patient still has passive SI with plan, but no intent to do harm to her. Feeling safe here. Potential to sign a 3-day notice to have some control over her treatment but open to stay longer if need Increased Remeron from 7.5mg to 15mg at HS for insomnia Increase Zyprexa up to 12.5mg in divided dose for severe anxiety/racing thoughts Increase Effexor ER to 187.5mg from 150mg for depression Metformin 500mg daily for diabetes. Zyprexa 5mg BID PRN for agitation. Trazodone and Hydroxyzine PRN available per protocol. Reviewed med list with patient POC BIB to monitor for BS. Can discontinue if BS is stable. 09/09 Patient explains events that led to this admission, saying she got triggered at the partial program due to conversations in the group. Patient reports continued SI but says it is less so since she is on the unit and trying to be hopeful about treatment. Outside Salesman discussed medications and on admission, Venlafaxine and Mirtazapine both increased so patient agrees to see if these adjustments are helpful 09/11: I was not honest about how I was feeling when I left. I can leave on Thursday right? Pt reports she feels all will be better off if she were not alive. She is worried about how much this admission will cost for a co-payment. Reports +SI without a plan, Denies HI,AH,VH. Depressed, anxious and agitated. 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 Reports sleep and appetite are intact Anxious today as mother is having a hysterectomy at a hospital in [place], [place] Attempting to attend milieu programs, but very anxious Medically, seen by hospitalist team today to check in with pt on pre-DM, hypothyroidism, iron deficiency anemia and HTN. No changes to plan were made today. Discussed with pt that she will not be considered for discharge on 09/13. She is not prepared to retract TDN. Discussed Section VII and the need for treatment. Agreed to begin lamictal, klonopin and increase olanzapine. Venlafaxine decreased as it may be causing an increase in anxiety. 09/12:Met with pt and Leyda Aiken LCSW. Pt requests POC be discontinued. Reports she slept well with meds. Discussed wanting to , feeling scared to be here, feeling tired, mind and body, concern about over and under medicating, upsetting group topics. Anxious, overwhelmed, a big bad dream Summarized her hospitalizations [facility] over the of her father and elenita; July- getting back on meds and August- really wanting to . Retracted TDN in the afternoon with Leyda Aiken LCSW. +SI, -HI, -AH, -VH Discussed changing Olanzapine to Risperdal to help pt focus on grounding. She agrees. 09/13: Anxiety persists. Suicidally persists. Re-signed a three day notice today. Review of medications. Will trial Depakote tid to begin to assess efficacy on anxiety. Pt agrees. I know I am not ready to go Discussed her family, genetics of bipolar disorder and advances in treatment over time. Discussed bipolar II and the differences in symptom presentation. 09/14/25: Patient report having difficult morning usually d/t anxiety but she is patiently enough to way for her turn to take AM scheduled meds. Report passive SI still there but at the same time saying I am ready to go home but is aware of d/t passive SI, she does not feel safe going home yet. Denies SIB/HI/AVH. She is anxious, depressed, but pleasant and cooperative. No behavior issues. Compliant with meds and denies side effects. Should dx changed to Bipolar II? 09/15/25: As asked above, pt reports a history of elenita, not hypomania, unless her account changes as symptoms subside. Pt reports no improvement. Discussion to changes to her treatment plan. Review of labs/meds. Creatinine 0.79, Cr Cl 106, GFR >60. Reports constipation- given prn dulcolax, colace 100 mg bid, Miralax daily Discussed ECT- parents have a hx of ECT. Will obtain consult and continue med titration. Klonopin increased to 2 mg tid Depakote ER changed to 500 mg bid Risperdal increased to 1 mg bid Prazosin 1mg initiated at hs Pt came to tw later in the day- Whatever we did this morning helped, I am feeling better, may I go home today? Discussed with pt why she could not leave today- she verbalized understanding. 09/16/25: Met with patient in the exam room, reports that is patient has constipation and urine incontinence last night which she at she bill is from being constipated. However, refused Colace last night per record. Reports left hand numbness which she has that experience when her dad passed and symptoms going away self. Suicidal thoughts continue to bother her, and reports sometimes thinking about suffocating myself . Patient is looking forward to hearing more information if she has going to get ECT treatment. At the end of the encounter, patient reports feeling drowsy, therefore, she wants to rest instead of go back to group. Later on in the afternoon, she is getting ready to see her , who is coming to visit her. Per nursing, patient slept for 8 hours, mood is all over the place not sure if it is intentionally or she gets confused. Somewhat labile. She signed 3 day notice, wanted to go home but continued to reports suicidal thoughts.?The patient should be discharged next Thursday when the 3 day is . Will order U/A and Ammonia level rule medical conditions causing disorganization. 09/17/25: Meet with patient in exam room, very anxious concerning about incontinence of urine the past two nights. Report she slept through and not able to wake up for bathroom use. Continue disclose passive SI my head not right. My body feels awkward and I am frustrated . Patient at the same time want to go home and want to know about ECT treatment. Recently meds change that help with anxiety but seems sedated. We will hold Clonidine at 1300 and Klonpoin scheduled at HS but give 1mg instead. Nursing is aware to not offer trazodone with scheduled meds. Will reassess the next day. Ammonia level 17 WNL. U/A was negative to rule out any confusion. Pending ECT consult with hope patient would be seen by Thursday. Patient is not stable, we still work on finding appropriate regimens as patient has a couple medication changes lately with pending effects. flat affect. Would not safe and not stable enough to discharge as predict of relapse on mental health is high. Patient has 3 day notice in which he up on Thursday. 09/18/25: Patient reports passive SI, no plan, no intent. Report she does not feel right yet but Want to go home. She says she cannot stay for another weekends here. Report I can hear my self snored but I am not asleep . Report no incontinence last night. Sleep good. Report anxious and but not too tired. Reviewed with patient regarding Klonopin. When told her will order 0.5mg x1 now dose she says it may not enough but reports tired at the same time. Reduced Klonopin down to 1mg TID. Met with Vacuum Form Operator, feel better. Will want to be discharged but also want ECT. Been asking about it daily. She may think about retract 3 day to stay for a couple more days to manage her symptoms but does not want to retract it now but is aware she can do it with anyone later. Slightly better compared to yesterday in term of mood. However, safety remains an issues as her SI still there which is not a chronic issues for her. I do not think it is safe to discharge her home tomorrow. Denies SIB/HI/AVH. Klonopin down from 2mg TID to 1mg TID d/t sedated. 09/19/25:Pt retracted her TDN. Continues to feel like I am losing control of my mind . Wanting DC, to be home alone. Denies feeling undermedicated or overmedicated- I am tired, drained, thoughts racing, anxious depressed, suicidal. Anxiety is better depending upon the moment she reports. Incontinent over the weekend- Klonopin decreased-pt believes it is due to remeron. will monitor, however incontinence has stopped since klonopin was decreased. ECT consult appreciated by Dr. Bustos who does not believe pt has bipolar disorder, but VIRGILIO, OCD sx. ECT not recommended. Venlafaxine increase recommended. Will taper depakote and increase Venlafaxine per this consult. Plan: Per consult recommendations... Depakote decrease to 250 mg bid Increase Venlafaxine to 187.5 mg daily 09/20/25:Team report pt slept for seven hours last evening. Pt reports SIBS-head banging which team report did not occur. Pt continues with SI, placing a pillow over her head, asking team what she could do to kill herself with a pillow case. Team reports seeing a great deal of provocative sx, learned helplessness. Met with pt and reviewed. Reviewed symptoms of borderline personality disorder, no, I don't think that is me. Discussed inconsistencies in reporting of symptoms. Pt reports often she just does not know Continues to report anxiety. Wanting discharge, yet reporting she feels unsafe at home. 09/21/25: DC Risperdal Haldol 2 mg tid Depakote 250 mg x 2 days then stop Plan Patient on 15 minute checks for safety. Admitted to [facility]. 3-day which 09/19. Increased Remeron from 7.5mg to 15mg at HS for insomnia Increase Zyprexa up to 12.5mg in divided dose for severe anxiety/racing thoughts: was discontinue. Currently on Risperidone. Increase Effexor ER to 187.5mg from 150mg for depression Work with treatment team to do collateral. Reason for continued inpatient stay Substantial Risk for: rapid decompensation Time Spent With Patient Time: Total time managing care of this patient today ____ minutes.
[2025-09-21 13:38] VITALS: BP 113/77
[2025-09-21 20:00] VITALS: BP 114/80; PULSE 104; RESP 20; TEMP 35; O2SAT 99
[2025-09-22 08:00] VITALS: BP 180/87; PULSE 114; RESP 17; TEMP 37.1; O2SAT 98
[2025-09-22 08:32] VITALS: BP 180/87
[2025-09-22] MEDS: Divalproex Sodium ER 250 MG TAB.ER.24H PO (08:33)
[2025-09-22 08:34] VITALS: BP 180/87
[2025-09-22] MEDS: Ferrous Sulfate 324 MG TABLET.DR PO (08:35)
[2025-09-22] MEDS: Venlafaxine HCl ER 150 MG CAP.ER.24H PO (08:35)
[2025-09-22] MEDS: Venlafaxine HCl ER 37.5 MG CAP.ER.24H PO (08:35)
--- NOTE | 2025-09-22 10:15 | HO.PSYCHPN ---
Subjective Subjective Date of Service: 09/22/25 Reason For Visit: SI Subjective Notes: Conditional Voluntary Healthcare Proxy: No Guardianship: No Medical Problems Affecting Mental Status: No Interim History: Pt reports feeling improved after a visit with her sister. She did express discomfort with a male peer who is struggling on the unit today. Care discussd with , Milan- we will meet on Thursday, September 25, 4pm to review. Full med review with Milan, addressed questions, FMLA paperwork, having [facility] take control of meds, insurance questions and Milan's idea that pt should retrial PHP. Medication Compliance: Yes Side effects from medications: No Attending Groups: Yes Review of Systems Acute medical concerns: No Medical Review of Systems: unchanged Review of Systems Review of Systems no Mental Status Exam Mental Status Exam Patient Appearance: Fatigued Patient Orientation: Person, Place, Time and Situation Level of Consciousness: Alert Patient Behavior: Talkative, Passive and Fatigued Mood Description: Depressed Affect Description: Flat Patient Cognition Impaired: No Ability to Follow Directions: Good Speech Pattern: Spontaneous Speech Memory Description: Episodic Impaired Hallucinations: None Delusions: Not Present Thought Process: Rumination Thought Content: positive for Circumstantial, positive for Perseveration and positive for Suicidal Ideation Depressive Symptoms: Increased Anxiety, Diff. Making Decisions, Hopelessness, Unhappiness, Thoughts of /Suicide and Low Self Esteem Judgement: Fair Diagnostics Vital Signs (24Hr): Vital Signs - 24 hr 09/21/25 13:38 09/21/25 20:00 09/22/25 08:00 Temperature 95 F L 98.8 F Pulse Rate 104 H 114 H Respiratory Rate 20 17 Blood Pressure 113/77 114/80 180/87 H Pulse Oximetry 99 98 Oxygen Delivery Method Room Air Room Air 09/22/25 08:32 09/22/25 08:34 Temperature Pulse Rate Respiratory Rate Blood Pressure 180/87 H 180/87 H Pulse Oximetry Oxygen Delivery Method BMI result Body Mass Index 44.6 Labs 09/08/25 10:03 09/15/25 08:28 Imaging Radiology Impressions: ITS Impressions [facility]UB X-Ray 09/21/25 14:14 IMPRESSION: No intestinal obstruction pattern. Probable hepatomegaly, mild. Electronically signed by: Aramis Garza MD 09/21/2025 02:26 PM [facility] [place] Medications Current Medications Acetaminophen (Acetaminophen 325 Mg Tablet) 650 mg PO Q6H PRN PRN Reason: Headache/Pain, Scale 1-10 Al Hydroxide/Mg Hydroxide (Magnesium Hydrox/Alum Hydrox 30 Ml Oral.Susp) 30 ml PO Q6H PRN PRN Reason: Heartburn/Nausea Clonazepam (Clonazepam 1 Mg Tablet) 1 mg PO TID [facility] Last Admin: 09/22/25 08:32 Dose: 1 mg Clonidine HCl (Clonidine Hcl 0.1 Mg Tablet) 0.1 mg PO BID@0900,1300 [facility]; Protocol Last Admin: 09/22/25 08:32 Dose: 0.1 mg Divalproex Sodium (Divalproex Sodium Er 250 Mg Tab.Er.24h) 250 mg PO DAILY [facility] Stop: 09/24/25 09:00 Last Admin: 09/22/25 08:33 Dose: 250 mg Docusate Sodium (Docusate Sodium 100 Mg Capsule) 100 mg PO BID [facility] Last Admin: 09/22/25 08:33 Dose: 100 mg Ferrous Sulfate (Ferrous Sulfate 324 Mg Tablet.Dr) 324 mg PO DAILY [facility] Last Admin: 09/22/25 08:35 Dose: 324 mg Haloperidol (Haloperidol 1 Mg Tablet) 2 mg PO TID [facility] Last Admin: 09/22/25 08:34 Dose: 2 mg Hydroxyzine HCl (Hydroxyzine Hcl 25 Mg Tablet) 25 mg PO Q6H PRN PRN Reason: mild anxiety Last Admin: 09/21/25 21:43 Dose: 25 mg Levothyroxine Sodium (Levothyroxine Sodium 125 Mcg Tablet) 125 mcg PO DAILY@0600 [facility] Last Admin: 09/22/25 07:00 Dose: 125 mcg Lisinopril (Lisinopril 2.5 Mg Tablet) 2.5 mg PO DAILY [facility]; Protocol Last Admin: 09/22/25 08:34 Dose: 2.5 mg Magnesium Hydroxide (Milk Of Magnesia 30 Ml Oral.Susp) 30 ml PO DAILY PRN PRN Reason: Constipation Last Admin: 09/14/25 09:16 Dose: 30 ml Metformin HCl (Metformin Hcl 500 Mg Tablet) 500 mg PO DAILY [facility] Last Admin: 09/22/25 08:35 Dose: 500 mg Mirtazapine (Mirtazapine 15 Mg Tablet) 15 mg PO BEDTIME [facility] Last Admin: 09/21/25 21:43 Dose: 15 mg Non-Formulary Medication (Norethindrone (Contraceptive)) 0.35 mg PO DAILY [facility] Last Admin: 09/22/25 09:01 Dose: 0.35 mg Polyethylene Glycol (Polyethylene Glycol 3350 17 Gm Powd.Pack) 17 gm PO DAILY [facility] Last Admin: 09/21/25 08:27 Dose: 17 gm Prazosin HCl (Prazosin Hcl 1 Mg Capsule) 1 mg PO BEDTIME [facility]; Protocol Last Admin: 09/21/25 21:43 Dose: 1 mg Trazodone HCl (Trazodone Hcl 50 Mg Tablet) 50 mg PO BEDTIME MRX1 PRN PRN Reason: Insomnia Last Admin: 09/21/25 21:42 Dose: 50 mg Venlafaxine HCl (Venlafaxine Hcl Er 150 Mg Cap.Er.24h) 150 mg PO DAILY [facility] Last Admin: 09/22/25 08:35 Dose: 150 mg Venlafaxine HCl (Venlafaxine Hcl Er 37.5 Mg Cap.Er.24h) 37.5 mg PO DAILY [facility] Last Admin: 09/22/25 08:35 Dose: 37.5 mg Allergies Allergies Allergy/AdvReac Type Severity Reaction Status Date / Time amoxicillin Allergy Unknown Verified 09/08/25 09:38 loratadine (From Claritin) Allergy Unknown Verified 09/08/25 09:38 sulfamethoxazole (From Allergy Unknown Verified 09/08/25 09:38 Sulfamethoxazole-Trimethoprim) trimethoprim (From Allergy Unknown Verified 09/08/25 09:38 Sulfamethoxazole-Trimethoprim) Assessment & Plan Assessment & Plan (1) Depression: Qualifiers: Depression Type: unspecified Qualified Code(s): F32.A - Depression, unspecified Status: Acute Code(s): F32.A - Depression, unspecified (2) Hypothyroidism: Status: Acute Code(s): E03.9 - Hypothyroidism, unspecified (3) Prediabetes: Status: Acute Code(s): R73.03 - Prediabetes (4) Anxiety state, unspecified: Status: Acute Code(s): F41.1 - Generalized anxiety disorder Plan HPI: Patient is a 44 year old, , [place] speaking female with hx of pre-diabetic, thryroid disease, depression, and anxiety who self presents to the [facility] today with her mother in law reporting SI with plan to OD on pills or cut herself. She has been admitted IPLOC twice to [facility], the first of which was in June and most recently from 07/28-. It appears the was assessed for the PHP at [facility] on 09/06/2025. Attended 1 day only. Do not think PHP is a good fit for her Formulation/clinical reasoning: increased in depression and anxiety, poor sleep and appetite, increase in safety concerns SI with plans. Hx of not complete treatment and relapse on mental health symptoms that affect daily functions. Currently is on medical leave of absent. Hx of Depression and Anxiety. Given above information, patient would benefit in restrictive environment for safety, medication adjustment and refer patient back to OP psychiatric services for aftercare. Hospital course: 09/08/25: patient still has passive SI with plan, but no intent to do harm to her. Feeling safe here. Potential to sign a 3-day notice to have some control over her treatment but open to stay longer if need Increased Remeron from 7.5mg to 15mg at HS for insomnia Increase Zyprexa up to 12.5mg in divided dose for severe anxiety/racing thoughts Increase Effexor ER to 187.5mg from 150mg for depression Metformin 500mg daily for diabetes. Zyprexa 5mg BID PRN for agitation. Trazodone and Hydroxyzine PRN available per protocol. Reviewed med list with patient POC BIB to monitor for BS. Can discontinue if BS is stable. 09/09 Patient explains events that led to this admission, saying she got triggered at the partial program due to conversations in the group. Patient reports continued SI but says it is less so since she is on the unit and trying to be hopeful about treatment. Heating Technician discussed medications and on admission, Venlafaxine and Mirtazapine both increased so patient agrees to see if these adjustments are helpful 09/11: I was not honest about how I was feeling when I left. I can leave on Thursday right? Pt reports she feels all will be better off if she were not alive. She is worried about how much this admission will cost for a co-payment. Reports +SI without a plan, Denies HI,AH,VH. Depressed, anxious and agitated. 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 Reports sleep and appetite are intact Anxious today as mother is having a hysterectomy at a hospital in [place], [place] Attempting to attend milieu programs, but very anxious Medically, seen by hospitalist team today to check in with pt on pre-DM, hypothyroidism, iron deficiency anemia and HTN. No changes to plan were made today. Discussed with pt that she will not be considered for discharge on 09/13. She is not prepared to retract TDN. Discussed Section VII and the need for treatment. Agreed to begin lamictal, klonopin and increase olanzapine. Venlafaxine decreased as it may be causing an increase in anxiety. 09/12:Met with pt and Leyda Aiken LCSW. Pt requests POC be discontinued. Reports she slept well with meds. Discussed wanting to , feeling scared to be here, feeling tired, mind and body, concern about over and under medicating, upsetting group topics. Anxious, overwhelmed, a big bad dream Summarized her hospitalizations [id number] over the of her father and elenita; July- getting back on meds and August- really wanting to . Retracted TDN in the afternoon with Leyda Aiken LCSW. +SI, -HI, -AH, -VH Discussed changing Olanzapine to Risperdal to help pt focus on grounding. She agrees. 09/13: Anxiety persists. Suicidally persists. Re-signed a three day notice today. Review of medications. Will trial Depakote tid to begin to assess efficacy on anxiety. Pt agrees. I know I am not ready to go Discussed her family, genetics of bipolar disorder and advances in treatment over time. Discussed bipolar II and the differences in symptom presentation. 09/14/25: Patient report having difficult morning usually d/t anxiety but she is patiently enough to way for her turn to take AM scheduled meds. Report passive SI still there but at the same time saying I am ready to go home but is aware of d/t passive SI, she does not feel safe going home yet. Denies SIB/HI/AVH. She is anxious, depressed, but pleasant and cooperative. No behavior issues. Compliant with meds and denies side effects. Should dx changed to Bipolar II? 09/15/25: As asked above, pt reports a history of elenita, not hypomania, unless her account changes as symptoms subside. Pt reports no improvement. Discussion to changes to her treatment plan. Review of labs/meds. Creatinine 0.79, Cr Cl 106, GFR >60. Reports constipation- given prn dulcolax, colace 100 mg bid, Miralax daily Discussed ECT- parents have a hx of ECT. Will obtain consult and continue med titration. Klonopin increased to 2 mg tid Depakote ER changed to 500 mg bid Risperdal increased to 1 mg bid Prazosin 1mg initiated at hs Pt came to tw later in the day- Whatever we did this morning helped, I am feeling better, may I go home today? Discussed with pt why she could not leave today- she verbalized understanding. 09/16/25: Met with patient in the exam room, reports that is patient has constipation and urine incontinence last night which she at she bill is from being constipated. However, refused Colace last night per record. Reports left hand numbness which she has that experience when her dad passed and symptoms going away self. Suicidal thoughts continue to bother her, and reports sometimes thinking about suffocating myself . Patient is looking forward to hearing more information if she has going to get ECT treatment. At the end of the encounter, patient reports feeling drowsy, therefore, she wants to rest instead of go back to group. Later on in the afternoon, she is getting ready to see her , who is coming to visit her. Per nursing, patient slept for 8 hours, mood is all over the place not sure if it is intentionally or she gets confused. Somewhat labile. She signed 3 day notice, wanted to go home but continued to reports suicidal thoughts.?The patient should be discharged next Thursday when the 3 day is . Will order U/A and Ammonia level rule medical conditions causing disorganization. 09/17/25: Meet with patient in exam room, very anxious concerning about incontinence of urine the past two nights. Report she slept through and not able to wake up for bathroom use. Continue disclose passive SI my head not right. My body feels awkward and I am frustrated . Patient at the same time want to go home and want to know about ECT treatment. Recently meds change that help with anxiety but seems sedated. We will hold Clonidine at 1300 and Klonpoin scheduled at HS but give 1mg instead. Nursing is aware to not offer trazodone with scheduled meds. Will reassess the next day. Ammonia level 17 WNL. U/A was negative to rule out any confusion. Pending ECT consult with hope patient would be seen by Thursday. Patient is not stable, we still work on finding appropriate regimens as patient has a couple medication changes lately with pending effects. flat affect. Would not safe and not stable enough to discharge as predict of relapse on mental health is high. Patient has 3 day notice in which he up on Thursday. 09/18/25: Patient reports passive SI, no plan, no intent. Report she does not feel right yet but Want to go home. She says she cannot stay for another weekends here. Report I can hear my self snored but I am not asleep . Report no incontinence last night. Sleep good. Report anxious and but not too tired. Reviewed with patient regarding Klonopin. When told her will order 0.5mg x1 now dose she says it may not enough but reports tired at the same time. Reduced Klonopin down to 1mg TID. Met with Field Director, feel better. Will want to be discharged but also want ECT. Been asking about it daily. She may think about retract 3 day to stay for a couple more days to manage her symptoms but does not want to retract it now but is aware she can do it with anyone later. Slightly better compared to yesterday in term of mood. However, safety remains an issues as her SI still there which is not a chronic issues for her. I do not think it is safe to discharge her home tomorrow. Denies SIB/HI/AVH. Klonopin down from 2mg TID to 1mg TID d/t sedated. 09/19/25:Pt retracted her TDN. Continues to feel like I am losing control of my mind . Wanting DC, to be home alone. Denies feeling undermedicated or overmedicated- I am tired, drained, thoughts racing, anxious depressed, suicidal. Anxiety is better depending upon the moment she reports. Incontinent over the weekend- Klonopin decreased-pt believes it is due to remeron. will monitor, however incontinence has stopped since klonopin was decreased. ECT consult appreciated by Dr. Bustos who does not believe pt has bipolar disorder, but VIRGILIO, OCD sx. ECT not recommended. Venlafaxine increase recommended. Will taper depakote and increase Venlafaxine per this consult. Plan: Per consult recommendations... Depakote decrease to 250 mg bid Increase Venlafaxine to 187.5 mg daily 09/20/25:Team report pt slept for seven hours last evening. Pt reports SIBS-head banging which team report did not occur. Pt continues with SI, placing a pillow over her head, asking team what she could do to kill herself with a pillow case. Team reports seeing a great deal of provocative sx, learned helplessness. Met with pt and reviewed. Reviewed symptoms of borderline personality disorder, no, I don't think that is me. Discussed inconsistencies in reporting of symptoms. Pt reports often she just does not know Continues to report anxiety. Wanting discharge, yet reporting she feels unsafe at home. 09/21/25: DC Risperdal Haldol 2 mg tid Depakote 250 mg x 2 days then stop 09/22/25: Continue tx. Plan Patient on 15 minute checks for safety. Admitted to [facility]. 3-day which 09/19. Increased Remeron from 7.5mg to 15mg at HS for insomnia Increase Zyprexa up to 12.5mg in divided dose for severe anxiety/racing thoughts: was discontinue. Currently on Risperidone. Increase Effexor ER to 187.5mg from 150mg for depression Work with treatment team to do collateral. Reason for continued inpatient stay Substantial Risk for: rapid decompensation Time Spent With Patient Time: Total time managing care of this patient today ____ minutes.
[2025-09-22 13:26] VITALS: BP 120/89
[2025-09-22 20:00] VITALS: BP 115/77; PULSE 95; RESP 15; TEMP 37.3; O2SAT 96
[2025-09-23 08:00] VITALS: BP 135/83; PULSE 98; RESP 18; TEMP 36.6; O2SAT 94
[2025-09-23 08:05] LABS: Creatinine Clr Calc Pharmacy 107.9; Estimated Glomerular Filt Rate > 60
[2025-09-23 08:07] LABS: Creatinine Clr Calc Pharmacy 107.9; Estimated Glomerular Filt Rate > 60
[2025-09-23] MEDS: Venlafaxine HCl ER 37.5 MG CAP.ER.24H PO (08:51)
[2025-09-23] MEDS: Divalproex Sodium ER 250 MG TAB.ER.24H PO (08:51)
[2025-09-23] MEDS: Venlafaxine HCl ER 150 MG CAP.ER.24H PO (08:52)
--- NOTE | 2025-09-23 10:17 | HO.PSYCHPN ---
Subjective Subjective Date of Service: 09/23/25 Reason For Visit: SI Subjective Notes: Conditional Voluntary Healthcare Proxy: No Guardianship: No Medical Problems Affecting Mental Status: No Interim History: Reviewed with team. Review of plan of care. Met with pt. Reviewed my discussion with her last evening. Family meeting 09/25. Pt asking about DC. Discussed next week or the week after-became anxious. my body is off- I have had a lot of M&M's and have had diarrhea and urinary incontinence. Discussed medication changes. Medication Compliance: Yes Side effects from medications: Yes (? increase in sedative effects) Attending Groups: Yes Review of Systems Acute medical concerns: No Medical Review of Systems: unchanged Review of Systems Review of Systems incontinence Mental Status Exam Mental Status Exam Patient Appearance: Appropriate Patient Orientation: Person, Place, Time and Situation Level of Consciousness: Alert Patient Behavior: Talkative, Passive and Fatigued Mood Description: Depressed Affect Description: Flat Patient Cognition Impaired: No Ability to Follow Directions: Good Speech Pattern: Spontaneous Speech Memory Description: Episodic Impaired Hallucinations: None Delusions: Not Present Thought Process: Rumination Thought Content: positive for Circumstantial, positive for Perseveration and positive for Suicidal Ideation Depressive Symptoms: Increased Anxiety, Diff. Making Decisions, Hopelessness, Unhappiness, Thoughts of /Suicide and Low Self Esteem Judgement: Fair Diagnostics Vital Signs (24Hr): Vital Signs - 24 hr 09/22/25 13:26 09/22/25 20:00 09/23/25 08:00 Temperature 99.1 F 97.8 F Pulse Rate 95 98 Respiratory Rate 15 18 Blood Pressure 120/89 115/77 135/83 Pulse Oximetry 96 94 Oxygen Delivery Method Room Air BMI result Body Mass Index 44.6 Labs 09/08/25 10:03 09/23/25 07:35 Labs: Laboratory Results - last 48 hr 09/23/25 09/23/25 09/23/25 07:35 07:35 07:35 Creatinine 0.78 0.78 Estim Creat Clear Calc 107.9 107.9 Estimated GFR > 60 09/23/25 07:35 Creatinine Estim Creat Clear Calc Estimated GFR > 60 Imaging Radiology Impressions: ITS Impressions KUB X-Ray 09/21/25 14:14 IMPRESSION: No intestinal obstruction pattern. Probable hepatomegaly, mild. Electronically signed by: Aramis Garza MD 09/21/2025 02:26 PM EST RP Medications Medications Current Medications Acetaminophen (Acetaminophen 325 Mg Tablet) 650 mg PO Q6H PRN PRN Reason: Headache/Pain, Scale 1-10 Al Hydroxide/Mg Hydroxide (Magnesium Hydrox/Alum Hydrox 30 Ml Oral.Susp) 30 ml PO Q6H PRN PRN Reason: Heartburn/Nausea Clonazepam (Clonazepam 1 Mg Tablet) 1 mg PO TID [facility] Last Admin: 09/23/25 08:54 Dose: 1 mg Clonidine HCl (Clonidine Hcl 0.1 Mg Tablet) 0.1 mg PO BID@0900,1300 [facility]; Protocol Last Admin: 09/23/25 08:53 Dose: 0.1 mg Divalproex Sodium (Divalproex Sodium Er 250 Mg Tab.Er.24h) 250 mg PO DAILY [facility] Stop: 09/24/25 09:00 Last Admin: 09/23/25 08:51 Dose: 250 mg Docusate Sodium (Docusate Sodium 100 Mg Capsule) 100 mg PO BID [facility] Last Admin: 09/23/25 08:51 Dose: 100 mg Ferrous Sulfate (Ferrous Sulfate 324 Mg Tablet.Dr) 324 mg PO DAILY [facility] Last Admin: 09/22/25 08:35 Dose: 324 mg Haloperidol (Haloperidol 1 Mg Tablet) 2 mg PO TID [facility] Last Admin: 09/23/25 08:53 Dose: 2 mg Hydroxyzine HCl (Hydroxyzine Hcl 25 Mg Tablet) 25 mg PO Q6H PRN PRN Reason: mild anxiety Last Admin: 09/23/25 03:33 Dose: 25 mg Levothyroxine Sodium (Levothyroxine Sodium 125 Mcg Tablet) 125 mcg PO DAILY@0600 [facility] Last Admin: 09/23/25 06:39 Dose: 125 mcg Lisinopril (Lisinopril 2.5 Mg Tablet) 2.5 mg PO DAILY [facility]; Protocol Last Admin: 09/23/25 08:51 Dose: 2.5 mg Magnesium Hydroxide (Milk Of Magnesia 30 Ml Oral.Susp) 30 ml PO DAILY PRN PRN Reason: Constipation Last Admin: 09/14/25 09:16 Dose: 30 ml Metformin HCl (Metformin Hcl 500 Mg Tablet) 500 mg PO DAILY [facility] Last Admin: 09/23/25 08:51 Dose: 500 mg Mirtazapine (Mirtazapine 15 Mg Tablet) 15 mg PO BEDTIME [facility] Last Admin: 09/22/25 20:33 Dose: 15 mg Non-Formulary Medication (Norethindrone (Contraceptive)) 0.35 mg PO DAILY [facility] Last Admin: 09/23/25 09:00 Dose: 0.35 mg Polyethylene Glycol (Polyethylene Glycol 3350 17 Gm Powd.Pack) 17 gm PO DAILY [facility] Last Admin: 09/23/25 08:54 Dose: Not Given Prazosin HCl (Prazosin Hcl 1 Mg Capsule) 1 mg PO BEDTIME [facility]; Protocol Last Admin: 09/22/25 20:33 Dose: 1 mg Trazodone HCl (Trazodone Hcl 50 Mg Tablet) 50 mg PO BEDTIME MRX1 PRN PRN Reason: Insomnia Last Admin: 09/22/25 20:33 Dose: 50 mg Venlafaxine HCl (Venlafaxine Hcl Er 150 Mg Cap.Er.24h) 150 mg PO DAILY [facility] Last Admin: 09/23/25 08:52 Dose: 150 mg Venlafaxine HCl (Venlafaxine Hcl Er 37.5 Mg Cap.Er.24h) 37.5 mg PO DAILY [facility] Last Admin: 09/23/25 08:51 Dose: 37.5 mg Allergies Allergies Allergy/AdvReac Type Severity Reaction Status Date / Time amoxicillin Allergy Unknown Verified 09/08/25 09:38 loratadine (From Claritin) Allergy Unknown Verified 09/08/25 09:38 sulfamethoxazole (From Allergy Unknown Verified 09/08/25 09:38 Sulfamethoxazole-Trimethoprim) trimethoprim (From Allergy Unknown Verified 09/08/25 09:38 Sulfamethoxazole-Trimethoprim) Assessment & Plan Assessment & Plan (1) Depression: Qualifiers: Depression Type: unspecified Qualified Code(s): F32.A - Depression, unspecified Status: Acute Code(s): F32.A - Depression, unspecified (2) Hypothyroidism: Status: Acute Code(s): E03.9 - Hypothyroidism, unspecified (3) Prediabetes: Status: Acute Code(s): R73.03 - Prediabetes (4) Anxiety state, unspecified: Status: Acute Code(s): F41.1 - Generalized anxiety disorder Plan HPI: Patient is a 44 year old, , Kiswahili speaking female with hx of pre-diabetic, thryroid disease, depression, and anxiety who self [place] [facility] [place] with her mother in law reporting SI with plan to OD on pills or cut herself. She has been admitted [facility] twice [place] [facility] the first of which was in June and most recently from 07/28-. It appears the was assessed for the PHP at [facility] on 09/06[place]. Attended 1 day only. Do not think PHP is a good fit for her Formulation/clinical reasoning: increased in depression and anxiety, poor sleep and appetite, increase in safety concerns SI with plans. Hx of not complete treatment and relapse on mental health symptoms that affect daily functions. Currently is on medical leave of absent. Hx of Depression and Anxiety. Given above information, patient would benefit in restrictive environment for safety, medication adjustment and refer patient back to OP psychiatric services for aftercare. Hospital course: 09/08/25: patient still has passive SI with plan, but no intent to do harm to her. Feeling safe here. Potential to sign a 3-day notice to have some control over her treatment but open to stay longer if need Increased Remeron from 7.5mg to 15mg at HS for insomnia Increase Zyprexa up to 12.5mg in divided dose for severe anxiety/racing thoughts Increase Effexor ER to 187.5mg from 150mg for depression Metformin 500mg daily for diabetes. Zyprexa 5mg BID PRN for agitation. Trazodone and Hydroxyzine PRN available per protocol. Reviewed med list with patient POC BIB to monitor for BS. Can discontinue if BS is stable. 09/09 Patient explains events that led to this admission, saying she got triggered at the partial program due to conversations in the group. Patient reports continued SI but says it is less so since she is on the unit and trying to be hopeful about treatment. Lodging Facilities Manager discussed medications and on admission, Venlafaxine and Mirtazapine both increased so patient agrees to see if these adjustments are helpful 09/11: I was not honest about how I was feeling when I left. I can leave on Thursday right? Pt reports she feels all will be better off if she were not alive. She is worried about how much this admission will cost for a co-payment. Reports +SI without a plan, Denies HI,AH,VH. Depressed, anxious and agitated. 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 Reports sleep and appetite are intact Anxious today as mother is having a hysterectomy at a hospital in [place], [place] Attempting to attend milieu programs, but very anxious Medically, seen by hospitalist team today to check in with pt on pre-DM, hypothyroidism, iron deficiency anemia and HTN. No changes to plan were made today. Discussed with pt that she will not be considered for discharge on 09/13. She is not prepared to retract TDN. Discussed Section VII and the need for treatment. Agreed to begin lamictal, klonopin and increase olanzapine. Venlafaxine decreased as it may be causing an increase in anxiety. 09/12:Met with pt and Leyda Aiken LCSW. Pt requests POC be discontinued. Reports she slept well with meds. Discussed wanting to , feeling scared to be here, feeling tired, mind and body, concern about over and under medicating, upsetting group topics. Anxious, overwhelmed, a big bad dream Summarized her hospitalizations [id number] over the of her father and elenita; July- getting back on meds and August- really wanting to . Retracted TDN in the afternoon with Leyda Aiken LCSW. +SI, -HI, -AH, -VH Discussed changing Olanzapine to Risperdal to help pt focus on grounding. She agrees. 09/13: Anxiety persists. Suicidally persists. Re-signed a three day notice today. Review of medications. Will trial Depakote tid to begin to assess efficacy on anxiety. Pt agrees. I know I am not ready to go Discussed her family, genetics of bipolar disorder and advances in treatment over time. Discussed bipolar II and the differences in symptom presentation. 09/14/25: Patient report having difficult morning usually d/t anxiety but she is patiently enough to way for her turn to take AM scheduled meds. Report passive SI still there but at the same time saying I am ready to go home but is aware of d/t passive SI, she does not feel safe going home yet. Denies SIB/HI/AVH. She is anxious, depressed, but pleasant and cooperative. No behavior issues. Compliant with meds and denies side effects. Should dx changed to Bipolar II? 09/15/25: As asked above, pt reports a history of elenita, not hypomania, unless her account changes as symptoms subside. Pt reports no improvement. Discussion to changes to her treatment plan. Review of labs/meds. Creatinine 0.79, Cr Cl 106, GFR >60. Reports constipation- given prn dulcolax, colace 100 mg bid, Miralax daily Discussed ECT- parents have a hx of ECT. Will obtain consult and continue med titration. Klonopin increased to 2 mg tid Depakote ER changed to 500 mg bid Risperdal increased to 1 mg bid Prazosin 1mg initiated at hs Pt came to tw later in the day- Whatever we did this morning helped, I am feeling better, may I go home today? Discussed with pt why she could not leave today- she verbalized understanding. 09/16/25: Met with patient in the exam room, reports that is patient has constipation and urine incontinence last night which she at she bill is from being constipated. However, refused Colace last night per record. Reports left hand numbness which she has that experience when her dad passed and symptoms going away self. Suicidal thoughts continue to bother her, and reports sometimes thinking about suffocating myself . Patient is looking forward to hearing more information if she has going to get ECT treatment. At the end of the encounter, patient reports feeling drowsy, therefore, she wants to rest instead of go back to group. Later on in the afternoon, she is getting ready to see her , who is coming to visit her. Per nursing, patient slept for 8 hours, mood is all over the place not sure if it is intentionally or she gets confused. Somewhat labile. She signed 3 day notice, wanted to go home but continued to reports suicidal thoughts.?The patient should be discharged next Thursday when the 3 day is . Will order U/A and Ammonia level rule medical conditions causing disorganization. 09/17/25: Meet with patient in exam room, very anxious concerning about incontinence of urine the past two nights. Report she slept through and not able to wake up for bathroom use. Continue disclose passive SI my head not right. My body feels awkward and I am frustrated . Patient at the same time want to go home and want to know about ECT treatment. Recently meds change that help with anxiety but seems sedated. We will hold Clonidine at 1300 and Klonpoin scheduled at HS but give 1mg instead. Nursing is aware to not offer trazodone with scheduled meds. Will reassess the next day. Ammonia level 17 WNL. U/A was negative to rule out any confusion. Pending ECT consult with hope patient would be seen by Thursday. Patient is not stable, we still work on finding appropriate regimens as patient has a couple medication changes lately with pending effects. flat affect. Would not safe and not stable enough to discharge as predict of relapse on mental health is high. Patient has 3 day notice in which he up on Thursday. 09/18/25: Patient reports passive SI, no plan, no intent. Report she does not feel right yet but Want to go home. She says she cannot stay for another weekends here. Report I can hear my self snored but I am not asleep . Report no incontinence last night. Sleep good. Report anxious and but not too tired. Reviewed with patient regarding Klonopin. When told her will order 0.5mg x1 now dose she says it may not enough but reports tired at the same time. Reduced Klonopin down to 1mg TID. Met with Slitter Scorer Cut Off Operator, feel better. Will want to be discharged but also want ECT. Been asking about it daily. She may think about retract 3 day to stay for a couple more days to manage her symptoms but does not want to retract it now but is aware she can do it with anyone later. Slightly better compared to yesterday in term of mood. However, safety remains an issues as her SI still there which is not a chronic issues for her. I do not think it is safe to discharge her home tomorrow. Denies SIB/HI/AVH. Klonopin down from 2mg TID to 1mg TID d/t sedated. 09/19/25:Pt retracted her TDN. Continues to feel like I am losing control of my mind . Wanting DC, to be home alone. Denies feeling undermedicated or overmedicated- I am tired, drained, thoughts racing, anxious depressed, suicidal. Anxiety is better depending upon the moment she reports. Incontinent over the weekend- Klonopin decreased-pt believes it is due to remeron. will monitor, however incontinence has stopped since klonopin was decreased. ECT consult appreciated by Dr. Bustos who does not believe pt has bipolar disorder, but VIRGILIO, OCD sx. ECT not recommended. Venlafaxine increase recommended. Will taper depakote and increase Venlafaxine per this consult. Plan: Per consult recommendations... Depakote decrease to 250 mg bid Increase Venlafaxine to 187.5 mg daily 09/20/25:Team report pt slept for seven hours last evening. Pt reports SIBS-head banging which team report did not occur. Pt continues with SI, placing a pillow over her head, asking team what she could do to kill herself with a pillow case. Team reports seeing a great deal of provocative sx, learned helplessness. Met with pt and reviewed. Reviewed symptoms of borderline personality disorder, no, I don't think that is me. Discussed inconsistencies in reporting of symptoms. Pt reports often she just does not know Continues to report anxiety. Wanting discharge, yet reporting she feels unsafe at home. 09/21/25: DC Risperdal Haldol 2 mg tid Depakote 250 mg x 2 days then stop 09/22/25: Continue tx. 09/23/25: Reviewed with team. Review of plan of care. Met with pt. Reviewed my discussion with her last evening. Family meeting 09/25. Pt asking about DC. Discussed next week or the week after-became anxious. my body is off- I have had a lot of M&M's and have had diarrhea and urinary incontinence. Discussed medication changes. Plan: Decrease Klonopin to 0.5 mg tid DC Prazosin Decrease Remeron to 7.5 mg HS Plan Patient on 15 minute checks for safety. Admitted to [facility]. 3-day which 09/19. Increased Remeron from 7.5mg to 15mg at HS for insomnia Increase Zyprexa up to 12.5mg in divided dose for severe anxiety/racing thoughts: was discontinue. Currently on Risperidone. Increase Effexor ER to 187.5mg from 150mg for depression Work with treatment team to do collateral. Reason for continued inpatient stay Substantial Risk for: rapid decompensation Time Spent With Patient Time: Total time managing care of this patient today ____ minutes.
[2025-09-23] MEDS: Ferrous Sulfate 324 MG TABLET.DR PO (11:21)
[2025-09-23 12:40] VITALS: BP 128/82; PULSE 116; RESP 18; TEMP 36.6; O2SAT 99
[2025-09-23 19:59] VITALS: BP 119/70; PULSE 99; RESP 15; TEMP 37.2; O2SAT 95
--- NOTE | 2025-09-24 05:54 | HO.PSYCHPN ---
Subjective Subjective Date of Service: 09/24/25 Reason For Visit: SI Subjective Notes: Conditional Voluntary Healthcare Proxy: No Guardianship: No Medical Problems Affecting Mental Status: No Interim History: Pt reports she feels room-mates struggles she is internalizing. Discussed boundaries. She is apprehensive about couples meeting 12/8 4pm which we discussed. She does not know what she would like to discuss at the meeting, except discharge, which we discussed. Discussed PHP and grief groups post discharge. Medication Compliance: Yes Side effects from medications: No Attending Groups: Yes Review of Systems Acute medical concerns: No Medical Review of Systems: unchanged Review of Systems Review of Systems anxiety Mental Status Exam Mental Status Exam Patient Appearance: Appropriate Patient Orientation: Person, Place, Time and Situation Level of Consciousness: Alert Patient Behavior: Talkative, Passive and Fatigued Mood Description: Anxious Affect Description: Flat Patient Cognition Impaired: No Ability to Follow Directions: Good Speech Pattern: Spontaneous Speech Memory Description: Episodic Impaired Hallucinations: None Delusions: Not Present Thought Process: Rumination Thought Content: positive for Circumstantial, positive for Perseveration and positive for Suicidal Ideation Depressive Symptoms: Increased Anxiety, Diff. Making Decisions, Unhappiness, Thoughts of /Suicide (denies) and Low Self Esteem Judgement: Fair Diagnostics Vital Signs (24Hr): Vital Signs - 24 hr 09/23/25 08:00 09/23/25 12:40 09/23/25 19:59 Temperature 97.8 F 97.8 F 99 F Pulse Rate 98 116 H 99 Respiratory Rate 18 18 15 Blood Pressure 135/83 128/82 119/70 Pulse Oximetry 94 99 95 Oxygen Delivery Method Room Air Room Air BMI result Body Mass Index 44.6 Labs 09/08/25 10:03 09/23/25 07:35 Labs: Laboratory Results - last 48 hr 09/23/25 09/23/25 09/23/25 07:35 07:35 07:35 Creatinine 0.78 0.78 Estim Creat Clear Calc 107.9 107.9 Estimated GFR > 60 09/23/25 07:35 Creatinine Estim Creat Clear Calc Estimated GFR > 60 Imaging Radiology Impressions: ITS Impressions KUB X-Ray 09/21/25 14:14 IMPRESSION: No intestinal obstruction pattern. Probable hepatomegaly, mild. Electronically signed by: Aramis Garza MD 09/21/2025 02:26 PM [facility] Medications Medications Current Medications Acetaminophen (Acetaminophen 325 Mg Tablet) 650 mg PO Q6H PRN PRN Reason: Headache/Pain, Scale 1-10 Al Hydroxide/Mg Hydroxide (Magnesium Hydrox/Alum Hydrox 30 Ml Oral.Susp) 30 ml PO Q6H PRN PRN Reason: Heartburn/Nausea Clonazepam (Clonazepam 0.5 Mg Tablet) 0.5 mg PO TID [facility] Last Admin: 09/23/25 20:14 Dose: 0.5 mg Clonidine HCl (Clonidine Hcl 0.1 Mg Tablet) 0.1 mg PO BID@0900,1300 [facility]; Protocol Last Admin: 09/23/25 12:41 Dose: 0.1 mg Divalproex Sodium (Divalproex Sodium Er 250 Mg Tab.Er.24h) 250 mg PO DAILY [facility] Stop: 09/24/25 09:00 Last Admin: 09/23/25 08:51 Dose: 250 mg Docusate Sodium (Docusate Sodium 100 Mg Capsule) 100 mg PO BID [facility] Last Admin: 09/23/25 20:13 Dose: 100 mg Ferrous Sulfate (Ferrous Sulfate 324 Mg Tablet.Dr) 324 mg PO DAILY [facility] Last Admin: 09/22/25 08:35 Dose: 324 mg Haloperidol (Haloperidol 1 Mg Tablet) 2 mg PO TID [facility] Last Admin: 09/23/25 20:12 Dose: 2 mg Hydroxyzine HCl (Hydroxyzine Hcl 25 Mg Tablet) 25 mg PO Q6H PRN PRN Reason: mild anxiety Last Admin: 09/23/25 23:11 Dose: 25 mg Levothyroxine Sodium (Levothyroxine Sodium 125 Mcg Tablet) 125 mcg PO DAILY@0600 [facility] Last Admin: 09/23/25 06:39 Dose: 125 mcg Lisinopril (Lisinopril 2.5 Mg Tablet) 2.5 mg PO DAILY [facility]; Protocol Last Admin: 09/23/25 08:51 Dose: 2.5 mg Magnesium Hydroxide (Milk Of Magnesia 30 Ml Oral.Susp) 30 ml PO DAILY PRN PRN Reason: Constipation Last Admin: 09/14/25 09:16 Dose: 30 ml Metformin HCl (Metformin Hcl 500 Mg Tablet) 500 mg PO DAILY [facility] Last Admin: 09/23/25 08:51 Dose: 500 mg Mirtazapine (Mirtazapine 7.5 Mg Tablet) 7.5 mg PO BEDTIME [facility] Last Admin: 09/23/25 20:13 Dose: 7.5 mg Non-Formulary Medication (Norethindrone (Contraceptive)) 0.35 mg PO DAILY [facility] Last Admin: 09/23/25 09:00 Dose: 0.35 mg Polyethylene Glycol (Polyethylene Glycol 3350 17 Gm Powd.Pack) 17 gm PO DAILY [facility] Last Admin: 09/23/25 08:54 Dose: Not Given Trazodone HCl (Trazodone Hcl 50 Mg Tablet) 50 mg PO BEDTIME MRX1 PRN PRN Reason: Insomnia Last Admin: 09/23/25 23:11 Dose: 50 mg Venlafaxine HCl (Venlafaxine Hcl Er 150 Mg Cap.Er.24h) 150 mg PO DAILY [facility] Last Admin: 09/23/25 08:52 Dose: 150 mg Venlafaxine HCl (Venlafaxine Hcl Er 37.5 Mg Cap.Er.24h) 37.5 mg PO DAILY [facility] Last Admin: 09/23/25 08:51 Dose: 37.5 mg Allergies Allergies Allergy/AdvReac Type Severity Reaction Status Date / Time amoxicillin Allergy Unknown Verified 09/08/25 09:38 loratadine (From Claritin) Allergy Unknown Verified 09/08/25 09:38 sulfamethoxazole (From Allergy Unknown Verified 09/08/25 09:38 Sulfamethoxazole-Trimethoprim) trimethoprim (From Allergy Unknown Verified 09/08/25 09:38 Sulfamethoxazole-Trimethoprim) Assessment & Plan Assessment & Plan (1) Depression: Qualifiers: Depression Type: unspecified Qualified Code(s): F32.A - Depression, unspecified Status: Acute Code(s): F32.A - Depression, unspecified (2) Hypothyroidism: Status: Acute Code(s): E03.9 - Hypothyroidism, unspecified (3) Prediabetes: Status: Acute Code(s): R73.03 - Prediabetes (4) Anxiety state, unspecified: Status: Acute Code(s): F41.1 - Generalized anxiety disorder Plan HPI: Patient is a 44 year old, , [place] speaking female with hx of pre-diabetic, thryroid disease, depression, and anxiety who self presents to the [facility] today with her mother in law reporting SI with plan to OD on pills or cut herself. She has been admitted IPLOC twice to [facility], the first of which was in June and most recently from 07/28-. It appears the was assessed for the PHP at [facility] on 09/06/2025. Attended 1 day only. Do not think PHP is a good fit for her Formulation/clinical reasoning: increased in depression and anxiety, poor sleep and appetite, increase in safety concerns SI with plans. Hx of not complete treatment and relapse on mental health symptoms that affect daily functions. Currently is on medical leave of absent. Hx of Depression and Anxiety. Given above information, patient would benefit in restrictive environment for safety, medication adjustment and refer patient back to OP psychiatric services for aftercare. Hospital course: 09/08/25: patient still has passive SI with plan, but no intent to do harm to her. Feeling safe here. Potential to sign a 3-day notice to have some control over her treatment but open to stay longer if need Increased Remeron from 7.5mg to 15mg at HS for insomnia Increase Zyprexa up to 12.5mg in divided dose for severe anxiety/racing thoughts Increase Effexor ER to 187.5mg from 150mg for depression Metformin 500mg daily for diabetes. Zyprexa 5mg BID PRN for agitation. Trazodone and Hydroxyzine PRN available per protocol. Reviewed med list with patient POC BIB to monitor for BS. Can discontinue if BS is stable. 09/09 Patient explains events that led to this admission, saying she got triggered at the partial program due to conversations in the group. Patient reports continued SI but says it is less so since she is on the unit and trying to be hopeful about treatment. Neurology Physician Assistant discussed medications and on admission, Venlafaxine and Mirtazapine both increased so patient agrees to see if these adjustments are helpful 09/11: I was not honest about how I was feeling when I left. I can leave on Thursday right? Pt reports she feels all will be better off if she were not alive. She is worried about how much this admission will cost for a co-payment. Reports +SI without a plan, Denies HI,AH,VH. Depressed, anxious and agitated. 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 Reports sleep and appetite are intact Anxious today as mother is having a hysterectomy at a hospital in [place], [place] Attempting to attend milieu programs, but very anxious Medically, seen by hospitalist team today to check in with pt on pre-DM, hypothyroidism, iron deficiency anemia and HTN. No changes to plan were made today. Discussed with pt that she will not be considered for discharge on 09/13. She is not prepared to retract TDN. Discussed Section VII and the need for treatment. Agreed to begin lamictal, klonopin and increase olanzapine. Venlafaxine decreased as it may be causing an increase in anxiety. 09/12:Met with pt and Leyda Aiken LCSW. Pt requests POC be discontinued. Reports she slept well with meds. Discussed wanting to , feeling scared to be here, feeling tired, mind and body, concern about over and under medicating, upsetting group topics. Anxious, overwhelmed, a big bad dream Summarized her hospitalizations p[facility]-ursps over the of her father and elenita; July- getting back on meds and August- really wanting to . Retracted TDN in the afternoon with Leyda Aiken LCSW. +SI, -HI, -AH, -VH Discussed changing Olanzapine to Risperdal to help pt focus on grounding. She agrees. 09/13: Anxiety persists. Suicidally persists. Re-signed a three day notice today. Review of medications. Will trial Depakote tid to begin to assess efficacy on anxiety. Pt agrees. I know I am not ready to go Discussed her family, genetics of bipolar disorder and advances in treatment over time. Discussed bipolar II and the differences in symptom presentation. 09/14/25: Patient report having difficult morning usually d/t anxiety but she is patiently enough to way for her turn to take AM scheduled meds. Report passive SI still there but at the same time saying I am ready to go home but is aware of d/t passive SI, she does not feel safe going home yet. Denies SIB/HI/AVH. She is anxious, depressed, but pleasant and cooperative. No behavior issues. Compliant with meds and denies side effects. Should dx changed to Bipolar II? 09/15/25: As asked above, pt reports a history of elenita, not hypomania, unless her account changes as symptoms subside. Pt reports no improvement. Discussion to changes to her treatment plan. Review of labs/meds. Creatinine 0.79, Cr Cl 106, GFR >60. Reports constipation- given prn dulcolax, colace 100 mg bid, Miralax daily Discussed ECT- parents have a hx of ECT. Will obtain consult and continue med titration. Klonopin increased to 2 mg tid Depakote ER changed to 500 mg bid Risperdal increased to 1 mg bid Prazosin 1mg initiated at hs Pt came to tw later in the day- Whatever we did this morning helped, I am feeling better, may I go home today? Discussed with pt why she could not leave today- she verbalized understanding. 09/16/25: Met with patient in the exam room, reports that is patient has constipation and urine incontinence last night which she at she bill is from being constipated. However, refused Colace last night per record. Reports left hand numbness which she has that experience when her dad passed and symptoms going away self. Suicidal thoughts continue to bother her, and reports sometimes thinking about suffocating myself . Patient is looking forward to hearing more information if she has going to get ECT treatment. At the end of the encounter, patient reports feeling drowsy, therefore, she wants to rest instead of go back to group. Later on in the afternoon, she is getting ready to see her , who is coming to visit her. Per nursing, patient slept for 8 hours, mood is all over the place not sure if it is intentionally or she gets confused. Somewhat labile. She signed 3 day notice, wanted to go home but continued to reports suicidal thoughts.?The patient should be discharged next Thursday when the 3 day is . Will order U/A and Ammonia level rule medical conditions causing disorganization. 09/17/25: Meet with patient in exam room, very anxious concerning about incontinence of urine the past two nights. Report she slept through and not able to wake up for bathroom use. Continue disclose passive SI my head not right. My body feels awkward and I am frustrated . Patient at the same time want to go home and want to know about ECT treatment. Recently meds change that help with anxiety but seems sedated. We will hold Clonidine at 1300 and Klonpoin scheduled at HS but give 1mg instead. Nursing is aware to not offer trazodone with scheduled meds. Will reassess the next day. Ammonia level 17 WNL. U/A was negative to rule out any confusion. Pending ECT consult with hope patient would be seen by Thursday. Patient is not stable, we still work on finding appropriate regimens as patient has a couple medication changes lately with pending effects. flat affect. Would not safe and not stable enough to discharge as predict of relapse on mental health is high. Patient has 3 day notice in which he up on Thursday. 09/18/25: Patient reports passive SI, no plan, no intent. Report she does not feel right yet but Want to go home. She says she cannot stay for another weekends here. Report I can hear my self snored but I am not asleep . Report no incontinence last night. Sleep good. Report anxious and but not too tired. Reviewed with patient regarding Klonopin. When told her will order 0.5mg x1 now dose she says it may not enough but reports tired at the same time. Reduced Klonopin down to 1mg TID. Met with Pin Machine Operator, feel better. Will want to be discharged but also want ECT. Been asking about it daily. She may think about retract 3 day to stay for a couple more days to manage her symptoms but does not want to retract it now but is aware she can do it with anyone later. Slightly better compared to yesterday in term of mood. However, safety remains an issues as her SI still there which is not a chronic issues for her. I do not think it is safe to discharge her home tomorrow. Denies SIB/HI/AVH. Klonopin down from 2mg TID to 1mg TID d/t sedated. 09/19/25:Pt retracted her TDN. Continues to feel like I am losing control of my mind . Wanting DC, to be home alone. Denies feeling undermedicated or overmedicated- I am tired, drained, thoughts racing, anxious depressed, suicidal. Anxiety is better depending upon the moment she reports. Incontinent over the weekend- Klonopin decreased-pt believes it is due to remeron. will monitor, however incontinence has stopped since klonopin was decreased. ECT consult appreciated by Dr. Bustos who does not believe pt has bipolar disorder, but VIRGILIO, OCD sx. ECT not recommended. Venlafaxine increase recommended. Will taper depakote and increase Venlafaxine per this consult. Plan: Per consult recommendations... Depakote decrease to 250 mg bid Increase Venlafaxine to 187.5 mg daily 09/20/25:Team report pt slept for seven hours last evening. Pt reports SIBS-head banging which team report did not occur. Pt continues with SI, placing a pillow over her head, asking team what she could do to kill herself with a pillow case. Team reports seeing a great deal of provocative sx, learned helplessness. Met with pt and reviewed. Reviewed symptoms of borderline personality disorder, no, I don't think that is me. Discussed inconsistencies in reporting of symptoms. Pt reports often she just does not know Continues to report anxiety. Wanting discharge, yet reporting she feels unsafe at home. 09/21/25: DC Risperdal Haldol 2 mg tid Depakote 250 mg x 2 days then stop 09/22/25: Continue tx. 09/23/25: Reviewed with team. Review of plan of care. Met with pt. Reviewed my discussion with her last evening. Family meeting 09/25. Pt asking about DC. Discussed next week or the week after-became anxious. my body is off- I have had a lot of M&M's and have had diarrhea and urinary incontinence. Discussed medication changes. Plan: Decrease Klonopin to 0.5 mg tid DC Prazosin Decrease Remeron to 7.5 mg HS 09/24/25: Continue tx Plan Patient on 15 minute checks for safety. Admitted to [facility]. 3-day which 09/19. Increased Remeron from 7.5mg to 15mg at HS for insomnia Increase Zyprexa up to 12.5mg in divided dose for severe anxiety/racing thoughts: was discontinue. Currently on Risperidone. Increase Effexor ER to 187.5mg from 150mg for depression Work with treatment team to do collateral. Reason for continued inpatient stay Substantial Risk for: rapid decompensation Time Spent With Patient Time: Total time managing care of this patient today ____ minutes.
[2025-09-24 09:10] VITALS: BP 127/85; PULSE 100; RESP 14; TEMP 36.6; O2SAT 97
[2025-09-24] MEDS: Venlafaxine HCl ER 37.5 MG CAP.ER.24H PO (09:15)
[2025-09-24] MEDS: Venlafaxine HCl ER 150 MG CAP.ER.24H PO (09:15)
[2025-09-24] MEDS: Divalproex Sodium ER 250 MG TAB.ER.24H PO (09:15)
[2025-09-24] MEDS: Ferrous Sulfate 324 MG TABLET.DR PO (09:15)
[2025-09-24 12:11] VITALS: BP 126/76
[2025-09-24 20:00] VITALS: BP 138/73; PULSE 102; RESP 14; TEMP 36.7; O2SAT 97
[2025-09-25 08:00] VITALS: BP 138/97; PULSE 110; RESP 18; TEMP 36.4; O2SAT 98
[2025-09-25] MEDS: Venlafaxine HCl ER 37.5 MG CAP.ER.24H PO (08:49)
[2025-09-25] MEDS: Venlafaxine HCl ER 150 MG CAP.ER.24H PO (08:49)
[2025-09-25] MEDS: Ferrous Sulfate 324 MG TABLET.DR PO (08:49)
--- NOTE | 2025-09-25 10:09 | P.PNPSI_ITS ---
Subjective Subjective Date of Service: 09/25/25 Reason For Visit: SI Subjective Notes: Conditional Voluntary Healthcare Proxy: No Guardianship: No Medical Problems Affecting Mental Status: No Interim History: Couples meeting. Review of pts care, medicine regime, symptoms. Insurance questions addressed with Annalisa ISIDRO. Pt's insurance will not allow VNA services Discussed return to [facility] and ongoing safety issues addressed We will plan discharge for 09/29. Pt reports an increase in anxiety with klonopin decrease, with re-establish 1 mg tid Medication Compliance: Yes Side effects from medications: Yes (anxiety) Attending Groups: Intermittent Review of Systems Acute medical concerns: No Medical Review of Systems: unchanged Review of Systems Review of Systems anxiety Mental Status Exam Mental Status Exam Patient Appearance: Appropriate Patient Orientation: Person, Place, Time and Situation Level of Consciousness: Alert Patient Behavior: Talkative, Passive and Fatigued Mood Description: Anxious Affect Description: Flat Patient Cognition Impaired: No Ability to Follow Directions: Good Speech Pattern: Spontaneous Speech Memory Description: Episodic Impaired Hallucinations: None Delusions: Not Present Thought Process: Rumination Thought Content: positive for Circumstantial, positive for Perseveration and positive for Suicidal Ideation (denies) Depressive Symptoms: Increased Anxiety, Diff. Making Decisions, Unhappiness, Thoughts of /Suicide (denies) and Low Self Esteem Judgement: Fair Diagnostics Vital Signs (24Hr): Vital Signs - 24 hr 09/24/25 12:11 09/24/25 20:00 09/25/25 08:00 Temperature 98.1 F 97.6 F Pulse Rate 102 H 110 H Respiratory Rate 14 18 Blood Pressure 126/76 138/73 138/97 H Pulse Oximetry 97 98 Oxygen Delivery Method Room Air BMI result Body Mass Index 44.6 Labs 09/08/25 10:03 09/23/25 07:35 Imaging Radiology Impressions: ITS Impressions [facility] X-Ray 09/21/25 14:14 IMPRESSION: No intestinal obstruction pattern. Probable hepatomegaly, mild. Electronically signed by: Aramis Garza MD 09/21/2025 02:26 PM [facility] Medications Medications Current Medications Acetaminophen (Acetaminophen 325 Mg Tablet) 650 mg PO Q6H PRN PRN Reason: Headache/Pain, Scale 1-10 Al Hydroxide/Mg Hydroxide (Magnesium Hydrox/Alum Hydrox 30 Ml Oral.Susp) 30 ml PO Q6H PRN PRN Reason: Heartburn/Nausea Clonazepam (Clonazepam 0.5 Mg Tablet) 0.5 mg PO TID [facility] Last Admin: 09/25/25 08:49 Dose: 0.5 mg Clonidine HCl (Clonidine Hcl 0.1 Mg Tablet) 0.1 mg PO BID@0900,1300 [facility]; Protocol Last Admin: 09/25/25 08:48 Dose: 0.1 mg Docusate Sodium (Docusate Sodium 100 Mg Capsule) 100 mg PO BID [facility] Last Admin: 09/25/25 08:48 Dose: 100 mg Ferrous Sulfate (Ferrous Sulfate 324 Mg Tablet.Dr) 324 mg PO DAILY [facility] Last Admin: 09/25/25 08:49 Dose: 324 mg Haloperidol (Haloperidol 1 Mg Tablet) 2 mg PO TID [facility] Last Admin: 09/25/25 08:48 Dose: 2 mg Hydroxyzine HCl (Hydroxyzine Hcl 25 Mg Tablet) 25 mg PO Q6H PRN PRN Reason: mild anxiety Last Admin: 09/24/25 20:43 Dose: 25 mg Levothyroxine Sodium (Levothyroxine Sodium 125 Mcg Tablet) 125 mcg PO DAILY@0600 [facility] Last Admin: 09/25/25 06:34 Dose: 125 mcg Lisinopril (Lisinopril 2.5 Mg Tablet) 2.5 mg PO DAILY [facility]; Protocol Last Admin: 09/25/25 08:48 Dose: 2.5 mg Magnesium Hydroxide (Milk Of Magnesia 30 Ml Oral.Susp) 30 ml PO DAILY PRN PRN Reason: Constipation Last Admin: 09/14/25 09:16 Dose: 30 ml Metformin HCl (Metformin Hcl 500 Mg Tablet) 500 mg PO DAILY [facility] Last Admin: 09/25/25 08:48 Dose: 500 mg Mirtazapine (Mirtazapine 7.5 Mg Tablet) 7.5 mg PO BEDTIME [facility] Last Admin: 09/24/25 20:44 Dose: 7.5 mg Non-Formulary Medication (Norethindrone (Contraceptive)) 0.35 mg PO DAILY [facility] Last Admin: 09/25/25 08:49 Dose: 0.35 mg Polyethylene Glycol (Polyethylene Glycol 3350 17 Gm Powd.Pack) 17 gm PO DAILY [facility] Last Admin: 09/25/25 08:52 Dose: Not Given Trazodone HCl (Trazodone Hcl 50 Mg Tablet) 50 mg PO BEDTIME MRX1 PRN PRN Reason: Insomnia Last Admin: 09/25/25 01:12 Dose: 50 mg Venlafaxine HCl (Venlafaxine Hcl Er 150 Mg Cap.Er.24h) 150 mg PO DAILY [facility] Last Admin: 09/25/25 08:49 Dose: 150 mg Venlafaxine HCl (Venlafaxine Hcl Er 37.5 Mg Cap.Er.24h) 37.5 mg PO DAILY [facility] Last Admin: 09/25/25 08:49 Dose: 37.5 mg Allergies Allergies Allergy/AdvReac Type Severity Reaction Status Date / Time amoxicillin Allergy Unknown Verified 09/08/25 09:38 loratadine (From Claritin) Allergy Unknown Verified 09/08/25 09:38 sulfamethoxazole (From Allergy Unknown Verified 09/08/25 09:38 Sulfamethoxazole-Trimethoprim) trimethoprim (From Allergy Unknown Verified 09/08/25 09:38 Sulfamethoxazole-Trimethoprim) Assessment & Plan Assessment & Plan (1) Depression: Qualifiers: Depression Type: unspecified Qualified Code(s): F32.A - Depression, unspecified Status: Acute Code(s): F32.A - Depression, unspecified (2) Hypothyroidism: Status: Acute Code(s): E03.9 - Hypothyroidism, unspecified (3) Prediabetes: Status: Acute Code(s): R73.03 - Prediabetes (4) Anxiety state, unspecified: Status: Acute Code(s): F41.1 - Generalized anxiety disorder Plan HPI: Patient is a 44 year old, , Romansh speaking female with hx of pre-diabetic, thryroid disease, depression, and anxiety who self presents to the [facility] today with her mother in law reporting SI with plan to OD on pills or cut herself. She has been admitted IPLOC twice to [facility], the first of which was in June and most recently from 07/28-. It appears the was assessed for the PHP at [facility] on 09/06/2025. Attended 1 day only. Do not think PHP is a good fit for her Formulation/clinical reasoning: increased in depression and anxiety, poor sleep and appetite, increase in safety concerns SI with plans. Hx of not complete treatment and relapse on mental health symptoms that affect daily functions. Currently is on medical leave of absent. Hx of Depression and Anxiety. Given above information, patient would benefit in restrictive environment for safety, medication adjustment and refer patient back to OP psychiatric services for aftercare. Hospital course: 09/08/25: patient still has passive SI with plan, but no intent to do harm to her. Feeling safe here. Potential to sign a 3-day notice to have some control over her treatment but open to stay longer if need Increased Remeron from 7.5mg to 15mg at HS for insomnia Increase Zyprexa up to 12.5mg in divided dose for severe anxiety/racing thoughts Increase Effexor ER to 187.5mg from 150mg for depression Metformin 500mg daily for diabetes. Zyprexa 5mg BID PRN for agitation. Trazodone and Hydroxyzine PRN available per protocol. Reviewed med list with patient POC BIB to monitor for BS. Can discontinue if BS is stable. 09/09 Patient explains events that led to this admission, saying she got triggered at the partial program due to conversations in the group. Patient reports continued SI but says it is less so since she is on the unit and trying to be hopeful about treatment. 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 I can leave on Thursday right? Pt reports she feels all will be better off if she were not alive. She is worried about how much this admission will cost for a co-payment. Reports +SI without a plan, Denies HI,AH,VH. Depressed, anxious and agitated. [facility] was not for her as one of her customers was a peer in group and one of her peers reported [facility] team did a wellness check and found their home to be unclean and as a result took their dog away. Reports sleep and appetite are intact Anxious today as mother is having a hysterectomy at a hospital in [place], [place] Attempting to attend milieu programs, but very anxious Medically, seen by hospitalist team today to check in with pt on pre-DM, hypothyroidism, iron deficiency anemia and HTN. No changes to plan were made today. Discussed with pt that she will not be considered for discharge on 09/13. She is not prepared to retract TDN. Discussed Section VII and the need for treatment. Agreed to begin lamictal, klonopin and increase olanzapine. Venlafaxine decreased as it may be causing an increase in anxiety. 09/12:Met with pt and Leyda Aiken LCSW. Pt requests POC be discontinued. Reports she slept well with meds. Discussed wanting to , feeling scared to be here, feeling tired, mind and body, concern about over and under medicating, upsetting group topics. Anxious, overwhelmed, a big bad dream Summarized her hospitalizations [id number] over the of her father and elenita; July- getting back on meds and August- really wanting to . Retracted TDN in the afternoon with Leyda Aiken LCSW. +SI, -HI, -AH, -VH Discussed changing Olanzapine to Risperdal to help pt focus on grounding. She agrees. 09/13: Anxiety persists. Suicidally persists. Re-signed a three day notice today. Review of medications. Will trial Depakote tid to begin to assess efficacy on anxiety. Pt agrees. I know I am not ready to go Discussed her family, genetics of bipolar disorder and advances in treatment over time. Discussed bipolar II and the differences in symptom presentation. 09/14/25: Patient report having difficult morning usually d/t anxiety but she is patiently enough to way for her turn to take AM scheduled meds. Report passive SI still there but at the same time saying I am ready to go home but is aware of d/t passive SI, she does not feel safe going home yet. Denies SIB/HI/AVH. She is anxious, depressed, but pleasant and cooperative. No behavior issues. Compliant with meds and denies side effects. Should dx changed to Bipolar II? 09/15/25: As asked above, pt reports a history of elenita, not hypomania, unless her account changes as symptoms subside. Pt reports no improvement. Discussion to changes to her treatment plan. Review of labs/meds. Creatinine 0.79, Cr Cl 106, GFR >60. Reports constipation- given prn dulcolax, colace 100 mg bid, Miralax daily Discussed ECT- parents have a hx of ECT. Will obtain consult and continue med titration. Klonopin increased to 2 mg tid Depakote ER changed to 500 mg bid Risperdal increased to 1 mg bid Prazosin 1mg initiated at hs Pt came to tw later in the day- Whatever we did this morning helped, I am feeling better, may I go home today? Discussed with pt why she could not leave today- she verbalized understanding. 09/16/25: Met with patient in the exam room, reports that is patient has constipation and urine incontinence last night which she at she bill is from being constipated. However, refused Colace last night per record. Reports left hand numbness which she has that experience when her dad passed and symptoms going away self. Suicidal thoughts continue to bother her, and reports sometimes thinking about suffocating myself . Patient is looking forward to hearing more information if she has going to get ECT treatment. At the end of the encounter, patient reports feeling drowsy, therefore, she wants to rest instead of go back to group. Later on in the afternoon, she is getting ready to see her , who is coming to visit her. Per nursing, patient slept for 8 hours, mood is all over the place not sure if it is intentionally or she gets confused. Somewhat labile. She signed 3 day notice, wanted to go home but continued to reports suicidal thoughts.?The patient should be discharged next Thursday when the 3 day is . Will order U/A and Ammonia level rule medical conditions causing disorganization. 09/17/25: Meet with patient in exam room, very anxious concerning about incontinence of urine the past two nights. Report she slept through and not able to wake up for bathroom use. Continue disclose passive SI my head not right. My body feels awkward and I am frustrated . Patient at the same time want to go home and want to know about ECT treatment. Recently meds change that help with anxiety but seems sedated. We will hold Clonidine at 1300 and Klonpoin scheduled at HS but give 1mg instead. Nursing is aware to not offer trazodone with scheduled meds. Will reassess the next day. Ammonia level 17 WNL. U/A was negative to rule out any confusion. Pending ECT consult with hope patient would be seen by Thursday. Patient is not stable, we still work on finding appropriate regimens as patient has a couple medication changes lately with pending effects. flat affect. Would not safe and not stable enough to discharge as predict of relapse on mental health is high. Patient has 3 day notice in which he up on Thursday. 09/18/25: Patient reports passive SI, no plan, no intent. Report she does not feel right yet but Want to go home. She says she cannot stay for another weekends here. Report I can hear my self snored but I am not asleep . Report no incontinence last night. Sleep good. Report anxious and but not too tired. Reviewed with patient regarding Klonopin. When told her will order 0.5mg x1 now dose she says it may not enough but reports tired at the same time. Reduced Klonopin down to 1mg TID. 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 Will want to be discharged but also want ECT. Been asking about it daily. She may think about retract 3 day to stay for a couple more days to manage her symptoms but does not want to retract it now but is aware she can do it with anyone later. Slightly better compared to yesterday in term of mood. However, safety remains an issues as her SI still there which is not a chronic issues for her. I do not think it is safe to discharge her home tomorrow. Denies SIB/HI/AVH. Klonopin down from 2mg TID to 1mg TID d/t sedated. 09/19/25:Pt retracted her TDN. Continues to feel like I am losing control of my mind . Wanting DC, to be home alone. Denies feeling undermedicated or overmedicated- I am tired, drained, thoughts racing, anxious depressed, suicidal. Anxiety is better depending upon the moment she reports. Incontinent over the weekend- Klonopin decreased-pt believes it is due to remeron. will monitor, however incontinence has stopped since klonopin was decreased. ECT consult appreciated by Dr. Bustos who does not believe pt has bipolar disorder, but VIRGILIO, OCD sx. ECT not recommended. Venlafaxine increase recommended. Will taper depakote and increase Venlafaxine per this consult. Plan: Per consult recommendations... Depakote decrease to 250 mg bid Increase Venlafaxine to 187.5 mg daily 09/20/25:Team report pt slept for seven hours last evening. Pt reports SIBS-head banging which team report did not occur. Pt continues with SI, placing a pillow over her head, asking team what she could do to kill herself with a pillow case. Team reports seeing a great deal of provocative sx, learned helplessness. Met with pt and reviewed. Reviewed symptoms of borderline personality disorder, no, I don't think that is me. Discussed inconsistencies in reporting of symptoms. Pt reports often she just does not know Continues to report anxiety. Wanting discharge, yet reporting she feels unsafe at home. 09/21/25: DC Risperdal Haldol 2 mg tid Depakote 250 mg x 2 days then stop 09/22/25: Continue tx. 09/23/25: Reviewed with team. Review of plan of care. Met with pt. Reviewed my discussion with her last evening. Family meeting 09/25. Pt asking about DC. Discussed next week or the week after- became anxious. my body is off- I have had a lot of M&M's and have had diarrhea and urinary incontinence. Discussed medication changes. Plan: Decrease Klonopin to 0.5 mg tid DC Prazosin Decrease Remeron to 7.5 mg HS 09/24/25: Increase Klonopin to 1 mg tid Discharge planned for 09/29. Plan Patient on 15 minute checks for safety. Admitted to [facility]. 3-day which 09/19. Increased Remeron from 7.5mg to 15mg at HS for insomnia Increase Zyprexa up to 12.5mg in divided dose for severe anxiety/racing thoughts: was discontinue. Currently on Risperidone. Increase Effexor ER to 187.5mg from 150mg for depression Work with treatment team to do collateral. Reason for continued inpatient stay Substantial Risk for: rapid decompensation Time Spent With Patient Time: Total time managing care of this patient today ____ minutes.
[2025-09-25 12:07] VITALS: BP 126/71
[2025-09-25 20:00] VITALS: BP 120/78; PULSE 97; TEMP 37.1; O2SAT 98
[2025-09-26 08:00] VITALS: BP 141/86; PULSE 95; RESP 18; O2SAT 93
[2025-09-26 08:55] VITALS: BP 141/86
[2025-09-26] MEDS: Venlafaxine HCl ER 37.5 MG CAP.ER.24H PO (08:56)
[2025-09-26] MEDS: Venlafaxine HCl ER 150 MG CAP.ER.24H PO (08:56)
[2025-09-26] MEDS: Ferrous Sulfate 324 MG TABLET.DR PO (08:56)
[2025-09-26 08:57] VITALS: BP 141/86
[2025-09-26 14:53] VITALS: BP 125/84
[2025-09-26 20:00] VITALS: BP 120/77; PULSE 104; TEMP 36.9; O2SAT 97
--- NOTE | 2025-09-26 21:47 | P.PNPSI_ITS ---
Subjective Subjective Date of Service: 09/26/25 Reason For Visit: SI Subjective Notes: Wahl Warning and Conditional Voluntary Healthcare Proxy: No Guardianship: No Medical Problems Affecting Mental Status: No Interim History: Medical record and nursing notes reviewed; case discussed during rounds with team/nursing staff, and met with patient for supportive therapy/psychoeducation, as well as medication management. 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 Reports better in terms of anxiety and depression rated a 7-8/10. Slightly elevated because she has a new roommate. Her current roommate was moved to private room. Reported that she has been sleeping okay not last night as her roommate was up a lot, and at some point she stares at me at night . Suicidal thoughts. denies SIB/HI/AVH. However have thoughts of wanting to naturally worry about someone is dying while she is in the hospital. She would hope to be discharged soon by or Thursday. Change to 15 minute safety checks. Per social work, had a good family meeting yesterday. Her also came to visit her this evening. No self injury behavior. Continued to improve, less anxious, looking forward to going home. Compliant with medications, denies side effects. Reports wearing diaper at night just in case she has incontinent of urine. Possible restart [facility] again for aftercare plan. Medication Compliance: Yes Side effects from medications: No Attending Groups: Yes Review of Systems Acute medical concerns: No Medical Review of Systems: unchanged Review of Systems Review of Systems Constitutional: Denies fatigue and Denies fever(s) Cardiovascular: Denies chest pain and Denies dyspnea Respiratory: Denies dyspnea Gastrointestinal: Denies abdominal pain Psychiatric: denies suicidal ideation Endocrine: Denies fatigue Mental Status Exam Mental Status Exam Narrative: A+O x4, wearing hospital attire. No ADL's issues, no sedation. Improving in term of anxiety and depression. No SIB/HI/AVH, thoughts of wanting to naturally but not SI. Fair judgment and insight. Diagnostics Vital Signs (24Hr): Vital Signs - 24 hr 09/26/25 08:00 09/26/25 08:55 09/26/25 08:57 Temperature Pulse Rate 95 Respiratory Rate 18 Blood Pressure 141/86 H 141/86 H 141/86 H Pulse Oximetry 93 Oxygen Delivery Method Room Air 09/26/25 14:53 09/26/25 20:00 Temperature 98.4 F Pulse Rate 104 H Respiratory Rate Blood Pressure 125/84 120/77 Pulse Oximetry 97 Oxygen Delivery Method Room Air BMI result Body Mass Index 44.6 Labs 09/08/25 10:03 09/23/25 07:35 Imaging Radiology Impressions: ITS Impressions KUB X-Ray 09/21/25 14:14 IMPRESSION: No intestinal obstruction pattern. Probable hepatomegaly, mild. Electronically signed by: Aramis Garza MD 09/21/2025 02:26 PM [facility] Medications Medications Current Medications Acetaminophen (Acetaminophen 325 Mg Tablet) 650 mg PO Q6H PRN PRN Reason: Headache/Pain, Scale 1-10 Al Hydroxide/Mg Hydroxide (Magnesium Hydrox/Alum Hydrox 30 Ml Oral.Susp) 30 ml PO Q6H PRN PRN Reason: Heartburn/Nausea Clonazepam (Clonazepam 1 Mg Tablet) 1 mg PO TID [facility] Last Admin: 09/26/25 20:04 Dose: 1 mg Clonidine HCl (Clonidine Hcl 0.1 Mg Tablet) 0.1 mg PO BID@0900,1300 [facility]; Protocol Last Admin: 09/26/25 14:53 Dose: 0.1 mg Docusate Sodium (Docusate Sodium 100 Mg Capsule) 100 mg PO BID [facility] Last Admin: 09/26/25 20:25 Dose: Not Given Ferrous Sulfate (Ferrous Sulfate 324 Mg Tablet.Dr) 324 mg PO DAILY [facility] Last Admin: 09/26/25 08:56 Dose: 324 mg Haloperidol (Haloperidol 1 Mg Tablet) 2 mg PO TID [facility] Last Admin: 09/26/25 20:04 Dose: 2 mg Hydroxyzine HCl (Hydroxyzine Hcl 25 Mg Tablet) 25 mg PO Q6H PRN PRN Reason: mild anxiety Last Admin: 09/25/25 18:46 Dose: 25 mg Levothyroxine Sodium (Levothyroxine Sodium 125 Mcg Tablet) 125 mcg PO DAILY@0600 [facility] Last Admin: 09/26/25 06:24 Dose: 125 mcg Lisinopril (Lisinopril 2.5 Mg Tablet) 2.5 mg PO DAILY [facility]; Protocol Last Admin: 09/26/25 08:57 Dose: 2.5 mg Magnesium Hydroxide (Milk Of Magnesia 30 Ml Oral.Susp) 30 ml PO DAILY PRN PRN Reason: Constipation Last Admin: 09/14/25 09:16 Dose: 30 ml Metformin HCl (Metformin Hcl 500 Mg Tablet) 500 mg PO DAILY [facility] Last Admin: 09/26/25 08:55 Dose: 500 mg Mirtazapine (Mirtazapine 7.5 Mg Tablet) 7.5 mg PO BEDTIME JOANIE Last Admin: 09/26/25 20:05 Dose: 7.5 mg Non-Formulary Medication (Norethindrone (Contraceptive)) 0.35 mg PO DAILY [facility] Last Admin: 09/26/25 09:02 Dose: 0.35 mg Polyethylene Glycol (Polyethylene Glycol 3350 17 Gm Powd.Pack) 17 gm PO DAILY [facility] Last Admin: 09/26/25 08:58 Dose: Not Given Trazodone HCl (Trazodone Hcl 50 Mg Tablet) 50 mg PO BEDTIME MRX1 PRN PRN Reason: Insomnia Last Admin: 09/25/25 23:42 Dose: 50 mg Venlafaxine HCl (Venlafaxine Hcl Er 150 Mg Cap.Er.24h) 150 mg PO DAILY [facility] Last Admin: 09/26/25 08:56 Dose: 150 mg Venlafaxine HCl (Venlafaxine Hcl Er 37.5 Mg Cap.Er.24h) 37.5 mg PO DAILY [facility] Last Admin: 09/26/25 08:56 Dose: 37.5 mg Allergies Allergies Allergy/AdvReac Type Severity Reaction Status Date / Time amoxicillin Allergy Unknown Verified 09/08/25 09:38 loratadine (From Claritin) Allergy Unknown Verified 09/08/25 09:38 sulfamethoxazole (From Allergy Unknown Verified 09/08/25 09:38 Sulfamethoxazole-Trimethoprim) trimethoprim (From Allergy Unknown Verified 09/08/25 09:38 Sulfamethoxazole-Trimethoprim) Assessment & Plan Assessment & Plan (1) Depression: Qualifiers: Depression Type: unspecified Qualified Code(s): F32.A - Depression, unspecified Status: Acute Code(s): F32.A - Depression, unspecified (2) Hypothyroidism: Status: Acute Code(s): E03.9 - Hypothyroidism, unspecified (3) Prediabetes: Status: Acute Code(s): R73.03 - Prediabetes (4) Anxiety state, unspecified: Status: Acute Code(s): F41.1 - Generalized anxiety disorder Plan HPI: Patient is a 44 year old, , Urdu speaking female with hx of pre-diabetic, thryroid disease, depression, and anxiety who self presents to the [facility] ED today with her mother in law reporting SI with plan to OD on pills or cut herself. She has been admitted IPLOC twice to [facility], the first of which was in June and most recently from 07/28-. It appears the was assessed for the PHP at [facility] on 09/06/2025. Attended 1 day only. Do not think PHP is a good fit for her Formulation/clinical reasoning: increased in depression and anxiety, poor sleep and appetite, increase in safety concerns SI with plans. Hx of not complete treatment and relapse on mental health symptoms that affect daily functions. Currently is on medical leave of absent. Hx of Depression and Anxiety. Given above information, patient would benefit in restrictive environment for safety, medication adjustment and refer patient back to OP psychiatric services for aftercare. Hospital course: 09/08/25: patient still has passive SI with plan, but no intent to do harm to her. Feeling safe here. Potential to sign a 3-day notice to have some control over her treatment but open to stay longer if need Increased Remeron from 7.5mg to 15mg at HS for insomnia Increase Zyprexa up to 12.5mg in divided dose for severe anxiety/racing thoughts Increase Effexor ER to 187.5mg from 150mg for depression Metformin 500mg daily for diabetes. Zyprexa 5mg BID PRN for agitation. Trazodone and Hydroxyzine PRN available per protocol. Reviewed med list with patient POC BIB to monitor for BS. Can discontinue if BS is stable. 09/09 Patient explains events that led to this admission, saying she got triggered at the partial program due to conversations in the group. Patient reports continued SI but says it is less so since she is on the unit and trying to be hopeful about treatment. Manager Equipment discussed medications and on admission, Venlafaxine and Mirtazapine both increased so patient agrees to see if these adjustments are helpful 09/11: I was not honest about how I was feeling when I left. I can leave on Thursday right? Pt reports she feels all will be better off if she were not alive. She is worried about how much this admission will cost for a co-payment. Reports +SI without a plan, Denies HI,AH,VH. Depressed, anxious and agitated. 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 team did a wellness check and found their home to be unclean and as a result took their dog away. Reports sleep and appetite are intact Anxious today as mother is having a hysterectomy at a hospital in [place], [place] Attempting to attend milieu programs, but very anxious Medically, seen by hospitalist team today to check in with pt on pre-DM, hypothyroidism, iron deficiency anemia and HTN. No changes to plan were made today. Discussed with pt that she will not be considered for discharge on 09/13. She is not prepared to retract TDN. Discussed Section VII and the need for treatment. Agreed to begin lamictal, klonopin and increase olanzapine. Venlafaxine decreased as it may be causing an increase in anxiety. 09/12:Met with pt and Leyda Aiken LCSW. Pt requests POC be discontinued. Reports she slept well with meds. Discussed wanting to , feeling scared to be here, feeling tired, mind and body, concern about over and under medicating, upsetting group topics. Anxious, overwhelmed, a big bad dream Summarized her hospitalizations [id number] over the of her father and elenita; July- getting back on meds and August- really wanting to . Retracted TDN in the afternoon with Leyda Aiken LCSW. +SI, -HI, -AH, -VH Discussed changing Olanzapine to Risperdal to help pt focus on grounding. She agrees. 09/13: Anxiety persists. Suicidally persists. Re-signed a three day notice today. Review of medications. Will trial Depakote tid to begin to assess efficacy on anxiety. Pt agrees. I know I am not ready to go Discussed her family, genetics of bipolar disorder and advances in treatment over time. Discussed bipolar II and the differences in symptom presentation. 09/14/25: Patient report having difficult morning usually d/t anxiety but she is patiently enough to way for her turn to take AM scheduled meds. Report passive SI still there but at the same time saying I am ready to go home but is aware of d/t passive SI, she does not feel safe going home yet. Denies SIB/HI/AVH. She is anxious, depressed, but pleasant and cooperative. No behavior issues. Compliant with meds and denies side effects. Should dx changed to Bipolar II? 09/15/25: As asked above, pt reports a history of elenita, not hypomania, unless her account changes as symptoms subside. Pt reports no improvement. Discussion to changes to her treatment plan. Review of labs/meds. Creatinine 0.79, Cr Cl 106, GFR >60. Reports constipation- given prn dulcolax, colace 100 mg bid, Miralax daily Discussed ECT- parents have a hx of ECT. Will obtain consult and continue med titration. Klonopin increased to 2 mg tid Depakote ER changed to 500 mg bid Risperdal increased to 1 mg bid Prazosin 1mg initiated at hs Pt came to tw later in the day- Whatever we did this morning helped, I am feeling better, may I go home today? Discussed with pt why she could not leave today- she verbalized understanding. 09/16/25: Met with patient in the exam room, reports that is patient has constipation and urine incontinence last night which she at she bill is from being constipated. However, refused Colace last night per record. Reports left hand numbness which she has that experience when her dad passed and symptoms going away self. Suicidal thoughts continue to bother her, and reports sometimes thinking about suffocating myself . Patient is looking forward to hearing more information if she has going to get ECT treatment. At the end of the encounter, patient reports feeling drowsy, therefore, she wants to rest instead of go back to group. Later on in the afternoon, she is getting ready to see her , who is coming to visit her. Per nursing, patient slept for 8 hours, mood is all over the place not sure if it is intentionally or she gets confused. Somewhat labile. She signed 3 day notice, wanted to go home but continued to reports suicidal thoughts.?The patient should be discharged next Thursday when the 3 day is . Will order U/A and Ammonia level rule medical conditions causing disorganization. 09/17/25: Meet with patient in exam room, very anxious concerning about incontinence of urine the past two nights. Report she slept through and not able to wake up for bathroom use. Continue disclose passive SI my head not right. My body feels awkward and I am frustrated . Patient at the same time want to go home and want to know about ECT treatment. Recently meds change that help with anxiety but seems sedated. We will hold Clonidine at 1300 and Klonpoin scheduled at HS but give 1mg instead. Nursing is aware to not offer trazodone with scheduled meds. Will reassess the next day. Ammonia level 17 WNL. U/A was negative to rule out any confusion. Pending ECT consult with hope patient would be seen by Thursday. Patient is not stable, we still work on finding appropriate regimens as patient has a couple medication changes lately with pending effects. flat affect. Would not safe and not stable enough to discharge as predict of relapse on mental health is high. Patient has 3 day notice in which he up on Thursday. 09/18/25: Patient reports passive SI, no plan, no intent. Report she does not feel right yet but Want to go home. She says she cannot stay for another weekends here. Report I can hear my self snored but I am not asleep . Report no incontinence last night. Sleep good. Report anxious and but not too tired. Reviewed with patient regarding Klonopin. When told her will order 0.5mg x1 now dose she says it may not enough but reports tired at the same time. Reduced Klonopin down to 1mg TID. Met with Cycling Instructor, feel better. Will want to be discharged but also want ECT. Been asking about it daily. She may think about retract 3 day to stay for a couple more days to manage her symptoms but does not want to retract it now but is aware she can do it with anyone later. Slightly better compared to yesterday in term of mood. However, safety remains an issues as her SI still there which is not a chronic issues for her. I do not think it is safe to discharge her home tomorrow. Denies SIB/HI/AVH. Klonopin down from 2mg TID to 1mg TID d/t sedated. 09/19/25:Pt retracted her TDN. Continues to feel like I am losing control of my mind . Wanting DC, to be home alone. Denies feeling undermedicated or overmedicated- I am tired, drained, thoughts racing, anxious depressed, suicidal. Anxiety is better depending upon the moment she reports. Incontinent over the weekend- Klonopin decreased-pt believes it is due to remeron. will monitor, however incontinence has stopped since klonopin was decreased. ECT consult appreciated by Dr. Bustos who does not believe pt has bipolar disorder, but VIRGILIO, OCD sx. ECT not recommended. Venlafaxine increase recommended. Will taper depakote and increase Venlafaxine per this consult. Plan: Per consult recommendations... Depakote decrease to 250 mg bid Increase Venlafaxine to 187.5 mg daily 09/20/25:Team report pt slept for seven hours last evening. Pt reports SIBS-head banging which team report did not occur. Pt continues with SI, placing a pillow over her head, asking team what she could do to kill herself with a pillow case. Team reports seeing a great deal of provocative sx, learned helplessness. Met with pt and reviewed. Reviewed symptoms of borderline personality disorder, no, I don't think that is me. Discussed inconsistencies in reporting of symptoms. Pt reports often she just does not know Continues to report anxiety. Wanting discharge, yet reporting she feels unsafe at home. 09/21/25: DC Risperdal Haldol 2 mg tid Depakote 250 mg x 2 days then stop 09/22/25: Continue tx. 09/23/25: Reviewed with team. Review of plan of care. Met with pt. Reviewed my discussion with her last evening. Family meeting 09/25. Pt asking about DC. Discussed next week or the week after- became anxious. my body is off- I have had a lot of M&M's and have had diarrhea and urinary incontinence. Discussed medication changes. Plan: Decrease Klonopin to 0.5 mg tid DC Prazosin Decrease Remeron to 7.5 mg HS 09/24/25: Increase Klonopin to 1 mg tid Discharge planned for 09/29. 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 Reports better in terms of anxiety and depression rated a 7-8/10. Slightly elevated because she has a new roommate. Her current roommate was moved to private room. Reported that she has been sleeping okay not last night as her roommate was up a lot, and at some point she stares at me at night . Suicidal thoughts. denies SIB/HI/AVH. However have thoughts of wanting to naturally worry about someone is dying while she is in the hospital. She would hope to be discharged soon by or Thursday. Change to 15 minute safety checks. Per social work, had a good family meeting yesterday. Her also came to visit her this evening. No self injury behavior. Continued to improve, less anxious, looking forward to going home. Compliant with medications, denies side effects. Reports wearing diaper at night just in case she has incontinent of urine. Possible restart PHP again for aftercare plan. Plan Patient on 15 minute checks for safety. Admitted to [facility]. CV Increased Remeron from 7.5mg to 15mg at HS for insomnia Trials:Zyprexa, Risperidone depakote. Currently on Haldol 2mg BID. Increase Effexor ER to 187.5mg from 150mg for depression Work with treatment team to do collateral. Possible discharge in one or two days. Patient educated on: diagnosis, medication risk/benefits and therapeutic strategies Informed Consent: understands and further education needed Reason for continued inpatient stay Substantial Risk for: med/psych decompensation Time Spent With Patient Time: Total time managing care of this patient today ____ minutes.
[2025-09-27 08:00] VITALS: BP 145/92; PULSE 117; TEMP 36.8; O2SAT 98
[2025-09-27] MEDS: Venlafaxine HCl ER 150 MG CAP.ER.24H PO (08:32)
[2025-09-27] MEDS: Venlafaxine HCl ER 37.5 MG CAP.ER.24H PO (08:32)
[2025-09-27] MEDS: Ferrous Sulfate 324 MG TABLET.DR PO (08:32)
--- NOTE | 2025-09-27 10:09 | HO.PSYCHPN ---
Subjective Subjective Date of Service: 09/27/25 Reason For Visit: SI Subjective Notes: Conditional Voluntary Healthcare Proxy: No Guardianship: No Medical Problems Affecting Mental Status: No Interim History: Asks to discharge on 09/28. Anxious, asks to increase medications, however, clear in asking to discharge a day early and begin to take control of her life. Met with pt and Leyda Aiken DIRECTOR NICU. Reviewed meds, plan of care. I am anxious, but I want to go home. Denies SI,HI,AH,VH. Review of skills, DBT which she has been reading about and problem solving. Safety planning completed Medication Compliance: Yes Side effects from medications: No Attending Groups: Yes Review of Systems Acute medical concerns: No Medical Review of Systems: unchanged Review of Systems Review of Systems Denies Does report PMS sx Mental Status Exam Mental Status Exam Patient Appearance: Appropriate Patient Orientation: Person, Place, Time and Situation Level of Consciousness: Alert Patient Behavior: Talkative and Good Eye Contact Mood Description: Anxious and Apprehensive Affect Description: Anxious and Apprehensive Patient Cognition Impaired: No Ability to Follow Directions: Good Speech Pattern: Spontaneous Speech Memory Description: Intact Hallucinations: None Delusions: Not Present Thought Process: Goal Oriented Thought Content: positive for Goal Oriented and positive for Suicidal Ideation (denies) Depressive Symptoms: Thoughts of /Suicide (denies) Judgement: Good Diagnostics Vital Signs (24Hr): Vital Signs - 24 hr 09/26/25 14:53 09/26/25 20:00 09/27/25 08:00 Temperature 98.4 F 98.2 F Pulse Rate 104 H 117 H Blood Pressure 125/84 120/77 145/92 H Pulse Oximetry 97 98 Oxygen Delivery Method Room Air Room Air BMI result Body Mass Index 44.6 Labs 09/08/25 10:03 09/23/25 07:35 Imaging Radiology Impressions: ITS Impressions KUB X-Ray 09/21/25 14:14 IMPRESSION: No intestinal obstruction pattern. Probable hepatomegaly, mild. Electronically signed by: Aramis Garza MD 09/21/2025 02:26 PM [facility] Medications Medications Current Medications Acetaminophen (Acetaminophen 325 Mg Tablet) 650 mg PO Q6H PRN PRN Reason: Headache/Pain, Scale 1-10 Al Hydroxide/Mg Hydroxide (Magnesium Hydrox/Alum Hydrox 30 Ml Oral.Susp) 30 ml PO Q6H PRN PRN Reason: Heartburn/Nausea Clonazepam (Clonazepam 1 Mg Tablet) 1 mg PO TID [facility] Last Admin: 09/27/25 08:32 Dose: 1 mg Clonidine HCl (Clonidine Hcl 0.1 Mg Tablet) 0.1 mg PO BID@0900,1300 [facility]; Protocol Last Admin: 09/27/25 08:32 Dose: 0.1 mg Docusate Sodium (Docusate Sodium 100 Mg Capsule) 100 mg PO BID [facility] Last Admin: 09/27/25 08:37 Dose: Not Given Ferrous Sulfate (Ferrous Sulfate 324 Mg Tablet.Dr) 324 mg PO DAILY [facility] Last Admin: 09/27/25 08:32 Dose: 324 mg Haloperidol (Haloperidol 1 Mg Tablet) 2 mg PO TID [facility] Last Admin: 09/27/25 08:32 Dose: 2 mg Hydroxyzine HCl (Hydroxyzine Hcl 25 Mg Tablet) 25 mg PO Q6H PRN PRN Reason: mild anxiety Last Admin: 09/25/25 18:46 Dose: 25 mg Levothyroxine Sodium (Levothyroxine Sodium 125 Mcg Tablet) 125 mcg PO DAILY@0600 [facility] Last Admin: 09/27/25 06:17 Dose: 125 mcg Lisinopril (Lisinopril 2.5 Mg Tablet) 2.5 mg PO DAILY [facility]; Protocol Last Admin: 09/27/25 08:32 Dose: 2.5 mg Magnesium Hydroxide (Milk Of Magnesia 30 Ml Oral.Susp) 30 ml PO DAILY PRN PRN Reason: Constipation Last Admin: 09/14/25 09:16 Dose: 30 ml Metformin HCl (Metformin Hcl 500 Mg Tablet) 500 mg PO DAILY [facility] Last Admin: 09/27/25 08:32 Dose: 500 mg Mirtazapine (Mirtazapine 7.5 Mg Tablet) 7.5 mg PO BEDTIME [facility] Last Admin: 09/26/25 20:05 Dose: 7.5 mg Non-Formulary Medication (Norethindrone (Contraceptive)) 0.35 mg PO DAILY [facility] Last Admin: 09/27/25 08:33 Dose: 0.35 mg Polyethylene Glycol (Polyethylene Glycol 3350 17 Gm Powd.Pack) 17 gm PO DAILY [facility] Last Admin: 09/27/25 08:37 Dose: Not Given Trazodone HCl (Trazodone Hcl 50 Mg Tablet) 50 mg PO BEDTIME MRX1 PRN PRN Reason: Insomnia Last Admin: 09/25/25 23:42 Dose: 50 mg Venlafaxine HCl (Venlafaxine Hcl Er 150 Mg Cap.Er.24h) 150 mg PO DAILY JOANIE Last Admin: 09/27/25 08:32 Dose: 150 mg Venlafaxine HCl (Venlafaxine Hcl Er 37.5 Mg Cap.Er.24h) 37.5 mg PO DAILY JOANIE Last Admin: 09/27/25 08:32 Dose: 37.5 mg Allergies Allergies Allergy/AdvReac Type Severity Reaction Status Date / Time amoxicillin Allergy Unknown Verified 09/08/25 09:38 loratadine (From Claritin) Allergy Unknown Verified 09/08/25 09:38 sulfamethoxazole (From Allergy Unknown Verified 09/08/25 09:38 Sulfamethoxazole-Trimethoprim) trimethoprim (From Allergy Unknown Verified 09/08/25 09:38 Sulfamethoxazole-Trimethoprim) Assessment & Plan Assessment & Plan (1) Depression: Qualifiers: Depression Type: unspecified Qualified Code(s): F32.A - Depression, unspecified Status: Acute Code(s): F32.A - Depression, unspecified (2) Hypothyroidism: Status: Acute Code(s): E03.9 - Hypothyroidism, unspecified (3) Prediabetes: Status: Acute Code(s): R73.03 - Prediabetes (4) Anxiety state, unspecified: Status: Acute Code(s): F41.1 - Generalized anxiety disorder Plan HPI: Patient is a 44 year old, , Pashto speaking female with hx of pre-diabetic, thryroid disease, depression, and anxiety who self presents to the [facility] today with her mother in law reporting SI with plan to OD on pills or cut herself. She has been admitted IPLOC twice to [facility], the first of which was in June and most recently from 07/28-. It appears the was assessed for the PHP at [facility] on 09/06/2025. Attended 1 day only. Do not think PHP is a good fit for her Formulation/clinical reasoning: increased in depression and anxiety, poor sleep and appetite, increase in safety concerns SI with plans. Hx of not complete treatment and relapse on mental health symptoms that affect daily functions. Currently is on medical leave of absent. Hx of Depression and Anxiety. Given above information, patient would benefit in restrictive environment for safety, medication adjustment and refer patient back to OP psychiatric services for aftercare. Hospital course: 09/08/25: patient still has passive SI with plan, but no intent to do harm to her. Feeling safe here. Potential to sign a 3-day notice to have some control over her treatment but open to stay longer if need Increased Remeron from 7.5mg to 15mg at HS for insomnia Increase Zyprexa up to 12.5mg in divided dose for severe anxiety/racing thoughts Increase Effexor ER to 187.5mg from 150mg for depression Metformin 500mg daily for diabetes. Zyprexa 5mg BID PRN for agitation. Trazodone and Hydroxyzine PRN available per protocol. Reviewed med list with patient POC BIB to monitor for BS. Can discontinue if BS is stable. 09/09 Patient explains events that led to this admission, saying she got triggered at the partial program due to conversations in the group. Patient reports continued SI but says it is less so since she is on the unit and trying to be hopeful about treatment. Electrical Construction Project Manager discussed medications and on admission, Venlafaxine and Mirtazapine both increased so patient agrees to see if these adjustments are helpful 09/11: I was not honest about how I was feeling when I left. I can leave on Thursday right? Pt reports she feels all will be better off if she were not alive. She is worried about how much this admission will cost for a co-payment. Reports +SI without a plan, Denies HI,AH,VH. Depressed, anxious and agitated. 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 Reports sleep and appetite are intact Anxious today as mother is having a hysterectomy at a hospital in [place], [place] Attempting to attend milieu programs, but very anxious Medically, seen by hospitalist team today to check in with pt on pre-DM, hypothyroidism, iron deficiency anemia and HTN. No changes to plan were made today. Discussed with pt that she will not be considered for discharge on 09/13. She is not prepared to retract TDN. Discussed Section VII and the need for treatment. Agreed to begin lamictal, klonopin and increase olanzapine. Venlafaxine decreased as it may be causing an increase in anxiety. 09/12:Met with pt and Leyda Aiken LCSW. Pt requests POC be discontinued. Reports she slept well with meds. Discussed wanting to , feeling scared to be here, feeling tired, mind and body, concern about over and under medicating, upsetting group topics. Anxious, overwhelmed, a big bad dream Summarized her hospitalizations [id number] over the of her father and elenita; July- getting back on meds and August- really wanting to . Retracted TDN in the afternoon with Leyda Aiken LCSW. +SI, -HI, -AH, -VH Discussed changing Olanzapine to Risperdal to help pt focus on grounding. She agrees. 09/13: Anxiety persists. Suicidally persists. Re-signed a three day notice today. Review of medications. Will trial Depakote tid to begin to assess efficacy on anxiety. Pt agrees. I know I am not ready to go Discussed her family, genetics of bipolar disorder and advances in treatment over time. Discussed bipolar II and the differences in symptom presentation. 09/14/25: Patient report having difficult morning usually d/t anxiety but she is patiently enough to way for her turn to take AM scheduled meds. Report passive SI still there but at the same time saying I am ready to go home but is aware of d/t passive SI, she does not feel safe going home yet. Denies SIB/HI/AVH. She is anxious, depressed, but pleasant and cooperative. No behavior issues. Compliant with meds and denies side effects. Should dx changed to Bipolar II? 09/15/25: As asked above, pt reports a history of elenita, not hypomania, unless her account changes as symptoms subside. Pt reports no improvement. Discussion to changes to her treatment plan. Review of labs/meds. Creatinine 0.79, Cr Cl 106, GFR >60. Reports constipation- given prn dulcolax, colace 100 mg bid, Miralax daily Discussed ECT- parents have a hx of ECT. Will obtain consult and continue med titration. Klonopin increased to 2 mg tid Depakote ER changed to 500 mg bid Risperdal increased to 1 mg bid Prazosin 1mg initiated at hs Pt came to tw later in the day- Whatever we did this morning helped, I am feeling better, may I go home today? Discussed with pt why she could not leave today- she verbalized understanding. 09/16/25: Met with patient in the exam room, reports that is patient has constipation and urine incontinence last night which she at she bill is from being constipated. However, refused Colace last night per record. Reports left hand numbness which she has that experience when her dad passed and symptoms going away self. Suicidal thoughts continue to bother her, and reports sometimes thinking about suffocating myself . Patient is looking forward to hearing more information if she has going to get ECT treatment. At the end of the encounter, patient reports feeling drowsy, therefore, she wants to rest instead of go back to group. Later on in the afternoon, she is getting ready to see her , who is coming to visit her. Per nursing, patient slept for 8 hours, mood is all over the place not sure if it is intentionally or she gets confused. Somewhat labile. She signed 3 day notice, wanted to go home but continued to reports suicidal thoughts.?The patient should be discharged next Thursday when the 3 day is . Will order U/A and Ammonia level rule medical conditions causing disorganization. 09/17/25: Meet with patient in exam room, very anxious concerning about incontinence of urine the past two nights. Report she slept through and not able to wake up for bathroom use. Continue disclose passive SI my head not right. My body feels awkward and I am frustrated . Patient at the same time want to go home and want to know about ECT treatment. Recently meds change that help with anxiety but seems sedated. We will hold Clonidine at 1300 and Klonpoin scheduled at HS but give 1mg instead. Nursing is aware to not offer trazodone with scheduled meds. Will reassess the next day. Ammonia level 17 WNL. U/A was negative to rule out any confusion. Pending ECT consult with hope patient would be seen by Thursday. Patient is not stable, we still work on finding appropriate regimens as patient has a couple medication changes lately with pending effects. flat affect. Would not safe and not stable enough to discharge as predict of relapse on mental health is high. Patient has 3 day notice in which he up on Thursday. 09/18/25: Patient reports passive SI, no plan, no intent. Report she does not feel right yet but Want to go home. She says she cannot stay for another weekends here. Report I can hear my self snored but I am not asleep . Report no incontinence last night. Sleep good. Report anxious and but not too tired. Reviewed with patient regarding Klonopin. When told her will order 0.5mg x1 now dose she says it may not enough but reports tired at the same time. Reduced Klonopin down to 1mg TID. Met with Incident Response Manager, feel better. Will want to be discharged but also want ECT. Been asking about it daily. She may think about retract 3 day to stay for a couple more days to manage her symptoms but does not want to retract it now but is aware she can do it with anyone later. Slightly better compared to yesterday in term of mood. However, safety remains an issues as her SI still there which is not a chronic issues for her. I do not think it is safe to discharge her home tomorrow. Denies SIB/HI/AVH. Klonopin down from 2mg TID to 1mg TID d/t sedated. 09/19/25:Pt retracted her TDN. Continues to feel like I am losing control of my mind . Wanting DC, to be home alone. Denies feeling undermedicated or overmedicated- I am tired, drained, thoughts racing, anxious depressed, suicidal. Anxiety is better depending upon the moment she reports. Incontinent over the weekend- Klonopin decreased-pt believes it is due to remeron. will monitor, however incontinence has stopped since klonopin was decreased. ECT consult appreciated by Dr. Bustos who does not believe pt has bipolar disorder, but VIRGILIO, OCD sx. ECT not recommended. Venlafaxine increase recommended. Will taper depakote and increase Venlafaxine per this consult. Plan: Per consult recommendations... Depakote decrease to 250 mg bid Increase Venlafaxine to 187.5 mg daily 09/20/25:Team report pt slept for seven hours last evening. Pt reports SIBS-head banging which team report did not occur. Pt continues with SI, placing a pillow over her head, asking team what she could do to kill herself with a pillow case. Team reports seeing a great deal of provocative sx, learned helplessness. Met with pt and reviewed. Reviewed symptoms of borderline personality disorder, no, I don't think that is me. Discussed inconsistencies in reporting of symptoms. Pt reports often she just does not know Continues to report anxiety. Wanting discharge, yet reporting she feels unsafe at home. 09/21/25: DC Risperdal Haldol 2 mg tid Depakote 250 mg x 2 days then stop 09/22/25: Continue tx. 09/23/25: Reviewed with team. Review of plan of care. Met with pt. Reviewed my discussion with her last evening. Family meeting 09/25. Pt asking about DC. Discussed next week or the week after-became anxious. my body is off- I have had a lot of M&M's and have had diarrhea and urinary incontinence. Discussed medication changes. Plan: Decrease Klonopin to 0.5 mg tid DC Prazosin Decrease Remeron to 7.5 mg HS 09/24/25: Increase Klonopin to 1 mg tid Discharge planned for 09/29. 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 Reports better in terms of anxiety and depression rated a 7-8/10. Slightly elevated because she has a new roommate. Her current roommate was moved to private room. Reported that she has been sleeping okay not last night as her roommate was up a lot, and at some point she stares at me at night . Suicidal thoughts. denies SIB/HI/AVH. However have thoughts of wanting to naturally worry about someone is dying while she is in the hospital. She would hope to be discharged soon by or Thursday. Change to 15 minute safety checks. Per social work, had a good family meeting yesterday. Her also came to visit her this evening. No self injury behavior. Continued to improve, less anxious, looking forward to going home. Compliant with medications, denies side effects. Reports wearing diaper at night just in case she has incontinent of urine. Possible restart PHP again for aftercare plan. 09/27: Discharge 09/28 Increase Haldol to 3 mg tid today only per pt request Increase Mirtazapine to 15 mg hs/Venlafaxine to 225 mg daily Plan Patient on 15 minute checks for safety. Admitted to [facility]. [facility] Increased Remeron from 7.5mg to 15mg at HS for insomnia Trials:Zyprexa, Risperidone depakote. Currently on Haldol 2mg BID. Increase Effexor ER to 187.5mg from 150mg for depression Work with treatment team to do collateral. Possible discharge in one or two days. Reason for continued inpatient stay Substantial Risk for: rapid decompensation Time Spent With Patient Time: Total time managing care of this patient today ____ minutes.
[2025-09-27 12:32] VITALS: BP 129/89; PULSE 100
[2025-09-27 20:00] VITALS: BP 126/81; PULSE 98; TEMP 36.4; O2SAT 98
[2025-09-28 08:00] VITALS: BP 144/95; PULSE 98; TEMP 37.1; O2SAT 93
[2025-09-28] MEDS: Venlafaxine HCl ER 75 MG CAP.ER.24H 225 MG PO (08:37)
[2025-09-28] MEDS: Ferrous Sulfate 324 MG TABLET.DR PO (08:37)
--- NOTE | 2025-09-28 10:03 | PM.PSYDC ---
DS: Providers Provider Date of Service: 09/28/25 Date of admission: 09/08/25 19:11 Date of discharge: 09/28/25 Primary care physician: Cortes Cunha MD Consults: 09/15/25 17:37 Consult to Psychiatry Routine Consulting Provider: Du Bustos Reason for consultation: ECT Has provider been notified: No 09/21/25 15:29 Consult to Gastroenterology Routine Consulting Provider[place] [facility] Reason for consultation: hepatomegaly Has provider been notified: No DS: Diagnosis Discharge Diagnosis (1) Depression: Status: Acute (2) Hypothyroidism: Status: Acute (3) Prediabetes: Status: Acute (4) Anxiety state, unspecified: Status: Acute DS: Medications Discharge Medications Home Medications: Previous Rx's ?Medication ?Instructions ?Recorded clonazepam 0.5 mg tablet (Klonopin) 0.5 mg PO TID #21 tabs 09/28/25 clonidine HCl 0.1 mg tablet 0.1 mg PO BID@0900,1300 #14 tabs 09/28/25 docusate sodium 100 mg capsule 100 mg PO BID #60 caps 09/28/25 ferrous sulfate 325 mg (65 mg 325 mg PO DAILY #30 tabs 09/28/25 iron) tablet haloperidol 2 mg tablet 2 mg PO TID #21 tabs 09/28/25 hydroxyzine HCl 25 mg tablet 25 mg PO Q6H PRN mild anxiety #15 09/28/25 tabs levothyroxine 125 mcg tablet 125 mcg PO DAILY #30 tabs 09/28/25 lisinopril 2.5 mg tablet 2.5 mg PO DAILY #30 tabs 09/28/25 metformin 500 mg tablet 500 mg PO DAILY #30 tabs 09/28/25 mirtazapine 15 mg tablet 15 mg PO BEDTIME #7 tabs 09/28/25 norethindrone (contraceptive) 0.35 0.35 mg PO DAILY #30 tabs 09/28/25 mg tablet (Luiza) polyethylene glycol 3350 17 gram 17 g PO DAILY #30 ea 09/28/25 oral powder packet trazodone 50 mg tablet 50 mg PO BEDTIME MRX1 PRN Insomnia 09/28/25 #14 tabs venlafaxine 75 mg capsule,extended 225 mg (3 x 75 mg) PO DAILY #21 12/11/25 release 24 hr caps Mental Status Exam Mental Status Exam Patient Appearance: Appropriate Patient Orientation: Person, Place, Time and Situation Level of Consciousness: Alert Patient Behavior: Talkative and Good Eye Contact Mood Description: Anxious and Apprehensive Affect Description: Anxious and Apprehensive Patient Cognition Impaired: No Ability to Follow Directions: Good Speech Pattern: Spontaneous Speech Memory Description: Intact Hallucinations: None Delusions: Not Present Thought Process: Goal Oriented Thought Content: positive for Goal Oriented and positive for Suicidal Ideation (denies) Depressive Symptoms: Thoughts of /Suicide (denies) Judgement: Good Data Data Completed and Pending Completed studies during hospitalization [Text1]: 09/23/25 09/23/25 09/23/25 07:35 07:35 07:35 Creatinine 0.78 0.78 Estim Creat Clear Calc 107.9 107.9 Estimated GFR > 60 09/23/25 07:35 Creatinine Estim Creat Clear Calc Estimated GFR > 60 09/08/25 Unknown Urine clean catch - Clean Catch Midstream Urine Culture - Final 09/08/25 14:52 Urine clean catch - Clean Catch Midstream Urine Culture - Final Imaging Diagnostic Imaging Impressions KUB X-Ray 09/21/25 14:14 IMPRESSION: No intestinal obstruction pattern. Probable hepatomegaly, mild. Electronically signed by: Aramis Garza MD 09/21/2025 02:26 PM [facility] DS: Summary Hospital Course Hospital Course: Per Care team note: Patient is a 44 year old, , Luxembourger speaking female with hx of pre-diabetic, thryroid disease, depression, and anxiety who self presents to [place] [facility] today with her mother in law reporting SI with plan to OD on pills or cut herself. She has been admitted [facility] twice to [facility], the first of which was in June and most recently from 07/28-. It appears the was assessed for the PHP at [facility] on 09/06/2025, having been referred as a step down from [facility]. Of note, she called the PHP on 2024 requesting to discharge from the program due to having had a different idea of what the program was and shared that the group format/ hearing what other people are going through was very difficult for her. Patient cites several triggers, among them that she has been isolating, struggling to fall and stay asleep and not feeling rested, feeling both tired/ low energy and agitated/ restless as well as feeling out of my body, dissociating and shares her feet are feeling strange and she her head feels like it is a balloon and floating above her, that she is tremulous and ultimately, found herself coming up with ideas of how to end her life. She report guilt that she cannot help/ support her mother with her medical issues as well as fear that it would cause her mother distress to know patient is feeling this depressed and suicidal. On M5: Patient assessed in assigned room in the ED pod prior to be brought up to M5. Report reasons for this admission is I have strong feeling of killing myself. Not getting the rest I need and anxiety is to the roof . Patient reports that she only attended PHP x1 day and there are lots of groups. People talked about there issues. it triggered. Make me feel a lot worse . Rated her anxiety and depression a 9-10/10. Currently still have SI with plan do anything I can to not be here any more . However,report that she feels safe here and wont do anything harm to herself here. Report SIB with most recent one was yesterday when she hit her head to the wall I prefer having physical pain than mental pain . Denies HI/AVH, denies suicide attempts. No legal or substance use issues. Report poor sleep and appetite. Patient signed CV, then ask to see if she can sign 3-day notice. Per record, patient also signed 3 day notice from last admission to leave the hospital early. Patient was asked to think if this pattern is actually helpful to her mental health as she does not give the team enough time to manage her anxiety and depresion symptoms. Patient states that she just wants to have some control over her treatment and if needed, she will stay longer. Patient says that both of her parents had ECT treatment in the past. If it is a another better treatment plan, she would open for this treatment. Refer patient to discuss with the attending. Discuss with patient regarding medication changes. Patient is receptive. Medications were evaluated and adjusted. ECT consult was completed by Dr. Bustos who informed pt she did not meet criteria for ECT at this time. Pt was offered full milieu to strengthen coping skills. Pt will discharge to return to her out pt providers at [facility] and she will trial PHP program again. Status at Discharge Functional status at discharge: independent ambulation Overall status at discharge: patient is progressing back to baseline Time Spent with Patient Time attestation: Total time managing care of this patient today ____ minutes. Time spent: Less than 30 minutes Discharge Plan Discharge Anticipated Discharge Date/Time: 09/28/25 11:00 Patient Disposition: Home, Self-Care Discharge Diagnosis: Bipolar Disorder, Depressed Borderline Personality Disorder Hypothyroidism Pre-Diabetes Referrals: [facility] Therapy with Daniele Tran [Other] - 10/03/25 11:30 am [facility] Psychiatric Eval evelyn Opal Fiore [Other] - 10/09/25 12:20 am [facility] Therapy with Nova Concepcion [Other] - 10/31/25 2:30 pm [facility] Partial Program [Other] - 1 Week Referral Note: Karen has declined going to [facility] for now but at any time can call the number listed to schedule an intake. Bereavement/Grief Support [Other] - 1 Day Referral Note: This website has many resources for a variety of options for grief support in the area. Grief Support - [facility] [Other] - 1 Week Referral Note: As of now there are no groups being offered but they do plan to offer a group in the spring and you can reach out to them at the end of winter for the dates and times. Cortes Cunha MD [Primary Care Provider, Medical] - 1 Week Referral Note: Pt requested to follow up with pcp after discharge. Declined to have appt scheduled at time of discharge. Discharge Medications: New clonidine HCl 0.1 mg Tablet 0.1 mg PO BID@0900,1300 Qty: 14 4RF Protocol: Hold for SBP< HOLD for SBP < : 90 venlafaxine 75 mg Capsule,Extended Release 24hr 225 mg PO DAILY Qty: 21 4RF mirtazapine 15 mg Tablet 15 mg PO BEDTIME Qty: 7 4RF docusate sodium 100 mg Capsule 100 mg PO BID Qty: 60 0RF polyethylene glycol 3350 17 gram Powder In Packet 17 g PO DAILY Qty: 30 0RF haloperidol 2 mg tablet 2 mg PO TID Qty: 21 4RF clonazepam [Klonopin] 0.5 mg tablet 0.5 mg PO TID Qty: 21 4RF norethindrone (contraceptive) [Luiza] 0.35 mg tablet 0.35 mg PO DAILY Qty: 30 0RF Continued metformin 500 mg tablet 500 mg PO DAILY Qty: 30 0RF trazodone 50 mg Tablet 50 mg PO BEDTIME MRX1 PRN (Reason: Insomnia) Qty: 14 4RF ferrous sulfate 325 mg (65 mg iron) tablet 325 mg PO DAILY Qty: 30 0RF levothyroxine 125 mcg tablet 125 mcg PO DAILY Qty: 30 0RF hydroxyzine HCl 25 mg Tablet 25 mg PO Q6H PRN (Reason: mild anxiety) Qty: 15 0RF lisinopril 2.5 mg tablet 2.5 mg PO DAILY Qty: 30 0RF Discontinued olanzapine 10 mg Tablet 10 mg PO BEDTIME Qty: 30 0RF mirtazapine 7.5 mg Tablet 7.5 mg PO BEDTIME Qty: 30 0RF venlafaxine 150 mg capsule,extended release 24hr 150 mg PO DAILY Qty: 30 0RF norethindrone (contraceptive) 0.35 mg tablet 0.35 mg PO DAILY Discharge Orders: Discharge Order (Routine); Ordered 09/28/25 Ordered By: Kiersten Head Diet: Advance to usual diet Activity on Discharge: As tolerated Stand Alone Forms: Patient Portal Discharge page, Community Support Print Language: Luxembourger Care Plan Goals: Maintain mood and safe behaviors Take medications as prescribed Practice coping skills Continue with out patient providers and reach out to them as needed Health Concerns: Mood and behavioral stability Plan of Treatment: Follow up with your PCP, out patient psychiatric providers Take medications as prescribed Assessment: Pt is fully oriented and without SI/HI. Pt has insight and judgment and will continue treatment. Pt is not in imminent risk of harm to self or others and has a safety plan that includes presenting to the closest ER or calling 911 if feeling unsafe. Pt has been observed closely by nursing and unit staff throughout this admission Patient has not engaged in any behaviors that suggest dangerousness to self or others and has demonstrated appropriate behaviors and impulse control. Discharge Date/Time: 09/28/25 12:00
== END 2025-09-28 12:00 | disposition home or self-care (01) | DRG 753 ==
LOC: HO.ED 13:23 → HO.PM5 19:18
PROVIDERS: Physician Assistant; Admitting Provider Nurse Practitioner Psychiatric/Mental Health; Emergency Provider Emergency Medicine; PCP Internal Medicine; Visit Provider Clinical Nurse Specialist Psychiatric/Mental Health, Adult
DX: F31.9 Bipolar disorder, unspecified (principal); R45.851 Suicidal ideations; E03.9 Hypothyroidism, unspecified; I10 Essential (primary) hypertension; D50.9 Iron deficiency anemia, unspecified; F60.3 Borderline personality disorder; F41.1 Generalized anxiety disorder; R73.03 Prediabetes; Z91.52 Personal history of nonsuicidal self-harm; Z79.84 Long term (current) use of oral hypoglycemic drugs; Z79.890 Hormone replacement therapy; Z79.899 Other long term (current) drug therapy
CPT/HCPCS: 36415; 74018; 80053; 80061; 80307; 81001; 81003; 82140; 82565; 82947; 83036; 83735; 84439; 84443; 85025; 87086; 99285; S9485

== ENCOUNTER 2025-09-08 19:11 | Outpatient (BNV) | payer BC, SELFPAY | END 2025-09-21 14:14 | PROVIDERS: Admitting Provider Nurse Practitioner Psychiatric/Mental Health; Emergency Provider Emergency Medicine; PCP Internal Medicine; Visit Provider Radiology Diagnostic Radiology | DX: K59.00 Constipation, unspecified (principal) | CPT/HCPCS: 74018 ==

== ENCOUNTER → 2025-09-08 19:11 | Outpatient (BNV) | payer BC, SELFPAY | PROVIDERS: Admitting Provider Nurse Practitioner Psychiatric/Mental Health; Emergency Provider Emergency Medicine; PCP Internal Medicine; Visit Provider Nurse Practitioner Family | DX: E03.9 Hypothyroidism, unspecified (principal) | CPT/HCPCS: 99252 ==

== ENCOUNTER → 2025-09-08 19:11 | Outpatient (BNV) | payer BC, SELFPAY | PROVIDERS: Admitting Provider Nurse Practitioner Psychiatric/Mental Health; Emergency Provider Emergency Medicine; PCP Internal Medicine; Visit Provider Nurse Practitioner Psychiatric/Mental Health | DX: F32.A Depression, unspecified (principal); E03.9 Hypothyroidism, unspecified; R73.03 Prediabetes; F41.1 Generalized anxiety disorder | CPT/HCPCS: 90792 ==

== ENCOUNTER → 2025-10-06 15:45 | Outpatient (BNV) | payer BC, SELFPAY | PROVIDERS: Emergency Provider Emergency Medicine Emergency Medical Services; PCP Internal Medicine; Visit Provider Psychiatry & Neurology Psychiatry | DX: F31.9 Bipolar disorder, unspecified (principal) | CPT/HCPCS: 90792 ==

== ENCOUNTER → 2025-10-09 07:52 | Outpatient (BNV) | payer BC, SELFPAY | PROVIDERS: Admitting Provider Clinical Nurse Specialist Psychiatric/Mental Health, Adult; Emergency Provider Emergency Medicine Emergency Medical Services; PCP Internal Medicine; Visit Provider Internal Medicine Cardiovascular Disease | DX: Z13.6 Encounter for screening for cardiovascular disorders (principal) | CPT/HCPCS: 93010 ==

== ENCOUNTER → 2025-10-09 10:10 | Outpatient (BNV) | payer BC, SELFPAY | PROVIDERS: Admitting Provider Clinical Nurse Specialist Psychiatric/Mental Health, Adult; Emergency Provider Emergency Medicine Emergency Medical Services; PCP Internal Medicine; Visit Provider Psychiatry & Neurology Psychiatry | DX: F31.4 Bipolar disorder, current episode depressed, severe, without psychotic features (principal) | CPT/HCPCS: 99233 ==

== ENCOUNTER → 2025-10-09 10:10 | Outpatient (BNV) | payer BC, SELFPAY | PROVIDERS: Admitting Provider Clinical Nurse Specialist Psychiatric/Mental Health, Adult; Emergency Provider Emergency Medicine Emergency Medical Services; PCP Internal Medicine; Visit Provider Urology | DX: R33.9 Retention of urine, unspecified (principal) | CPT/HCPCS: 99252 ==

== ENCOUNTER → 2025-10-09 10:10 | Outpatient (BNV) | payer BC, SELFPAY | PROVIDERS: Admitting Provider Clinical Nurse Specialist Psychiatric/Mental Health, Adult; Emergency Provider Emergency Medicine Emergency Medical Services; PCP Internal Medicine; Visit Provider Nurse Practitioner Family | DX: E03.9 Hypothyroidism, unspecified (principal); I10 Essential (primary) hypertension | CPT/HCPCS: 99252 ==